=== PATIENT | male | born 1940 | race Caucasian/White ===

== ENCOUNTER 2020-07-10 20:00 | Outpatient (CLI) | payer OTHER, SELFPAY | END 2020-07-10 20:01 | disposition home or self-care (01) | LOC: SLEEP 07-11 09:04 | PROVIDERS: Visit Provider Family Medicine | DX: G47.33 Obstructive sleep apnea (adult) (pediatric) (principal) | CPT/HCPCS: 95810 ==

== ENCOUNTER 2020-12-25 15:30 | Emergency (ER) | payer OTHER, SELFPAY ==
[2020-12-25] VITALS (9 sets, daily range): BP systolic 105–134; BP diastolic 57–81; PULSE 62–85; RESP 18–39; TEMP 36.7–39.6; O2SAT 86–95; BMI 27.6
--- NOTE | 2020-12-25 16:15 | XRR_ITS ---
PROCEDURE INFORMATION: Exam: XR Chest Exam date and time: 12/25/2020 4:15 PM Age: 80 years old Clinical indication: Cough and fever and shortness of breath; Additional info: Fever, reduced breath sounds, cough TECHNIQUE: Imaging protocol: XR of the chest. Views: 1 view. COMPARISON: No relevant prior studies available. FINDINGS: Lungs: Coarsened increased reticular interstitial lung changes bilaterally. Patchy ground-glass opacities are present in the right upper lobe and to a lesser extent left lung base. Pleural spaces: Unremarkable. No pleural effusion. No pneumothorax. Heart/Mediastinum: Mild cardiomegaly. Bones/joints: Right shoulder reverse arthroplasty. Severe osteoarthritis of left shoulder. The thoracic spine demonstrates moderate degenerative changes at multiple levels. XR/XR chest 1V portable [id number] IMPRESSION: Suspect patchy bilateral nonspecific pneumonia features.
--- NOTE | 2020-12-25 16:20 | ECG_ITS ---
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 Measurements Intervals [place] Rate: 78 P: 5 [place]: 183 QRS: -22 QRSD: 97 T: 0 QT: 372 QTc: 424 Interpretive Statements SINUS RHYTHM BORDERLINE LEFT AXIS DEVIATION [QRS AXIS < -20] No previous ECG available for comparison Electronically Signed On 12-25-2020 22:07:31 CDT by Leigha Mendoza M.D. [email or web address] Coffee Companymerit health woman's hospitalClearMRI Solutionsmercy health st[facility].Vividolabs/store/NU/[id number] f
[2020-12-25 16:51] LABS: Basophils % 0.3 %; Hematocrit 44.6 % (42.0-52.0); Hemoglobin 15.3 g/dL (11.7-16.6); Lymphocytes # 0.6 10^3/uL (0.8-4.8); Lymphocytes % 5.3 %; Mean Corpuscular HGB Conc 34.3 g/dL (30.0-36.0); Mean Corpuscular Volume 87.5 fL (80-94); Mean Platelet Volume 11.1 fL (7.4-10.4); Monocytes # 0.9 10^3/uL (0.2-0.9); Monocytes % 8.2 %; Neutrophils # 9.67 10^3/uL (1.8-7.7); Neutrophils % 85.8 %; Nucleated Red Blood Cells % 0 %; Platelet Count 181 10^3/cmm (130-400); Red Cell Distribution Width 13.1 % (12.1-15.1); White Blood Count 11.3 10^3/uL (4.0-10.0)
--- NOTE | 2020-12-25 17:00 | PC.PHAR ---
PT STATES HE TAKES CARE OF HIS OWN MEDICATIONS-PT STATES HE TAKES ABOUT 30 OTC VITAMINS-PT NAMED OFF SOME AND THOSE ARE ENTERED-PT STATES HE CANT REMEMBER THE NAMES OF THE OTHER VITAMINS- CALLED PTS TO VERIFY OTHER OTC MEDS NO ANSWER-PT STATES HE HASNT TAKEN HIS TRIAMTERENE-HCTZ FOR A FEW DAYS
[2020-12-25 17:12] LABS: Troponin(5th) Baseline 22 ng/L (0-15)
[2020-12-25 17:16] LABS: Alanine Aminotransferase 35 U/L (0-41); Albumin Level 3.9 g/dL (3.5-5.2); Alkaline Phosphatase 58 IU/L (40-130); Anion Gap 15.3 (5-19); Aspartate Amino Transferase 55 U/L (0-40); Blood Urea Nitrogen 20 mg/dL (8-23); Carbon Dioxide 29 mmol/L (22-29); Chloride 93 mmol/L (98-107); Globulin 2.6 g/dL (1.3-4.6); Glucose 142 mg/dL (65-115); NT Pro B Type Natriuretic Pept 361 pg/mL (0-450); Osmolality Calculated 283 mOsm/kg (285-295); Potassium 3.3 mmol/L (3.5-5.1); Sodium 134 mmol/L (136-145); Total Bilirubin 0.9 mg/dL (0.15-1.2); Total Protein 6.5 g/dL (6.6-8.7)
[2020-12-25] MEDS: sodium chloride 0.9% 1,000 ML 999 ML IV (17:16)
[2020-12-25] MEDS: acetaminophen 500 mg Tablet 1000 MG PO (17:16)
[2020-12-25] MEDS: albuterol 8 gm MDI 2 PUFF INHALATION (17:28)
[2020-12-25 17:36] LABS: SARS Covid-2 Antigen Positive (Negative)
[2020-12-25 17:41] LABS: D Dimer 1.58 ug/mIFEU (0-0.59)
[2020-12-25 17:44] LABS: ABG PCO2 33.2 mmHg (35-45); ABG PH Result 7.53 (7.35-7.45); Arterial Blood Gas Hematocrit 43.7 % (42-52); Base Excess ABG 5.5 mmol/L (-2.0-2.0); Blood Gas Operator Identificat GD; Blood Gas Sample Site Brachial, left; Blood Gas Sample Type Arterial; HCO3 ABG 27.9 mmol/L (22-26); HGB O2 Sat 93.8 % (95-100); Methemoglobin 0.8 % (0.4-1.5); Oxygen Device NC; PO2 ABG 69.7 mmHg (80.0-100.0); Total Hemoglobin 14.2 g/dL (14-18)
[2020-12-25 17:45] LABS: Lactate (Lactic Acid level) 1.4 mmol/L (0.5-2.2)
--- NOTE | 2020-12-25 18:15 | CTR_ITS ---
PROCEDURE INFORMATION: Exam: CTA Chest With Contrast Exam date and time: 12/25/2020 6:15 PM Age: 80 years old Clinical indication: Cough and shortness of breath; Additional info: Covid+. Pe? TECHNIQUE: Imaging protocol: Computed tomographic angiography of the chest with contrast. 3D rendering (Not supervised by radiologist): MIP and/or 3D reconstructed images were created by the technologist. Radiation optimization: All CT scans at this facility use at least one of these dose optimization techniques: automated exposure control; mA and/or kV adjustment per patient size (includes targeted exams where dose is matched to clinical indication); or iterative reconstruction. Contrast material: OMNI 300; Contrast volume: 63 ml; Contrast route: INTRAVENOUS (IV); COMPARISON: CR XR chest 1V portable [id number] 12/25/2020 4:43 PM RADIATION DOSE METRICS: Total DLP (mGy-cm): 618.72 FINDINGS: Pulmonary arteries: Normal. No pulmonary emboli. Aorta: Unremarkable. No aortic aneurysm. No aortic dissection. Lungs: Patchy scattered irregular ground-glass lesions throughout both lungs, greater on right than left. Negative for endobronchial obstruction. Negative for peripheral honeycombing. Negative for bronchiectasis. Pleural spaces: Unremarkable. No pneumothorax. No pleural effusion. Heart: Unremarkable. No cardiomegaly. No pericardial effusion. Lymph nodes: Unremarkable. No enlarged lymph nodes. Liver: Small simple cysts in the left hepatic lobe. Bones/joints: Unremarkable. No acute fracture. Soft tissues: Unremarkable. CT/CT angio chest PE protcl [id number] IMPRESSION: 1. Negative for pulmonary embolism. 2. Patchy bilateral airspace disease process. 3. Commonly reported imaging features of COVID-19 pneumonia are present. Other processes such as influenza pneumonia and organizing pneumonia, as can be seen with drug toxicity and connective tissue disease, can cause a similar imaging pattern. (Reference: Jasvir) REFERENCES: Jasvir Vu, et al., Radiological Society of [place] Expert Consensus Statement on Reporting Chest CT Findings Related to COVID-19. Endorsed by the Society of Thoracic Radiology, the [place], and RSNA. Published August 25, 2019. Radiation Dose CTDIVOL = (mGy): DLP = 618.72 (mGy-cm)
--- NOTE | 2020-12-25 18:20 | ECG_ITS ---
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 Measurements Intervals [place] Rate: 67 P: 12 [place]: 174 QRS: -17 QRSD: 106 T: 3 QT: 422 QTc: 448 Interpretive Statements SINUS RHYTHM Compared to ECG 12/25/2020 17:28:55 No significant changes Electronically Signed On 12-25-2020 22:18:08 CDT by Leigha Mendoza M.D. [email or web address]/[id number]
[2020-12-25] MEDS: iohexol 350 mg/mL 100 mL Btl IV (18:27)
[2020-12-25] MEDS: levofloxacin-dextrose 5 % 750 MG/150 ML PREMIX 100 MG IV (18:38)
[2020-12-25 20:04] LABS: Troponin 5 2HR 19.28 ng/L (0-15)
[2020-12-25 20:08] LABS: Troponin 5 2HR Delta -2.72 ABS# (0-10)
[2020-12-25 20:36] LABS: Add Urine Culture? No; Add Urine Microscopic? YES; Amorphous Sediment Urine 1+ /hpf; Bacteria Urine TRACE /hpf; Bilirubin Urine 1+ (Negative); Blood Urine 2+ (Negative); Glucose Urine UA Norm (Normal); Ketones Urine Negative (Negative); Leukocyte Esterase Urine Negative (Negative); Nitrate Urine Negative (Negative); Protein Urine 1+ (Negative); RBC Urine 0-4 /hpf (0-2); Specific Gravity, Urine 1.005 (1.005-1.030); Squamous Epithelial Cell Urine 0-4 /hpf (0-5); Urine Appearance Clear (CLEAR); Urine Color Amber (Yellow); Urobilinogen Urine 4 mg/dL (Negative); pH Urine 6.5 (5-7)
--- NOTE | 2020-12-25 21:14 | ED_ITS ---
HPI - COVID General: Chief Complaint: COVID symptoms Stated Complaint: low o2, confusion, fatigue Time Seen by Provider: 12/25/20 16:05 Triage information: Has fever, cough or shortness of breath . No known COVID + exposure last 14 days History of Present Illness: HPI Narrative: The patient is an 80-year-old male with no significant past medical history who comes to the ER complaining of shortness of breath for the past 7 days. He just came back from a road trip and is feeling slightly worse. Notes he has had a low oxygen saturation at home in the 80s. [facility]. He is complaining of other Covid symptoms fatigue, mild confusion, and he has some darkness in the center of his visual riddle when he wakes up in the mornings. He has known history of macular degeneration. He has a fever of 101 on arrival satting 88% on room air. Placed on nasal cannula oxygen. COVID 19 common symptoms: negative non-productive cough, productive cough, dyspnea, fatigue, headache(s), throat pain, nasal congestion or diarrhea COVID 19 other sytmptoms: negative chest pain or confusion COVID Results: SARS-CoV-2 Antigen (Rapid) Positive (Negative) H 12/25/20 16:36 12/25/20 Review of Systems General: Reports: 10 or more systems reviewed and unremarkable except in HPI and below Const: Denies: fatigue Eyes: Denies: change in vision, blurry vision or eye redness ENMT: Denies: throat pain, swelling of lips/tongue, ear or mastoid pain or nasal congestion Card: Denies: chest pain, palpitations, irregular heart rhythm, edema, dyspnea on exertion or orthopnea Resp: Denies: dyspnea, productive cough or non-productive cough GI: Denies: abdominal pain, diarrhea or GI cramping : Denies: flank pain, urinary frequency or urinary urgency Musc: Denies: neck pain, back pain, extremity pain, joint pain, joint redness, limited range of motion or muscle weakness Skin/Breast: Denies: rash, pruritus, erythema, skin pain or skin tenderness Neuro: Denies: headache(s), numbness in extremities, weakness in extremities, sensory changes, difficulty walking, dizziness, confusion or Slurred speech present Psych: Denies: anxiety or depression Endo: Denies: polyuria All/Imm: Denies: urticaria, throat swelling or tongue swelling Physical Exam Narrative: EXAM NARRATIVE: Febrile otherwise normal. No respiratory distress. Const: COMMON NORMALS: no acute distress, average body habitus, patient oriented x3, no limitations, healthy appearing, alert and well nourished GENERAL APPEARANCE: cooperative, comfortable, well kempt and well developed ORIENTATION/CONSCIOUSNESS: Yes awake, Yes oriented to person, Yes oriented to place and Yes oriented to time HENMT: COMMON NORMALS: normocephalic, external ears normal and Normal external nose present HEAD & SCALP: normal to inspection and normocephalic NOSE: Normal external nose present EXTERNAL EAR: Yes external ears normal MOUTH: Normal oral and palatal mucosa present THROAT: posterior oropharynx normal Eye: COMMON NORMALS: Equal, round and reactive pupils present and EOMs intact bilaterally GENERAL EYE: appearance normal, both eyes and all related structures PUPIL: Yes Equal, round and reactive pupils present Neck/C-Spine: COMMON NORMALS: full ROM, no lymphadenopathy, no meningeal signs and no JVD GENERAL: Yes normal visual inspection Lymph: LYMPHATIC: no lymphadenopathy noted Chest: COMMONS NORMALS: normal inspection of the chest and normal palpation of entire chest wall Resp: COMMON NORMALS: normal respiratory effort, No retractions, No use of accessory muscles, clear to auscultation bilaterally and percussion normal EFFORT & INSPECTION: Yes able to speak in complete sentences AUSCULTATION: clear to auscultation bilaterally PERCUSSION: percussion normal OTHER: Slightly reduced breath sounds though no adventitious sounds Cardio: COMMON NORMALS: no JVD, regular rate, regular rhythm, S1 normal heart sound present, S2 normal heart sound present and Peripheral pulses 2+ throughout RATE: regular rate RHYTHM: regular rhythm HEART SOUNDS: S1 normal heart sound present and S2 normal heart sound present PERIPHERAL PULSES: Peripheral pulses 2+ throughout GI: COMMON NORMALS: Normal to inspection, nondistended, normoactive bowel sounds present, Soft to palpation, non-tender and no masses INSPECTION: Yes normal to inspection PALPATION: Yes Soft to palpation : COMMON NORMALS: Yes no CVA tenderness BLADDER/KIDNEY EXAM: Yes no CVA tenderness Back/Pelvis: COMMON NORMALS: no CVA tenderness, thoracic and lumbar spine normal to inspection, no thoracic nor lumbar tenderness and thoraco-lumbar ROM normal Extremity: COMMON NORMALS: normal to inspection, full ROM, capillary refill normal, no joint enlargement and no pedal edema GENERAL: Yes normal exam except as noted Neuro: COMMON NORMALS: patient oriented x3, CN's II-XII intact bilaterally, moves all extremities, no focal motor deficits, no sensory deficits noted and gait normal SENSORIUM/ORIENTATION: Yes alert, Yes oriented to person, Yes oriented to place and Yes oriented to time MENINGEAL SIGNS: Yes no meningeal signs Psych: COMMON NORMALS: mental status grossly normal, Normal thought process present, cooperative, normal affect and speech normal APPEARANCE: Yes well kempt ATTITUDE: Yes calm SPEECH: Yes normal speech THOUGHT PROCESS: Normal thought process present Skin: COMMON NORMALS: no rashes or lesions noted GENERAL SKIN EXAM: no rashes or lesions noted Course Vital Signs: Vital signs: Vital Signs Temperature 98.1 F 12/25/20 19:46 Pulse Rate 62 12/25/20 22:29 Respiratory Rate 18 12/25/20 22:29 Blood Pressure 132/81 12/25/20 22:29 Pulse Oximetry 95 12/25/20 22:29 MDM - COVID MDM Narrative: Medical decision making narrative: The patient came to the ER complaining of several days of shortness of breath satting 80s at home on a pulse oximeter. He swabbed positive for Covid. Imaging also showed changes consistent with Covid. His lung sounds were clear and he absolutely denies merlyn rtness of breath despite satting 88 to 89% on room air. He qualified for home oxygen and was sent home on 3 L by nasal cannula. He is having absolutely no difficulty breathing and is requesting discharge. Because he is requiring oxygen he does not qualify for antibiotic infusion. He has been comfortable in the ER 4 hours on 2 to 3 L of oxygen and is stable for discharge home. He will return to the ER with worsening symptoms at any time and monitor his oxygen with a pulse oximeter. He was sent home with prednisone, albuterol, and levofloxacin. Lab Data: Labs: Lab Results 12/25/20 12/25/20 12/25/20 Range/Units 16:36 16:39 16:39 WBC 11.3 H (4.0-10.0) 10^3/ uL RBC 5.10 (4.1-5.3) 10^6/u L Hgb 15.3 (11.7-16.6) g/dL Hct 44.6 (42.0-52.0) % MCV 87.5 (80-94) fL MCH 30.0 (28.0-34.0) pg MCHC 34.3 (30.0-36.0) g/dL RDW 13.1 (12.1-15.1) % Plt Count 181 (130-400) 10^3/c mm MPV 11.1 H (7.4-10.4) fL Neut % (Auto) 85.8 % Lymph % (Auto) 5.3 % Hemphill % (Auto) 8.2 % Eos % (Auto) 0.0 % Baso % (Auto) 0.3 % Neut # (Auto) 9.67 H (1.8-7.7) 10^3/u L Lymph # (Auto) 0.6 L (0.8-4.8) 10^3/u L Hemphill # (Auto) 0.9 (0.2-0.9) 10^3/u L Eos # (Auto) 0.0 (0.0-0.8) 10^3/u L Baso # (Auto) 0.0 (0.0-0.1) 10^3/u L Nucleated RBC % (a uto) 0 % Nucleated RBCs # 0.0 /100WBC D-Dimer (0-0.59) ug/mIFE U Specimen Type Sample Site ABG pH (7.35-7.45) ABG pCO2 (35-45) mmHg ABG pO2 (80.0-100.0) mmH g ABG HCO3 (22-26) mmol/L ABG Base Excess (-2.0-2.0) mmol/ L Oswaldo Test Hematocrit (42-52) % Hgb O2 Saturation (95-100) % Carboxyhemoglobin (0.4-20.1) %THgb Methemoglobin (0.4-1.5) % Total Hemoglobin (14-18) g/dL O2 Delivery Device O2 Liters/Min % FiO2 % Greenhouse Worker ID Sodium 134 L (136-145) mmol/L Potassium 3.3 L (3.5-5.1) mmol/L Chloride 93 L (98-107) mmol/L Carbon Dioxide 29 (22-29) mmol/L Anion Gap 15.3 (5-19) BUN 20 (8-23) mg/dL Creatinine 1.1 (0.7-1.2) mg/dL GFR Calculation Not Reportable Glucose 142 H (65-115) mg/dL Calculated Osmolal ity 283 L (285-295) mOsm/k g Lactate (0.5-2.2) mmol/L Calcium 8.0 L (8.5-10.5) mg/dL Total Bilirubin 0.9 (0.15-1.2) mg/dL AST 55 H (0-40) U/L ALT 35 (0-41) U/L Alkaline Phosphata se 58 (40-130) IU/L Troponin T Baselin e (0-15) ng/L Troponin T 120 Min [place] (0-15) ng/L Delta Troponin T (0-10) ABS# NT-Pro-B Natriuret Pep 361 (0-450) pg/mL Total Protein 6.5 L (6.6-8.7) g/dL Albumin 3.9 (3.5-5.2) g/dL Globulin 2.6 (1.3-4.6) g/dL Urine Color (Yellow) Urine Appearance (CLEAR) Urine pH (5-7) Ur Specific Gravit y (1.005-1.030) Urine Protein (Negative) Urine Glucose (UA) (Normal) Urine Ketones (Negative) Urine Blood (Negative) Urine Nitrate (Negative) Urine Bilirubin (Negative) Urine Urobilinogen (Negative) mg/dL Ur Leukocyte Yolette ase (Negative) Urine RBC (0-2) /hpf Urine WBC (0-5) /hpf Ur Squamous Epith Cells (0-5) /hpf Amorphous Sediment /hpf Urine Bacteria (NONE) /hpf SARS-CoV-2 Ag (Rap id) Positive H (Negative) 12/25/20 12/25/20 12/25/20 Range/Units 16:39 17:24 17:24 WBC (4.0-10.0) 10^3/ uL RBC (4.1-5.3) 10^6/u L Hgb (11.7-16.6) g/dL Hct (42.0-52.0) % MCV (80-94) fL MCH (28.0-34.0) pg MCHC (30.0-36.0) g/dL RDW (12.1-15.1) % Plt Count (130-400) 10^3/c mm MPV (7.4-10.4) fL Neut % (Auto) % Lymph % (Auto) % [place] % (Auto) % Eos % (Auto) % Baso % (Auto) % Neut # (Auto) (1.8-7.7) 10^3/u L Lymph # (Auto) (0.8-4.8) 10^3/u L [place] # (Auto) (0.2-0.9) 10^3/u L Eos # (Auto) (0.0-0.8) 10^3/u L Baso # (Auto) (0.0-0.1) 10^3/u L Nucleated RBC % (a uto) % Nucleated RBCs # /100WBC D-Dimer 1.58 H (0-0.59) ug/mIFE U Specimen Type Sample Site ABG pH (7.35-7.45) ABG pCO2 (35-45) mmHg ABG pO2 (80.0-100.0) mmH g ABG HCO3 (22-26) mmol/L ABG Base Excess (-2.0-2.0) mmol/ L Oswaldo Test Hematocrit (42-52) % Hgb O2 Saturation (95-100) % Carboxyhemoglobin (0.4-20.1) %THgb Methemoglobin (0.4-1.5) % Total Hemoglobin (14-18) g/dL O2 Delivery Device O2 Liters/Min % FiO2 % Greenhouse Worker ID Sodium (136-145) mmol/L Potassium (3.5-5.1) mmol/L Chloride (98-107) mmol/L Carbon Dioxide (22-29) mmol/L Anion Gap (5-19) BUN (8-23) mg/dL Creatinine (0.7-1.2) mg/dL GFR Calculation Glucose (65-115) mg/dL Calculated Osmolal ity (285-295) mOsm/k g Lactate 1.4 (0.5-2.2) mmol/L Calcium (8.5-10.5) mg/dL Total Bilirubin (0.15-1.2) mg/dL AST (0-40) U/L ALT (0-41) U/L Alkaline Phosphata se (40-130) IU/L Troponin T Baselin e 22 H (0-15) ng/L Troponin T 120 Min [place] (0-15) ng/L Delta Troponin T (0-10) ABS# NT-Pro-B Natriuret Pep (0-450) pg/mL Total Protein (6.6-8.7) g/dL Albumin (3.5-5.2) g/dL Globulin (1.3-4.6) g/dL Urine Color (Yellow) Urine Appearance (CLEAR) Urine pH (5-7) Ur Specific Gravit y (1.005-1.030) Urine Protein (Negative) Urine Glucose (UA) (Normal) Urine Ketones (Negative) Urine Blood (Negative) Urine Nitrate (Negative) Urine Bilirubin (Negative) Urine Urobilinogen (Negative) mg/dL Ur Leukocyte Yolette ase (Negative) Urine RBC (0-2) /hpf Urine WBC (0-5) /hpf Ur Squamous Epith Cells (0-5) /hpf Amorphous Sediment /hpf Urine Bacteria (NONE) /hpf SARS-CoV-2 Ag (Rap id) (Negative) 12/25/20 12/25/20 12/25/20 Range/Units 17:28 19:22 20:22 WBC (4.0-10.0) 10^3/ uL RBC (4.1-5.3) 10^6/u L Hgb (11.7-16.6) g/dL Hct (42.0-52.0) % MCV (80-94) fL MCH (28.0-34.0) pg MCHC (30.0-36.0) g/dL RDW (12.1-15.1) % Plt Count (130-400) 10^3/c mm MPV (7.4-10.4) fL Neut % (Auto) % Lymph % (Auto) % [place] % (Auto) % Eos % (Auto) % Baso % (Auto) % Neut # (Auto) (1.8-7.7) 10^3/u L Lymph # (Auto) (0.8-4.8) 10^3/u L [place] # (Auto) (0.2-0.9) 10^3/u L Eos # (Auto) (0.0-0.8) 10^3/u L Baso # (Auto) (0.0-0.1) 10^3/u L Nucleated RBC % (a uto) % Nucleated RBCs # /100WBC D-Dimer (0-0.59) ug/mIFE U Specimen Type Arterial Sample Site Brachial, left ABG pH 7.53 H (7.35-7.45) ABG pCO2 33.2 L (35-45) mmHg ABG pO2 69.7 L (80.0-100.0) mmH g ABG HCO3 27.9 H (22-26) mmol/L ABG Base Excess 5.5 H (-2.0-2.0) mmol/ L Oswaldo Test N/a Hematocrit 43.7 (42-52) % Hgb O2 Saturation 93.8 L (95-100) % Carboxyhemoglobin 1.0 (0.4-20.1) %THgb Methemoglobin 0.8 (0.4-1.5) % Total Hemoglobin 14.2 (14-18) g/dL O2 Delivery Device Nc O2 Liters/Min 2.0 % FiO2 28.0 % Greenhouse Worker ID Gd Sodium (136-145) mmol/L Potassium (3.5-5.1) mmol/L Chloride (98-107) mmol/L Carbon Dioxide (22-29) mmol/L Anion Gap (5-19) BUN (8-23) mg/dL Creatinine (0.7-1.2) mg/dL GFR Calculation Glucose (65-115) mg/dL Calculated Osmolal ity (285-295) mOsm/k g Lactate (0.5-2.2) mmol/L Calcium (8.5-10.5) mg/dL Total Bilirubin (0.15-1.2) mg/dL AST (0-40) U/L ALT (0-41) U/L Alkaline Phosphata se (40-130) IU/L Troponin T Baselin e (0-15) ng/L Troponin T 120 Min [place] 19.28 H (0-15) ng/L Delta Troponin T -2.72 L (0-10) ABS# NT-Pro-B Natriuret Pep (0-450) pg/mL Total Protein (6.6-8.7) g/dL Albumin (3.5-5.2) g/dL Globulin (1.3-4.6) g/dL Urine Color Maryana (Yellow) Urine Appearance Clear (CLEAR) Urine pH 6.5 (5-7) Ur Specific Gravit y 1.005 (1.005-1.030) Urine Protein 1+ H (Negative) Urine Glucose (UA) Norm (Normal) Urine Ketones Negative (Negative) Urine Blood 2+ H (Negative) Urine Nitrate Negative (Negative) Urine Bilirubin 1+ H (Negative) Urine Urobilinogen 4 H (Negative) mg/dL Ur Leukocyte Yolette ase Negative (Negative) Urine RBC 0-4 H (0-2) /hpf Urine WBC 5-10 H (0-5) /hpf Ur Squamous Epith Cells 0-4 H (0-5) /hpf Amorphous Sediment 1+ /hpf Urine Bacteria Trace (NONE) /hpf SARS-CoV-2 Ag (Rap id) (Negative) COVID Results: SARS-CoV-2 Antigen (Rapid) Positive (Negative) H 12/25/20 16:36 12/25/20 Discharge Plan Discharge Patient Disposition: Home Clinical Impression: COVID-19 Condition: Stable Prescriptions: New levofloxacin 750 mg tablet 750 mg PO DAILY 10 Days Qty: 10 RF: 0 Medrol (Ramana) 4 mg tablets,dose pack See Rx Instructions .ROUTE .COMPLEX Qty: 21 RF: 0 albuterol sulfate 90 mcg/actuation HFA aerosol inhaler 2 inh inhalation Q6H PRN (Reason: shortness of breath or wheezing) 30 Days RF: 0 No Action multivitamin Tablet 1 tab PO DAILY RF: 0 triamterene-hydrochlorothiazid 75-50 mg Tablet 1 tab PO DAILY RF: 0 vitamin B complex Tablet 1 tab PO DAILY RF: 0 Vitamin B-12 1 tab PO DAILY RF: 0 Vitamin C 1 tab PO DAILY RF: 0 Vitamin D3 1 tab PO DAILY RF: 0 vitamin A 1 cap PO DAILY RF: 0 vitamin E 1 tab PO DAILY RF: 0 Other Multiple Otc Vitamins See Rx Instructions .ROUTE .COMPLEX RF: 0 Discharge Orders: Discharge ED (Routine); Ordered 12/25/20 Ordered By: Lamont Queen Other Ambulatory Orders: DME: Oxygen (Order) Location: None Selected Ordered By: Lamont Queen Discharge Diet: Advance as tolerated Discharge Activity: Resume usual activity Patient Instructions: Upper Respiratory Infection (ED), Opioid Safety, Pneumonia - Viral Activity Restrictions/Additional Instructions: You have COVID-19 with pneumonia. Please take the antibiotics, steroids, and albuterol inhaler to help you with your symptoms. Return to the ER at anytime with worsening symptoms. Follow-up with your primary care physician in a couple days and return to the ER at anytime with worsening symptoms. Please use a pulse oximeter at home to monitor your oxygen level and wear the 3 L oxygen and nasal cannula until you are symptoms have resolved. If your oxygen dips below 90 or you feel short of breath or have any worrisome or worsening symptoms return to the ER at any time. Coding Level of Care Code ED Clinical Dermatologist for Susy Yi
[2020-12-25] MEDS: dexamethasone 4 mg/mL INJ 6 MG IVP (21:18)
--- NOTE | 2020-12-26 10:49 | DCPLANNER ---
valet manager had message to schedule a tele health visit for patient. valet manager called patient at phone number [phone], unable to speak with patient at this time. valet manager left a voicemail for patient to return geriatric case manager phone call.
== END 2020-12-25 22:30 | disposition home or self-care (01) ==
PROVIDERS: Emergency Provider Family Medicine
DX: U07.1 COVID-19 (principal)
CPT/HCPCS: 36600; 71045; 71275; 80053; 81001; 82805; 83605; 83880; 84484; 85025; 85378; 87426; 93005; 94640; 96365; 96375; 99284; J1100; J1956; J3535; J7030; Q9967

== ENCOUNTER 2020-12-28 18:40 | Inpatient (IN) | payer OTHER, MEDICARE, SELFPAY ==
--- NOTE | 2020-12-28 18:52 | XRR_ITS ---
PROCEDURE INFORMATION: Exam: XR Chest Exam date and time: 12/28/2020 6:52 PM Age: 80 years old Clinical indication: Device placement; Ett placement (vent status); Patient HX: Et tube placement and central line placement; Additional info: Intubated TECHNIQUE: Imaging protocol: XR of the chest. Views: 1 view. COMPARISON: CR XR chest 1V portable [id number] 12/25/2020 4:43 PM FINDINGS: The lung opacities have mildly worsened in the left lung and slightly improved in the right lung. An ETT has been placed terminating 5 cm above the kristofer. A right IJ central venous catheter has also been inserted with its tip in the SVC. No other significant change. No pneumothorax. XR/XR chest 1V portable [id number] IMPRESSION: 1. Mild worsening of the left lung opacities and slight improvement of the right lung opacities. 2. Interval insertions of an ETT and a right IJ central venous catheter. No pneumothorax.
--- NOTE | 2020-12-28 18:54 | ECG_ITS ---
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 Measurements Intervals [place] Rate: 109 P: 166 GA: 224 QRS: 72 QRSD: 218 T: 60 QT: 376 QTc: 507 Interpretive Statements ECTOPIC ATRIAL TACHYCARDIA WITH FIRST DEGREE AV BLOCK RIGHT BUNDLE BRANCH BLOCK MARKED ST ELEVATION, CONSIDER LATERAL INJURY Compared to ECG 12/25/2020 19:05:23 First degree AV block now present Right bundle-branch block now present ST (T wave) deviation now present Myocardial infarct finding now present Sinus rhythm no longer present Electronically Signed On 01-01-2021 0:21:52 CDT by Leigha Mendoza M.D. [id number]
[2020-12-28] MEDS: sodium chloride 0.9% 1,000 ML 999 ML IV (19:00)
--- NOTE | 2020-12-28 19:12 | ED_ITS ---
HPI - General Adult General: Chief complaint: COVID symptoms Stated complaint: PT PASSED OUT/UNREPONSIVE Time Seen by Provider: 12/28/20 18:50 History of Present Illness: HPI narrative: Mr. Chavez presented via private vehicle unresponsive. He was diagnosed with Covid on December 25. He was short of breath and had a cough and his had a pulse oximeter in which she noted his saturations were in the 80s at that time. He had been at a camp in in [place] prior to that. He nor his are vaccinated. He had been weak the last few days. He is normally on CPAP and was not able to wear the CPAP with oxygen on. [facility] to get [facility] without success. Today he was not as good as he had been and at one point he looked pretty bad. His checks his pulse oximetry and it was in the 70s on oxygen therapy. She turned the oxygen up but he continued to be short of breath. She got him to the car home saw herself and brought him into the ER. When she transferred him from the car to the wheelchair he passed out. She quickly wheeled him into the ER for evaluation. Patient arrived he had was unresponsive. When he is well in the room patient was pulseless and pulse ox was in the 50s. Review of Systems General: Reports: ROS unobtainable due to mental status Physical Exam Const: COMMON NORMALS: negative for patient oriented x3 OTHER: Unresponsive and pulseless HENMT: COMMON NORMALS: normocephalic and atraumatic HEAD & SCALP: normocephalic and atraumatic Eye: COMMON NORMALS: Equal, round and reactive pupils present and EOMs intact bilaterally PUPIL: Yes Equal, round and reactive pupils present Neck/C-Spine: COMMON NORMALS: full ROM and supple Chest: COMMONS NORMALS: normal inspection of the chest and normal palpation of entire chest wall Resp: OTHER: Patient is currently unresponsive and not breathing pulse ox 50% Cardio: OTHER: Patient is pulseless GI: COMMON NORMALS: Normal to inspection, nondistended, normoactive bowel sounds present, Soft to palpation, non-tender and no masses PALPATION: Yes Soft to palpation Extremity: COMMON NORMALS: normal to inspection and full ROM Neuro: COMMON NORMALS: negative for patient oriented x3, negative for moves all extremities and negative for no focal motor deficits Psych: COMMON NORMALS: cooperative; negative for mental status grossly normal and negative for Normal thought process present THOUGHT PROCESS: abnormal Skin: COMMON NORMALS: no rashes or lesions noted and no wounds GENERAL SKIN EXAM: no rashes or lesions noted Procedures Central Line Placement Right IJ: Time Out Performed: Yes Patient Placed on Monitor/Pulse Ox: Yes MD Prep: mask, gown and gloves Central Line Prep: Povidone-Iodine 1% Ultrasound Used for Placement: Yes Central Line Lumen Inserted: triple Post Procedure: sutured in place, good blood return, all ports aspirated, flushed, capped and sterile dressing applied Post Procedure X-Ray: tip of catheter in good position Patient Tolerated Procedure: well Complications: none Intubation Time out performed: Yes sedative: none Laryngoscope: Ana ET Tube Size: 8 ET Tube Uncuffed: No Tube Secured Depth (cm): 26 Tube Secured Location: lips Tube Placement Confirmation: visualized tube passing through cords, equal breath sounds bilaterally, no breath sounds over epigastrium and confirmation by capnometry Patient Tolerated Procedure: well Intubation Complications: none Course ED course: Prior patient initially arrived CODE BLUE was a started. And abated patient patient was given epinephrine did have return of pulses then went to V. tach with pulses. Patient was shocked twice at 200 J and given 300 mg of amiodarone 100 mg lidocaine and converted into a sinus rhythm. Central line was placed as well. Patient's pulse ox is now 95% patient's blood pressure has normalized. Vital Signs: Vital signs: Vital Signs Pulse Rate 123 H 12/28/20 19:33 Respiratory Rate 30 H 12/28/20 19:33 Blood Pressure 159/92 12/28/20 19:33 Pulse Oximetry 45 L 12/28/20 19:34 MDM - General Adult MDM Narrative: Medical decision making narrative: Patient presented here unresponsive hypoxic and then went to arrest that was cardiac versus likely respiratory arrest. Patient given epinephrine and had return of pulses but went to V. tach and was cardioverted with 2 shocks along with amiodarone and lidocaine. Patient's improved here. His blood pressure has dropped slightly could be due to propofol and will turn propofol off and started Levophed drip. Patient does have a central line as well. I spoke to the hospitalist and will admit to the ICU here. Lab Data: Labs: Lab Results 0712/28/20 12/28/20 Range/Units 19:00 19:11 19:11 WBC 31.1 H* (4.0-10.0) 10^3/ uL RBC 4.48 (4.1-5.3) 10^6/u L Hgb 13.4 (11.7-16.6) g/dL Hct 41.9 L (42.0-52.0) % MCV 93.5 (80-94) fL MCH 29.9 (28.0-34.0) pg MCHC 32.0 (30.0-36.0) g/dL RDW 13.7 (12.1-15.1) % Plt Count 287 (130-400) 10^3/c mm MPV 10.8 H (7.4-10.4) fL Lymph % (Auto) Not Reportable [place] % (Auto) Not Reportable Lymph # (Auto) Not Reportable [place] # (Auto) Not Reportable Total Counted 100 (0-100) Atypical Lymphs % 0.0 (0-5) % Absolute Neutrophi ls 27.4 H (1.4-6.5) 10^3/c mm Segmented Neutroph ils 78 % Abs Segm Neuts (Ma n) 24.3 H (1.6-7.1) 10/cmm Band Neutrophils 10.0 % Abs Band Neuts (Ma n) 3.1 H (0.0-1.2) 10^3/c mm Absolute Lymphocyt es 2.2 (1.2-3.4) 10^3/c mm Lymphocytes (Manua l) 7 % Monocytes (Manual) 0.0 % Absolute Monocytes 0.0 L (0.1-0.6) 10^3/c mm Eosinophils (Manua l) 0 % Absolute Eosinophi ls 0.0 (0.0-0.7) 10^3/c mm Basophils (Manual) 0.0 % Absolute Basophils 0.0 (0.0-0.2) 10^3/c mm Metamyelocytes 4.0 % Myelocytes 1.0 % Platelet Estimate Normal (Normal) Specimen Type Arterial ABG pH 7.05 L* (7.35-7.45) ABG pCO2 44.5 (35-45) mmHg ABG pO2 157.0 H (80.0-100.0) mmH g ABG HCO3 12.2 L (22-26) mmol/L ABG O2 Saturation 97.4 ABG Base Excess -18.0 L (-2.0-2.0) mmol/ L Oswaldo Test Pos A-a O2 Gradient Not Reportable Hematocrit 45.2 (42-52) % Hgb O2 Saturation 96.5 (95-100) % Carboxyhemoglobin 0.3 L (0.4-20.1) %THgb Methemoglobin 0.6 (0.4-1.5) % Total Hemoglobin 14.8 (14-18) g/dL Sodium 136.0 135 L (131-143) mmol/L Potassium 3.7 3.1 L (3.5-5.0) mmol/L Glucose 284.0 H 266 H (70-115) mg/dL Ionized Calcium 1.1 (1.1-1.4) mmol/L Director Inpatient Headache Program ID rp Chloride 92 L (98-107) mmol/L Carbon Dioxide 11 L (22-29) mmol/L Anion Gap 35.1 H (5-19) BUN 23 (8-23) mg/dL Creatinine 1.5 H (0.7-1.2) mg/dL GFR Calculation Not Reportable Calculated Osmolal ity 293 (285-295) mOsm/k g Lactic Acid (0.5-2.2) mmol/L Calcium 7.7 L (8.5-10.5) mg/dL Total Bilirubin 0.7 (0.15-1.2) mg/dL ALT 53 H (0-41) U/L Alkaline Phosphata se 84 (40-130) IU/L Creatine Kinase 152 (39-308) U/L Troponin T Baselin e (0-15) ng/L C-Reactive Protein 191.2 H (0.0-4.9) mg/L Total Protein 5.6 L (6.6-8.7) g/dL Albumin 2.6 L (3.5-5.2) g/dL Globulin 3.0 (1.3-4.6) g/dL Urine Color (Yellow) Urine Appearance (CLEAR) Urine pH (5-7) Ur Specific Gravit y (1.005-1.030) Urine Protein (Negative) Urine Glucose (UA) (Normal) Urine Ketones (Negative) Urine Blood (Negative) Urine Nitrate (Negative) Urine Bilirubin (Negative) Urine Urobilinogen (Negative) mg/dL Ur Leukocyte Yo[place] ase (Negative) Urine RBC (0-2) /hpf Urine WBC (0-5) /hpf Ur Squamous Epith Cells (0-5) /hpf Ur Transition Epit h Cell /hpf Amorphous Sediment /hpf Urine Bacteria (NONE) /hpf Urine Mucus /hpf 12/28/20 12/28/20 12/28/20 Range/Units 19:11 19:11 19:30 WBC (4.0-10.0) 10^3/ uL RBC (4.1-5.3) 10^6/u L Hgb (11.7-16.6) g/dL Hct (42.0-52.0) % MCV (80-94) fL MCH (28.0-34.0) pg MCHC (30.0-36.0) g/dL RDW (12.1-15.1) % Plt Count (130-400) 10^3/c mm MPV (7.4-10.4) fL Lymph % (Auto) [place] % (Auto) Lymph # (Auto) [place] # (Auto) Total Counted (0-100) Atypical Lymphs % (0-5) % Absolute Neutrophi ls (1.4-6.5) 10^3/c mm Segmented Neutroph ils % Abs Segm Neuts (Ma n) (1.6-7.1) 10/cmm Band Neutrophils % Abs Band Neuts (Ma n) (0.0-1.2) 10^3/c mm Absolute Lymphocyt es (1.2-3.4) 10^3/c mm Lymphocytes (Manua l) % Monocytes (Manual) % Absolute Monocytes (0.1-0.6) 10^3/c mm Eosinophils (Manua l) % Absolute Eosinophi ls (0.0-0.7) 10^3/c mm Basophils (Manual) % Absolute Basophils (0.0-0.2) 10^3/c mm Metamyelocytes % Myelocytes % Platelet Estimate (Normal) Specimen Type ABG pH (7.35-7.45) ABG pCO2 (35-45) mmHg ABG pO2 (80.0-100.0) mmH g ABG HCO3 (22-26) mmol/L ABG O2 Saturation ABG Base Excess (-2.0-2.0) mmol/ L Oswaldo Test A-a O2 Gradient Hematocrit (42-52) % Hgb O2 Saturation (95-100) % Carboxyhemoglobin (0.4-20.1) %THgb Methemoglobin (0.4-1.5) % Total Hemoglobin (14-18) g/dL Sodium (131-143) mmol/L Potassium (3.5-5.0) mmol/L Glucose (70-115) mg/dL Ionized Calcium (1.1-1.4) mmol/L Director Inpatient Headache Program ID Chloride (98-107) mmol/L Carbon Dioxide (22-29) mmol/L Anion Gap (5-19) BUN (8-23) mg/dL Creatinine (0.7-1.2) mg/dL GFR Calculation Calculated Osmolal ity (285-295) mOsm/k g Lactic Acid 15.1 H* (0.5-2.2) mmol/L Calcium (8.5-10.5) mg/dL Total Bilirubin (0.15-1.2) mg/dL ALT (0-41) U/L Alkaline Phosphata se (40-130) IU/L Creatine Kinase (39-308) U/L Troponin T Baselin e 99 H (0-15) ng/L C-Reactive Protein (0.0-4.9) mg/L Total Protein (6.6-8.7) g/dL Albumin (3.5-5.2) g/dL Globulin (1.3-4.6) g/dL Urine Color Yellow (Yellow) Urine Appearance Clear (CLEAR) Urine pH 5 (5-7) Ur Specific Gravit y 1.010 (1.005-1.030) Urine Protein 1+ H (Negative) Urine Glucose (UA) Norm (Normal) Urine Ketones 1+ H (Negative) Urine Blood 2+ H (Negative) Urine Nitrate Negative (Negative) Urine Bilirubin Neg (Negative) Urine Urobilinogen Norm (Negative) mg/dL Ur Leukocyte Yo[place] ase Negative (Negative) Urine RBC 0-4 H (0-2) /hpf Urine WBC 0-4 H (0-5) /hpf Ur Squamous Epith Cells 0-4 H (0-5) /hpf Ur Transition Epit h Cell 0-4 /hpf Amorphous Sediment 3+ /hpf Urine Bacteria 1+ H (NONE) /hpf Urine Mucus Trace /hpf Imaging Data^: CXR: Radiologist's impression: [employer] [place] [address] XRay Report Signed Patient: Adin Chavez Unit #: [id number] : 1940 Age/Sex: 80 / M ADM Date: 12/28/20 Loc: ER Room/Bed: Attending Dr: Ordering Provider/Ordering MD: Lamont Queen MD Date of Service: 12/28/20 Procedure(s): XR chest 1V portable [id number] Accession Number(s): [id number] Report Number: [id number] PROCEDURE INFORMATION: Exam: XR Chest Exam date and time: 12/28/2020 6:52 PM Age: 80 years old Clinical indication: Device placement; Ett placement (vent status); Patient HX: Et tube placement and central line placement; Additional info: Intubated TECHNIQUE: Imaging protocol: XR of the chest. Views: 1 view. COMPARISON: CR XR chest 1V portable [id number] 12/25/2020 4:43 PM FINDINGS: The lung opacities have mildly worsened in the left lung and slightly improved in the right lung. An ETT has been placed terminating 5 cm above the kristofer. A right IJ central venous catheter has also been inserted with its tip in the SVC. No other significant change. No pneumothorax. XR/XR chest 1V portable [id number] IMPRESSION: 1. Mild worsening of the left lung opacities and slight improvement of the right lung opacities. 2. Interval insertions of an ETT and a right IJ central venous catheter. No pneumothorax. Dictated By: Benny Juárez MD Signed By: Benny Juárez MD Signed Date/Time: 12/28/202003 DD/ 01 Critical Care Time Critical Care Time: Critical Care Time: Yes Total Critical Care Time: 70 Attestation: This case had a high probability of a clinically significant, sudden, or life threatening deterioration of this patient's condition which required my full and direct attention, intervention and personal management. Discharge Plan Discharge Patient Disposition: Admitted As Inpatient Clinical Impression: COVID-19, Cardiac arrest Condition: Stable Coding Level of Care Code ED Protocol Manager for Chg Fwd Exam Comprehensive
[2020-12-28] MEDS: propofol 1,000 MG/100 ML INJ 11.98 MG IV (19:15)
[2020-12-28 19:20] VITALS: RESP 26
[2020-12-28 19:22] LABS: Hematocrit 41.9 % (42.0-52.0); Hemoglobin 13.4 g/dL (11.7-16.6); Mean Corpuscular Hemoglobin 29.9 pg (28.0-34.0); Mean Corpuscular Volume 93.5 fL (80-94); Mean Platelet Volume 10.8 fL (7.4-10.4); Platelet Count 287 10^3/cmm (130-400); Red Blood Count 4.48 10^6/uL (4.1-5.3); Red Cell Distribution Width 13.7 % (12.1-15.1)
[2020-12-28 19:24] VITALS: BP 141/84; PULSE 121; RESP 22; O2SAT 98; BMI 33.4
[2020-12-28 19:33] VITALS: BP 159/92; PULSE 123; RESP 30; O2SAT 96
[2020-12-28 19:34] VITALS: O2SAT 45
[2020-12-28 19:47] LABS: ABG PCO2 44.5 mmHg (35-45); Arterial Blood Gas Hematocrit 45.2 % (42-52); Blood Gas Allen Test Pos; Blood Gas Sample Type Arterial; Carboxyhemoglobin 0.3 %THgb (0.4-20.1); HCO3 ABG 12.2 mmol/L (22-26); HGB O2 Sat 96.5 % (95-100); Ionized Calcium Level - ABG 1.1 mmol/L (1.1-1.4); Methemoglobin 0.6 % (0.4-1.5); Oxygen Saturation ABG 97.4; Potassium Level - ABG 3.7 mmol/L (3.5-5.0); Total Hemoglobin 14.8 g/dL (14-18)
[2020-12-28 19:48] LABS: ABG PH Result 7.05 (7.35-7.45)
[2020-12-28 19:49] LABS: Alanine Aminotransferase 53 U/L (0-41); Albumin Level 2.6 g/dL (3.5-5.2); Alkaline Phosphatase 84 IU/L (40-130); Blood Urea Nitrogen 23 mg/dL (8-23); C Reactive Protein 191.2 mg/L (0.0-4.9); Calcium 7.7 mg/dL (8.5-10.5); Carbon Dioxide 11 mmol/L (22-29); Chloride 92 mmol/L (98-107); Creatine Phosphokinase 152 U/L (39-308); Glucose 266 mg/dL (65-115); Osmolality Calculated 293 mOsm/kg (285-295); Sodium 135 mmol/L (136-145); Total Bilirubin 0.7 mg/dL (0.15-1.2); Total Protein 5.6 g/dL (6.6-8.7)
[2020-12-28 19:53] LABS: Anion Gap 35.1 (5-19); Potassium 3.1 mmol/L (3.5-5.1)
[2020-12-28 19:57] LABS: Lactic Sepsis W/Reflex 15.1 mmol/L (0.5-2.2)
[2020-12-28 20:02] LABS: Add Urine Microscopic? YES; Bilirubin Urine Neg (Negative); Blood Urine 2+ (Negative); Glucose Urine UA Norm (Normal); Ketones Urine 1+ (Negative); Leukocyte Esterase Urine Negative (Negative); Nitrate Urine Negative (Negative); Protein Urine 1+ (Negative); Urine Appearance Clear (CLEAR); Urine Color Yellow (Yellow); Urobilinogen Urine Norm (Negative); pH Urine 5 (5-7)
[2020-12-28 20:03] LABS: Add Urine Culture? No; Amorphous Sediment Urine 3+ /hpf; Bacteria Urine 1+ /hpf; Mucus Urine TRACE /hpf; RBC Urine 0-4 /hpf (0-2); Squamous Epithelial Cell Urine 0-4 /hpf (0-5); Transitional Epi Cells Urine 0-4 /hpf; WBC Urine 0-4 /hpf (0-5)
[2020-12-28 20:07] LABS: Troponin(5th) Baseline 99 ng/L (0-15)
[2020-12-28 20:13] LABS: Slide Review Slide Review Perform
[2020-12-28 20:18] LABS: White Blood Count 31.1 10^3/uL (4.0-10.0)
[2020-12-28 20:19] LABS: Absolute Neutrophil 27.4 10^3/cmm (1.4-6.5); Absolute Segmented Neutrophil 24.3 10/cmm (1.6-7.1); Band Neutrophils Absolute 3.1 10^3/cmm (0.0-1.2); Eosinophils 0 %; Lymphocytes 7 %; Lymphocytes Absolute 2.2 10^3/cmm (1.2-3.4); Platelet Estimate Normal (Normal); Segmented Neutrophils 78 %; Total Cells Counted 100 (0-100)
--- NOTE | 2020-12-28 20:54 | ECG_ITS ---
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: : 1940 Requested By: Lamont Queen Order Number: [id number] Larisa MD: ARSENIO FOFANA Measurements Intervals [place] Rate: 101 P: 55 [place]: 160 QRS: 35 QRSD: 150 T: 26 QT: 388 QTc: 505 Interpretive Statements SINUS TACHYCARDIA WITH OCCASIONAL SUPRAVENTRICULAR PREMATURE COMPLEXES RIGHT BUNDLE BRANCH BLOCK [120+ ms QRS DURATION, UPRIGHT V1, 40+ ms S IN I/aVL/V4/V5/V6] Compared to ECG 12/25/2020 19:05:23 Right bundle-branch block now present Sinus rhythm no longer present Electronically Signed On 12-30-2020 20:33:12 CDT by ARSENIO FOFANA [id number]
[2020-12-28 21:03] LABS: Reflex Lactate Order REFLEX LACTIC ORDERD
[2020-12-28 21:32] LABS: Aspartate Amino Transferase 89 U/L (0-40); NT Pro B Type Natriuretic Pept 2188 pg/mL (0-450)
[2020-12-28 22:05] LABS: Lactate (Lactic Acid level) 6.7 mmol/L (0.5-2.2)
[2020-12-28 22:24] LABS: Troponin 5 2HR 238.1 ng/L (0-15); Troponin 5 2HR Delta 139.1 ABS# (0-10)
--- NOTE | 2020-12-28 23:14 | P.HP_ITS ---
Providers/Chief Complaint Admitting Physician: Jamaica Colon MD Chief Complaint: PT PASSED OUT/UNREPONSIVE History of Present Illness Adin Chavez is a 80 year old male with past medical history of obstructive sleep apnea, not currently consistent with CPAP use, diagnosed with COVID-19 on December 25 after about a week of fatigue and constitutional symptoms for a week, had a new oxygen requirement of 3 L/min. He was placed on supplemental oxygen and discharged home with steroids and antibiotics. Today he was brought back to the ER as patient has worsening shortness of breath and oxygen saturation at home dropped down to the 70s. By the time patient was brought into the emergency room he was unresponsive with O2 sat in the 50s. He was pulseless upon arrival, he was given epinephrine and had return of pulses but then subs equently developed V. tach after which she was cardioverted x2. He is now being admitted to the ICU for further care. Been started on Levophed due to hypotension. He is unvaccinated for COVID-19 Review of Systems General: Reports: ROS unobtainable due to endotracheal tube Medications/Allergies Home Medications Medication Instructions Recorded Confirmed Last Taken Type Other Multiple Otc Vitamins See Rx Instructions .ROUTE .COMPLEX 12/25/20 12/28/20 12/28/20 History Vitamin B-12 1 tab PO DAILY 12/25/20 12/28/20 12/28/20 History Vitamin C 1 tab PO DAILY 12/25/20 12/28/20 12/28/20 History Vitamin D3 1 tab PO DAILY 12/25/20 12/28/20 12/28/20 History albuterol sulfate 2 inh INHALATION Q6H PRN 30 Days g 12/25/20 12/28/20 Unknown Rx levofloxacin 750 mg PO DAILY 10 Days #10 tab 12/25/20 12/28/20 12/28/20 Rx methylprednisolone [Medrol (Ramana)] See Rx Instructions .ROUTE 12/25/20 12/28/20 12/28/20 Rx .COMPLEX #21 ea multivitamin 1 tab PO DAILY 12/25/20 12/28/20 12/28/20 History triamterene-hydrochlorothiazid 1 tab PO DAILY 12/25/20 12/28/20 Unknown History vitamin A 1 cap PO DAILY 12/25/20 12/28/20 12/28/20 History vitamin B complex 1 tab PO DAILY 12/25/20 12/28/20 12/28/20 History vitamin E 1 tab PO DAILY 12/25/20 12/28/20 12/28/20 History Allergies Allergy/AdvReac Type Severity Reaction Status Date / Time No Known Allergies Allergy Verified 12/25/20 16:44 PFSH Acute PFSH: Medical History (Updated 12/28/20 @ 23:36 by Jamaica Colon MD) Sleep apnea Vitals/I&O/Wt Last Vital Signs Pulse 123 H 12/28/20 19:33 Resp 30 H 12/28/20 19:33 BP 159/92 12/28/20 19:33 Pulse Ox 45 L 12/28/20 19:34 12/28/20 12/28/20 12/29/20 14:59 22:59 06:59 Intake Total 1000 / 1000 Balance 1000 / 1000 Weight last 48 hrs Weight 99.79 kg Physical Exam Narrative: EXAM NARRATIVE: General: Intubated sedated HEENT: PERRLA, pupils bilaterally equal and reactive Chest: Normal vesicular breath sounds anteriorly to auscultation CVS: S1-S2 regular, no murmurs, no tachycardia, no gallops, no rubs Abdomen: Soft, nontender, no organomegaly, bowel sounds present Neuro: Unable to assess Extremities: No edema clubbing or lymphadenopathy Data : 12/28/20 19:11 12/28/20 19:11 Micro: Microbiology 12/28/20 19:11 Blood Culture - Preliminary Blood SPECIMEN COLLECTED 12/28/20 19:05 Blood Culture - Preliminary Blood SPECIMEN COLLECTED Attestation for Other Data: I personally reviewed and interpreted the following: Other data: Laboratory Results WBC 31.1 10^3/uL (4.0-10.0) H* 12/28/20 19:11 RBC 4.48 10^6/uL (4.1-5.3) 12/28/20 19:11 Hgb 13.4 g/dL (11.7-16.6) 12/28/20 19:11 Hct 41.9 % (42.0-52.0) L 12/28/20 19:11 MCV 93.5 fL (80-94) 12/28/20 19:11 MCH 29.9 pg (28.0-34.0) 12/28/20 19:11 MCHC 32.0 g/dL (30.0-36.0) 12/28/20 19:11 RDW 13.7 % (12.1-15.1) 12/28/20 19:11 Plt Count 287 10^3/cmm (130-400) 12/28/20 19:11 MPV 10.8 fL (7.4-10.4) H 12/28/20 19:11 Lymph % (Auto) Not Reportable 12/28/20 19:11 Graham % (Auto) Not Reportable 12/28/20 19:11 Lymph # (Auto) Not Reportable 12/28/20 19:11 Graham # (Auto) Not Reportable 12/28/20 19:11 Total Counted 100 (0-100) 12/28/20 19:11 Atypical Lymphs % 0.0 % (0-5) 12/28/20 19:11 Absolute Neutrophils 27.4 10^3/cmm (1.4-6.5) H 12/28/20 19:11 Segmented Neutrophils 78 % 12/28/20 19:11 Abs Segm Neuts (Man) 24.3 10/cmm (1.6-7.1) H 12/28/20 19:11 Band Neutrophils 10.0 % 12/28/20 19:11 Abs Band Neuts (Man) 3.1 10^3/cmm (0.0-1.2) H 12/28/20 19:11 Absolute Lymphocytes 2.2 10^3/cmm (1.2-3.4) 12/28/20 19:11 Lymphocytes (Manual) 7 % 12/28/20 19:11 Monocytes (Manual) 0.0 % 12/28/20 19:11 Absolute Monocytes 0.0 10^3/cmm (0.1-0.6) L 12/28/20 19:11 Eosinophils (Manual) 0 % 12/28/20 19:11 Absolute Eosinophils 0.0 10^3/cmm (0.0-0.7) 12/28/20 19:11 Basophils (Manual) 0.0 % 12/28/20 19:11 Absolute Basophils 0.0 10^3/cmm (0.0-0.2) 12/28/20 19:11 Metamyelocytes 4.0 % 12/28/20 19:11 Myelocytes 1.0 % 12/28/20 19:11 Platelet Estimate Normal (Normal) 12/28/20 19:11 Specimen Type Arterial 12/28/20 19:00 ABG pH 7.05 (7.35-7.45) L* 12/28/20 19:00 ABG pCO2 44.5 mmHg (35-45) 12/28/20 19:00 ABG pO2 157.0 mmHg (80.0-100.0) H 12/28/20 19:00 ABG HCO3 12.2 mmol/L (22-26) L 12/28/20 19:00 ABG O2 Saturation 97.4 12/28/20 19:00 ABG Base Excess -18.0 mmol/L (-2.0-2.0) L 12/28/20 19:00 Oswaldo Test Pos 12/28/20 19:00 A-a O2 Gradient Not Reportable 12/28/20 19:00 Hematocrit 45.2 % (42-52) 12/28/20 19:00 Hgb O2 Saturation 96.5 % (95-100) 12/28/20 19:00 Carboxyhemoglobin 0.3 %THgb (0.4-20.1) L 12/28/20 19:00 Methemoglobin 0.6 % (0.4-1.5) 12/28/20 19:00 Total Hemoglobin 14.8 g/dL (14-18) 12/28/20 19:00 Sodium 136.0 mmol/L (131-143) 12/28/20 19:00 Potassium 3.7 mmol/L (3.5-5.0) 12/28/20 19:00 Glucose 284.0 mg/dL (70-115) H 12/28/20 19:00 Ionized Calcium 1.1 mmol/L (1.1-1.4) 12/28/20 19:00 Blending Machine Feeder ID rp 12/28/20 19:00 Sodium 135 mmol/L (136-145) L 12/28/20 19:11 Potassium 3.1 mmol/L (3.5-5.1) L 12/28/20 19:11 Chloride 92 mmol/L (98-107) L 12/28/20 19:11 Carbon Dioxide 11 mmol/L (22-29) L 12/28/20 19:11 Anion Gap 35.1 (5-19) H 12/28/20 19:11 BUN 23 mg/dL (8-23) 12/28/20 19:11 Creatinine 1.5 mg/dL (0.7-1.2) H 12/28/20 19:11 GFR Calculation Not Reportable 12/28/20 19:11 Glucose 266 mg/dL (65-115) H 12/28/20 19:11 Calculated Osmolality 293 mOsm/kg (285-295) 12/28/20 19:11 Lactic Acid 15.1 mmol/L (0.5-2.2) H* 12/28/20 19:11 Lactate 6.7 mmol/L (0.5-2.2) H* 12/28/20 21:20 Calcium 7.7 mg/dL (8.5-10.5) L 12/28/20 19:11 Total Bilirubin 0.7 mg/dL (0.15-1.2) 12/28/20 19:11 AST 89 U/L (0-40) H 12/28/20 19:11 ALT 53 U/L (0-41) H 12/28/20 19:11 Alkaline Phosphatase 84 IU/L (40-130) 12/28/20 19:11 Creatine Kinase 152 U/L (39-308) 12/28/20 19:11 Troponin T Baseline 99 ng/L (0-15) H 12/28/20 19:11 Troponin T 120 Minute 238.1 ng/L (0-15) H 12/28/20 21:20 Delta Troponin T 139.1 ABS# (0-10) H* 12/28/20 21:20 C-Reactive Protein 191.2 mg/L (0.0-4.9) H 12/28/20 19:11 NT-Pro-B Natriuret Pep 2188 pg/mL (0-450) H 12/28/20 19:11 Total Protein 5.6 g/dL (6.6-8.7) L 12/28/20 19:11 Albumin 2.6 g/dL (3.5-5.2) L 12/28/20 19:11 Globulin 3.0 g/dL (1.3-4.6) 12/28/20 19:11 Urine Color Yellow (Yellow) 12/28/20 19:30 Urine Appearance Clear (CLEAR) 12/28/20 19:30 Urine pH 5 (5-7) 12/28/20 19:30 Ur Specific [place] 1.010 (1.005-1.030) 12/28/20 19:30 Urine Protein 1+ (Negative) H 12/28/20 19:30 Urine Glucose (UA) Norm (Normal) 12/28/20 19:30 Urine Ketones 1+ (Negative) H 12/28/20 19:30 Urine Blood 2+ (Negative) H 12/28/20 19:30 Urine Nitrate Negative (Negative) 12/28/20 19:30 Urine Bilirubin Neg (Negative) 12/28/20 19:30 Urine Urobilinogen Norm mg/dL (Negative) 12/28/20 19:30 Ur Leukocyte Esterase Negative (Negative) 12/28/20 19:30 Urine RBC 0-4 /hpf (0-2) H 12/28/20 19:30 Urine WBC 0-4 /hpf (0-5) H 12/28/20 19:30 Ur Squamous Epith Cells 0-4 /hpf (0-5) H 12/28/20 19:30 Ur Transition Epith Cell 0-4 /hpf 12/28/20 19:30 Amorphous Sediment 3+ /hpf 12/28/20 19:30 Urine Bacteria 1+ /hpf (NONE) H 12/28/20 19:30 Urine Mucus Trace /hpf 12/28/20 19:30 Impressions Chest X-Ray 12/28/20 18:52 IMPRESSION: 1. Mild worsening of the left lung opacities and slight improvement of the right lung opacities. 2. Interval insertions of an ETT and a right IJ central venous catheter. No pneumothorax. 12/28/20 19:00 ABG pH 7.05 L* ABG pCO2 44.5 ABG pO2 157.0 H ABG HCO3 12.2 L ABG O2 Saturation 97.4 ABG Base Excess -18.0 L A&P Assessment and plan (1) COVID-19: Remdisivir 200mg iv x 1 followed by 100mg iv daily dexamethasone 6mg IVP daily duoneb q6h, budesonide q12h empiric Zosyn and vancomycin given elevated white blood cell count vent set up trend inflammatory markers including CRP, LDH, D dimer, Ferritin CTA PE to evalaute for PE on 726 - for PE Currently started on anticoagulation for NSTEMI with heparin drip, will additionally cover for possibility of PE Infertility Nurse consult in a.m. Status: Acute (2) Sepsis with acute hypoxic respiratory failure: As a result of COVID-19 pneumonia, as above Status: Acute Qualifiers: Sepsis type: sepsis due to unspecified organism Severe sepsis shock status: with septic shock Qualified Code(s): A41.9 - Sepsis, unspecified organism; R65.21 - Severe sepsis with septic shock; J96.01 - Acute respiratory failure with hypoxia (3) NSTEMI (non-ST elevated myocardial infarction): Started on heparin drip, Troponins with significant delta, may be related to cardiac arrest and cardioversion Currently in sinus rhythm [id number] Mag 2 g IV now Status: Acute (4) Sepsis: Meets criteria by way of leukocytosis, tachycardia, source of infection As a result of COVID-19 pneumonia Status: Acute Qualifiers: Sepsis type: sepsis due to unspecified organism Sepsis acute organ dysfunction status: with acute organ dysfunction Severe sepsis acute organ dysfunction type: acute respiratory failure Acute respiratory failure type: with hypoxia Severe sepsis shock status: with septic shock Qualified Code(s): A41.9 - Sepsis, unspecified organism; R65.21 - Severe sepsis with septic shock; J96.01 - Acute respiratory failure with hypoxia (5) Cardiac arrest: As above Status: Acute (6) Metabolic acidosis: As a result of cardiac arrest, repeat ABG Status: Acute (7) Acute kidney injury: Again as a result of cardiac arrest, renal hypoperfusion most likely explanation Monitor FLOR Lange placed Status: Acute Additional A&P Information DVT prophylaxis Heparin drip currently Full code, discussed with PUD prophylaxis : Protonix 40 mg daily Attestations Medical Necessity Statement*: Greater than 2 midnight will be needed for above defined care Critical Care Time: The high probability of a clinically significant, sudden or life threatening deterioration of the patient's [cardiac, respiratory, renal, ID] system(s) required my full and direct attention, intervention and personal management. The critical care time is as shown. This time is in addition to time spent performing any reported procedures but includes the following: [x] Data and vital sign review and interpretation [x] Patient assessment, examination and intervention [x] Documentation [x] Medication orders and management Critical Care Time (min): 60 Coding Level of Care Code Acute [employer] for [facility] Fwd Diagnoses COVID-19 U07.1 Sepsis with acute hypoxic respiratory failure A41.9; R65.21; J96.01 Sepsis type: sepsis due to unspecified organism Severe sepsis shock status: with septic shock NSTEMI (non-ST elevated myocardial infarction) I21.4 Sepsis A41.9; R65.21; J96.01 Sepsis type: sepsis due to unspecified organism Sepsis acute organ dysfunction status: with acute organ dysfunction Severe sepsis acute organ dysfunction type: acute respiratory failure Acute respiratory failure type: with hypoxia Severe sepsis shock status: with septic shock Cardiac arrest I46.9 Metabolic acidosis E87.2 Acute kidney injury N17.9
[2020-12-29] VITALS (110 sets, daily range): BP systolic 82–136; BP diastolic 55–92; PULSE 56–104; RESP 14–37; TEMP 36.2–37.1; O2SAT 85–99
--- NOTE | 2020-12-29 00:14 | XRR_ITS ---
PROCEDURE INFORMATION: Exam: XR Chest Exam date and time: 12/29/2020 12:14 AM Age: 80 years old Clinical indication: Device placement; Ng tube; Additional info: Ng placement TECHNIQUE: Imaging protocol: XR of the chest. Views: 1 view. COMPARISON: CR (CHEST, ) 12/28/2020 6:55 PM FINDINGS: An NG tube has been inserted and is followed below the diaphragm. The tip is not imaged. The ETT and right IJ central venous catheter appear stable in position. The lung opacities demonstrate mild continued improvement. XR/XR chest 1V portable [id number] IMPRESSION: 1. Mild improvement of the lung opacities. 2. Interval insertion of a nasogastric tube (tip not imaged).
--- NOTE | 2020-12-29 00:15 | PC.PHAR ---
Pharmacokinetic dosing service Date: 12/29 Time: Objective: Patient: Adin Chavez Floor: ed Age: 80 yo Serum creatinine: 1.5 mg/dL Height: 68.0 Inches Weight (kg): 99.79 Diagnosis: Relevant medical/social history: Cultures and sensitivities: Other labs: Assessment: IBW (kg): 68.40 Dosing wt(kg): 99.79 Estimated Creatinine clearance (ml/min): 37.4 CRCL method: Cockcroft and Gault using ibw(default). Drug selected: Vancomycin Loading dose (mg): 0 Vd (liters): 89.8 (factor used: 0.9 L/kg) Jacek (hr-1): 0.035 Half life (hrs): 19.80 Recommended dose: 1500 mg Interval: 24 hrs Infusion time (hrs): 1.5 Predicted peak (mcg/mL): 28.6 Predicted trough (mcg/mL): 13.01 Total body weight is being used for vancomycin dosing. Renal function is stable [ ] /unstable [ ] Recommendations: Give Vancomycin 1500 mg q 24 hrs with an expected Cpeak of 28.6 mcg/ml and an expected Ctrough of 13.01 mcg/ml Renal dosing of other antibiotics (review renal dosing of other medications and list guidelines here): Thank you for the consult, will continue to follow. Signature: Danna Swanson [facility]
[2020-12-29] MEDS: dexamethasone 4 mg/mL INJ 6 MG IVP ×2 (00:33→22:57)
[2020-12-29] MEDS: magnesium sulfate premix 2 GM/50 ML PIGGYBACK IV (00:33)
[2020-12-29] MEDS: ipratropium-albuterol 3 mL Neb INHALATION ×5 (00:47→20:11)
--- NOTE | 2020-12-29 00:54 | ECG_ITS ---
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: : 1940 Requested By: Lamont Queen Order Number: [id number] Larisa MD: ARSENIO FOFANA Measurements Intervals [place] Rate: 100 P: 58 MO: 144 QRS: 31 QRSD: 98 T: 32 QT: 355 QTc: 460 Interpretive Statements SINUS TACHYCARDIA INCOMPLETE RIGHT BUNDLE BRANCH BLOCK [90+ ms QRS DURATION, TERMINAL R IN V1/V2, 40+ ms S IN I/aVL/V4/V5/V6] ABNORMAL RHYTHM ECG INTERPRETATION BASED ON A DEFAULT AGE OF 40 YEARS Compared to ECG 12/28/2020 20:59:42 Incomplete right bundle-branch block now present Right bundle-branch block no longer present Electronically Signed On 12-30-2020 20:33:05 CDT by ARSENIO FOFANA [id number]
[2020-12-29] MEDS: remdesivir 200 MG in sodium chloride 0.9% (100 ml) 100 ML 100 MG IV (01:17)
--- NOTE | 2020-12-29 01:24 | PC.NURSE ---
ADMIT Patient admitted to ICU bed 4, accompanied by primary RN, RT, and security. Remains intubated and on transport vent. Levophed currently infusing, on minimal fentanyl and propofol for vent sedation. No restraints present on transport. pediatric pads removed at this time. OG placed at this time. CXR ordered Hospitalist notified of patients arrival. received orders to change heparin orders to the heparin gtt protocol, and increase sedation for ventilator tolerance.
[2020-12-29] MEDS: vancomycin 1,500 MG/300 ML PIGGYBACK 200 MG IV ×2 (01:26→23:53)
[2020-12-29 01:39] LABS: Partial Thromboplastin Time 44.4 SECONDS (23.9-36.7)
[2020-12-29 01:47] LABS: Troponin 5 6HR 273.1 ng/L (0-15); Troponin 5 6HR Delta 174.1 ng/L (0-12)
[2020-12-29] MEDS: lidocaine 1% 5 ML in potassium chloride premix 100 ML 25 ML IV (01:55)
[2020-12-29 02:38] LABS: ABG PCO2 36.8 mmHg (35-45); ABG PH Result 7.37 (7.35-7.45); Base Excess ABG -3.3 mmol/L (-2.0-2.0); Blood Gas Allen Test Pos; Blood Gas Sample Site Radial, right; Blood Gas Sample Type Arterial; Carboxyhemoglobin 0.9 %THgb (0.4-20.1); HCO3 ABG 21.4 mmol/L (22-26); HGB O2 Sat 85.6 % (95-100); Ionized Calcium Level - ABG 1.1 mmol/L (1.1-1.4); Methemoglobin 0.5 % (0.4-1.5); Oxygen Saturation ABG 86.7; PO2 ABG 56.8 mmHg (80.0-100.0)
[2020-12-29 02:39] LABS: Alveolar-Arterial Oxygen Gradi 79.4 mmHg (5-10); Blood Gas Operator Identificat JB; Blood Gas Tidal Volume 0.45; Oxygen Device VENT
[2020-12-29] MEDS: heparin 5,000 unit/mL INJ 1 mL IV (02:46)
[2020-12-29] MEDS: heparin drip 25,000 UNIT/500 ML PREMIX 25 UNIT IV (02:47)
[2020-12-29] MEDS: piperacillin-tazobactam 3.375 GM in sodium chloride 0.9% (plus) 100 ML IV (03:36)
[2020-12-29 03:44] LABS: Basophils # 0.1 10^3/uL (0.0-0.1); Basophils % 0.2 %; Hematocrit 42.7 % (42.0-52.0); Hemoglobin 14.3 g/dL (11.7-16.6); Lymphocytes % 3.7 %; Mean Corpuscular HGB Conc 33.5 g/dL (30.0-36.0); Mean Corpuscular Hemoglobin 29.8 pg (28.0-34.0); Monocytes # 0.8 10^3/uL (0.2-0.9); Monocytes % 2.8 %; Neutrophils # 24.73 10^3/uL (1.8-7.7); Neutrophils % 87.7 %; Nucleated Red Blood Cells % 0.1 %; Platelet Count 199 10^3/cmm (130-400); Red Cell Distribution Width 13.8 % (12.1-15.1); White Blood Count 28.2 10^3/uL (4.0-10.0)
[2020-12-29] MEDS: sodium chloride 0.9% 1,000 ML 100 ML IV (03:54)
--- NOTE | 2020-12-29 04:00 | XR_ITS ---
WS: [id number] XR chest 1V portable [id number] REASON FOR EXAM: f/up infiltrates FINDINGS: Compared to the examination of approximately 5 hours ago, the central venous line, endotracheal tube, and the nasogastric tube all remain in position. Diffuse interstitial changes throughout both lungs, with areas of hazy density, is unchanged. No new pulmonary finding. XR/XR chest 1V portable [id number] IMPRESSION: Stable abnormal chest.
[2020-12-29 04:04] LABS: D Dimer >= 20.00 ug/mIFEU (0-0.59)
[2020-12-29 04:27] LABS: Slide Review Slide Review Perform
[2020-12-29 04:33] LABS: Alanine Aminotransferase 72 U/L (0-41); Albumin Level 2.8 g/dL (3.5-5.2); Alkaline Phosphatase 97 IU/L (40-130); Aspartate Amino Transferase 142 U/L (0-40); Blood Urea Nitrogen 28 mg/dL (8-23); C Reactive Protein 243.4 mg/L (0.0-4.9); Calcium 7.8 mg/dL (8.5-10.5); Carbon Dioxide 18 mmol/L (22-29); Chloride 94 mmol/L (98-107); Globulin 3.2 g/dL (1.3-4.6); Glucose 242 mg/dL (65-115); Magnesium 2.7 mg/dL (1.7-2.3); Osmolality Calculated 289 mOsm/kg (285-295); Sodium 133 mmol/L (136-145); Total Bilirubin 1.4 mg/dL (0.15-1.2)
[2020-12-29 04:45] LABS: Anion Gap 24.6 (5-19); Potassium 3.6 mmol/L (3.5-5.1)
--- NOTE | 2020-12-29 06:37 | PC.NURSE ---
Shift summary patient admitted to ICU shortly after midnight. Patient has remained unresponsive but sedated with fent and prop. when sedation lifted, patient appeared to exhibit increased distress with a resp rate in the 50s and asynchronous. patient has a cough, gag, and blink reflex, but does not withdraw to pain. patients HR has been stable NSR- amio gtt continues. patient is on blood pressure support via levophed. patient does remain on ventilator support at 100% fio2. sats have remained in the upper 80s most of the night. end tidal is between 20-21. patient is unrestrained at this time due to unresponsiveness. betts in place with very minimal, dark UOP. heparin gtt continues- PTT ordered for 0840
[2020-12-29] MEDS: budesonide 0.5 mg/2 mL Neb INHALATION ×2 (08:13→20:11)
[2020-12-29 10:14] LABS: Partial Thromboplastin Time 116.7 SECONDS (23.9-36.7)
[2020-12-29] MEDS: propofol 1,000 MG/100 ML INJ 7.19 MG IV (10:15)
[2020-12-29] MEDS: pantoprazole DR 40 mg Tablet NG-TUBE (10:15)
--- NOTE | 2020-12-29 10:36 | USCV_ITS ---
Adin Chavez Age: 80 Gender: M : 1940 Exam Date: 12/29/2020 14:53 Ordering Phys: Benjamin Gonzales MD Technologist: Karen Jensen Exam Location: [facility] – [place]_ Indication: edema HISTORY: Covid + NSTEMI, on vent. PROCEDURES: The venous duplex Doppler examination of both lower extremities was performed in the standard fashion. The following venous structures were evaluated: common femoral vein, profunda vein, proximal portion of the greater saphenous vein, superficial femoral vein, and the popliteal vein. In addition, the posterior tibial and peroneal trunk were evaluated. Serial compression, augmentation maneuvers, and spectral Doppler flow evaluation were performed. FINDINGS: RT GSV IS CLOTTED BELOW KNEE AND AT MEAGHAN'S CANAL. THE PROXIMAL GSV HAS A SMALL MOVING CLOT JUST AT MOUTH OF RT CFV. LT PROFUNDA HAS DVT AND IT EXTENDS INT THE LT FV AT TAKE OFF. WHEN I STUDIED THE LT FV P I WENT DOWN 2-3 CMS TO NOT COMPRESS THE DVT AREA. IT IS VERY LOOSE! THE REST OF VESSELS HAVE VERY SLUGGISH FLOW. CONCLUSIONS DVT left profunda extending into the left femoral vein. Mobile thrombus in the left proximal femoral vein. Thrombus in the right GSV above and below the knee extending to the adductor canal. Mobile clot in the proximal GSV at the common femoral junction PRELIM TO [facility] ICU AT TIME OF EXAM Babak Lee MD (Electronically Signed) Final Date: 29 December 2020 16:08 S
--- NOTE | 2020-12-29 10:37 | PM.CONSULT ---
Providers/Reason For Consult Consulting Physician/Specialty*: Benjamin Gonzales MD / Pulmonary Critical Care Reason for Consult*: S/p cardiac arrest and critically ill on pressor support and ventilatory support Requesting Physician: Jamaica Colon MD Attending Physician: Hiro Salas DO History of Present Illness History of Present Illness Adin Chavez is a 80 year old male with past medical history of obstructive sleep apnea, not currently consistent with CPAP use, diagnosed with COVID-19 on December 25 after about a week of fatigue and constitutional symptoms for a week, had a new oxygen requirement of 3 L/min. Also gave a history of recent travel. CTA ruled out PE but showed Patchy bilateral airspace disease consistent with COVID-19 pneumonia. he was placed on supplemental oxygen and discharged home with steroids and antibiotics. Today he was brought back to the ER on 12/28/2020 due to worsening shortness of breath and oxygen saturation at home dropped down to the 70s. By the time patient was brought into the emergency room he was unresponsive with O2 sat in the 50s. He was pulseless upon arrival, he was given epinephrine and had return of pulses but then subsequently developed V. tach after which she was cardioverted x2. Transfer to the ICU for further care. Been started on Levophed due to hypotension. He is unvaccinated for COVID-19. Pulmonary critical care consulted for, pressor dependent on ventilator dependent s/p cardiac arrest-likely due to severe ARDS from COVID-19 Review of Systems General: Reports: ROS unobtainable due to endotracheal tube, ROS unobtainable due to medical condition and ROS unobtainable due to mental status Meds/Allergies Home Medications and Allergies Home Medications Medication Instructions Recorded Confirmed Last Taken Type Other Multiple Otc Vitamins See Rx Instructions .ROUTE .COMPLEX 12/25/20 12/28/20 12/28/20 History Vitamin B-12 1 tab PO DAILY 12/25/20 12/28/20 12/28/20 History Vitamin C 1 tab PO DAILY 12/25/20 12/28/20 12/28/20 History Vitamin D3 1 tab PO DAILY 12/25/20 12/28/20 12/28/20 History albuterol sulfate 2 inh INHALATION Q6H PRN 30 Days g 12/25/20 12/28/20 Unknown Rx levofloxacin 750 mg PO DAILY 10 Days #10 tab 12/25/20 12/28/20 12/28/20 Rx methylprednisolone [Medrol (Ramana)] See Rx Instructions .ROUTE 12/25/20 12/28/20 12/28/20 Rx .COMPLEX #21 ea multivitamin 1 tab PO DAILY 12/25/20 12/28/20 12/28/20 History triamterene-hydrochlorothiazid 1 tab PO DAILY 12/25/20 12/28/20 Unknown History vitamin A 1 cap PO DAILY 12/25/20 12/28/20 12/28/20 History vitamin B complex 1 tab PO DAILY 12/25/20 12/28/20 12/28/20 History vitamin E 1 tab PO DAILY 12/25/20 12/28/20 12/28/20 History Allergies Allergy/AdvReac Type Severity Reaction Status Date / Time No Known Allergies Allergy Verified 12/25/20 16:44 Current Medications Current Medications Generic Name Dose Route Start Last Admin Trade Name Freq PRN Reason Stop Dose Admin Albuterol/Ipratropium 3 ml 12/28/20 23:30 12/29/20 08:13 Ipratropium-Albuterol 3 Ml Neb INHALATION 3 ml Q6H.RESPIRATORY ANAHI Administration Budesonide 0.5 mg 12/29/20 08:00 12/29/20 08:13 Budesonide 0.5 Mg/2 Ml Neb INHALATION 0.5 mg BID.RESPIRATORY ANAHI Administration Dexamethasone 6 mg 12/28/20 23:30 12/29/20 00:33 Dexamethasone 4 Mg/Ml Inj IVP 6 mg Q24H ANAHI Administration Heparin Sodium (Beef Lung) 0 unit 12/29/20 00:44 12/29/20 02:46 Heparin 5,000 Unit/Ml Inj 1 Ml IV 4,400 unit PRN PRN Administration Heparin weight-base protocol Protocol Fentanyl 1,000 mcg/ Sodium 100 mls @ 0 mls/hr 12/28/20 19:15 12/29/20 00:58 Chloride IV 50 mcg/hr .Q0M ANAHI 5 mls/hr Titration Protocol Per Protocol Propofol 1,000 mg in 100 mls @ 0 mls/hr 12/28/20 19:15 12/29/20 10:15 Diprivan IV 12 mcg/kg/min .Q0M ANAHI 7.19 mls/hr Administration Protocol Per Protocol Sodium Chloride 1,000 mls @ 100 mls/hr 12/28/20 20:30 12/29/20 10:15 Sodium Chloride 0.9% IV Not Given .Q10H ANAHI Norepinephrine Bitartrate 4 mg 254 mls @ 0 mls/hr 12/28/20 21:15 12/29/20 07:53 / Dextrose IV 14 mcg/min .Q0M ANAHI 53.34 mls/hr Administration Protocol Per Protocol Piperacillin Sod/Tazobactam 100 mls @ 25 mls/hr 12/29/20 02:00 12/29/20 10:16 Sod 3.375 gm/ Sodium Chloride IV Not Given Q8H ANAHI Protocol Vancomycin/PEG/NADA/Lysine/Water 1,500 mg in 300 mls @ 200 mls/hr 12/29/20 00:00 12/29/20 03:00 Vancocin IV Infused Q24H ANAHI Infusion Heparin Sodium/Sodium Chloride 25,000 unit in 500 mls @ 0 mls/hr 12/29/20 00:45 12/29/20 02:47 Heparin Drip IV 12.53 unit/kg/hr .Q0M ANAHI 25 mls/hr Administration Protocol Per Protocol Amiodarone HCl 900 mg/ 518 mls @ 0 mls/hr 12/29/20 01:00 12/29/20 03:47 Dextrose/ IV Miscellaneous IV 1 mg/min Supplies .Q0M ANAHI 34.53 mls/hr Titration Protocol Per Protocol Vasopressin 40 unit/ Sodium 40 mls @ 0.03 mls/min 12/29/20 08:45 12/29/20 09:46 Chloride IV 0.03 mls/min CONT ANAHI Administration Imipenem/Cilastatin Sodium 500 100 mls @ 200 mls/hr 12/29/20 09:30 12/29/20 10:14 mg/ Sodium Chloride IV 200 mls/hr Q8H ANAHI Administration Protocol Pantoprazole Sodium 40 mg 12/29/20 09:00 12/29/20 10:[address] 40 Mg Tablet NG-TUBE 40 mg DAILY ANAHI Administration PFSH Acute PFSH: Medical History Sleep apnea Vitals/I&O/Wt Last Vital Signs Temp 98.5 F 12/29/20 07:36 Pulse 72 12/29/20 08:17 Resp 19 H 12/29/20 10:24 BP 113/74 12/29/20 07:36 Pulse Ox 92 12/29/20 10:24 12/28/20 12/29/20 12/29/20 22:59 06:59 14:59 Intake Total 1000 / 1000 1031.750 / 2031.750 72.009 / 72.009 Output Total 250 / 250 250 / 250 Balance 1000 / 1000 781.750 / 1781.750 -177.991 / -177.991 Weight last 48 hrs Weight 220 lb Physical Exam Narrative: EXAM NARRATIVE: PHYSICAL EXAM: General: lying in bed, sedated and intubated. 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 SKIN: no rash LDA: # CVC: Right IJ 12/29/2019 Data Labs: Other Labs: Laboratory Results WBC 28.2 10^3/uL (4.0 -10.0) H 12/29/20 01:12 RBC 4.80 10^6/uL (4.1 -5.3) 12/29/20 01:12 Hgb 14.3 g/dL (11.7-1 6.6) 12/29/20 01:12 Hct 42.7 % (42.0-52.0 ) 12/29/20 01:12 MCV 89.0 fL (80-94) 12/29/20 01:12 MCH 29.8 pg (28.0-34. 0) 12/29/20 01:12 MCHC 33.5 g/dL (30.0-3 6.0) 12/29/20 01:12 RDW 13.8 % (12.1-15.1 ) 12/29/20 01:12 Plt Count 199 10^3/cmm (130 -400) 12/29/20 01:12 MPV 11.0 fL (7.4-10.4 ) H 12/29/20 01:12 Neut % (Auto) 87.7 % 12/29/20 01:12 Lymph % (Auto) 3.7 % 12/29/20 01:12 Kay % (Auto) 2.8 % 12/29/20 01:12 Eos % (Auto) 0.0 % 12/29/20 01:12 Baso % (Auto) 0.2 % 12/29/20 01:12 Neut # (Auto) 24.73 10^3/uL (1. 8-7.7) H 12/29/20 01:12 Lymph # (Auto) 1.0 10^3/uL (0.8- 4.8) 12/29/20 01:12 Kay # (Auto) 0.8 10^3/uL (0.2- 0.9) 12/29/20 01:12 Eos # (Auto) 0.0 10^3/uL (0.0- 0.8) 12/29/20 01:12 Baso # (Auto) 0.1 10^3/uL (0.0- 0.1) 12/29/20 01:12 Nucleated RBC % (a uto) 0.1 % 12/29/20 01:12 Total Counted 100 (0-100) 12/28/20 19:11 Atypical Lymphs % 0.0 % (0-5) 12/28/20 19:11 Absolute Neutrophi ls 27.4 10^3/cmm (1. 4-6.5) H 12/28/20 19:11 Segmented Neutroph ils 78 % 12/28/20 19:11 Abs Segm Neuts (Ma n) 24.3 10/cmm (1.6- 7.1) H 12/28/20 19:11 Band Neutrophils 10.0 % 12/28/20 19:11 Abs Band Neuts (Ma n) 3.1 10^3/cmm (0.0 -1.2) H 12/28/20 19:11 Absolute Lymphocyt es 2.2 10^3/cmm (1.2 -3.4) 12/28/20 19:11 Lymphocytes (Manua l) 7 % 12/28/20 19:11 Monocytes (Manual) 0.0 % 12/28/20 19:11 Absolute Monocytes 0.0 10^3/cmm (0.1 -0.6) L 12/28/20 19:11 Eosinophils (Manua l) 0 % 12/28/20 19:11 Absolute Eosinophi ls 0.0 10^3/cmm (0.0 -0.7) 12/28/20 19:11 Basophils (Manual) 0.0 % 12/28/20 19:11 Absolute Basophils 0.0 10^3/cmm (0.0 -0.2) 12/28/20 19:11 Metamyelocytes 4.0 % 12/28/20 19:11 Myelocytes 1.0 % 12/28/20 19:11 Nucleated RBCs # 0.0 /100WBC 12/29/20 01:12 Platelet Estimate Normal (Normal) 12/28/20 19:11 APTT 116.7 SECONDS (23 .9-36.7) H D 12/29/20 09:00 D-Dimer >= 20.00 ug/mIFEU (0-0.59) H 12/29/20 01:12 Specimen Type Arterial 12/29/20 02:25 Sample Site Radial, right 12/29/20 02:25 ABG pH 7.37 (7.35-7.45) 12/29/20 02:25 ABG pCO2 36.8 mmHg (35-45) 12/29/20 02:25 ABG pO2 56.8 mmHg (80.0-1 00.0) L 12/29/20 02:25 ABG HCO3 21.4 mmol/L (22-2 6) L 12/29/20 02:25 ABG O2 Saturation 86.7 12/29/20 02:25 ABG Base Excess -3.3 mmol/L (-2.0 -2.0) L 12/29/20 02:25 Oswaldo Test Pos 12/29/20 02:25 A-a O2 Gradient 79.4 mmHg (5-10) H 12/29/20 02:25 Hematocrit 46.0 % (42-52) 12/29/20 02:25 Hgb O2 Saturation 85.6 % (95-100) L 12/29/20 02:25 Carboxyhemoglobin 0.9 %THgb (0.4-20 .1) 12/29/20 02:25 Methemoglobin 0.5 % (0.4-1.5) 12/29/20 02:25 Total Hemoglobin 15.0 g/dL (14-18) 12/29/20 02:25 Sodium 133.0 mmol/L (131 -143) 12/29/20 02:25 Potassium 4.0 mmol/L (3.5-5 .0) 12/29/20 02:25 Glucose 267.0 mg/dL (70-1 15) H 12/29/20 02:25 Ionized Calcium 1.1 mmol/L (1.1-1 .4) 12/29/20 02:25 O2 Delivery Device Vent 12/29/20 02:25 FiO2 100.0 % 12/29/20 02:25 Tidal Volume 0.45 12/29/20 02:25 PEEP 8.0 cmH20 12/29/20 02:25 Assistant Community Director ID Dorian 12/29/20 02:25 Sodium 133 mmol/L (136-1 45) L 12/29/20 01:12 Potassium 3.6 mmol/L (3.5-5 .1) 12/29/20 01:12 Chloride 94 mmol/L (98-107 ) L 12/29/20 01:12 Carbon Dioxide 18 mmol/L (22-29) L 12/29/20 01:12 Anion Gap 24.6 (5-19) H 12/29/20 01:12 BUN 28 mg/dL (8-23) H 12/29/20 01:12 Creatinine 1.7 mg/dL (0.7-1. 2) H 12/29/20 01:12 GFR Calculation Not Reportable 12/29/20 01:12 Glucose 242 mg/dL (65-115 ) H 12/29/20 01:12 Calculated Osmolal ity 289 mOsm/kg (285- 295) 12/29/20 01:12 Lactic Acid 15.1 mmol/L (0.5- 2.2) H* 12/28/20 19:11 Lactate 6.7 mmol/L (0.5-2 .2) H* 12/28/20 21:20 Calcium 7.8 mg/dL (8.5-10 .5) L 12/29/20 01:12 Magnesium 2.7 mg/dL (1.7-2. 3) H 12/29/20 01:12 Magnesium Cancelled 12/29/20 01:12 Ferritin > 2414 ng/mL (30- 400) H 12/29/20 01:12 Ferritin Cancelled 12/29/20 01:12 Total Bilirubin 1.4 mg/dL (0.15-1 .2) H 12/29/20 01:12 AST 142 U/L (0-40) H 12/29/20 01:12 ALT 72 U/L (0-41) H 12/29/20 01:12 Alkaline Phosphata se 97 IU/L (40-130) 12/29/20 01:12 Lactate Dehydrogen ase > 1330 U/L (135-2 25) H 12/29/20 01:12 Lactate Dehydrogen ase Cancelled 12/29/20 01:12 Creatine Kinase 152 U/L (39-308) 12/28/20 19:11 Troponin T Baselin e 99 ng/L (0-15) H 12/28/20 19:11 Troponin T 120 Min damian 238.1 ng/L (0-15) H 12/28/20 21:20 Delta Troponin T 139.1 ABS# (0-10) H* 12/28/20 21:20 Troponin T Hi Sens 6Hr 273.1 ng/L (0-15) H 12/29/20 01:23 Troponin T Hi Sens 6Hr Delta 174.1 ng/L (0-12) H* 12/29/20 01:23 C-Reactive Protein 243.4 mg/L (0.0-4 .9) H 12/29/20 01:12 C-Reactive Protein Cancelled 12/29/20 01:12 NT-Pro-B Natriuret Pep 2188 pg/mL (0-450 ) H 12/28/20 19:11 Total Protein 6.0 g/dL (6.6-8.7 ) L 12/29/20 01:12 Albumin 2.8 g/dL (3.5-5.2 ) L 12/29/20 01:12 Globulin 3.2 g/dL (1.3-4.6 ) 12/29/20 01:12 Procalcitonin 6.90 ng/mL (0-0.5 ) H 12/29/20 01:12 Procalcitonin Cancelled 12/29/20 01:12 Urine Color Yellow (Yellow) 12/28/20 19:30 Urine Appearance Clear (CLEAR) 12/28/20 19:30 Urine pH 5 (5-7) 12/28/20 19:30 Ur Specific Gravit y 1.010 (1.005-1.0 30) 12/28/20 19:30 Urine Protein 1+ (Negative) H 12/28/20 19:30 Urine Glucose (UA) Norm (Normal) 12/28/20 19:30 Urine Ketones 1+ (Negative) H 12/28/20 19:30 Urine Blood 2+ (Negative) H 12/28/20 19:30 Urine Nitrate Negative (Negati ve) 12/28/20 19:30 Urine Bilirubin Neg (Negative) 12/28/20 19:30 Urine Urobilinogen Norm mg/dL (Negat tonny) 12/28/20 19:30 Ur Leukocyte Yolette ase Negative (Negati ve) 12/28/20 19:30 Urine RBC 0-4 /hpf (0-2) H 12/28/20 19:30 Urine WBC 0-4 /hpf (0-5) H 12/28/20 19:30 Ur Squamous Epith Cells 0-4 /hpf (0-5) H 12/28/20 19:30 Ur Transition Epit h Cell 0-4 /hpf 12/28/20 19:30 Amorphous Sediment 3+ /hpf 12/28/20 19:30 Urine Bacteria 1+ /hpf (NONE) H 12/28/20 19:30 Urine Mucus Trace /hpf 12/28/20 19:30 Impressions Chest X-Ray 12/29/20 04:00 IMPRESSION: Stable abnormal chest. Micro: Micro: Microbiology 12/28/20 19:11 Blood Culture - Pr eliminary Blood SPECIMEN [facility] 12/28/20 19:05 Blood Culture - Pr eliminary Blood SPECIMEN [facility] A&P Assessment and plan (1) Cardiac arrest: Status: Acute (2) COVID-19: Status: Acute (3) Acute respiratory distress syndrome (ARDS) due to 2019 novel coronavirus: Status: Acute (4) Acute kidney injury: Status: Acute (5) Metabolic acidosis: Status: Acute (6) Sepsis: Status: Acute Qualifiers: Sepsis type: sepsis due to unspecified organism Sepsis acute organ dysfunction status: with acute organ dysfunction Severe sepsis acute organ dysfunction type: acute respiratory failure Acute respiratory failure type: with hypoxia Severe sepsis shock status: with septic shock Qualified Code(s): A41.9 - Sepsis, unspecified organism; R65.21 - Severe sepsis with septic shock; J96.01 - Acute respiratory failure with hypoxia #Diagnosed COVID-19 12/25/2020 after 1 week symptoms #Acute hypoxia secondary to ARDS due to COVID-19 pneumonia-ventilator dependent #Cardiac arrest-resuscitated after 2 shocks and epinephrine-hypoxia/? Thrombus #Had recent history of travel #Hemodynamically unstable-Levophed 20 MCG/hour-added vasopressin #Anion gap metabolic acidosis-secondary to lactic acidosis-due to hypoperfusion #Deranged LFTs-likely due to shock liver and COVID-19 -Currently on CMV 500/14/12/95% and patient saturating 94% -ABG 7.3 7/36/56/21/86% on CMV 100/450/8 -Sedated with propofol and fentanyl -Currently on Levophed 20 MCG/hour; will add vasopressin and titrate down Levophed -Also on amiodarone drip -CV echo ordered; bilateral lower extremity Doppler to rule out DVT -On heparin drip-monitor APTT -N.p.o.; on PPI for GI prophylaxis -DuoNeb nebulization every 6 hour; Pulmicort 0.5 twice daily -Afebrile-leukocytosis, high procalcitonin (also pt has DAVID), blood cultures pending, UA negative -Send for sputum culture, MRSA nares, bacterial antigens and Legionella antigen -Currently on vancomycin and Zosyn; DC Zosyn and started on imipenem for broader coverage untill we have final culture results - On remdesivir 5-day protocol and dexamethasone 6 mg IV for 10 days -started 12/28/2020 - Monitor urine out put, renal functions, electrolytes - Moderalely controlled sugars - monitor and scale coverage Full code prognosis: poor recommendations conveyed to the Hosptialist, RN, RT taking care of the patient Consult Attestations Medical Necessity Statement: pressor dependent. on ventilator dependent s/p cardiac arrest-likely due to hypoxia and due to severe ARDS from COVID-19 Time Spent in Patient Care: Greater than 35 minutes (>than 50% of time spent in counselling and/or direct pt care on unit). Critical Care Time: Critical Care Time (min): 45 Coding Level of Care Code New Pt Acute Executor Of Estate for [facility] Fwd Patient Type New History Comprehensive Exam Comprehensive Medical Decision Making High Complexity Diagnoses Cardiac arrest I46.9 COVID-19 U07.1 Acute respiratory distress syndrome (ARDS) due to 2019 novel coronavirus U07.1; J80 Acute kidney injury N17.9 Metabolic acidosis E87.2 Sepsis A41.9; R65.21; J96.01 Sepsis type: sepsis due to unspecified organism Sepsis acute organ dysfunction status: with acute organ dysfunction Severe sepsis acute organ dysfunction type: acute respiratory failure Acute respiratory failure type: with hypoxia Severe sepsis shock status: with septic shock Time Spent (min) 45
[2020-12-29 11:59] LABS: Glucose Point of Care 257 mg/dL (70-110)
[2020-12-29 14:17] LABS: Basophils # 0.1 10^3/uL (0.0-0.1); Basophils % 0.2 %; Eosinophils # 0.1 10^3/uL (0.0-0.8); Eosinophils % 0.3 %; Hematocrit 43.2 % (42.0-52.0); Hemoglobin 13.9 g/dL (11.7-16.6); Lymphocytes # 0.9 10^3/uL (0.8-4.8); Lymphocytes % 2.9 %; Mean Corpuscular HGB Conc 32.2 g/dL (30.0-36.0); Mean Corpuscular Hemoglobin 29.7 pg (28.0-34.0); Mean Corpuscular Volume 92.3 fL (80-94); Mean Platelet Volume 11.7 fL (7.4-10.4); Monocytes # 0.9 10^3/uL (0.2-0.9); Neutrophils # 25.42 10^3/uL (1.8-7.7); Neutrophils % 88.2 %; Nucleated Red Blood Cells % 0.1 %; Platelet Count 143 10^3/cmm (130-400); Red Blood Count 4.68 10^6/uL (4.1-5.3); Red Cell Distribution Width 14.6 % (12.1-15.1); White Blood Count 28.9 10^3/uL (4.0-10.0)
[2020-12-29 14:37] LABS: Blood Urea Nitrogen 38 mg/dL (8-23); Calcium 7.2 mg/dL (8.5-10.5); Carbon Dioxide 19 mmol/L (22-29); Chloride 93 mmol/L (98-107); Glucose 261 mg/dL (65-115); Magnesium 2.9 mg/dL (1.7-2.3); Osmolality Calculated 290 mOsm/kg (285-295); Phosphorus 4.3 mg/dL (2.5-4.5); Sodium 131 mmol/L (136-145)
[2020-12-29 14:38] LABS: Slide Review Slide Review Perform
[2020-12-29 14:41] LABS: Anion Gap 24.1 (5-19); Potassium 5.1 mmol/L (3.5-5.1)
[2020-12-29 15:42] LABS: ABG PCO2 39.5 mmHg (35-45); ABG PH Result 7.29 (7.35-7.45); Alveolar-Arterial Oxygen Gradi 77.1 mmHg (5-10); Blood Gas Allen Test Pos; Blood Gas Operator Identificat CAK; Blood Gas Sample Site Radial, left; Blood Gas Sample Type Arterial; Carboxyhemoglobin 0.6 %THgb (0.4-20.1); HCO3 ABG 19.1 mmol/L (22-26); HGB O2 Sat 89.8 % (95-100); Methemoglobin 0.3 % (0.4-1.5); Oxygen Device VENT; Oxygen Saturation ABG 90.7; PO2 ABG 70.7 mmHg (80.0-100.0); Potassium Level - ABG 4.3 mmol/L (3.5-5.0); Total Hemoglobin 14.3 g/dL (14-18)
[2020-12-29 16:08] LABS: Lactate (Lactic Acid level) 3.8 mmol/L (0.5-2.2)
[2020-12-29 16:50] LABS: Glucose Point of Care 292 mg/dL (70-110)
[2020-12-29 20:19] LABS: Glucose Point of Care 235 mg/dL (70-110)
[2020-12-29 20:39] LABS: Partial Thromboplastin Time 75.7 SECONDS (23.9-36.7)
--- NOTE | 2020-12-29 22:20 | PM.PN ---
Subjective Subjective: Interval history: sedated on vent Vitals/I&O/Wt Last Vital Signs Temp 98.5 F 12/29/20 19:15 Pulse 58 L 12/29/20 20:30 Resp 17 12/29/20 20:14 BP 103/66 12/29/20 20:30 Pulse Ox 94 12/29/20 20:30 12/29/20 12/29/20 12/29/20 06:59 14:59 22:59 Intake Total 1031.750 / 2031.750 629.342 / 807.480 6355.977 / 1852.319 Output Total 250 / 250 500 / 500 275 / 775 Balance 781.750 / 1781.750 129.342 / 129.342 947.977 / 1077.319 Weight last 48 hrs Weight 99.79 kg Physical Exam Narrative: EXAM NARRATIVE: sedated on vent appears acute on chronically ill. appears close to -pale H: bri, distant L: clear bs anteriorly A: soft hypoactive BS E no edema Data : 12/29/20 11:41 12/29/20 11:41 Micro: Microbiology 12/28/20 19:11 Blood Culture - Preliminary Blood NEGATIVE TO DATE 12/28/20 19:05 Blood Culture - Preliminary Blood NEGATIVE TO DATE A&P Assessment and plan (1) COVID-19: Remdisivir 200mg iv x 1 followed by 100mg iv daily dexamethasone 6mg IVP daily duoneb q6h, budesonide q12h D/W Dr. Gonzales, greatly appreciate his assistance. Changed abx Status: Acute (2) Sepsis with acute hypoxic respiratory failure: As a result of COVID-19 pneumonia, as above Status: Acute Qualifiers: Sepsis type: sepsis due to unspecified organism Severe sepsis shock status: with septic shock Qualified Code(s): A41.9 - Sepsis, unspecified organism; R65.21 - Severe sepsis with septic shock; J96.01 - Acute respiratory failure with hypoxia (3) NSTEMI (non-ST elevated myocardial infarction): Continue heparin drip, Troponins with significant delta, may be related to cardiac arrest and cardioversion Currently in sinus rhythm Status: Acute (4) Sepsis: Meets criteria by way of leukocytosis, tachycardia, source of infection As a result of COVID-19 pneumonia And septic vs cardiogenic shock on 2 pressors. Status: Acute Qualifiers: Sepsis type: sepsis due to unspecified organism Sepsis acute organ dysfunction status: with acute organ dysfunction Severe sepsis acute organ dysfunction type: acute respiratory failure Acute respiratory failure type: with hypoxia Severe sepsis shock status: with septic shock Qualified Code(s): A41.9 - Sepsis, unspecified organism; R65.21 - Severe sepsis with septic shock; J96.01 - Acute respiratory failure with hypoxia (5) Cardiac arrest: As above Status: Acute (6) Metabolic acidosis: As a result of cardiac arrest, repeat ABG Status: Acute (7) Acute kidney injury: Again as a result of cardiac arrest, renal hypoperfusion most likely explanation Monitor FLOR Lange placed Status: Acute Additional A&P Information DVT prophylaxis Heparin drip currently Full code, discussed with PUD prophylaxis : Protonix 40 mg daily Poor prognosis Attestations Medical Necessity Statement*: Critically ill male with septic vs cardiogenic shock requiring mechanical ventilation and 2 vasopressor to sustain life. Coding Level of Care Code Acute Manager Social for Chg Fwd Diagnoses COVID-19 U07.1 Sepsis with acute hypoxic respiratory failure A41.9; R65.21; J96.01 Sepsis type: sepsis due to unspecified organism Severe sepsis shock status: with septic shock NSTEMI (non-ST elevated myocardial infarction) I21.4 Sepsis A41.9; R65.21; J96.01 Sepsis type: sepsis due to unspecified organism Sepsis acute organ dysfunction status: with acute organ dysfunction Severe sepsis acute organ dysfunction type: acute respiratory failure Acute respiratory failure type: with hypoxia Severe sepsis shock status: with septic shock Cardiac arrest I46.9 Metabolic acidosis E87.2 Acute kidney injury N17.9
--- NOTE | 2020-12-29 23:23 | USCV_ITS ---
Dagochintan Adin Age: 80 Gender: M : 1940 Exam Date: 12/29/2020 05:57 Ordering Phys: Jamaica Colon MD Technologist: Karen Jensen [place] [facility] [place]: NSTEMI COVID+ ON VENT BP: 124 / 82 HR: 73 Rhythm: Sinus Technical Quality: Adequate MEASUREMENTS (Male / Female) Normal Values 2D ECHO LV Diastolic Diameter PLAX 2.7 cm 4.2 - 5.9 / 3.9 - 5.3 cm LV Systolic Diameter PLAX 2.2 cm LV Chamber Size 3.4 cm IVS Diastolic Thickness 1.3 cm 0.6 - 1.0 / 0.6 - 0.9 cm IVS Systolic Thickness 1.5 cm LVPW Diastolic Thickness 1.7 cm 0.6 - 1.0 / 0.6 - 0.9 cm LVPW Systolic Thickness 1.5 cm RV Chamber Size 5.0 cm LVOT Diameter 2.0 cm LV Ejection Fraction 2D Teich 37.6 % LV Ejection Fraction MOD 2C 18.2 % LV Ejection Fraction 2C AL 17.3 % LA Diameter 2.7 cm LA Width 3.0 cm LA Height 3.6 cm RA Width 4.5 cm RA Height 4.0 cm Aorta at Sinotubular Diameter 3.6 cm M-MODE LV Diastolic Diameter MM 3.8 cm 4.2 - 5.9 / 3.9 - 5.3 cm LV Systolic Diameter MM 2.7 cm LV Ejection Fraction MM Teich 56.2 % IVS Diastolic Thickness MM 1.3 cm 0.6 - 1.0 / 0.6 - 0.9 cm IVS Systolic Thickness MM 1.5 cm LVPW Diastolic Thickness MM 1.1 cm 0.6 - 1.0 / 0.6 - 0.9 cm LVPW Systolic Thickness MM 1.7 cm RV Diastolic Diameter MM 2.0 cm Aortic Annulus Diameter 3.5 cm LA Ao Ratio MM 0.8 MV E Point Septal Separation 0.8 cm DOPPLER AV Peak Velocity 135.0 cm/s LVOT Peak Velocity 70.0 cm/s AV Area Cont Eq vti 2.0 cm squared AV Area Cont Eq pk 1.7 cm squared MV Area PHT 2.7 cm squared Mitral E to A Ratio 0.7 MV E' Velocity 21.5 cm/s Mitral E to MV E' Ratio 12.7 Mitral E to LV E' Lateral Ratio 12.7 Mitral E to LV E' Septal Ratio 12.7 TR Peak Velocity 265.3 cm/s TR Peak Gradient 28.1 mmHg TR Mean Velocity 186.8 cm/s TR Mean Gradient 16.3 mmHg TR Velocity Time Integral 92.6 cm TV Peak E Velocity 49.0 cm/s Right Atrial Pressure 15.0 mmHg Pulmonary Artery Systolic Pressu 43.1 mmHg PV Peak Velocity 57.0 cm/s RV Acceleration Time 0.2 s RV Ejection Time 0.4 s RV AcT/ET 0.5 FINDINGS Left Ventricle Normal left ventricular cavity size. Normal left ventricular systolic function. Left ventricular ejection fraction is estimated at 55 %. Flattened septum in diastole consistent with right ventricle volume overload. Grade I/IV diastolic dysfunction (abnormal relaxation filling pattern), normal to mildly elevated filling pressures. Right Ventricle Moderately increased right ventricular size. Moderately decreased right ventricular systolic function. Moderate pulmonary hypertension, RVSP 43.1 mmHg. Right Atrium The right atrium is normal in size. Left Atrium The left atrium is normal in size. Mitral Valve Structurally normal mitral valve without significant stenosis or prolapse. There is no mitral regurgitation. Aortic Valve Severe aortic valve calcification. Mild aortic valve stenosis, mean gradient 3.8 mmHg, OLGA 2 cm squared. Trace aortic valve regurgitation. Tricuspid Valve Trace tricuspid valve regurgitation. Pulmonic Valve Structurally normal pulmonic valve without significant stenosis. There is no pulmonic regurgitation. Pericardium Normal pericardium without effusion. Aorta Normal ascending aorta dimension. CONCLUSIONS 1-Normal left ventricular cavity size. Normal left ventricular systolic function. Left ventricular ejection fraction is estimated at 55 %. Flattened septum in diastole consistent with right ventricle volume overload. Grade I/IV diastolic dysfunction (abnormal relaxation filling pattern), normal to mildly elevated filling pressures. 2-Severe aortic valve calcification. Mild aortic valve stenosis, mean gradient 3.8 mmHg, OLGA 2 cm squared. Trace aortic valve regurgitation. 3-Moderately increased right ventricular size. Moderately decreased right ventricular systolic function. Moderate pulmonary hypertension, RVSP 43.1 mmHg. 4-There is no pericardial effusion. 5-Right atrial pressure is around 5 mm of mercury. 6-There are no prior echocardiogram studies to compare. Yfn Baker MD (Electronically Signed) Final Date: 30 December 2020 16:18 S
[2020-12-30] VITALS (105 sets, daily range): BP systolic 82–138; BP diastolic 48–84; PULSE 55–68; RESP 14–25; TEMP 36.5–37.2; O2SAT 91–100
[2020-12-30] MEDS: heparin drip 25,000 UNIT/500 ML PREMIX 20 UNIT IV (00:04)
[2020-12-30] MEDS: propofol 1,000 MG/100 ML INJ 7.19 MG IV ×4 (00:35→20:50)
[2020-12-30] MEDS: ipratropium-albuterol 3 mL Neb INHALATION ×4 (02:07→20:34)
[2020-12-30 04:47] LABS: Basophils # 0.1 10^3/uL (0.0-0.1); Basophils % 0.3 %; Hemoglobin 13.5 g/dL (11.7-16.6); Mean Corpuscular HGB Conc 32.9 g/dL (30.0-36.0); Mean Corpuscular Hemoglobin 30.2 pg (28.0-34.0); Mean Corpuscular Volume 91.7 fL (80-94); Mean Platelet Volume 11.5 fL (7.4-10.4); Monocytes # 1.1 10^3/uL (0.2-0.9); Monocytes % 3.5 %; Neutrophils # 27.07 10^3/uL (1.8-7.7); Nucleated Red Blood Cells # 0.1 /100WBC; Nucleated Red Blood Cells % 0.3 %; Platelet Count 127 10^3/cmm (130-400); Red Blood Count 4.47 10^6/uL (4.1-5.3); Red Cell Distribution Width 14.8 % (12.1-15.1)
[2020-12-30 05:11] LABS: Partial Thromboplastin Time 53.9 SECONDS (23.9-36.7)
[2020-12-30 05:43] LABS: ABG PCO2 35.4 mmHg (35-45); ABG PH Result 7.32 (7.35-7.45); Alveolar-Arterial Oxygen Gradi 71.9 mmHg (5-10); Arterial Blood Gas Hematocrit 41.8 % (42-52); Base Excess ABG -7.1 mmol/L (-2.0-2.0); Blood Gas Operator Identificat JB; Blood Gas Sample Site Radial, right; Blood Gas Sample Type Arterial; Carboxyhemoglobin 0.5 %THgb (0.4-20.1); HCO3 ABG 18.2 mmol/L (22-26); HGB O2 Sat 93.3 % (95-100); Methemoglobin 0.8 % (0.4-1.5); Oxygen Device VENT; Oxygen Saturation ABG 94.5; PO2 ABG 79.4 mmHg (80.0-100.0); Potassium Level - ABG 3.8 mmol/L (3.5-5.0); Total Hemoglobin 13.6 g/dL (14-18)
[2020-12-30] MEDS: remdesivir 100 MG in sodium chloride 0.9% (100 ml) 100 ML IV (05:44)
[2020-12-30 07:33] LABS: Blood Urea Nitrogen 49 mg/dL (8-23); Calcium 7.5 mg/dL (8.5-10.5); Carbon Dioxide 17 mmol/L (22-29); Chloride 93 mmol/L (98-107); Glucose 206 mg/dL (65-115); Osmolality Calculated 295 mOsm/kg (285-295); Sodium 133 mmol/L (136-145)
[2020-12-30 08:09] LABS: Anion Gap 27.1 (5-19); Potassium 4.1 mmol/L (3.5-5.1)
[2020-12-30] MEDS: budesonide 0.5 mg/2 mL Neb INHALATION ×2 (08:32→20:34)
[2020-12-30 08:59] LABS: Neutrophils % 93.2 %; White Blood Count 31.9 10^3/uL (4.0-10.0)
[2020-12-30] MEDS: pantoprazole DR 40 mg Tablet NG-TUBE (09:32)
--- NOTE | 2020-12-30 11:31 | PM.PN ---
Subjective Subjective: Interval history: sedated with prof and fentanyl on vent Vitals/I&O/Wt Last Vital Signs Temp 97.9 F 12/30/20 10:00 Pulse 58 L 12/30/20 11:00 Resp 14 12/30/20 10:00 BP 84/55 12/30/20 11:00 Pulse Ox 96 12/30/20 11:00 12/29/20 12/30/20 12/30/20 22:59 06:59 14:59 Intake Total 1222.977 / 3071.418 3828.260 / 2901.579 230.062 / 230.062 Output Total 275 / 775 550 / 1325 300 / 300 Balance 947.977 / 1077.319 499.260 / 1576.579 -69.938 / -69.938 Weight last 48 hrs Weight 91.371 kg Weight 99.79 kg Physical Exam Narrative: EXAM NARRATIVE: sedated on vent; unresponsive on vasopressin and levophed for hypotension appears acute on chronically ill- though pt was healthy - HTN and SHIRA. Appears close to -pale H: bri, distant L: clear bs anteriorly A: soft hypoactive BS E no edema Data : 12/30/20 03:32 12/30/20 03:32 Micro: Microbiology 12/29/20 20:00 Bacterial Antigens - Final Urine,Clean Catch 12/29/20 20:00 Legionella Urinary Antigen - Final Urine Catheterized 12/28/20 19:11 Blood Culture - Preliminary Blood NEGATIVE TO DATE 12/28/20 19:05 Blood Culture - Preliminary Blood NEGATIVE TO DATE A&P Assessment and plan (1) COVID-19: Remdisivir 200mg iv x 1 followed by 100mg iv daily dexamethasone 6mg IVP daily duoneb q6h, budesonide q12h on broad spectrum abx. long talk with and son Scott to update on worsening condition and severity of illness. Multi organ failure. Prognosis poor. ASking to do everything we can. Said pt's brother and sister in law are physicians in [place]. I will try to call. Status: Acute (2) Sepsis with acute hypoxic respiratory failure: As a result of COVID-19 pneumonia, as above. CRP 243, procal 6.9 Status: Acute Qualifiers: Sepsis type: sepsis due to unspecified organism Severe sepsis shock status: with septic shock Qualified Code(s): A41.9 - Sepsis, unspecified organism; R65.21 - Severe sepsis with septic shock; J96.01 - Acute respiratory failure with hypoxia (3) NSTEMI (non-ST elevated myocardial infarction): Continue heparin drip, Troponins with significant delta, may be related to cardiac arrest and cardioversion Currently in sinus rhythm Status: Acute (4) Sepsis: Meets criteria by way of leukocytosis, tachycardia, source of infection As a result of COVID-19 pneumonia And septic vs cardiogenic shock on 2 pressors. Status: Acute Qualifiers: Sepsis type: sepsis due to unspecified organism Sepsis acute organ dysfunction status: with acute organ dysfunction Severe sepsis acute organ dysfunction type: acute respiratory failure Acute respiratory failure type: with hypoxia Severe sepsis shock status: with septic shock Qualified Code(s): A41.9 - Sepsis, unspecified organism; R65.21 - Severe sepsis with septic shock; J96.01 - Acute respiratory failure with hypoxia (5) Cardiac arrest: As above Status: Acute (6) Metabolic acidosis: As a result of cardiac arrest Status: Acute (7) Acute kidney injury: Again as a result of cardiac arrest, renal hypoperfusion most likely explanation worsening Status: Acute (8) DVT (deep venous thrombosis): b/l le, loose, massive Status: Acute Additional A&P Information see discussion above. Poor prognosis Attestations Medical Necessity Statement*: critically ill multiorgan failure Coding Level of Care Code Acute Model Photographers' for [facility] Fwd Diagnoses COVID-19 U07.1 Sepsis with acute hypoxic respiratory failure A41.9; R65.21; J96.01 Sepsis type: sepsis due to unspecified organism Severe sepsis shock status: with septic shock NSTEMI (non-ST elevated myocardial infarction) I21.4 Sepsis A41.9; R65.21; J96.01 Sepsis type: sepsis due to unspecified organism Sepsis acute organ dysfunction status: with acute organ dysfunction Severe sepsis acute organ dysfunction type: acute respiratory failure Acute respiratory failure type: with hypoxia Severe sepsis shock status: with septic shock Cardiac arrest I46.9 Metabolic acidosis E87.2 Acute kidney injury N17.9 DVT (deep venous thrombosis) I82.409
[2020-12-30 13:11] LABS: Partial Thromboplastin Time 63.4 SECONDS (23.9-36.7)
[2020-12-30 18:18] LABS: Partial Thromboplastin Time 64.7 SECONDS (23.9-36.7)
[2020-12-30 19:52] LABS: Glucose Point of Care 207 mg/dL (70-110)
[2020-12-30 20:54] LABS: Glucose Point of Care 235 mg/dL (70-110)
[2020-12-30 23:40] LABS: Vancomycin Trough 22.6 ug/mL (10-15)
[2020-12-30] MEDS: dexamethasone 10 mg/mL INJ 6 MG IVP (23:44)
[2020-12-30] MEDS: heparin drip 25,000 UNIT/500 ML PREMIX 22 UNIT IV (23:48)
[2020-12-31] VITALS (91 sets, daily range): BP systolic 90–188; BP diastolic 44–127; PULSE 58–85; RESP 12–19; TEMP 35.8–36.8; O2SAT 92–100
[2020-12-31] MEDS: ipratropium-albuterol 3 mL Neb INHALATION ×4 (02:44→20:17)
[2020-12-31] MEDS: propofol 1,000 MG/100 ML INJ 17.96 MG IV ×2 (02:48→06:52)
[2020-12-31 04:34] LABS: ABG PCO2 57.3 mmHg (35-45); Base Excess ABG -7.8 mmol/L (-2.0-2.0); Blood Gas Sample Site Brachial, right; Blood Gas Sample Type Arterial; HCO3 ABG 21.1 mmol/L (22-26); Oxygen Device VENT
[2020-12-31 04:38] LABS: ABG PH Result 7.18 (7.35-7.45)
[2020-12-31] MEDS: remdesivir 100 MG in sodium chloride 0.9% (100 ml) 100 ML IV (05:15)
[2020-12-31 05:19] LABS: Platelet Count 141 10^3/cmm (130-400)
[2020-12-31 05:45] LABS: Partial Thromboplastin Time 62.2 SECONDS (23.9-36.7)
[2020-12-31] MEDS: budesonide 0.5 mg/2 mL Neb INHALATION ×2 (08:09→20:17)
[2020-12-31 09:03] LABS: Glucose Point of Care 221 mg/dL (70-110)
[2020-12-31 09:29] LABS: Hemoglobin 12.2 g/dL (11.7-16.6); Mean Corpuscular HGB Conc 32.1 g/dL (30.0-36.0); Mean Corpuscular Hemoglobin 29.7 pg (28.0-34.0); Mean Corpuscular Volume 92.5 fL (80-94); Mean Platelet Volume 13.3 fL (7.4-10.4); Platelet Count 150 10^3/cmm (130-400); Red Blood Count 4.11 10^6/uL (4.1-5.3)
[2020-12-31] MEDS: pantoprazole 40 mg SDV IVP (09:43)
[2020-12-31 09:44] LABS: Alanine Aminotransferase 496 U/L (0-41); Albumin Level 2.5 g/dL (3.5-5.2); Alkaline Phosphatase 100 IU/L (40-130); Blood Urea Nitrogen 67 mg/dL (8-23); Calcium 7.1 mg/dL (8.5-10.5); Carbon Dioxide 21 mmol/L (22-29); Chloride 88 mmol/L (98-107); Glucose 203 mg/dL (65-115); Osmolality Calculated 285 mOsm/kg (285-295); Sodium 125 mmol/L (136-145); Total Bilirubin 0.6 mg/dL (0.15-1.2); Total Protein 5.5 g/dL (6.6-8.7)
--- NOTE | 2020-12-31 09:56 | PM.PN ---
Subjective Subjective: Interval history: sedated with prof and fentanyl on vent Vitals/I&O/Wt Last Vital Signs Temp 98.2 F 12/31/20 04:00 Pulse 60 12/31/20 08:23 Resp 14 12/31/20 08:25 BP 97/52 12/31/20 06:00 Pulse Ox 97 12/31/20 08:25 12/30/20 12/31/20 12/31/20 22:59 06:59 14:59 Intake Total 617.726 / 598.233 9048.959 / 2111.347 Output Total 450 / 750 350 / 1100 Balance 167.726 / 228.388 782.959 / 1011.347 Weight last 48 hrs Weight 92.986 kg Weight 91.371 kg Physical Exam Narrative: EXAM NARRATIVE: sedated on vent; unresponsive DRIPS: vasopressin levophed - increased this am diprovan versed fentanyl amio gtt appears acute on chronically ill- though pt was healthy - HTN and SHIRA. pale, toxic appearing H: bri, distant - HR 50-60 L: clear bs anteriorly and laterally A: soft hypoactive BS; flushing OG E no edema, cold mottled feet Data : 12/31/20 05:09 12/30/20 03:32 Micro: Microbiology 12/29/20 10:35 Sputum Culture - Preliminary Sputum - Endotracheal Tube Aspirate Staphylococcus aureus 12/29/20 20:00 Bacterial Antigens - Final Urine,Clean Catch 12/29/20 20:00 Legionella Urinary Antigen - Final Urine Catheterized A&P Assessment and plan (1) COVID-19: Remdisivir 200mg iv x 1 followed by 100mg iv daily dexamethasone 6mg IVP daily duoneb q6h, budesonide q12h on broad spectrum abx. Multiorgan failure stop diprovan to assess neuro status Status: Acute (2) Sepsis with acute hypoxic respiratory failure: As a result of COVID-19 pneumonia, as above. CRP 243, procal 6.9; will follow VENT: 880% TV500 RR14 peep 12 Status: Acute Qualifiers: Sepsis type: sepsis due to unspecified organism Severe sepsis shock status: with septic shock Qualified Code(s): A41.9 - Sepsis, unspecified organism; R65.21 - Severe sepsis with septic shock; J96.01 - Acute respiratory failure with hypoxia (3) NSTEMI (non-ST elevated myocardial infarction): heparin drip, Troponins with significant delta, may be related to cardiac arrest and cardioversion Currently in sinus rhythm HR 60 Status: Acute (4) Sepsis: Meets criteria by way of leukocytosis, tachycardia, source of infection As a result of COVID-19 pneumonia And septic vs cardiogenic shock on 2 pressors. Status: Acute Qualifiers: Sepsis type: sepsis due to unspecified organism Sepsis acute organ dysfunction status: with acute organ dysfunction Severe sepsis acute organ dysfunction type: acute respiratory failure Acute respiratory failure type: with hypoxia Severe sepsis shock status: with septic shock Qualified Code(s): A41.9 - Sepsis, unspecified organism; R65.21 - Severe sepsis with septic shock; J96.01 - Acute respiratory failure with hypoxia (5) Cardiac arrest: As above Status: Acute (6) Metabolic acidosis: As a result of cardiac arrest Status: Acute (7) Acute kidney injury: Again as a result of cardiac arrest, renal hypoperfusion most likely explanation worsening Status: Acute (8) DVT (deep venous thrombosis): b/l le, loose, massive Status: Acute Additional A&P Information see discussion above. Poor prognosis Attestations Medical Necessity Statement*: critically ill multiorgan failure Coding Level of Care Code Acute Market Research Lead for [facility] Fwd Diagnoses COVID-19 U07.1 Sepsis with acute hypoxic respiratory failure A41.9; R65.21; J96.01 Sepsis type: sepsis due to unspecified organism Severe sepsis shock status: with septic shock NSTEMI (non-ST elevated myocardial infarction) I21.4 Sepsis A41.9; R65.21; J96.01 Sepsis type: sepsis due to unspecified organism Sepsis acute organ dysfunction status: with acute organ dysfunction Severe sepsis acute organ dysfunction type: acute respiratory failure Acute respiratory failure type: with hypoxia Severe sepsis shock status: with septic shock Cardiac arrest I46.9 Metabolic acidosis E87.2 Acute kidney injury N17.9 DVT (deep venous thrombosis) I82.409
[2020-12-31 10:03] LABS: Anion Gap 20.1 (5-19); Aspartate Amino Transferase 146 U/L (0-40); Potassium 4.1 mmol/L (3.5-5.1)
[2020-12-31 10:16] LABS: Slide Review Slide Review Perform; White Blood Count 36.8 10^3/uL (4.0-10.0)
[2020-12-31 10:18] LABS: Absolute Segmented Neutrophil 29.8 10/cmm (1.6-7.1); Lymphocytes 4 %; Segmented Neutrophils 81 %; Total Cells Counted 100 (0-100)
[2020-12-31 10:19] LABS: Anisocytosis 1+; Eosinophils 0 %; Lymphocytes Absolute 1.5 10^3/cmm (1.2-3.4); Poikilocytosis 1+
[2020-12-31 10:20] LABS: Absolute Neutrophil 33.9 10^3/cmm (1.4-6.5); Giant Platelets 1+; Platelet Estimate Decreased (Normal)
--- NOTE | 2020-12-31 10:24 | DCPLANNER ---
12/31/20 @ 0954. [facility] not updated due to pt on vent t this time.
[2020-12-31] MEDS: sodium chloride 0.9% 1,000 ML 75 ML IV ×2 (11:50→23:21)
[2020-12-31] MEDS: vancomycin 1,500 MG/300 ML PIGGYBACK 200 MG IV (11:52)
[2020-12-31 12:34] LABS: Glucose Point of Care 199 mg/dL (70-110)
[2020-12-31] MEDS: propofol 1,000 MG/100 ML INJ 11.98 MG IV (12:56)
--- NOTE | 2020-12-31 16:10 | PC.NURSE ---
Fentanyl gtt wasted. 25 ml Witnessed by Nicholas Llanes RN.
--- NOTE | 2020-12-31 17:30 | PC.NURSE ---
Heparin gtt remains at 22mg/hr. NO rate change per protocol. PTT 65.5
[2020-12-31 17:55] LABS: Glucose Point of Care 133 mg/dL (70-110)
[2020-12-31 18:08] LABS: Partial Thromboplastin Time 65.5 SECONDS (23.9-36.7)
--- NOTE | 2020-12-31 19:20 | PC.NURSE ---
Report given to LILLIANA Joseph.
--- NOTE | 2020-12-31 19:34 | PC.NURSE ---
Shift summary: Pt rested in bed with eyes closed. Pt remains intubated, FIO2 decreased to 60% today, adjustments to peep and rate also made today. Sedation off today to check neuro status. Pt opens eyes but not purposeful. He does blink to threat, he does have a gag reflex. No purposeful movements noted. No response to fingernail pinch or sternal rub several times today. Levophed and Vasopressin stopped this shift, due to BP improvement. Pt remains on Amio gtt at 0.5mcg/min. Heparin gtt had no change per heparin protocol. IV fluids started this shift. Pt tolerating OG flushes. Urine output 950ml.
[2020-12-31 20:38] LABS: Glucose Point of Care 138 mg/dL (70-110)
[2020-12-31] MEDS: heparin drip 25,000 UNIT/500 ML PREMIX 22 UNIT IV (21:58)
[2020-12-31] MEDS: dexamethasone 10 mg/mL INJ 6 MG IVP (23:20)
[2021-01-01] VITALS (62 sets, daily range): BP systolic 100–175; BP diastolic 51–93; PULSE 69–101; RESP 14–36; TEMP 36.6–37.2; O2SAT 84–99
[2021-01-01] MEDS: propofol 1,000 MG/100 ML INJ 11.98 MG IV ×2 (01:49→08:21)
[2021-01-01] MEDS: ipratropium-albuterol 3 mL Neb INHALATION ×4 (02:41→20:09)
[2021-01-01 04:44] LABS: Partial Thromboplastin Time 57.8 SECONDS (23.9-36.7)
[2021-01-01 05:01] LABS: ABG PCO2 36.9 mmHg (35-45); ABG PH Result 7.36 (7.35-7.45); Arterial Blood Gas Hematocrit 36.1 % (42-52); Base Excess ABG -4.3 mmol/L (-2.0-2.0); Blood Gas Sample Type Arterial; HCO3 ABG 20.7 mmol/L (22-26); PO2 ABG 83.4 mmHg (80.0-100.0)
[2021-01-01 05:02] LABS: Blood Gas Sample Site Brachial, right; Blood Gas Tidal Volume 0.55; Oxygen Device VENT
[2021-01-01] MEDS: remdesivir 100 MG in sodium chloride 0.9% (100 ml) 100 ML IV (06:11)
--- NOTE | 2021-01-01 08:00 | PC.NURSE ---
Forehead O2 sensor moved to right forehead. Ulcers noted on left forehead where Sensor had been.
[2021-01-01 08:08] LABS: Glucose Point of Care 139 mg/dL (70-110)
[2021-01-01] MEDS: fentaNYL 50 mcg/mL INJ 2mL IVP (08:39)
[2021-01-01] MEDS: budesonide 0.5 mg/2 mL Neb INHALATION ×2 (08:40→20:09)
[2021-01-01] MEDS: dexmedetomidine 400 MCG in sodium chloride 0.9% (100 ml) 100 ML IV (09:29)
[2021-01-01] MEDS: metoprolol tartrate 25 mg Tablet 12.5 MG PO ×2 (09:38→22:00)
[2021-01-01] MEDS: pantoprazole 40 mg SDV IVP (09:38)
[2021-01-01 12:03] LABS: Glucose Point of Care 131 mg/dL (70-110)
[2021-01-01 13:09] LABS: Basophils % 0.1 %; Hematocrit 35.1 % (42.0-52.0); Hemoglobin 12.1 g/dL (11.7-16.6); Lymphocytes # 0.6 10^3/uL (0.8-4.8); Lymphocytes % 1.5 %; Mean Corpuscular HGB Conc 34.5 g/dL (30.0-36.0); Mean Corpuscular Hemoglobin 29.6 pg (28.0-34.0); Mean Corpuscular Volume 85.8 fL (80-94); Mean Platelet Volume 12.7 fL (7.4-10.4); Monocytes # 1.2 10^3/uL (0.2-0.9); Monocytes % 3.3 %; Neutrophils # 29.67 10^3/uL (1.8-7.7); Neutrophils % 81.9 %; Nucleated Red Blood Cells # 0.3 /100WBC; Nucleated Red Blood Cells % 0.9 %; Platelet Count 164 10^3/cmm (130-400); Positive C 1; Positive M 1; Red Blood Count 4.09 10^6/uL (4.1-5.3)
--- NOTE | 2021-01-01 13:10 | P.PN_ITS ---
Subjective Subjective: Interval history: The patient was seen and examined. He is intubated and minimally sedated. However, the patient does not appear to be very responsive. The patient has SARS-CoV-2 pneumonia causing hypoxic respiratory failure and he suffered from cardiac arrest secondary to hypoxic respiratory failure. Initially he was in PEA arrest this was followed by Derrek dee for which he was defibrillated twice. However, the patient also has evidence of DVT and evidence of RV dysfun ction on the echocardiogram. Therefore, the patient may have also suffered from pulmonary embolism. The patient is better from the respiratory standpoint. His oxygen requirement has been coming down. Unfortunately, his mental status has not improved. Currently he is not on any pressors. He is in sinus rhythm although he does have a history of Avi. luiz in the past. His echocardiogram revealed evidence of RV failure and mild aortic stenosis. The patient has mobile thrombus in the greater saphenous vein at the junction of the common femoral vein. The patient also has blood clot in the left profunda femoris extending into the left femoral vein. Medications: Reviewed: Yes Vitals/I&O/Wt Last Vital Signs Temp 98.8 F 01/01/21 12:30 Pulse 87 01/01/21 12:30 Resp 18 01/01/21 12:30 BP 148/82 01/01/21 12:30 Pulse Ox 91 01/01/21 12:30 12/31/20 01/01/21 01/01/21 22:59 06:59 14:59 Intake Total 787.667 / 7257.738 9551.75 / 2537.863 326.699 / 326.699 Output Total 1700 / 1700 1275 / 2975 650 / 650 Balance -912.333 / -225.887 -211.25 / -437.137 -323.301 / -323.301 Weight last 48 hrs Weight 205 lb Weight 205 lb Physical Exam 2 Narrative: EXAM NARRATIVE: General: Patient is intubated and minimally sedated. The patient moves spontaneously but unable to follow commands. Neck: Positive jugular venous distention Respiratory: Auscultation: Bilateral clear to auscultation both anterior and posteriorly, no crackles wheezing or rhonchi Cardiovascular: Regular rate and rhythm, S1-S2 present, no murmur, no peripheral edema. Abdomen: Soft, nontender, nondistended, positive bowel sound Neuro: Not following any commands, moves spontaneously from time to time Data : 12/31/20 05:09 12/31/20 05:09 Micro: Microbiology 12/29/20 10:35 Sputum Culture - Final Sputum - Endotracheal Tube Aspirate Methicillin Resis Staph Aureus Attestation for Other Data: I personally reviewed and interpreted the following: Other data: I have reviewed the patient's laboratory, microbiologic and radiologic data. A&P Assessment and plan (1) Cardiac arrest: This is an 80-year-old gentleman who suffered from cardiac arrest. No hypothermia protocol was performed. The cause of the cardiac arrest is likely hypoxia. This could have been second natalia to ARDS from COVID-19 or a combination of SARS-CoV-2 pneumonia and pulmonary embolism. The patient is currently on remdesivir and dexamethasone. His oxygen requirement seems to be better today. I am going to obtain a CT scan of the head. Patient have had suffered from hypoxic brain injury. Status: Acute (2) DVT (deep venous thrombosis): The patient has DVT involving left femoral vein and profunda femoris as well as greater saphenous vein on the right side with a mobile clot at the junction of the femoral vein. The patient is currently anticoagulated with heparin. It is possible that the patient had embolization of the DVT causing PE and acute RV dysfunction. The elevated liver enzymes could also be secondary to RV failure and passive hepatic congestion or due to cardiac arrest. Status: Acute (3) Acute right-sided heart failure: The etiology of the acute RV failure is unclear. This could certainly be from pulmonary embolism or severe vasoconstriction in the setting of ARDS from COVID-19. I will diurese the patient and reevaluate. Status: Acute (4) Acute respiratory distress syndrome (ARDS) due to 2019 novel coronavirus: The patient is currently on remdesivir and dexamethasone. We will continue with the supportive therapy Status: Acute (5) Acute kidney injury: Acute kidney injury is likely secondary to hypoxia, hypotension, cardiac arrest. The patient has ATN and is likely in the diuretic phase right now. I am hoping that the creatinine will plateau and start to come down. Status: Acute (6) Hyponatremia: Hyponatremia has resolved on the latest blood work. Status: Acute (7) MRSA pneumonia: The patient has MRSA pneumonia and likely bacterial translocation that can easily happen with cardiac arrest. The patient is broadly covered with vancomycin and Carbapenem. Status: Acute Attestations Medical Necessity Statement*: Will defer to the primary team Coding Level of Care Code Acute Lan Engineer for [facility] Fwd Diagnoses Cardiac arrest I46.9 DVT (deep venous thrombosis) I82.409 Acute right-sided heart failure I50.811 Acute respiratory distress syndrome (ARDS) due to 2019 novel coronavirus U07.1; J80 Acute kidney injury N17.9 Hyponatremia E87.1 MRSA pneumonia J15.212 Time Spent (min) 51
--- NOTE | 2021-01-01 13:16 | CT_ITS ---
WS: [id number] CT HEAD TECHNIQUE: Noncontrast CT of the head obtained from the skullbase to the vertex. CLINICAL INFORMATION: Unresponsiveness COMPARISON: None. DLP: [address] scans [address] [facility] use at least one of these dose optimization techniques: automat ed exposure control; mA and/or kV adjustment per patient size (includes targeted exams where dose is matched to clinical indication); or iterative reconstruction. FINDINGS: Multiple low-attenuation areas involving the left parietal and occipital cortex posteriorly, right pa rasagittal parietal and occipital lobes, and bilateral cerebellum suspicious for multiple bilateral s ubacute infarcts. One or 2 smaller lesions involving the right frontal lobe. Mild edema in the cerebe llum with mild mass effect on the fourth ventricle with crowding at the foramen magnum. No hydrocepha maryellen. Mild small vessel changes. Moderate parenchymal volume loss. Chronic lacunar infarct right caudate. M astoid air cells and paranasal sinuses are well aerated. Mild mucosal thickening paranasal sinuses. . Addendum: Additional clinical information obtained. Patient reported history of cardiac arrest upon a dmission. Above findings would be compatible with subacute watershed infarcts. CT/CT head wo con* [id number] IMPRESSION: 1. Multiple cortical based low-attenuation lesions involving the bilateral par ietal and occipital lobes and right greater than left cerebellum suspicious for multiple subacute infarcts. 2. One or 2 additional similar lesions in the right frontal lobe. 3. Mild posterior fossa mass effect with mild mass effect on the fourth ventri michael and crowding at the foramen magnum. 4. Findings are suspicious for multiple subacute embolic versus watershed infa rcts. PRESS is an additional consideration. Recommend correlation for hypertens ion Notified Dr. Novak at 01/01/2021 5:05 PM.
[2021-01-01 13:23] LABS: Alanine Aminotransferase 240 U/L (0-41); Albumin Level 2.3 g/dL (3.5-5.2); Alkaline Phosphatase 103 IU/L (40-130); Anion Gap 17.3 (5-19); Aspartate Amino Transferase 60 U/L (0-40); Blood Urea Nitrogen 76 mg/dL (8-23); Calcium 7.1 mg/dL (8.5-10.5); Carbon Dioxide 21 mmol/L (22-29); Chloride 98 mmol/L (98-107); Globulin 2.9 g/dL (1.3-4.6); Glucose 124 mg/dL (65-115); Osmolality Calculated 300 mOsm/kg (285-295); Potassium 3.3 mmol/L (3.5-5.1); Sodium 133 mmol/L (136-145); Total Bilirubin 0.8 mg/dL (0.15-1.2); Total Protein 5.2 g/dL (6.6-8.7)
--- NOTE | 2021-01-01 14:00 | PC.NURSE ---
MAR other delay: Primaxin started late due assisting with multiple more critical pts.
[2021-01-01 14:10] LABS: White Blood Count 36.2 10^3/uL (4.0-10.0)
[2021-01-01 14:11] LABS: Slide Review Slide Review Perform
[2021-01-01] MEDS: FUROsemide 10 mg/mL SDV 2mL 20 MG IVP (14:15)
[2021-01-01] MEDS: potassium chloride oral liq 20 mEq/15 mL UDC 40 MEQ PO (14:47)
--- NOTE | 2021-01-01 17:30 | PC.NURSE ---
Mrs. Chavez called for an update spoke to her about pt off vasopressors yesterday, Sedation changed to help decrease confusion later, Tube feeding started, Pt went to CT of his head today, results NOT discussed. Blood clots in legs discussed with heparin drip. AST and ALT values significantly improving.
[2021-01-01 18:04] LABS: Glucose Point of Care 125 mg/dL (70-110)
--- NOTE | 2021-01-01 18:38 | PC.NURSE ---
Heparin drip; PTT 58, in therapeutic range. Heparin drip rate remains at 22 mL/hr.
--- NOTE | 2021-01-01 18:43 | PC.NURSE ---
While patient as at CT, Dexmedetomidine increased to 0.4 mcg/kg/hr for patient comfort, due to coughing and low O2 levels.
--- NOTE | 2021-01-01 18:55 | PC.NURSE ---
Shift summary; patient opens eyes spontaneously. Has slight left hand movement when asked to squeeze hand. Patient has cheek movement when mouth is swabbed. Stopped Propofol and normal saline. Started Dexmedetomidine, infusing at 0.4 mcg/kg/hr. Critical was called for WBC of 36.2. CT was done, see report for details. Glycerna 1.2 OG feeding was started at 30 mL/hr. Last blood glucose was 125, therefore no insulin was given. Pt remains intubated. FiO2 50, tidal volume 500, Peep 10.
--- NOTE | 2021-01-01 19:22 | P.PN_ITS ---
Subjective Subjective: Interval history: Opens eyes. Does not follow commands. Not answering questions. At some points appears almost as if he is closing his eyes on command. Vitals/I&O/Wt Last Vital Signs Temp 98.4 F 01/01/21 18:00 Pulse 101 H 01/01/21 18:00 Resp 20 H 01/01/21 18:00 BP 153/79 01/01/21 18:00 Pulse Ox 91 01/01/21 18:00 01/01/21 01/01/21 01/01/21 06:59 14:59 22:59 Intake Total 1063.75 / 2537.863 1960.473 / 1960.473 120.124 / 2080.597 Output Total 1275 / 2975 650 / 650 2075 / 2725 Balance -211.25 / -583.668 4423.473 / 1310.473 -1954.876 / -644.403 Weight last 48 hrs Weight 92.986 kg Weight 92.986 kg Physical Exam Const: COMMON NORMALS: no acute distress GENERAL APPEARANCE: not cooperative ORIENTATION/CONSCIOUSNESS: Yes awake HENMT: COMMON NORMALS: oropharynx normal Neck/C-Spine: COMMON NORMALS: no JVD Resp: COMMON NORMALS: normal respiratory effort and clear to auscultation bilaterally AUSCULTATION: clear to auscultation bilaterally Cardio: COMMON NORMALS: no JVD, regular rhythm, S1 normal heart sound present, S2 normal heart sound present and No murmurs present (Cardio) RHYTHM: regular rhythm HEART SOUNDS: S1 normal heart sound present and S2 normal heart sound present GI: COMMON NORMALS: Normal to inspection, nondistended, normoactive bowel so unds present, Soft to palpation and non-tender PALPATION: Yes Soft to palpation Extremity: COMMON NORMALS: no joint enlargement and no pedal edema Neuro: COMMON NORMALS: moves all extremities Skin: COMMON NORMALS: no rashes or lesions noted GENERAL SKIN EXAM: no rashes or lesions noted Data : 01/01/21 12:58 01/01/21 12:58 A&P Assessment and plan (1) COVID-19: Remdisivir, dexamethasone duoneb q6h, budesonide q12h Status: Acute (2) Sepsis with acute hypoxic respiratory failure: Repeat BCx Multiple CVA, 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 Continue broad-spectrum antibiotic coverage. Status: Acute Qualifiers: Sepsis type: sepsis due to unspecified organism Severe sepsis shock status: with septic shock Qualified Code(s): A41.9 - Sepsis, unspecified organism; R65.21 - Severe sepsis with septic shock; J96.01 - Acute respiratory failure with hypoxia (3) NSTEMI (non-ST elevated myocardial infarction): Heparin drip, Troponins with significant delta, may be related to cardiac arrest and cardioversion Currently in sinus rhythm HR 60 Status: Acute (4) Sepsis: Meets criteria by way of leukocytosis, tachycardia, source of infection As a result of COVID-19 pneumonia And septic vs cardiogenic shock on 2 pressors. Status: Acute Qualifiers: Sepsis type: sepsis due to unspecified organism Sepsis acute organ dysfunction status: with acute organ dysfunction Severe sepsis acute organ dysfunction type: acute respiratory failure Acute respiratory failure type: with hypoxia Severe sepsis shock status: with septic shock Qualified Code(s): A41.9 - Sepsis, unspecified organism; R65.21 - Severe sepsis with septic shock; J96.01 - Acute respiratory failure with hypoxia (5) Cardiac arrest: As above Status: Acute (6) Metabolic acidosis: As a result of cardiac arrest Status: Acute (7) Acute kidney injury: With mild improvement. Again as a result of cardiac arrest, renal hypoperfusion most likely explanation Status: Acute (8) DVT (deep venous thrombosis): b/l le, loose, massive Possible PE R heart failure. Continue anticoagulation. Status: Acute (9) CVA (cerebral vascular accident): Multiple CVA noted on CT of the head. Etiology at this time is not clear. Would suspect hypoperfusion during cardiac arrest, and per discussion with radiology do appear in watershed areas. Embolic etiology not excluded. Septic embolic etiology possibly less likely, but additional assessment requested by blood culture. Continue broad-spectrum antibiotics. On anticoagulation. EEG Status: Acute Attestations Medical Necessity Statement*: Continue admission for assessment of management of hypoxic respiratory failure, altered mental status, following cardiac arrest, with noted multiple CVA. 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 [facility] Fw Diagnoses COVID-19 U07.1 Sepsis with acute hypoxic respiratory failure A41.9; R65.21; J96.01 Sepsis type: sepsis due to unspecified organism Severe sepsis shock status: with septic shock NSTEMI (non-ST elevated myocardial infarction) I21.4 Sepsis A41.9; R65.21; J96.01 Sepsis type: sepsis due to unspecified organism Sepsis acute organ dysfunction status: with acute organ dysfunction Severe sepsis acute organ dysfunction type: acute respiratory failure Acute respiratory failure type: with hypoxia Severe sepsis shock status: with septic shock Cardiac arrest I46.9 Metabolic acidosis E87.2 Acute kidney injury N17.9 DVT (deep venous thrombosis) I82.409 CVA (cerebral vascular accident) I63.9
[2021-01-01] MEDS: heparin drip 25,000 UNIT/500 ML PREMIX 22 UNIT IV (19:30)
[2021-01-01] MEDS: dexmedetomidine 400 MCG in sodium chloride 0.9% (100 ml) 100 ML 16.92 MCG IV (22:21)
[2021-01-02] VITALS (60 sets, daily range): BP systolic 103–193; BP diastolic 64–105; PULSE 63–104; RESP 16–39; TEMP 36.6–37.2; O2SAT 84–97
[2021-01-02] MEDS: vancomycin 1,500 MG/300 ML PIGGYBACK 200 MG IV (00:54)
[2021-01-02] MEDS: dexamethasone 10 mg/mL INJ 6 MG IVP (00:54)
[2021-01-02] MEDS: fentaNYL 50 mcg/mL INJ 2mL 25 MCG IVP (01:39)
[2021-01-02] MEDS: ipratropium-albuterol 3 mL Neb INHALATION ×4 (03:14→20:30)
[2021-01-02] MEDS: dexmedetomidine 400 MCG in sodium chloride 0.9% (100 ml) 100 ML 16.92 MCG IV ×4 (03:16→21:26)
--- NOTE | 2021-01-02 03:35 | PC.NURSE ---
Addendum entered by Shavon Ayala RN 01/02/21 05:03: Tube feeding turned off due to high residuals and abdominal distention Original Note: Shift summary: Pt became increasingly SOB, using abdominal and accessory muscles to breath on vent, hypertension and tachycardia, diaphoretic. Pt failed to follow commands or open eyes. notified, see new orders.
[2021-01-02 04:08] LABS: Glucose Point of Care 149 mg/dL (70-110)
[2021-01-02] MEDS: remdesivir 100 MG in sodium chloride 0.9% (100 ml) 100 ML IV (05:04)
[2021-01-02 06:23] LABS: Platelet Count 168 10^3/cmm (130-400)
[2021-01-02 06:24] LABS: Basophils % 0.1 %; Eosinophils # 0.1 10^3/uL (0.0-0.8); Eosinophils % 0.2 %; Hematocrit 36.1 % (42.0-52.0); Hemoglobin 12.5 g/dL (11.7-16.6); Lymphocytes # 0.3 10^3/uL (0.8-4.8); Mean Corpuscular HGB Conc 34.6 g/dL (30.0-36.0); Mean Corpuscular Hemoglobin 29.9 pg (28.0-34.0); Mean Corpuscular Volume 86.4 fL (80-94); Mean Platelet Volume 12.6 fL (7.4-10.4); Monocytes # 0.9 10^3/uL (0.2-0.9); Monocytes % 2.7 %; Neutrophils # 27.86 10^3/uL (1.8-7.7); Neutrophils % 83.6 %; Nucleated Red Blood Cells # 0.3 /100WBC; Platelet Count 179 10^3/cmm (130-400); Red Blood Count 4.18 10^6/uL (4.1-5.3)
[2021-01-02 06:40] LABS: Partial Thromboplastin Time 52.7 SECONDS (23.9-36.7)
[2021-01-02 06:58] LABS: Alanine Aminotransferase 151 U/L (0-41); Albumin Level 2.2 g/dL (3.5-5.2); Alkaline Phosphatase 120 IU/L (40-130); Anion Gap 18.9 (5-19); Aspartate Amino Transferase 56 U/L (0-40); Calcium 7.5 mg/dL (8.5-10.5); Carbon Dioxide 20 mmol/L (22-29); Chloride 103 mmol/L (98-107); Globulin 3.2 g/dL (1.3-4.6); Glucose 137 mg/dL (65-115); Osmolality Calculated 315 mOsm/kg (285-295); Potassium 3.9 mmol/L (3.5-5.1); Sodium 138 mmol/L (136-145); Total Bilirubin 1.2 mg/dL (0.15-1.2); Total Protein 5.4 g/dL (6.6-8.7)
[2021-01-02 07:14] LABS: Blood Urea Nitrogen 87 mg/dL (8-23)
[2021-01-02 07:39] LABS: Slide Review Slide Review Perform; White Blood Count 33.3 10^3/uL (4.0-10.0)
[2021-01-02 08:04] LABS: Glucose Point of Care 136 mg/dL (70-110)
[2021-01-02] MEDS: budesonide 0.5 mg/2 mL Neb INHALATION ×2 (08:04→20:30)
--- NOTE | 2021-01-02 08:08 | P.PN_ITS ---
Subjective Subjective: Interval history: The patient was seen and examined this morning. Overnight, the patient was restless requiring additional doses of fentanyl. CT head yesterday revealed multiple infarcts likely secondary to cardiac arrest. There is also evidence of increased pressure in the posterior fossa. The patient continues to have post ATN diuresis. His creatinine is coming down however there has been continued elevation of BUN. His white count is stable. He was started on tube feed yesterday however there has been approximately 350 cc residual. And was stopped. Medications: Reviewed: Yes Vitals/I&O/Wt Last Vital Signs Temp 98.2 F 01/02/21 07:00 Pulse 81 01/02/21 08:04 Resp 36 H 01/02/21 08:06 BP 120/67 01/02/21 07:00 Pulse Ox 94 01/02/21 08:06 01/01/21 01/02/21 01/02/21 22:59 06:59 14:59 Intake Total 659.628 / 2620.101 483.19 / 3103.291 Output Total 3075 / 3725 1450 / 5175 Balance -2415.372 / -1104.899 -966.81 / -2071.709 Weight last 48 hrs Weight 200 lb 9.6 oz Weight 205 lb Physical Exam Narrative: EXAM NARRATIVE: General: Patient is intubated and sedated, moves spontaneously but no forceful movement Neck: No JVD Respiratory: Auscultation: Bilateral clear to auscultation both anterior and posteriorly, no crackles wheezing or rhonchi Cardiovascular: Regular rate and rhythm, S1-S2 present, no murmur, no peripheral edema. Abdomen: Soft, nontender, nondistended, positive bowel sound Neuro: Not following any commands, moves spontaneously from time to time Data : 01/02/21 05:15 01/02/21 05:15 Micro: Microbiology 01/01/21 19:52 Blood Culture - Preliminary Blood SPECIMEN COLLECTED 01/01/21 19:48 Blood Culture - Preliminary Blood SPECIMEN COLLECTED Attestation for Other Data: I personally reviewed and interpreted the following: Other data: I have reviewed the patient's laboratory, microbiologic and radiologic data. A&P Assessment and plan (1) Cardiac arrest: This is an 80-year-old gentleman who suffered from cardiac arrest. No hypothermia protocol was performed. The cause of the cardiac arrest is likely hypoxia. This could have been secondary to ARDS from COVID-19 or a combination of SARS-CoV-2 pneumonia and pulmonary embolism. The patient is currently on remdesivir and dexamethasone. His oxygen requirement has been stable. CT scan of the head revealed multiple strokes including evidence of increased pressure in the posterior fossa. His overall prognosis is likely poor. I have discussed this with his this morning. At this point, she is expecting a miracle and wants us to proceed. I will have a conversation with them again later today. We are going to get an EEG today to rule out any seizure activity. Status: Acute (2) DVT (deep venous thrombosis): The patient has DVT involving left femoral vein and profunda femoris as well as greater saphenous vein on the right side with a mobile clot at the junction of the femoral vein. The patient is currently anticoagulated with heparin. It is possible that the patient had embolization of the DVT causing PE and acute RV dysfunction. His liver enzymes are stable. He received 1 dose of Lasix yesterday. Status: Acute (3) Acute right-sided heart failure: The etiology of the acute RV failure is unclear. This could certainly be from pulmonary embolism or severe vasoconstriction in the setting of ARDS from COVID-19. We will continue supportive therapy at this time. Status: Acute (4) Acute respiratory distress syndrome (ARDS) due to 2019 novel coronavirus: The patient is currently on remdesivir and dexamethasone. We will contin ue with the supportive therapy Status: Acute (5) Acute kidney injury: Acute kidney injury is likely secondary to hypoxia, hypotension, cardiac arrest. The patient has ATN and is likely in the diuretic phase right now. The creatinine is coming down. However the BUN is increasing which is likely multifactorial. Status: Acute (6) Hyponatremia: Hyponatremia has resolved on the latest blood work. Status: Acute (7) MRSA pneumonia: The patient has MRSA pneumonia and likely bacterial translocation that can easily happen with cardiac arrest. The patient is broadly covered with vancomycin and Carbapenem. Status: Acute Additional A&P Information Patient has poor prognosis. I will have additional conversation with the patient's family today. 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
[2021-01-02] MEDS: metoprolol tartrate 25 mg Tablet 12.5 MG PO (09:03)
[2021-01-02] MEDS: pantoprazole 40 mg SDV IVP (09:04)
[2021-01-02] MEDS: potassium chloride premix 100 ML 50 MEQ IV (09:05)
--- NOTE | 2021-01-02 09:35 | PC.CHAP ---
Pastoral Care Encounter/Spiritual Assessment Type of Contact [] Declined agricultural scientist visit [] Patient/Family/Request visit [] Outpatient visit [] Follow-up visit [] Physician referral [] Code/Alert [x] Routine visit [] Staff referral [] Actively dying [] Patient sleeping [] Family support [] [] Out of room [] Palliative care [] [] Receiving care in room [] Pre-surgical visit [] Trauma [] Long length of stay [x] ICU visit [x] Other: ventilator Relational/Emotional Strength [] Patient feels connected with others/family/visitors/staff [] Distress [] Loneliness/isolation [] Abandonment Spirituality of Patient [] Person of Kimmy [] Attends Zoroastrian of their Kimmy [] Believes in Prayer [] Reads Bible or Denominational materials [] There are Spiritual issues to be addressed Translator Deaf Interventions [x] Prayer [] Active listening [] Non-anxious presence [] Spiritual/emotional support [] Crisis/trauma care [] Spiritual counseling [] Bereavement support [] Provided bereavement packet [] Provided Bible/devotional materials [] Provided toy/stuffed animal, coloring book to patient or family member [] Provided Communion [] Anointing/[place] [] Salvation [x] Completed spiritual assessment [] Other: Impact on Illness or Injury [] Angry [] Fearful [] Anxious [] Often cries [] Exhaustion [] Unable to work [] Unable to attend congregation [] Unable to walk/stand [] Unable to read [] Unable to drive [] Unable to eat/drink [] Unable to sleep [] Unable to be with family [] Patient intubated [] Other: Summary Time spent with patient
--- NOTE | 2021-01-02 10:35 | PC.NUTR ---
Nutrition assessment completed for LOS. Spoke with MD who states TF to be resumed today, but will only run at 10-15 ml/hr. Glucerna 1.2 at 15 ml/hr would provide 432 kcal, 22 g protein, and 290 ml H2O. Recommend addition of H2O flushes per MD discretion. If pt able to tolerate increased TF at later time, would recommend goal rate of 55 ml/hr, to provide 1584 kcal, 79 g protein, and 1063 ml H2O, with additional flushes per MD discretion. See full RD assessment for further details.
--- NOTE | 2021-01-02 11:08 | PC.SOCIAL ---
IMM NOT GIVEN IMM not given due to pt intubated at this time.
[2021-01-02 11:13] LABS: Glucose Point of Care 166 mg/dL (70-110)
[2021-01-02 17:17] LABS: Partial Thromboplastin Time 58.3 SECONDS (23.9-36.7)
[2021-01-02 17:17] LABS: Glucose Point of Care 145 mg/dL (70-110)
[2021-01-02] MEDS: heparin drip 25,000 UNIT/500 ML PREMIX 22 UNIT IV (17:27)
[2021-01-02] MEDS: glycerin adult supp 1 EACH PR (17:28)
--- NOTE | 2021-01-02 18:30 | PC.NURSE ---
Shift Note Frequent safety and comfort rounds continue. Orders and/or nursing care completed as indicated. Patient monitored for response to intervention and treatment(s). Education provided includes medication to family. Will continue to monitor.
--- NOTE | 2021-01-02 19:21 | P.MISC_ITS ---
Miscellaneous Note Purpose of Documentation: EEG bedside Note: ORDERING PHYSICIAN: Dr. Park. REASON FOR STUDY: Multiple diffuse strokes, Covid. STUDY: This was a 21 channel digital electroencephalogram performed using the 10-20 international system of electrode placement. This study was performed at the bedside on an unresponsive patient. This study was performed emergently for altered mental status in a patient with diffuse intracranial ischemia. FINDINGS: The background was flat and consisted only of artifact on a flat background. The patient did not qualify for diagnosis of brain , as there was spontaneous coughing by the patient during the recording as reported by the customer account technician. Also, the customer account technician reported spontaneous movement by the patient. IMPRESSION: Diffuse low voltage flat background. No evidence of subclinical epileptic activity and there were no behavioral seizures. There was spontaneous movement reported by the customer account technician including coughing and somatic movement, unaccompanied by any changes in the record except for movement artifact. The lack of cerebral activity would not portend a good prognosis, but with the amount of spontaneous movement this is not electrocerebral silence. Duration of EE.2
[2021-01-02 19:46] LABS: Glucose Point of Care 141 mg/dL (70-110)
--- NOTE | 2021-01-02 20:23 | P.PN_ITS ---
Subjective Subjective: Interval history: Not waking up. Not answering questions or following commands. No spontaneous movements during my assessment. Vitals/I&O/Wt Last Vital Signs Temp 97.8 F 01/02/21 19:49 Pulse 70 01/02/21 19:49 Resp 21 H 01/02/21 19:49 BP 139/78 01/02/21 19:49 Pulse Ox 91 01/02/21 19:49 01/02/21 01/02/21 01/02/21 06:59 14:59 22:59 Intake Total 483.19 / 3103.291 304 / 304 1009.885 / 1313.885 Output Total 1450 / 5175 1100 / 1100 950 / 2050 Balance -966.81 / -2071.709 -796 / -796 59.885 / -736.115 Weight last 48 hrs Weight 90.991 kg Weight 92.986 kg Physical Exam Const: COMMON NORMALS: no acute distress; negative for alert GENERAL APPEARANCE: frail appearing; not cooperative ORIENTATION/CONSCIOUSNESS: not awake HENMT: COMMON NORMALS: oropharynx normal Neck/C-Spine: COMMON NORMALS: no JVD Chest: OTHER: Blessed cloth per family request covering patient's chest. Resp: COMMON NORMALS: normal respiratory effort and clear to auscultation bi laterally AUSCULTATION: clear to auscultation bilaterally Cardio: COMMON NORMALS: no JVD, regular rhythm, S1 normal heart sound present, S2 normal heart sound present and No murmurs present (Cardio) RHYTHM: regular rhythm HEART SOUNDS: S1 normal heart sound present and S2 normal heart sound present GI: COMMON NORMALS: Normal to inspection, nondistended, normoactive bowel sounds present, Soft to palpation and non-tender PALPATION: Yes Soft to palpation Extremity: COMMON NORMALS: no joint enlargement and no pedal edema Neuro: SENSORIUM/ORIENTATION: No alert Skin: COMMON NORMALS: no rashes or lesions noted GENERAL SKIN EXAM: no rashes or lesions noted Data : 01/02/21 05:15 01/02/21 05:15 Micro: Microbiology 01/01/21 19:52 Blood Culture - Preliminary Blood NEGATIVE TO DATE 01/01/21 19:48 Blood Culture - Preliminary Blood NEGATIVE TO DATE 12/28/20 19:11 Blood Culture - Final Blood NO GROWTH AFTER 5 DAYS 12/28/20 19:05 Blood Culture - Final Blood NO GROWTH AFTER 5 DAYS A&P Assessment and plan (1) Encephalopathy: He so far does not appear to be waking up. With noted multiple CVA on CT head, possibly in watershed distribution, with noted crowding at from ovale but no herniation. Embolic disease not entirely excluded. Cannot currently exclude septal defect with productive cough CVA and presence of DVT. Continues on anticoagulation. Septic embolic disease suspected less likely. Blood cultures so far negative. EEG obtained today with diffuse low-voltage flat background, although some spontaneous movement noted. Paucity of cerebral activity not suggesting good prognosis, although he is not in electrocerebral silence. No epileptiform discharges. Continue additional treatment of underlying conditions, supportive care, waking trial. Status: Acute (2) COVID-19: Continue. Remdisivir, dexamethasone. Status: Acute (3) Sepsis with acute hypoxic respiratory failure: Repeat BCx Multiple CVA, 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 Continue broad-spectrum antibiotic coverage. Status: Acute Qualifiers: Sepsis type: sepsis due to unspecified organism Severe sepsis shock status: with septic shock Qualified Code(s): A41.9 - Sepsis, unspecified organism; R65.21 - Severe sepsis with septic shock; J96.01 - Acute respiratory failure with hypoxia (4) NSTEMI (non-ST elevated myocardial infarction): Heparin drip, Troponins with significant delta, may be related to cardiac arrest and cardioversion Status: Acute (5) Sepsis: Meets criteria by way of leukocytosis, tachycardia, source of infection As a result of COVID-19 pneumonia And septic vs cardiogenic shock on 2 pressors. Status: Acute Qualifiers: Sepsis type: sepsis due to unspecified organism Sepsis acute organ dysfunction status: with acute organ dysfunction Severe sepsis acute organ dysfunction type: acute respiratory failure Acute respiratory failure type: with hypoxia Severe sepsis shock status: with septic shock Qualified Code(s): A41.9 - Sepsis, unspecified organism; R65.21 - Severe sepsis with septic shock; J96.01 - Acute respiratory failure with hypoxia (6) Cardiac arrest: As above Status: Acute (7) Metabolic acidosis: As a result of cardiac arrest Status: Acute (8) Acute kidney injury: With mild improvement. Again as a result of cardiac arrest, renal hypoperfusion most likely explanation Status: Acute (9) DVT (deep venous thrombosis): b/l le, loose, massive Possible PE R heart failure. Continue anticoagulation. Status: Acute (10) CVA (cerebral vascular accident): Multiple CVA noted on CT of the head. Etiology at this time is not clear. Would suspect hypoperfusion during cardiac arrest, and per discussion with radiology do appear in watershed areas. Embolic etiology not excluded. Septic embolic etiology less likely, pending additional blood culture. Continue broad- spectrum antibiotics. On anticoagulation. EEG Status: Acute Additional A&P Information Poor prognosis Attestations Medical Necessity Statement*: Continue admission for assessment management of acute encephalopathy following cardiac arrest, hypoxic respiratory failure with severe COVID-19, possible PE. Coding Level of Care Code Acute Benefits Consulting Analyst for [facility] Diagnoses Encephalopathy G93.40 COVID-19 U07.1 Sepsis with acute hypoxic respiratory failure A41.9; R65.21; J96.01 Sepsis type: sepsis due to unspecified organism Severe sepsis shock status: with septic shock NSTEMI (non-ST elevated myocardial infarction) I21.4 Sepsis A41.9; R65.21; J96.01 Sepsis type: sepsis due to unspecified organism Sepsis acute organ dysfunction status: with acute organ dysfunction Severe sepsis acute organ dysfunction type: acute respiratory failure Acute respiratory failure type: with hypoxia Severe sepsis shock status: with septic shock Cardiac arrest I46.9 Metabolic acidosis E87.2 Acute kidney injury N17.9 DVT (deep venous thrombosis) I82.409 CVA (cerebral vascular accident) I63.9
[2021-01-03] VITALS (61 sets, daily range): BP systolic 91–229; BP diastolic 48–135; PULSE 61–111; RESP 18–27; TEMP 36.2–37.5; O2SAT 87–100; BMI 30.4
[2021-01-03] MEDS: dexamethasone 10 mg/mL INJ 6 MG IVP ×2 (01:04→23:47)
[2021-01-03] MEDS: metoprolol tartrate 25 mg Tablet 12.5 MG PO ×2 (01:05→08:42)
[2021-01-03 01:22] LABS: Glucose Point of Care 132 mg/dL (70-110)
[2021-01-03] MEDS: ipratropium-albuterol 3 mL Neb INHALATION ×4 (02:45→20:16)
[2021-01-03] MEDS: labetalol 5 mg/mL SDV 20mL 10 MG IVP ×2 (03:08→04:00)
[2021-01-03] MEDS: dexmedetomidine 400 MCG in sodium chloride 0.9% (100 ml) 100 ML 16.92 MCG IV ×3 (03:25→16:29)
[2021-01-03] MEDS: remdesivir 100 MG in sodium chloride 0.9% (100 ml) 100 ML IV (06:16)
[2021-01-03 06:47] LABS: Basophils % 0.1 %; Hematocrit 40.6 % (42.0-52.0); Hemoglobin 13.8 g/dL (11.7-16.6); Lymphocytes # 0.6 10^3/uL (0.8-4.8); Lymphocytes % 1.8 %; Mean Corpuscular Hemoglobin 29.9 pg (28.0-34.0); Mean Corpuscular Volume 87.9 fL (80-94); Mean Platelet Volume 12.2 fL (7.4-10.4); Monocytes # 0.6 10^3/uL (0.2-0.9); Monocytes % 1.9 %; Neutrophils # 26.47 10^3/uL (1.8-7.7); Neutrophils % 84.2 %; Nucleated Red Blood Cells # 0.1 /100WBC; Nucleated Red Blood Cells % 0.4 %; Platelet Count 186 10^3/cmm (130-400); Red Blood Count 4.62 10^6/uL (4.1-5.3); Red Cell Distribution Width 15.8 % (12.1-15.1)
[2021-01-03] MEDS: hyDRALAzine 20 mg/mL INJ 1 mL 10 MG IVP ×2 (06:51→08:35)
[2021-01-03 06:55] LABS: Partial Thromboplastin Time 50.7 SECONDS (23.9-36.7)
[2021-01-03 07:04] LABS: Alanine Aminotransferase 100 U/L (0-41); Albumin Level 2.3 g/dL (3.5-5.2); Alkaline Phosphatase 112 IU/L (40-130); Anion Gap 18.4 (5-19); Aspartate Amino Transferase 43 U/L (0-40); Calcium 7.8 mg/dL (8.5-10.5); Carbon Dioxide 22 mmol/L (22-29); Chloride 110 mmol/L (98-107); Globulin 3.4 g/dL (1.3-4.6); Glucose 156 mg/dL (65-115); Osmolality Calculated 332 mOsm/kg (285-295); Potassium 4.4 mmol/L (3.5-5.1); Sodium 146 mmol/L (136-145); Total Bilirubin 1.2 mg/dL (0.15-1.2); Total Protein 5.7 g/dL (6.6-8.7)
[2021-01-03] MEDS: nicardipine 20 MG/200 ML PREMIX 50 MG IV (07:05)
[2021-01-03] MEDS: propofol 1,000 MG/100 ML INJ 8.98 MG IV ×2 (07:18→18:33)
[2021-01-03 07:47] LABS: Blood Urea Nitrogen 87 mg/dL (8-23)
[2021-01-03 07:49] LABS: White Blood Count 31.4 10^3/uL (4.0-10.0)
[2021-01-03 07:50] LABS: Slide Review Slide Review Perform
[2021-01-03] MEDS: budesonide 0.5 mg/2 mL Neb INHALATION ×2 (08:05→20:16)
[2021-01-03] MEDS: pantoprazole 40 mg SDV IVP (08:42)
--- NOTE | 2021-01-03 09:08 | P.PN_ITS ---
Subjective Subjective: Interval history: The patient was seen and examined this morning. Overnight, the patient was agitated and hypertensive. He was given fentanyl and intermittent doses of labetalol and hydralazine. This morning, the patient was actually able to follow commands. A bedside u ltrasound revealed collapsible IVC. The patient had been having excellent urine output which is because of post ATN diuresis. He has started to develop hyponatremia. His white count has been slowly coming down. The creatinine has stabilized and coming down now. BUN has stabilized today. Medications: Reviewed: Yes Vitals/I&O/Wt Last Vital Signs Temp 98.2 F 01/03/21 01:00 Pulse 85 01/03/21 08:04 Resp 22 H 01/03/21 08:09 BP 191/106 01/03/21 06:30 Pulse Ox 92 01/03/21 08:09 01/02/21 01/03/21 01/03/21 22:59 06:59 14:59 Intake Total 1113.885 / 1417.885 324 / 1741.885 101.166 / 101.166 Output Total 950 / 2050 1800 / 3850 Balance 163.885 / -632.115 -1476 / -2108.115 101.166 / 101.166 Weight last 48 hrs Weight 200 lb 9.6 oz Weight 200 lb 9.6 oz Physical Exam Narrative: EXAM NARRATIVE: General: Patient is intubated and sedated, agitated this morning. Neck: No JVD Respiratory: Auscultation: Bilateral clear to auscultation both anterior and posteriorly, no crackles wheezing or rhonchi Cardiovascular: Regular rate and rhythm, S1-S2 present, no murmur, no peripheral edema. Abdomen: Soft, nontender, nondistended, positive bowel sound Neuro: The patient is actually following simple commands like opening his eyes, squeezing his fingers and wiggling his toes, moving all extremities Data : 01/03/21 05:35 01/03/21 05:35 Micro: Microbiology 01/01/21 19:52 Blood Culture - Preliminary Blood NEGATIVE TO DATE 01/01/21 19:48 Blood Culture - Preliminary Blood NEGATIVE TO DATE 12/28/20 19:11 Blood Culture - Final Blood NO GROWTH AFTER 5 DAYS 12/28/20 19:05 Blood Culture - Final Blood NO GROWTH AFTER 5 DAYS Attestation for Other Data: I personally reviewed and interpreted the following: Other data: I have reviewed his laboratory microbiologic and radiologic data. A&P Assessment and plan (1) Cardiac arrest: This is an 80-year-old gentleman who suffered from cardiac arrest. No hypothermia protocol was performed. The cause of the cardiac arrest is likely hypoxia. This could have been secondary to ARDS from COVID-19 or a combination of SARS-CoV-2 pneumonia and pulmonary embolism. He has completed his course of remdesivir. He will continue with dexamethasone for now. I was able to titrate his FiO2 down to 50%. CT scan of the head revealed multiple strokes including evidence of increased pressure in the posterior fossa. Interestingly, the patient is following commands this morning which is very encouraging. We are waiting for the EEG read that was performed yesterday. We are going to keep the patient comfortable. Cardene drip was added to control severe hypertension. The blood pressure goal is less than 150 systolic. Status: Acute (2) DVT (deep venous thrombosis): The patient has DVT involving left femoral vein and profunda femoris as well as greater saphenous vein on the right side with a mobile clot at the junction of the femoral vein. The patient is currently anticoagulated with hepa rin. The PTT had been stable. It is possible that the patient had embolization of the DVT causing PE and acute RV dysfunction. His liver enzymes are stable. Status: Acute (3) Acute right-sided heart failure: The etiology of the acute RV failure is unclear. This could certainly be from pulmonary embolism or severe vasoconstriction in the setting of ARDS from COVID-19. The patient is improving. Status: Acute (4) Acute respiratory distress syndrome (ARDS) due to 2019 novel coronavirus: The patient is currently on dexamethasone. We will continue with the supportive therapy Status: Acute (5) Acute kidney injury: Acute kidney injury is likely secondary to hypoxia, hypotension, cardiac arrest. The patient has ATN and is likely in the diuretic phase right now. The creatinine is coming down. BUN has stabilized. Status: Acute (6) Hypernatremia: The patient is starting to develop hyponatremia due to diuresis. The patient is currently on tube feed which will increase to 30 mL/h. I am also starting him on free water flush 400 cc every 6 hours. Status: Acute (7) MRSA pneumonia: The patient has MRSA pneumonia. He also likely has bacterial translocation from the gut that can easily happen with cardiac arrest. The patient is broadly covered with vancomycin and imipenem for the time being. Status: Acute Additional A&P Information We will continue to provide supportive therapy and evaluate him daily for suitability for extubation. Attestations Medical Necessity Statement*: Will defer to the primary team Coding Level of Care Code [facility] Diagnoses Cardiac arrest I46.9 DVT (deep venous thrombosis) I82.409 Acute right-sided heart failure I50.811 Acute respiratory distress syndrome (ARDS) due to 2019 novel coronavirus U07.1; J80 Acute kidney injury N17.9 Hypernatremia E87.0 MRSA pneumonia J15.212 Time Spent (min) 33
--- NOTE | 2021-01-03 09:44 | PC.CHAP ---
Pastoral Care Encounter/Spiritual Assessment Type of Contact [] Declined load out person visit [] Patient/Family/Request visit [] Outpatient visit [] Follow-up visit [] Physician referral [] Code/Alert [x] Routine visit [] Staff referral [] Actively dying [] Patient sleeping [] Family support [] [] Out of room [] Palliative care [] [x] Receiving care in room [] Pre-surgical visit [] Trauma [] Long length of stay [x] ICU visit [x] Other:ventilator Relational/Emotional Strength [] Patient feels connected with others/family/visitors/staff [] Distress [] Loneliness/isolation [] Abandonment Spirituality of Patient [] Person of Kimmy [] Attends Samaritan of their Kimmy [] Believes in Prayer [] Reads Bible or Buddhist materials [] There are Spiritual issues to be addressed Spool Cleaner Interventions [x] Prayer [] Active listening [] Non-anxious presence [] Spiritual/emotional support [] Crisis/trauma care [] Spiritual counseling [] Bereavement support [] Provided bereavement packet [] Provided Bible/devotional materials [] Provided toy/stuffed animal, coloring book to patient or family member [] Provided Communion [] Anointing/[place] [] Salvation [x] Completed spiritual assessment [] Other: Impact on Illness or Injury [] Angry [] Fearful [] Anxious [] Often cries [] Exhaustion [] Unable to work [] Unable to attend mormon [] Unable to walk/stand [] Unable to read [] Unable to drive [] Unable to eat/drink [] Unable to sleep [] Unable to be with family [] Patient intubated [] Other: Summary Time spent with patient
[2021-01-03] MEDS: vancomycin 1,500 MG/300 ML PIGGYBACK 200 MG IV (11:42)
[2021-01-03 12:27] LABS: Vancomycin Trough 20.2 ug/mL (10-15)
--- NOTE | 2021-01-03 14:10 | PC.RESP ---
Pulmonary Rehab information to patient.
[2021-01-03 15:32] LABS: Glucose Point of Care 164 mg/dL (70-110)
[2021-01-03] MEDS: heparin drip 25,000 UNIT/500 ML PREMIX 22 UNIT IV (16:07)
--- NOTE | 2021-01-03 17:05 | PC.NURSE ---
This AM patient was able to open eyes and follow commands. Respirations became very rapid and SBP was above 200. Medication was given and propofol started for proper sedation.
[2021-01-03 17:07] LABS: Glucose Point of Care 145 mg/dL (70-110)
--- NOTE | 2021-01-03 19:05 | PC.NURSE ---
Shift Note Frequent safety and comfort rounds continue. Orders and/or nursing care completed as indicated. Patient monitored for response to intervention and treatment(s). Education provided includes sedation and ventilation compliance. Patient and/or representatives were informed of theses findings. Will continue to monitor.
--- NOTE | 2021-01-03 20:13 | P.PN_ITS ---
Subjective Subjective: Interval history: Currently sedated. Earlier today reported to be following some commands. However, became more restless, requiring increase in sedation. Vitals/I&O/Wt Last Vital Signs Temp 98.1 F 01/03/21 18:00 Pulse 62 01/03/21 20:00 Resp 18 01/03/21 18:05 BP 96/55 01/03/21 20:00 Pulse Ox 91 01/03/21 20:00 01/03/21 01/03/21 01/03/21 06:59 14:59 22:59 Intake Total 324 / 1741.885 503.046 / 550.966 8706.667 / 1605.713 Output Total 1800 / 3850 300 / 300 800 / 1100 Balance -1476 / -2108.115 203.046 / 203.046 302.667 / 505.713 Weight last 48 hrs Weight 90.991 kg Weight 90.991 kg Physical Exam Const: COMMON NORMALS: no acute distress; negative for alert GENERAL APPEARANCE: frail appearing ORIENTATION/CONSCIOUSNESS: not awake OTHER: Sedated. HENMT: COMMON NORMALS: oropharynx normal Neck/C-Spine: COMMON NORMALS: no JVD Resp: COMMON NORMALS: normal respiratory effort and clear to auscultation bilaterally AUSCULTATION: clear to auscultation bilaterally Cardio: COMMON NORMALS: no JVD, regular rhythm, S1 normal heart sound present, S2 normal heart sound present and No murmurs present (Cardio) RHYTHM: regular rhythm HEART SOUNDS: S1 normal heart sound present and S2 normal heart sound present GI: COMMON NORMALS: Normal to inspection, nondistended, normoactive bowel sounds present, Soft to palpation and non-tender PALPATION: Yes Soft to palpation Extremity: COMMON NORMALS: no joint enlargement and no pedal edema Neuro: SENSORIUM/ORIENTATION: No alert Skin: COMMON NORMALS: no rashes or lesions noted GENERAL SKIN EXAM: no rashes or lesions noted Data : 01/03/21 05:35 01/03/21 05:35 Micro: Microbiology 01/01/21 19:52 Blood Culture - Preliminary Blood NEGATIVE TO DATE 01/01/21 19:48 Blood Culture - Preliminary Blood NEGATIVE TO DATE 12/28/20 19:11 Blood Culture - Final Blood NO GROWTH AFTER 5 DAYS 12/28/20 19:05 Blood Culture - Final Blood NO GROWTH AFTER 5 DAYS A&P Assessment and plan (1) Encephalopathy: ED reported improvement in mental status transiently. Subsequently restless, requiring increasing sedation again. Continue reassessments for further improvement of encephalopathy. Continue other treatment as below, supportive care. Continue to coagulation, monitor for any changes that may suggest hemorrhagic transformation. He so far does not appear to be waking up. With noted multiple CVA on CT head, possibly in watershed distribution, with noted crowding at from ovale but no herniation. Embolic disease not entirely excluded. Cannot currently exclude septal defect with productive cough CVA and presence of DVT. Continues on anticoagulation. Septic embolic disease suspected less likely. Blood cultures so far negative. EEG obtained today with diffuse low-voltage flat background, although some spontaneous movement noted. Paucity of cerebral activity not suggesting good prognosis, although he is not in electrocerebral silence. No epileptiform discharges. Status: Acute (2) COVID-19: Completed Remdisivir, continue dexamethasone. Status: Acute (3) Sepsis with acute hypoxic respiratory failure: Repeat BCx without growth so far. Multiple CVA, 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 Continue broad-spectrum antibiotic coverage. Status: Acute Qualifiers: Sepsis type: sepsis due to unspecified organism Severe sepsis shock status: with septic shock Qualified Code(s): A41.9 - Sepsis, unspecified organism; R65.21 - Severe sepsis with septic shock; J96.01 - Acute respiratory failure with hypoxia (4) NSTEMI (non-ST elevated myocardial infarction): Troponins with significant delta, may be related to cardiac arrest and car dioversion Status: Acute (5) Sepsis: Improving. Persistent leukocytosis, but now showing some gradual improvement. Resolution of tachycardia. As a result of COVID-19 pneumonia Weaned off pressor support. Status: Acute Qualifiers: Sepsis type: sepsis due to unspecified organism Sepsis acute organ dysfunction status: with acute organ dysfunction Severe sepsis acute organ dysfunction type: acute respiratory failure Acute respiratory failure type: with hypoxia Severe sepsis shock status: with septic shock Qualified Code(s): A41.9 - Sepsis, unspecified organism; R65.21 - Severe sepsis with septic shock; J96.01 - Acute respiratory failure with hypoxia (6) Cardiac arrest: As above Status: Acute (7) Metabolic acidosis: As a result of cardiac arrest Status: Acute (8) Acute kidney injury: Improving. Again as a result of cardiac arrest, renal hypoperfusion most likely explanation Status: Acute (9) DVT (deep venous thrombosis): b/l le, loose, massive Possible PE R heart failure. Continue anticoagulation. Status: Acute (10) CVA (cerebral vascular accident): Multiple CVA noted on CT of the head. Etiology at this time is not clear. Would suspect hypoperfusion during cardiac arrest, and per discussion with radiology do appear in watershed areas. Embolic etiology not excluded. Septic embolic etiology less likely, pending additional blood culture. So far without growth. Continue broad-spectrum antibiotics. On anticoagulation. 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 for [facility] Diagnoses Encephalopathy G93.40 COVID-19 U07.1 Sepsis with acute hypoxic respiratory failure A41.9; R65.21; J96.01 Sepsis type: sepsis due to unspecified organism Severe sepsis shock status: with septic shock NSTEMI (non-ST elevated myocardial infarction) I21.4 Sepsis A41.9; R65.21; J96.01 Sepsis type: sepsis due to unspecified organism Sepsis acute organ dysfunction status: with acute organ dysfunction Severe sepsis acute organ dysfunction type: acute respiratory failure Acute respiratory failure type: with hypoxia Severe sepsis shock status: with septic shock Cardiac arrest I46.9 Metabolic acidosis E87.2 Acute kidney injury N17.9 DVT (deep venous thrombosis) I82.409 CVA (cerebral vascular accident) I63.9
[2021-01-03 20:29] LABS: Glucose Point of Care 142 mg/dL (70-110)
[2021-01-03 21:23] LABS: Glucose Point of Care 146 mg/dL (70-110)
[2021-01-03] MEDS: dexmedetomidine 400 MCG in sodium chloride 0.9% (100 ml) 100 ML 12.09 MCG IV (23:11)
[2021-01-03 23:43] LABS: Glucose Point of Care 148 mg/dL (70-110)
[2021-01-04] VITALS (66 sets, daily range): BP systolic 82–184; BP diastolic 44–95; PULSE 60–89; RESP 14–28; TEMP 36.2–36.6; O2SAT 89–95
[2021-01-04] MEDS: ipratropium-albuterol 3 mL Neb INHALATION ×4 (03:09→20:03)
[2021-01-04] MEDS: propofol 1,000 MG/100 ML INJ 8.98 MG IV (04:23)
[2021-01-04 05:31] LABS: Glucose Point of Care 161 mg/dL (70-110)
[2021-01-04 07:00] LABS: Hemoglobin 12.9 g/dL (11.7-16.6); Mean Corpuscular HGB Conc 33.1 g/dL (30.0-36.0); Mean Corpuscular Hemoglobin 29.7 pg (28.0-34.0); Mean Corpuscular Volume 89.7 fL (80-94); Mean Platelet Volume 11.8 fL (7.4-10.4); Platelet Count 160 10^3/cmm (130-400); Red Blood Count 4.35 10^6/uL (4.1-5.3); Red Cell Distribution Width 16.6 % (12.1-15.1)
[2021-01-04 07:15] LABS: Alanine Aminotransferase 55 U/L (0-41); Albumin Level 2.2 g/dL (3.5-5.2); Alkaline Phosphatase 107 IU/L (40-130); Anion Gap 17.8 (5-19); Aspartate Amino Transferase 33 U/L (0-40); Calcium 7.9 mg/dL (8.5-10.5); Carbon Dioxide 23 mmol/L (22-29); Chloride 113 mmol/L (98-107); Globulin 3.2 g/dL (1.3-4.6); Glucose 121 mg/dL (65-115); Osmolality Calculated 337 mOsm/kg (285-295); Potassium 4.8 mmol/L (3.5-5.1); Sodium 149 mmol/L (136-145); Total Bilirubin 0.9 mg/dL (0.15-1.2); Total Protein 5.4 g/dL (6.6-8.7)
[2021-01-04] MEDS: dexmedetomidine 400 MCG in sodium chloride 0.9% (100 ml) 100 ML 9.67 MCG IV (07:17)
[2021-01-04 07:26] LABS: Blood Urea Nitrogen 91 mg/dL (8-23)
[2021-01-04 08:00] LABS: White Blood Count 31.8 10^3/uL (4.0-10.0)
[2021-01-04 08:03] LABS: Absolute Segmented Neutrophil 22.6 10/cmm (1.6-7.1); Band Neutrophils Absolute 6.4 10^3/cmm (0.0-1.2); Monocytes Absolute 0.6 10^3/cmm (0.1-0.6); Poikilocytosis 1+; Segmented Neutrophils 71 %; Total Cells Counted 100 (0-100)
[2021-01-04 08:04] LABS: Absolute Neutrophil 28.9 10^3/cmm (1.4-6.5); Eosinophils 0 %; Lymphocytes 0 %; Lymphocytes Absolute 0.3 10^3/cmm (1.2-3.4); Platelet Estimate Normal (Normal)
[2021-01-04] MEDS: pantoprazole 40 mg SDV IVP (08:39)
[2021-01-04] MEDS: metoprolol tartrate 25 mg Tablet 12.5 MG PO ×2 (08:39→21:07)
[2021-01-04] MEDS: budesonide 0.5 mg/2 mL Neb INHALATION (08:56)
--- NOTE | 2021-01-04 08:59 | P.PN_ITS ---
Subjective Subjective: Interval history: The patient was seen and examined this morning. Overnight no significant episode of agitation. However, with reduction of sedation the patient is having Shahab-Santos breathing. He was not responding this morning. I had tried with pressure support ventilation however he needed to go back to control ventilation. I had called his . Her voice mailbox was full and I could not leave a voicemail. I have talked to his son and I was informed that his is planning on stem cell therapy for him. His white count continues to be elevated. He is tolerating tube feed well. The patient has persistently high urine output. 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 His serum sodium has increased to 149 despite 1600 cc of free water flush today in addition to the tube feed. His creatinine is coming down however BUN is relatively stable. Today it is 91. Medications: Reviewed: Yes Vitals/I&O/Wt Last Vital Signs Temp 97.9 F 01/04/21 07:00 Pulse 87 01/04/21 08:00 Resp 17 01/04/21 05:57 BP 155/70 01/04/21 08:00 Pulse Ox 91 01/04/21 08:00 01/03/21 01/04/21 01/04/21 22:59 06:59 14:59 Intake Total 1337.581 / 1840.627 432.740 / 2273.367 11.926 / 11.926 Output Total 800 / 1100 1500 / 2600 Balance 537.581 / 740.627 -1067.260 / -326.633 11.926 / 11.926 Weight last 48 hrs Weight 200 lb 11 oz Weight 200 lb 9.6 oz Physical Exam Narrative: EXAM NARRATIVE: General: Patient is intubated and sedated, Shahab- Santos breathing Neck: No JVD Respiratory: Auscultation: Bilateral clear to auscultation both anterior and posteriorly, no crackles wheezing or rhonchi Cardiovascular: Regular rate and rhythm, S1-S2 present, no murmur, no peripheral edema. Abdomen: Soft, nontender, nondistended, positive bowel sound Neuro: He is not following any commands today Data : 01/04/21 05:15 01/04/21 05:15 Attestation for Other Data: I personally reviewed and interpreted the following: Other data: I have reviewed his laboratory, microbiologic and radiologic data the patient has worsening hyponatremia. Creatinine and BUN stable. Blood sugar is controlled. His LFTs have nearly normalized A&P Assessment and plan (1) Anoxic brain injury: The patient has suffered from significant anoxic brain injury. CT scan of the head revealed multiple strokes including evidence of increased pressure in the posterior fossa. Although the patient had some degree of mental status yesterday, today there is none. Even with minimal amount of sedation, the patient is unable to respond at all. The patient is demonstrating Shahab-Santos breathing. His urine output has also consistently remained high. 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 I had a conversation with his in the past. And today I talked to his son. I was told that his is planning on transferring him to a facility for stem cell transplant. I have informed them that we would be happy to comply to their request if they can find an accepting facility. Status: Acute (2) Cardiac arrest: The patient suffered from cardiac arrest. No hypothermia protocol was performed. The cause of the cardiac arrest is likely hypoxia. This could have been secondary to ARDS from COVID-19 or a combination of SARS-CoV-2 pneumonia and pulmonary embolism. He has completed his course of remdesivir. He will continue with dexamethasone for now. His FiO2 requirement is between 50 to 60%. Status: Acute (3) DVT (deep venous thrombosis): The patient has DVT involving left femoral vein and profunda femoris as well as greater saphenous vein on the right side with a mobile clot at the junction of the femoral vein. The patient is currently anticoagulated with heparin. The PTT had been stable. It is possible that the patient had embolization of the DVT causing PE and acute RV dysfunction. His liver enzymes have normalized nearly Status: Acute (4) Acute right-sided heart failure: The etiology of the acute RV failure is unclear. This could certainly be from pulmonary embolism or severe vasoconstriction in the setting of ARDS from COVID-19. Status: Acute (5) Acute respiratory distress syndrome (ARDS) due to 2019 novel coronavirus: The patient is currently on dexamethasone. We will continue with the supportive therapy Status: Acute (6) Acute kidney injury: Acute kidney injury is likely secondary to hypoxia, hypotension, cardiac arrest. The creatinine has come down. The BUN has been stable. 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 I am starting him on DDAVP supplementation and continue with free water flushes 400 cc every 6 hours. I will get a BMP at 4 PM today. Status: Acute (8) MRSA pneumonia: The patient will be on linezolid. There is no evidence of any gram-negative infection. I am going to discontinue the imipenem. He had received imipenem for about 5 days. Status: Acute Additional A&P Information His overall prognosis is poor. I tried to have a conversation with his son regarding goals of care but I was told that his is looking into stem cell transplant. I will discuss about possible tracheostomy in the future. The family's insight into his condition is not medically realistic. 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
--- NOTE | 2021-01-04 09:36 | PC.CHAP ---
Pastoral Care Encounter/Spiritual Assessment Type of Contact [] Declined glass wool blanket machine feeder visit [] Patient/Family/Request visit [] Outpatient visit [] Follow-up visit [] Physician referral [] Code/Alert [x] Routine visit [] Staff referral [] Actively dying [] Patient sleeping [] Family support [] [] Out of room [] Palliative care [] [] Receiving care in room [] Pre-surgical visit [] Trauma [] Long length of stay [x] ICU visit [x] Other: ventilator Relational/Emotional Strength [] Patient feels connected with others/family/visitors/staff [] Distress [] Loneliness/isolation [] Abandonment Spirituality of Patient [] Person of Kimmy [] Attends Episcopalian of their Kimmy [] Believes in Prayer [] Reads Bible or Pentecostal materials [] There are Spiritual issues to be addressed Candles Pourer Interventions [x] Prayer [] Active listening [] Non-anxious presence [] Spiritual/emotional support [] Crisis/trauma care [] Spiritual counseling [] Bereavement support [] Provided bereavement packet [] Provided Bible/devotional materials [] Provided toy/stuffed animal, coloring book to patient or family member [] Provided Communion [] Anointing/[place] [] Salvation [x] Completed spiritual assessment [] Other: Impact on Illness or Injury [] Angry [] Fearful [] Anxious [] Often cries [] Exhaustion [] Unable to work [] Unable to attend jain [] Unable to walk/stand [] Unable to read [] Unable to drive [] Unable to eat/drink [] Unable to sleep [] Unable to be with family [] Patient intubated [] Other: Summary Time spent with patient
[2021-01-04 10:55] LABS: Glucose Point of Care 109 mg/dL (70-110)
--- NOTE | 2021-01-04 11:49 | PC.SOCIAL ---
IMM NOT GIVEN IMM update not given at this time due to patient being on vent.
[2021-01-04 12:00] LABS: Glucose Point of Care 141 mg/dL (70-110)
--- NOTE | 2021-01-04 13:00 | PC.NURSE ---
Patient was able to follow commands this shift but respirations increased into the sixties. Sedation turned back up.
[2021-01-04] MEDS: heparin drip 25,000 UNIT/500 ML PREMIX 22 UNIT IV (15:09)
--- NOTE | 2021-01-04 16:20 | P.PN_ITS ---
Subjective Subjective: Interval history: Currently sedated during my visit. Does not appear in distress. No spontaneous movements. Vitals/I&O/Wt Last Vital Signs Temp 97.9 F 01/04/21 07:00 Pulse 74 01/04/21 16:00 Resp 16 01/04/21 16:09 BP 92/51 01/04/21 16:00 Pulse Ox 95 01/04/21 16:09 01/04/21 01/04/21 01/04/21 06:59 14:59 22:59 Intake Total 432.740 / 2273.367 1811.885 / 1811.885 939.46 / 2751.345 Output Total 1500 / 2600 275 / 275 850 / 1125 Balance -1067.260 / -993.375 2398.885 / 1536.885 89.46 / 1626.345 Weight last 48 hrs Weight 91.03 kg Weight 90.991 kg Physical Exam Const: COMMON NORMALS: no acute distress; negative for alert GENERAL APPEARANCE: frail appearing ORIENTATION/CONSCIOUSNESS: not awake OTHER: Sedated. HENMT: COMMON NORMALS: oropharynx normal Neck/C-Spine: COMMON NORMALS: no JVD Resp: COMMON NORMALS: normal respiratory effort and clear to auscultation bilaterally AUSCULTATION: clear to auscultation bilaterally Cardio: COMMON NORMALS: no JVD, regular rhythm, S1 normal heart sound present, S2 normal heart sound present and No murmurs present (Cardio) RHYTHM: regular rhythm HEART SOUNDS: S1 normal heart sound present and S2 normal heart sound present GI: COMMON NORMALS: Normal to inspection, nondistended, normoactive bowel sounds present, Soft to palpation and non-tender PALPATION: Yes Soft to palpation Extremity: COMMON NORMALS: no joint enlargement and no pedal edema Neuro: COMMON NORMALS: moves all extremities SENSORIUM/ORIENTATION: No alert Skin: COMMON NORMALS: no rashes or lesions noted GENERAL SKIN EXAM: no rashes or lesions noted Data : 01/04/21 05:15 01/04/21 05:15 A&P Assessment and plan (1) Encephalopathy: Today did not appear to show any substantial progress. Continue other treatment as below, supportive care. Status: Acute (2) COVID-19: Completed Remdisivir, continue dexamethasone. Status: Acute (3) Sepsis with acute hypoxic respiratory failure: Repeat BCx without growth so far. Multiple CVA, 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 Continue broad-spectrum antibiotic coverage. Status: Acute Qualifiers: Sepsis type: sepsis due to unspecified organism Severe sepsis shock status: with septic shock Qualified Code(s): A41.9 - Sepsis, unspecified organism; R65.21 - Severe sepsis with septic shock; J96.01 - Acute respiratory f ailure with hypoxia (4) NSTEMI (non-ST elevated myocardial infarction): Troponins with significant delta, may be related to cardiac arrest and cardioversion Status: Acute (5) Sepsis: Improving. Persistent leukocytosis, but now showing some gradual improvement. Resolution of tachycardia. As a result of COVID-19 pneumonia Weaned off pressor support. Status: Acute Qualifiers: Sepsis type: sepsis due to unspecified organism Sepsis acute organ dysfunction status: with acute organ dysfunction Severe sepsis acute organ dysfunction type: acute respiratory failure Acute respiratory failure type: with hypoxia Severe sepsis shock status: with septic shock Qualified Code(s): A41.9 - Sepsis, unspecified organism; R65.21 - Severe sepsis with septic shock; J96.01 - Acute respiratory failure with hypoxia (6) Cardiac arrest: As above Status: Acute (7) Metabolic acidosis: As a result of cardiac arrest Status: Acute (8) Acute kidney injury: Improving. Again as a result of cardiac arrest, renal hypoperfusion most likely explanation Status: Acute (9) DVT (deep venous thrombosis): b/l le, loose, massive Possible PE R heart failure. Continue anticoagulation. Status: Acute (10) CVA (cerebral vascular accident): Multiple CVA noted on CT of the head. Etiology at this time is not clear. Would suspect hypoperfusion during cardiac arrest, and per discussion with radiology do appear in watershed areas. Embolic etiology not excluded. Septic embolic etiology less likely, pending additional blood culture. So far without growth. Continue broad-spectrum antibiotics. On anticoagulation. Status: Acute Additional A&P Information Prognosis guarded Attestations Medical Necessity Statement*: Continue admission for cyst management of hypoxic respiratory failure, acute encephalopathy with anoxic brain injury, multifocal CVA following cardiac arrest. Coding Level of Care Code Acute Cytotechnologist/Cytology Supervisor for [facility] Diagnoses Encephalopathy G93.40 COVID-19 U07.1 Sepsis with acute hypoxic respiratory failure A41.9; R65.21; J96.01 Sepsis type: sepsis due to unspecified organism Severe sepsis shock status: with septic shock NSTEMI (non-ST elevated myocardial infarction) I21.4 Sepsis A41.9; R65.21; J96.01 Sepsis type: sepsis due to unspecified organism Sepsis acute organ dysfunction status: with acute organ dysfunction Severe sepsis acute organ dysfunction type: acute respiratory failure Acute respiratory failure type: with hypoxia Severe sepsis shock status: with septic shock Cardiac arrest I46.9 Metabolic acidosis E87.2 Acute kidney injury N17.9 DVT (deep venous thrombosis) I82.409 CVA (cerebral vascular accident) I63.9
[2021-01-04] MEDS: propofol 1,000 MG/100 ML INJ 11.98 MG IV (16:46)
[2021-01-04] MEDS: dexmedetomidine 400 MCG in sodium chloride 0.9% (100 ml) 100 ML 7.25 MCG IV (16:46)
[2021-01-04] MEDS: linezolid premix 600 MG/300 ML PREMIX 300 MG IV (17:18)
[2021-01-04 17:32] LABS: Blood Urea Nitrogen 93 mg/dL (8-23); Calcium 7.7 mg/dL (8.5-10.5); Carbon Dioxide 21 mmol/L (22-29); Chloride 114 mmol/L (98-107); Creatinine Clr Calc Pharmacy 39.6673; Glucose 133 mg/dL (65-115); Osmolality Calculated 335 mOsm/kg (285-295); Sodium 147 mmol/L (136-145)
[2021-01-04 17:33] LABS: Anion Gap 16.8 (5-19); Potassium 4.8 mmol/L (3.5-5.1)
[2021-01-04 17:53] LABS: Glucose Point of Care 151 mg/dL (70-110)
[2021-01-04] MEDS: atorvastatin 40 mg Tablet OG-TUBE (21:07)
[2021-01-04] MEDS: dexamethasone 10 mg/mL INJ 6 MG IVP (23:18)
[2021-01-04 23:20] LABS: Glucose Point of Care 136 mg/dL (70-110)
[2021-01-05] VITALS (53 sets, daily range): BP systolic 78–167; BP diastolic 46–81; PULSE 58–84; RESP 14–22; TEMP 36.3–36.8; O2SAT 89–95
[2021-01-05] MEDS: propofol 1,000 MG/100 ML INJ 11.98 MG IV ×3 (02:22→19:23)
[2021-01-05] MEDS: ipratropium-albuterol 3 mL Neb INHALATION ×4 (02:38→20:22)
[2021-01-05] MEDS: dexmedetomidine 400 MCG in sodium chloride 0.9% (100 ml) 100 ML 96.71 MCG IV ×3 (03:24→14:55)
[2021-01-05 05:58] LABS: Glucose Point of Care 135 mg/dL (70-110)
[2021-01-05] MEDS: linezolid premix 600 MG/300 ML PREMIX 300 MG IV ×2 (05:59→19:23)
--- NOTE | 2021-01-05 06:03 | PC.NURSE ---
Shift Note Frequent safety and comfort rounds continue. Orders and/or nursing care completed as indicated. Patient monitored for response to intervention and treatment(s). Education provided includes[]. Patient and/or eligibility services representative [[email or web address]]. Will continue to monitor.
[2021-01-05 06:04] LABS: Basophils % 0.1 %; Eosinophils % 0.1 %; Hematocrit 39.8 % (42.0-52.0); Lymphocytes # 0.3 10^3/uL (0.8-4.8); Lymphocytes % 1.1 %; Mean Corpuscular HGB Conc 32.7 g/dL (30.0-36.0); Mean Corpuscular Hemoglobin 29.5 pg (28.0-34.0); Mean Corpuscular Volume 90.2 fL (80-94); Mean Platelet Volume 12.4 fL (7.4-10.4); Monocytes # 0.6 10^3/uL (0.2-0.9); Neutrophils # 28.68 10^3/uL (1.8-7.7); Neutrophils % 90.2 %; Nucleated Red Blood Cells % 0.1 %; Platelet Count 179 10^3/cmm (130-400); Red Blood Count 4.41 10^6/uL (4.1-5.3); Red Cell Distribution Width 17.1 % (12.1-15.1)
[2021-01-05 06:24] LABS: Alanine Aminotransferase 39 U/L (0-41); Alkaline Phosphatase 89 IU/L (40-130); Anion Gap 16.1 (5-19); Aspartate Amino Transferase 33 U/L (0-40); Calcium 7.7 mg/dL (8.5-10.5); Carbon Dioxide 23 mmol/L (22-29); Chloride 115 mmol/L (98-107); Globulin 3.3 g/dL (1.3-4.6); Glucose 148 mg/dL (65-115); Osmolality Calculated 335 mOsm/kg (285-295); Potassium 5.1 mmol/L (3.5-5.1); Sodium 149 mmol/L (136-145); Total Bilirubin 0.9 mg/dL (0.15-1.2); Total Protein 5.3 g/dL (6.6-8.7)
[2021-01-05 06:29] LABS: Blood Urea Nitrogen 81 mg/dL (8-23); White Blood Count 31.8 10^3/uL (4.0-10.0)
[2021-01-05 06:32] LABS: Slide Review Slide Review Perform
[2021-01-05 08:26] LABS: Glucose Point of Care 158 mg/dL (70-110)
[2021-01-05] MEDS: pantoprazole 40 mg SDV IVP (09:01)
[2021-01-05] MEDS: metoprolol tartrate 25 mg Tablet 12.5 MG PO ×2 (09:01→21:09)
[2021-01-05 13:49] LABS: Glucose Point of Care 125 mg/dL (70-110)
[2021-01-05] MEDS: heparin drip 25,000 UNIT/500 ML PREMIX 22 UNIT IV (14:43)
--- NOTE | 2021-01-05 16:51 | PC.NUTR ---
Addendum entered by Florian Rosado 01/05/21 17:07: Noted that if renal function not improving, could consider Nepro at 35 ml/hr to provide similar kcal to below recommendation. Original Note: Tube feeding recommendations: Notified Dr. Park that TF still running at 15 ml/hr despite order for 30 ml/hr goal on 01/01/21. MD states will address today. If pt able to tolerate, would recommend goal rate of 55 ml/hr, with 250 ml H2O flushes q 6 hrs, to provide 1584 kcal, 79 g protein, and 2063 ml H2O. Noted additional 316 kcal from propofol at this time. See full RD assessment for further details.
--- NOTE | 2021-01-05 18:45 | PM.PN ---
Subjective Subjective: Interval history: The patient was seen and examined. Intubated and sedated. Able to follow simple commands intermittently. His white count continues to be high but he does not have any fever or evidence of septic shock. His BUN and creatinine are getting better. Urine output has lessened with DDAVP. Serum sodium has remained stable. Medications: Reviewed: Yes Vitals/I&O/Wt Last Vital Signs Temp 97.6 F 01/05/21 08:00 Pulse 60 01/05/21 15:30 Resp 19 H 01/05/21 15:51 BP 94/55 01/05/21 15:30 Pulse Ox 92 01/05/21 15:51 01/05/21 01/05/21 01/05/21 06:59 14:59 22:59 Intake Total 1231.092 / 4331.386 1076.583 / 1076.583 Output Total 900 / 2775 1450 / 1450 Balance 331.092 / 8404.648 9860.583 / 1076.583 -1450 / -373.417 Weight last 48 hrs Weight 202 lb 3 oz Weight 200 lb 11 oz Physical Exam Narrative: EXAM NARRATIVE: General: Patient is intubated and sedated Neck: No JVD Respiratory: Auscultation: Bilateral clear to auscultation both anterior and posteriorly, no crackles wheezing or rhonchi Cardiovascular: Regular rate and rhythm, S1-S2 present, no murmur, no peripheral edema. Abdomen: Soft, nontender, nondistended, positive bowel sound Neuro: Intermittently follows command Data : 01/05/21 05:15 01/05/21 05:15 Attestation for Other Data: I personally reviewed and interpreted the following: Other data: I have reviewed the patient's laboratory, microbiologic and neurologic data A&P Assessment and plan (1) Anoxic brain injury: The patient has suffered from significant anoxic brain injury. CT scan of the head revealed multiple strokes including evidence of increased pressure in the posterior fossa. He is following commands intermittently. Urine output has decreased with DDAVP. Serum sodium has remained stable. I have a family meeting set up with them tomorrow regarding further course of action. Status: Acute (2) Cardiac arrest: The patient suffered from cardiac arrest. No hypothermia protocol was performed. The cause of the cardiac arrest is likely hypoxia. This could have been secondary to ARDS from COVID-19 or a combination of SARS-CoV-2 pneumonia and pulmonary embolism. He has completed his course of remdesivir. He will continue with dexamethasone for now. He is on day 8 today. His FiO2 requirement is around 60% Status: Acute (3) DVT (deep venous thrombosis): The patient has DVT involving left femoral vein and profunda femoris as well as greater saphenous vein on the right side with a mobile clot at the junction of the femoral vein. The patient is currently anticoagulated with heparin. The PTT had been stable. It is possible that the patient had embolization of the DVT causing PE and acute RV dysfunction. His liver enzymes have normalized Status: Acute (4) Acute right-sided heart failure: The etiology of the acute RV failure is unclear. This could certainly be from pulmonary embolism or severe vasoconstriction in the setting of ARDS from COVID-19. Status: Acute (5) Acute respiratory distress syndrome (ARDS) due to 2019 novel coronavirus: The patient is currently on dexamethasone. We will continue with the supportive therapy Status: Acute (6) Acute kidney injury: Acute kidney injury is likely secondary to hypoxia, hypotension, cardiac arrest. The creatinine and BUN is coming down. 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 The serum sodium is stable at 149. We will continue to monitor and see what it is tomorrow. Status: Acute (8) MRSA pneumonia: The patient will be on linezolid. There is no evidence of any gram-negative infection. I am going to discontinue the imipenem. He had received imipenem for about 5 days. Status: Acute (9) Leukocytosis: The patient has persistent leukocytosis since he was admitted. The etiology of this is somewhat unclear. The patient is on dexamethasone and did suffer from cardiac arrest. His blood culture has been negative. He has been receiving appropriate therapy for MRSA pneumonia. He is afebrile, does not have evidence of shock. I am going to obtain a procalcitonin level. If there is significant elevation, the patient may require further evaluation. Status: Acute Additional A&P Information Family discussion tomorrow Attestations Medical Necessity Statement*: Will defer to the primary team Coding Level of Care Code Acute Conveyor Attendant for Susy Yi Diagnoses Anoxic brain injury G93.1 Cardiac arrest I46.9 DVT (deep venous thrombosis) I82.409 Acute right-sided heart failure I50.811 Acute respiratory distress syndrome (ARDS) due to 2019 novel coronavirus U07.1; J80 Acute kidney injury N17.9 Hypernatremia E87.0 MRSA pneumonia J15.212 Leukocytosis D72.829 Time Spent (min) 33
--- NOTE | 2021-01-05 18:55 | XRR_ITS ---
PROCEDURE INFORMATION: Exam: XR Chest Exam date and time: 01/05/2021 6:55 PM Age: 80 years old Clinical indication: Shortness of breath; Additional info: Respiratory failure TECHNIQUE: Imaging protocol: XR of the chest. Views: 1 view. COMPARISON: CR XR chest 1V portable [id number] 12/29/2020 5:31 AM FINDINGS: Tubes, catheters and devices: Endotracheal tube in proper position above the kristofer. Right central line terminates at the cavoatrial junction. Enteric tube seen entering the stomach and outside the field of view. Lungs: Patulous opacities within both lungs. Pleural spaces: Unremarkable. No pleural effusion. No pneumothorax. Heart/Mediastinum: Unremarkable. No cardiomegaly. Bones/joints: Sequela of right reverse shoulder arthroplasty. 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 XR/XR chest 1V portable [id number] IMPRESSION: Patulous opacities within both lungs.
[2021-01-05 19:37] LABS: Glucose Point of Care 102 mg/dL (70-110)
--- NOTE | 2021-01-05 19:45 | PC.NURSE ---
1825 Patients BP 180/110s, HR 120, RR 30, patient coughing, appears uncomfortable. All sedation meds titrated up to effectiveness. Patient did respond to visual treat bilaterally but no response to pain.
[2021-01-05 19:46] LABS: Procalcitonin 0.43 ng/mL (0-0.5)
--- NOTE | 2021-01-05 20:05 | P.PN_ITS ---
Subjective Subjective: Interval history: Coughing on the ventilator. Otherwise no response to voice, sternal rub currently. Vitals/I&O/Wt Last Vital Signs Temp 97.6 F 01/05/21 08:00 Pulse 65 01/05/21 19:00 Resp 18 01/05/21 19:00 BP 113/61 01/05/21 19:00 Pulse Ox 90 01/05/21 19:00 01/05/21 01/05/21 01/05/21 06:59 14:59 22:59 Intake Total 1231.092 / 4331.386 1076.583 / 5031.237 6784.307 / 3002.890 Output Total 900 / 2775 1450 / 1450 Balance 331.092 / 5156.371 1428.583 / 1076.583 476.307 / 1552.890 Weight last 48 hrs Weight 91.711 kg Weight 91.03 kg Physical Exam Const: COMMON NORMALS: no acute distress; negative for alert GENERAL APPEARANCE: frail appearing ORIENTATION/CONSCIOUSNESS: not awake HENMT: COMMON NORMALS: oropharynx normal Neck/C-Spine: COMMON NORMALS: no JVD Chest: OTHER: Blessed cloth per family request covering chest. Resp: COMMON NORMALS: normal respiratory effort and clear to auscultation bilaterally AUSCULTATION: clear to auscultation bilaterally Cardio: COMMON NORMALS: no JVD, regular rhythm, S1 normal heart sound present, S2 normal heart sound present and No murmurs present (Cardio) RHYTHM: regular rhythm HEART SOUNDS: S1 normal heart sound present and S2 normal heart sound present GI: COMMON NORMALS: Normal to inspection, nondistended, normoactive bowel sounds present, Soft to palpation and non-tender PALPATION: Yes Soft to palpation Extremity: COMMON NORMALS: no joint enlargement and no pedal edema Neuro: SENSORIUM/ORIENTATION: No alert Skin: COMMON NORMALS: no rashes or lesions noted GENERAL SKIN EXAM: no rashes or lesions noted Data : 01/05/21 05:15 01/05/21 05:15 A&P Assessment and plan (1) Encephalopathy: Not waking up from the underlying sedation. Is coughing. Did not appear to make substantial progress today. Continue other treatment as below, supportive care. Status: Acute (2) Acute respiratory distress syndrome (ARDS) due to 2019 novel coronavirus: Continues on mechanical ventilatory support. Wean down as tolerating. Continue waking trials. Status: Acute (3) COVID-19: Completed Remdisivir, continue dexamethasone. Status: Acute (4) NSTEMI (non-ST elevated myocardial infarction): Troponins with significant delta, may be related to cardiac arrest and cardioversion Status: Acute (5) Sepsis: Sepsis resolving or resolved, however, unclear cause of persistent high leukocytosis with neutrophilic predominance, with left shift. He is afebrile, without tachycardia. Maintaining blood pressures. Repeat BCx without growth so far. Multiple CVA, 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 Improving. Persistent leukocytosis, but now showing some gradual improvement. Resolution of tachycardia. As a result of COVID-19 pneumonia Weaned off pressor support. Primaxin was the escalated yesterday. Continues on linezolid for MRSA pneumonia. Status: Acute Qualifiers: Sepsis type: sepsis due to unspecified organism Sepsis acute organ dysfunction status: with acute organ dysfunction Severe sepsis acute organ dysfunction type: acute respiratory failure Acute respiratory failure type: with hypoxia Severe sepsis shock status: with septic shock Qualified Code(s): A41.9 - Sepsis, unspecified organism; R65.21 - Severe sepsis with septic shock; J96.01 - Acute respiratory failure with hypoxia (6) Cardiac arrest: As above Status: Acute (7) Metabolic acidosis: As a result of cardiac arrest Status: Acute (8) Acute kidney injury: Improving. Again as a result of cardiac arrest, renal hypoperfusion most likely explanation Status: Acute (9) DVT (deep venous thrombosis): b/l le, loose, massive Possible PE R heart failure. Continue anticoagulation. Status: Acute (10) CVA (cerebral vascular accident): Multiple CVA noted on CT of the head. Etiology at this time is not clear. Would suspect hypoperfusion during cardiac arrest, and per discussion with radiology do appear in watershed areas. Embolic etiology not excluded. Septic embolic etiology less likely, pending additional blood culture. So far negativ e. Continues on gram-positive coverage for now. On anticoagulation. Status: Acute Additional A&P Information Prognosis guarded Attestations Medical Necessity Statement*: Continue admission for management of hypoxic respiratory failure complicated by cardiac arrest on presentation, with multiple CVA, so far not regaining alertness. Coding Level of Care Code Acute Panelboard Tank Pumper for Chg Fwd Diagnoses Encephalopathy G93.40 Acute respiratory distress syndrome (ARDS) due to 2019 novel coronavirus U07.1; J80 COVID-19 U07.1 NSTEMI (non-ST elevated myocardial infarction) I21.4 Sepsis A41.9; R65.21; J96.01 Sepsis type: sepsis due to unspecified organism Sepsis acute organ dysfunction status: with acute organ dysfunction Severe sepsis acute organ dysfunction type: acute respiratory failure Acute respiratory failure type: with hypoxia Severe sepsis shock status: with septic shock Cardiac arrest I46.9 Metabolic acidosis E87.2 Acute kidney injury N17.9 DVT (deep venous thrombosis) I82.409 CVA (cerebral vascular accident) I63.9
--- NOTE | 2021-01-05 20:50 | PC.NURSE ---
called and updated on status, along with brother in law Eriberto. states she is quite confused about what to do and can't wrap her head around what is going on. Family plans to have a family meeting and make a decision (transfer for stem cell and LTAC with trach or to keep at our facility) and have a telephone conversation with Dr. Park in the morning. I explained to called between 8am-9am.
[2021-01-05] MEDS: atorvastatin 40 mg Tablet OG-TUBE (21:09)
[2021-01-05] MEDS: dexamethasone 10 mg/mL INJ 6 MG IVP (23:17)
[2021-01-05 23:26] LABS: Glucose Point of Care 103 mg/dL (70-110)
[2021-01-05] MEDS: dexmedetomidine 400 MCG in sodium chloride 0.9% (100 ml) 100 ML 9.67 MCG IV (23:29)
[2021-01-06] VITALS (58 sets, daily range): BP systolic 77–187; BP diastolic 41–91; PULSE 52–103; RESP 14–24; TEMP 36.2–37.3; O2SAT 87–98
[2021-01-06] MEDS: propofol 1,000 MG/100 ML INJ 29.94 MG IV ×2 (00:03→03:51)
[2021-01-06] MEDS: ipratropium-albuterol 3 mL Neb INHALATION ×4 (02:48→20:04)
[2021-01-06 04:00] LABS: Basophils # 0.2 10^3/uL (0.0-0.1); Basophils % 0.5 %; Eosinophils # 0.2 10^3/uL (0.0-0.8); Eosinophils % 0.8 %; Hemoglobin 12.2 g/dL (11.7-16.6); Lymphocytes # 0.4 10^3/uL (0.8-4.8); Lymphocytes % 1.3 %; Mean Corpuscular HGB Conc 31.3 g/dL (30.0-36.0); Mean Corpuscular Hemoglobin 29.1 pg (28.0-34.0); Mean Corpuscular Volume 93.1 fL (80-94); Monocytes # 0.6 10^3/uL (0.2-0.9); Monocytes % 1.9 %; Neutrophils # 27.45 10^3/uL (1.8-7.7); Neutrophils % 90.6 %; Nucleated Red Blood Cells % 0.1 %; Platelet Count 151 10^3/cmm (130-400); Red Blood Count 4.19 10^6/uL (4.1-5.3); Red Cell Distribution Width 17.1 % (12.1-15.1)
[2021-01-06 04:26] LABS: Alanine Aminotransferase 27 U/L (0-41); Albumin Level 1.9 g/dL (3.5-5.2); Alkaline Phosphatase 80 IU/L (40-130); Anion Gap 15.2 (5-19); Aspartate Amino Transferase 34 U/L (0-40); Blood Urea Nitrogen 77 mg/dL (8-23); Calcium 7.5 mg/dL (8.5-10.5); Carbon Dioxide 23 mmol/L (22-29); Chloride 113 mmol/L (98-107); Globulin 3.1 g/dL (1.3-4.6); Glucose 120 mg/dL (65-115); Osmolality Calculated 326 mOsm/kg (285-295); Potassium 5.2 mmol/L (3.5-5.1); Sodium 146 mmol/L (136-145); Total Bilirubin 0.8 mg/dL (0.15-1.2)
[2021-01-06 05:00] LABS: White Blood Count 30.3 10^3/uL (4.0-10.0)
[2021-01-06] MEDS: linezolid premix 600 MG/300 ML PREMIX 300 MG IV ×2 (06:39→18:15)
--- NOTE | 2021-01-06 06:43 | PC.NURSE ---
Shift Note Frequent safety and comfort rounds continue. Orders and/or nursing care completed as indicated. Patient monitored for response to intervention and treatment(s). Education provided includes[]. Patient and/or pharmaceutical service representative [ResponseToTeaching]. Will continue to monitor.
[2021-01-06 07:50] LABS: Glucose Point of Care 201 mg/dL (70-110)
--- NOTE | 2021-01-06 07:51 | PM.PN ---
Subjective Subjective: Interval history: The patient was seen and examined. He is intubated and sedated. Currently he is on propofol, fentanyl and Precedex. I was unable to wake him up. His laboratory numbers continues to improve. There has been improvement in his hyponatremia. The potassium is mildly elevated but stable. BUN and creatinine are coming down. The white count is also coming down. His Procol yesterday was normal. His mental status is variable. I was told that the family is leaning toward trach and PEG and subsequent placement to a facility. He is currently on 70% oxygen. Chest x-ray is revealed bilateral infiltrate. No significant worsening. Medications: Reviewed: Yes Vitals/I&O/Wt Last Vital Signs Temp 99 F 01/06/21 05:00 Pulse 56 L 01/06/21 06:30 Resp 15 01/06/21 04:51 BP 105/54 01/06/21 06:30 Pulse Ox 92 01/06/21 06:30 01/05/21 01/06/21 01/06/21 22:59 06:59 14:59 Intake Total 2322.314 / 3398.897 220.099 / 3618.996 14.672 / 14.672 Output Total 1775 / 1775 600 / 2375 Balance 547.314 / 1623.897 -379.901 / 1243.996 14.672 / 14.672 Weight last 48 hrs Weight 202 lb 3 oz Weight 202 lb 3 oz Physical Exam Narrative: EXAM NARRATIVE: General: Patient is intubated and sedated Neck: No JVD Respiratory: Auscultation: Bilateral clear to auscultation both anterior and posteriorly, no crackles wheezing or rhonchi Cardiovascular: Regular rate and rhythm, S1-S2 present, no murmur, no peripheral edema. Abdomen: Soft, nontender, nondistended, positive bowel sound Neuro: Not following commands this morning Data : 01/06/21 03:22 01/06/21 03:22 Attestation for Other Data: I personally reviewed and interpreted the following: Other data: I have reviewed his laboratory, microbiologic and neurologic data. A&P Assessment and plan (1) Anoxic brain injury: The patient has suffered from significant anoxic brain injury. CT scan of the head revealed multiple strokes including evidence of increased pressure in the posterior fossa. He is following commands intermittently. This morning he was too sedated. Urine output has decreased with DDAVP. Serum sodium has been improving. I have a family meeting set up with them tomorrow regarding further course of action. I was told that they are leaning towards trach and PEG. Status: Acute (2) Cardiac arrest: The patient suffered from cardiac arrest. No hypothermia protocol was performed. The cause of the cardiac arrest is likely hypoxia. This could have been secondary to ARDS from COVID-19 or a combination of SARS-CoV-2 pneumonia and pulmonary embolism. He has completed his course of remdesivir. He will continue with dexamethasone for now. He is on day 9 today. His FiO2 requirement is around 60-70%. When the patient wakes up and starts coughing he ends up losing lung volumes resulting intermittent worsening of his hypoxia Status: Acute (3) DVT (deep venous thrombosis): The patient has DVT involving left femoral vein and profunda femoris as well as greater saphenous vein on the right side with a mobile clot at the junction of the femoral vein. The patient is currently anticoagulated with heparin. The PTT had been stable. It is possible that the patient had embolization of the DVT causing PE and acute RV dysfunction. His liver enzymes have normalized Status: Acute (4) Acute right-sided heart failure: The etiology of the acute RV failure is unclear. This could certainly be from pulmonary embolism or severe vasoconstriction in the setting of ARDS from COVID-19. This is improved. Status: Acute (5) Acute respiratory distress syndrome (ARDS) due to 2019 novel coronavirus: The patient is currently on dexamethasone. We will continue with the supportive therapy Status: Acute (6) Acute kidney injury: Acute kidney injury is likely secondary to hypoxia, hypotension, cardiac arrest. The creatinine and BUN is coming down. 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 Serum sodium is improving. Status: Acute (8) MRSA pneumonia: The patient will be on linezolid. There is no evidence of any gram-negative infection. I am going to discontinue the imipenem. He had received imipenem for about 5 days. Status: Acute (9) Leukocytosis: The procalcitonin level is normal. The white count is slowly coming down. Status: Acute Additional A&P Information Family discussion for further planning. Attestations Medical Necessity Statement*: Will defer to the primary team Coding Level of Care Code Acute Tool Grinder Set Up Operator Gear for [employer] Fwd Diagnoses Anoxic brain injury G93.1 Cardiac arrest I46.9 DVT (deep venous thrombosis) I82.409 Acute right-sided heart failure I50.811 Acute respiratory distress syndrome (ARDS) due to 2019 novel coronavirus U07.1; J80 Acute kidney injury N17.9 Hypernatremia E87.0 MRSA pneumonia J15.212 Leukocytosis D72.829
[2021-01-06] MEDS: propofol 1,000 MG/100 ML INJ 11.98 MG IV ×2 (09:08→16:50)
[2021-01-06] MEDS: pantoprazole 40 mg SDV IVP (09:14)
--- NOTE | 2021-01-06 10:36 | PC.SOCIAL ---
IMM update IMM not updated as patient is still intubated and not expected to dc in the next 24 to 48 hours.
--- NOTE | 2021-01-06 10:57 | PC.NURSE ---
rounding done frequent comfort and safety remains on vent at this time with sedation oral care done attempting to wean sedation slowly at this time
[2021-01-06] MEDS: dexmedetomidine 400 MCG in sodium chloride 0.9% (100 ml) 100 ML 9.67 MCG IV ×2 (11:09→21:44)
[2021-01-06 11:46] LABS: Glucose Point of Care 178 mg/dL (70-110)
[2021-01-06] MEDS: heparin drip 25,000 UNIT/500 ML PREMIX 22 UNIT IV (14:50)
--- NOTE | 2021-01-06 15:32 | PC.RESP ---
RT Shift Note Frequent safety and respiratory rounds continue. Orders completed as indicated. Patient monitored pre and post treatments throughout shift. Patient [Did.] tolerate treatments appropriately. Condition [.DidNotChange]. Patient and/or liability claims representative educated on respiratory treatment and medications. Patient and/or liability claims representative [UNABLE]. Will continue to monitor patient progress.
--- NOTE | 2021-01-06 17:14 | P.PN_ITS ---
Subjective Subjective: Interval history: Intubated, sedated. Is not waking up for me to voice, sternal rub. Vitals/I&O/Wt Last Vital Signs Temp 98.2 F 01/06/21 08:30 Pulse 77 01/06/21 15:30 Resp 14 01/06/21 14:23 BP 140/72 01/06/21 15:30 Pulse Ox 96 01/06/21 15:30 01/06/21 01/06/21 01/06/21 06:59 14:59 22:59 Intake Total 220.099 / 3618.996 1010.609 / 1010.609 92.246 / 1102.855 Output Total 600 / 2375 Balance -379.901 / 4698.541 5047.609 / 1010.609 92.246 / 1102.855 Weight last 48 hrs Weight 91.711 kg Weight 91.711 kg Physical Exam Const: ORIENTATION/CONSCIOUSNESS: not awake OTHER: Sedated. Occasional cough. Neck/C-Spine: COMMON NORMALS: no JVD Resp: COMMON NORMALS: normal respiratory effort and clear to auscultation bilaterally AUSCULTATION: clear to auscultation bilaterally Cardio: COMMON NORMALS: no JVD, regular rhythm, S1 normal heart sound present, S2 normal heart sound present and No murmurs present (Cardio) RHYTHM: regular rhythm HEART SOUNDS: S1 normal heart sound present and S2 normal heart sound present GI: COMMON NORMALS: Normal to inspection, nondistended, normoactive bowel sounds present and Soft to palpation PALPATION: Yes Soft to palpation Extremity: COMMON NORMALS: no joint enlargement and no pedal edema Skin: COMMON NORMALS: no rashes or lesions noted GENERAL SKIN EXAM: no rashes or lesions noted Data : 01/06/21 03:22 01/06/21 03:22 A&P Assessment and plan (1) Encephalopathy: So far has not made significant progress with regards to improvement in mental status. Concern regarding significant anoxic/ischemic brain injury during cardiac arrest. Intermittently coughing. There have been reported possibly brief moments of alertness, but I have not been able to witness this. He has not been waking up for me. 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 Sounds like plans are for transfer to [facility] for additional assessment and continued care. Status: Acute (2) Acute respiratory distress syndrome (ARDS) due to 2019 novel coronavirus: Continues on mechanical ventilatory support. Wean down as tolerating. Continue waking trials. Status: Acute (3) COVID-19: Completed Remdisivir, continue dexamethasone. Status: Acute (4) NSTEMI (non-ST elevated myocardial infarction): Troponins with significant delta on presentation related to cardiac arrest and cardioversion Status: Acute (5) Sepsis: Tachycardia had resolved. Remains afebrile. Persistent leukocytosis. Procalcitonin 0.4. Antibiotics have been deescalated with imipenem discontinued on 01/04. So far vital signs, metabolic parameters continue to improve. Monitor for any change in condition. Multiple CVA, 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 Blood cultures negative. Continues empirically on gram-positive coverage and for MRSA pneumonia. As a result of COVID-19 pneumonia Weaned off pressor support. Status: Acute Qualifiers: Sepsis type: sepsis due to unspecified organism Sepsis acute organ dysfunction status: with acute organ dysfunction Severe sepsis acute organ dysfunction type: acute respiratory failure Acute respiratory failure type: with hypoxia Severe sepsis shock status: with septic shock Qualified Code(s): A41.9 - Sepsis, unspecified organism; R65.21 - Severe sepsis with septic shock; J96.01 - Acute respiratory failure with hypoxia (6) Cardiac arrest: As above Status: Acute (7) Metabolic acidosis: As a result of cardiac arrest Status: Acute (8) Acute kidney injury: Improving. Again as a result of cardiac arrest, renal hypoperfusion most likely explanation Status: Acute (9) DVT (deep venous thrombosis): b/l le, loose, massive Possible PE R heart failure. Continue anticoagulation. Status: Acute (10) CVA (cerebral vascular accident): Multiple CVA noted on CT of the head. Etiology at this time is not clear. Would suspect hypoperfusion during cardiac arrest, and per discussion with radiology do appear in watershed areas. Embolic etiology not excluded. Septic embolic etiology less likely, pending additional blood culture. So far negative. Continues on gram-positive coverage for now. On anticoagulation. Status: Acute (11) Hypernatremia: Sodium gradually improving with water flushes. 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 Status: Acute Additional A&P Information Prognosis guarded Attestations Medical Necessity Statement*: Continue management of hypoxic respiratory failure, supportive care, mechanical ventilation, awakening trials to reassess extent of recovery of GLASS CUTTER HAND function after presenting in cardiac arrest. Coding Level of Care Code Acute Volleyball Player for [facility] Fwd Diagnoses Encephalopathy G93.40 Acute respiratory distress syndrome (ARDS) due to 2019 novel coronavirus U07.1; J80 COVID-19 U07.1 NSTEMI (non-ST elevated myocardial infarction) I21.4 Sepsis A41.9; R65.21; J96.01 Sepsis type: sepsis due to unspecified organism Sepsis acute organ dysfunction status: with acute organ dysfunction Severe sepsis acute organ dysfunction type: acute respiratory failure Acute respiratory failure type: with hypoxia Severe sepsis shock status: with septic shock Cardiac arrest I46.9 Metabolic acidosis E87.2 Acute kidney injury N17.9 DVT (deep venous thrombosis) I82.409 CVA (cerebral vascular accident) I63.9 Hypernatremia E87.0
[2021-01-06 18:15] LABS: Glucose Point of Care 96 mg/dL (70-110)
--- NOTE | 2021-01-06 18:32 | PC.NURSE ---
RT Shift Note Frequent safety and respiratory rounds continue. Orders completed as indicated. Patient monitored pre and post treatments throughout shift. Patient tolerated treatments appropriately. Condition did not change. Patient's family educated on respiratory treatment and medications. Patient's family requested to be transferred to NH facility. Requested declined, family says they will attempt to transfer patient to a different facility tomorrow. Will continue to monitor patient progress.
[2021-01-06] MEDS: metoprolol tartrate 25 mg Tablet 12.5 MG PO (20:31)
[2021-01-06] MEDS: atorvastatin 40 mg Tablet OG-TUBE (20:31)
[2021-01-06] MEDS: dexamethasone 10 mg/mL INJ 6 MG IVP (23:11)
[2021-01-07] VITALS (61 sets, daily range): BP systolic 85–194; BP diastolic 49–92; PULSE 65–117; RESP 14–23; TEMP 36.8–37.3; O2SAT 89–98
[2021-01-07] MEDS: propofol 1,000 MG/100 ML INJ 17.96 MG IV (00:24)
[2021-01-07 03:17] LABS: Glucose Point of Care 74 mg/dL (70-110)
[2021-01-07] MEDS: ipratropium-albuterol 3 mL Neb INHALATION ×4 (03:21→20:12)
[2021-01-07 04:06] LABS: Basophils # 0.1 10^3/uL (0.0-0.1); Basophils % 0.4 %; Eosinophils # 0.2 10^3/uL (0.0-0.8); Eosinophils % 0.6 %; Hematocrit 39.6 % (42.0-52.0); Hemoglobin 12.6 g/dL (11.7-16.6); Lymphocytes # 0.3 10^3/uL (0.8-4.8); Lymphocytes % 0.7 %; Mean Corpuscular HGB Conc 31.8 g/dL (30.0-36.0); Mean Corpuscular Hemoglobin 29.1 pg (28.0-34.0); Mean Corpuscular Volume 91.5 fL (80-94); Monocytes # 0.6 10^3/uL (0.2-0.9); Monocytes % 1.8 %; Neutrophils # 30.86 10^3/uL (1.8-7.7); Neutrophils % 92.6 %; Nucleated Red Blood Cells % 0.1 %; Platelet Count 153 10^3/cmm (130-400); Red Blood Count 4.33 10^6/uL (4.1-5.3)
[2021-01-07 04:24] LABS: White Blood Count 33.4 10^3/uL (4.0-10.0)
[2021-01-07 04:35] LABS: Alanine Aminotransferase 26 U/L (0-41); Albumin Level 1.9 g/dL (3.5-5.2); Alkaline Phosphatase 93 IU/L (40-130); Anion Gap 15.4 (5-19); Aspartate Amino Transferase 44 U/L (0-40); Blood Urea Nitrogen 65 mg/dL (8-23); Calcium 7.8 mg/dL (8.5-10.5); Carbon Dioxide 23 mmol/L (22-29); Chloride 109 mmol/L (98-107); Creatinine Clr Calc Pharmacy 57.9008; Globulin 3.4 g/dL (1.3-4.6); Glucose 111 mg/dL (65-115); Osmolality Calculated 313 mOsm/kg (285-295); Potassium 5.4 mmol/L (3.5-5.1); Sodium 142 mmol/L (136-145); Total Protein 5.3 g/dL (6.6-8.7)
[2021-01-07] MEDS: linezolid premix 600 MG/300 ML PREMIX 300 MG IV ×2 (05:04→18:09)
--- NOTE | 2021-01-07 05:38 | PC.NURSE ---
Shift Note Frequent safety and comfort rounds continue. Orders and/or nursing care completed as indicated. Patient monitored for response to intervention and treatment(s). Education provided includes[]. Patient and/or passenger relations representative [ResponseToTeaching]. Will continue to monitor.
[2021-01-07 07:44] LABS: Glucose Point of Care 169 mg/dL (70-110)
--- NOTE | 2021-01-07 09:03 | CTR_ITS ---
PROCEDURE INFORMATION: Exam: CT Abdomen And Pelvis Without Contrast Exam date and time: 01/07/2021 9:03 AM Age: 80 years old Clinical indication: Fever; Additional info: Persistent leukocytosis TECHNIQUE: Imaging protocol: Computed tomography of the abdomen and pelvis without contrast. Radiation optimization: All CT scans at this facility use at least one of these dose optimization techniques: automated exposure control; mA and/or kV adjustment per patient size (includes targeted exams where dose is matched to clinical indication); or iterative reconstruction. Other contrast: Oral, 20ML OMNI 300, 20ML IN 450ML WATER VIA OG TUBE; COMPARISON: CT angio chest PE protcl [id number] 12/25/2020 6:24 PM RADIATION DOSE METRICS: Total DLP (mGy-cm): 1679.2 FINDINGS: Tubes, catheters and devices: Enteric tube terminates within the stomach. Lungs: Bibasilar consolidations with air bronchograms. Liver: 1.6 cm simple appearing cyst in the left hepatic lobe. Gallbladder and bile ducts: Normal. No calcified stones. No ductal dilation. Pancreas: Fatty atrophy of the pancreas. Spleen: Normal. No splenomegaly. Adrenal glands: Normal. No mass. Kidneys and ureters: Normal. No hydronephrosis. Stomach and bowel: Unremarkable. No obstruction. No mucosal thickening. Appendix: No evidence of appendicitis. Intraperitoneal space: Unremarkable. No free air. No significant fluid collection. Vasculature: Unremarkable. No abdominal aortic aneurysm. Lymph nodes: Unremarkable. No enlarged lymph nodes. Urinary bladder: Lange catheter within the bladder. Reproductive: Unremarkable as visualized. Bones/joints: No acute fracture. Moderate multilevel DJD of the lumbar spine. Severe DJD of both hips. Soft tissues: Small fat containing left inguinal hernia. CT/CT abdomen pelvis con [id number] IMPRESSION: 1. No acute abdominal/pelvic findings. 2. Consolidation at both lung bases suggestive of multifocal pneumonia. Radiation Dose CTDIVOL = (mGy): DLP = 1679.2 (mGy-cm)
[2021-01-07] MEDS: propofol 1,000 MG/100 ML INJ 8.98 MG IV ×2 (10:48→21:32)
[2021-01-07] MEDS: pantoprazole 40 mg SDV IVP (10:48)
[2021-01-07] MEDS: insulin regular-human 10 UNIT in SYRINGE 1 EACH IVP (10:48)
[2021-01-07] MEDS: metoprolol tartrate 25 mg Tablet 12.5 MG PO (10:49)
[2021-01-07] MEDS: dextrose 50% syringe 50 mL IVP (10:50)
[2021-01-07] MEDS: dexmedetomidine 400 MCG in sodium chloride 0.9% (100 ml) 100 ML 9.67 MCG IV ×2 (11:03→22:21)
[2021-01-07 11:23] LABS: Glucose Point of Care 158 mg/dL (70-110)
--- NOTE | 2021-01-07 12:17 | P.PN_ITS ---
Subjective Subjective: Interval history: The patient was seen and examined. No definitive mental status. Continues to be on 75% oxygen. Mild hyperkalemia likely secondary to unfractionated heparin therapy. His creatinine and BUN is coming down. His white count has gone back up again. His urine output has also gone up. He has been negative overall yesterday. I have talked to the distillery miller helper at the [facility] in [place] yesterday and was deemed not to be candidate for transfer because of his clinical condition. The physician was not comfortable transport by road. In the [place] facility does not have the ability to accept the chopper. I had informed the family of this development. Medications: Reviewed: Yes Vitals/I&O/Wt Last Vital Signs Temp 98.3 F 01/07/21 09:00 Pulse 105 H 01/07/21 11:00 Resp 18 01/07/21 10:07 BP 150/67 01/07/21 11:00 Pulse Ox 94 01/07/21 11:00 01/06/21 01/07/21 01/07/21 22:59 06:59 14:59 Intake Total 494.587 / 1505.196 483.034 / 1988.230 119.588 / 119.588 Output Total 1450 / 1450 1700 / 3150 Balance -955.413 / 55.196 -1216.966 / -1161.770 119.588 / 119.588 Weight last 48 hrs Weight 202 lb 3 oz Weight 202 lb 3 oz Physical Exam Narrative: EXAM NARRATIVE: General: Patient is intubated and sedated, not able to follow any command Neck: No JVD Respiratory: Auscultation: Bilateral clear to auscultation both anterior and posteriorly, no crackles wheezing or rhonchi Cardiovascular: Regular rate and rhythm, S1-S2 present, no murmur, no peripheral edema. Abdomen: Soft, nontender, nondistended, positive bowel sound Neuro: Not following commands this morning Data : 01/07/21 03:33 01/07/21 03:33 Micro: Microbiology 01/01/21 19:52 Blood Culture - Final Blood NO GROWTH AFTER 5 DAYS 01/01/21 19:48 Blood Culture - Final Blood NO GROWTH AFTER 5 DAYS Attestation for Other Data: I personally reviewed and interpreted the following: Other data: I have reviewed his laboratory, microbiologic and radiologic data. A&P Assessment and plan (1) Anoxic brain injury: The patient has suffered from significant anoxic brain injury. CT scan of the head revealed multiple strokes including evidence of increased pressure in the posterior fossa. He follows commands intermittently. Urine output has decreased with DDAVP. Serum sodium has improved however, the patient remained negative yesterday. I am going to increase the DDAVP to 0.2 mg twice a day. The family is in the process of finding out whether they would want us to transfer the patient. If that does not turnstile collector to be the case, the patient needs a trach and PEG and placement. Status: Acute (2) Cardiac arrest: The patient suffered from cardiac arrest. No hypothermia protocol was performed. The cause of the cardiac arrest is likely hypoxia. This could have been secondary to ARDS from COVID-19 or a combination of SARS-CoV-2 pneumonia and pulmonary embolism. He has completed his course of remdesivir. He will continue with dexamethasone for now. He is on day 10 today. His FiO2 requirement is 75% this morning. Status: Acute (3) DVT (deep venous thrombosis): The patient has DVT involving left femoral vein and profunda femoris as well as greater saphenous vein on the right side with a mobile clot at the junction of the femoral vein. The patient is currently anticoagulated with heparin. The PTT had been stable. It is possible that the patient had embolization of the DVT causing PE and acute RV dysfunction. I am going to switch his IV heparin drip to Lovenox. Status: Acute (4) Acute right-sided heart failure: The etiology of the acute RV failure is unclear. This could certainly be from pulmonary embolism or severe vasoconstriction in the setting of ARDS from COVID-19. This is improved. Status: Acute (5) Acute respiratory distress syndrome (ARDS) due to 2019 novel coronavirus: The patient is currently on dexamethasone. We will continue with the flores pportive therapy Status: Acute (6) Acute kidney injury: Acute kidney injury is likely secondary to hypoxia, hypotension, cardiac arrest. The creatinine and BUN has improved significantly. The patient can be safely switched to Lovenox at this point. Status: Acute (7) Hypernatremia: This is resolved. 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 Status: Acute (8) MRSA pneumonia: The patient is currently on linezolid and cefepime due to worsening leukocytosis and borderline hypotension. Status: Acute (9) Leukocytosis: The procalcitonin level is normal. Unfortunately the white count went up today. I am going to obtain a CT abdomen pelvis with oral contrast. Status: Acute (10) Hyperkalemia: This is likely secondary to IV heparin therapy or a combination of that and ineffective potassium clearance. Heparin is known to induce hypoaldosteronism causing hyperkalemia. I am going to switch his heparin drip to Lovenox we will see how that goes. I have treated him with insulin and dextrose this morning. Repeat BMP at 6 PM. Status: Acute Additional A&P Information Family discussion for further planning. Attestations Medical Necessity Statement*: Will defer to the primary team Coding Level of Care Code Acute Supervisor Pastry for Susy Yi Diagnoses Anoxic brain injury G93.1 Cardiac arrest I46.9 DVT (deep venous thrombosis) I82.409 Acute right-sided heart failure I50.811 Acute respiratory distress syndrome (ARDS) due to 2019 novel coronavirus U07.1; J80 Acute kidney injury N17.9 Hypernatremia E87.0 MRSA pneumonia J15.212 Leukocytosis D72.829 Hyperkalemia E87.5 Time Spent (min) 33
[2021-01-07] MEDS: sodium chloride 0.45% 1,000 ML 75 ML IV (12:25)
--- NOTE | 2021-01-07 14:34 | PC.RESP ---
RT Shift Note Frequent safety and respiratory rounds continue. Orders completed as indicated. Patient monitored pre and post treatments throughout shift. Patient [Did.] tolerate treatments appropriately. Condition [\.DidNotChange]. Patient and/or reimbursement representative educated on respiratory treatment and medications. Patient and/or reimbursement representative [unable to comprehend]. Will continue to monitor patient progress.
[2021-01-07] MEDS: iohexol 300 mg/mL 50 mL Btl PO (16:09)
[2021-01-07] MEDS: enoxaparin 100 mg/mL Syringe 90 MG SUBCUT (18:09)
[2021-01-07 18:26] LABS: Glucose Point of Care 94 mg/dL (70-110)
--- NOTE | 2021-01-07 18:45 | PC.NURSE ---
Shift Note Frequent safety and comfort rounds continue. Orders and nursing care completed as indicated. Patient monitored for response to intervention and treatment. Pt taken to CT today, awaiting results at this time. No changes via ventilator setting. Pt started on 0.45% NS@75ML/hr. Heparin drip stopped this afternoon, Lovenox started at 1800 this evening, per physician's order. Patient's family states looking for a different facility to transfer at this time. Please refer to physician's note for plan of care. Will continue to monitor.
[2021-01-07 19:30] LABS: Blood Urea Nitrogen 68 mg/dL (8-23); Calcium 7.8 mg/dL (8.5-10.5); Carbon Dioxide 21 mmol/L (22-29); Chloride 107 mmol/L (98-107); Creatinine Clr Calc Pharmacy 57.9008; Glucose 105 mg/dL (65-115); Osmolality Calculated 304 mOsm/kg (285-295); Sodium 137 mmol/L (136-145)
[2021-01-07 19:33] LABS: Anion Gap 14.4 (5-19); Potassium 5.4 mmol/L (3.5-5.1)
--- NOTE | 2021-01-07 21:08 | PM.PN ---
Subjective Subjective: Interval history: Intubated, sedated, intermittent coughing. Not waking up. Reported opens eyes transiently when being moved from CT scanner to bed. Did not remain alert, did not follow commands, answer questions, did not wake up for me either shortly after when returned to ICU. Vitals/I&O/Wt Last Vital Signs Temp 99.2 F 01/07/21 20:00 Pulse 80 01/07/21 20:11 Resp 15 01/07/21 20:09 BP 157/75 01/07/21 20:00 Pulse Ox 94 01/07/21 20:09 01/07/21 01/07/21 01/07/21 06:59 14:59 22:59 Intake Total 483.034 / 1988.230 693.055 / 693.055 300 / 993.055 Output Total 1700 / 3150 1250 / 1250 Balance -1216.966 / -1161.770 693.055 / 693.055 -950 / -256.945 Weight last 48 hrs Weight 91.711 kg Weight 91.711 kg Physical Exam Const: COMMON NORMALS: no acute distress; negative for alert GENERAL APPEARANCE: frail appearing ORIENTATION/CONSCIOUSNESS: not awake OTHER: Sedated. Occasional cough. HENMT: COMMON NORMALS: oropharynx normal Neck/C-Spine: COMMON NORMALS: no JVD Resp: COMMON NORMALS: normal respiratory effort and clear to auscultation bilaterally AUSCULTATION: clear to auscultation bilaterally Cardio: COMMON NORMALS: no JVD, regular rhythm, S1 normal heart sound present, S2 normal heart sound present and No murmurs present (Cardio) RHYTHM: regular rhythm HEART SOUNDS: S1 normal heart sound present and S2 normal heart sound present GI: COMMON NORMALS: Normal to inspection, nondistended, normoactive bowel sounds present and Soft to palpation PALPATION: Yes Soft to palpation Extremity: COMMON NORMALS: no joint enlargement and no pedal edema Neuro: SENSORIUM/ORIENTATION: No alert Skin: COMMON NORMALS: no rashes or lesions noted GENERAL SKIN EXAM: no rashes or lesions noted Data : 01/07/21 03:33 01/07/21 18:55 Micro: Microbiology 01/01/21 19:52 Blood Culture - Final Blood NO GROWTH AFTER 5 DAYS 01/01/21 19:48 Blood Culture - Final Blood NO GROWTH AFTER 5 DAYS A&P Assessment and plan (1) Encephalopathy: No improvement noted today. So far has not made significant progress with regards to improvement in mental status. Concern regarding significant anoxic/ischemic brain injury during cardiac arrest. Intermittently coughing. There have been reported possibly brief moments of alertness, but I have not been able to witness this. He has not been waking up for me. 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 Sounds like plans are for transfer to [facility] for additional assessment and continued care. Status: Acute (2) Acute respiratory distress syndrome (ARDS) due to 2019 novel coronavirus: Continues on mechanical ventilatory support. Wean down as tolerating. Continue waking trials. Status: Acute (3) COVID-19: Completed Remdisivir, continue dexamethasone. Status: Acute (4) NSTEMI (non-ST elevated myocardial infarction): Troponins with significant delta on presentation related to cardiac arrest and cardioversion Status: Acute (5) Sepsis: Tachycardia had resolved. Remains afebrile. Persistent leukocytosis. Procalcitonin 0.4. Antibiotics have been deescalated with imipenem discontinued on 01/04. So far vital signs, metabolic parameters continue to improve. Monitor for any change in condition. Multiple CVA, 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 Blood cultures negative. Continues empirically on gram-positive coverage and for MRSA pneumonia. As a result of COVID-19 pneumonia Weaned off pressor support. Status: Acute Qualifiers: Sepsis type: sepsis due to unspecified organism Sepsis acute organ dysfunction status: with acute organ dysfunction Severe sepsis acute organ dysfunction type: acute respiratory failure Acute respiratory failure type: with hypoxia Severe sepsis shock status: with septic shock Qualified Code(s): A41.9 - Sepsis, unspecified organism; R65.21 - Severe sepsis with septic shock; J96.01 - Acute respiratory failure with hypoxia (6) Cardiac arrest: As above Status: Acute (7) Metabolic acidosis: As a result of cardiac arrest Status: Acute (8) Acute kidney injury: Improving. Again as a result of cardiac arrest, renal hypoperfusion most likely explanation Status: Acute (9) DVT (deep venous thrombosis): b/l le, loose, massive Possible PE R heart failure. Continue anticoagulation. Status: Acute (10) CVA (cerebral vascular accident): Multiple CVA noted on CT of the head. Etiology at this time is not clear. Would suspect hypoperfusion during cardiac arrest, and per discussion with radiology do appear in watershed areas. Embolic etiology not excluded. Septic embolic etiology less likely, pending additional blood culture. So far negative. Continues on gram-positive coverage for now. On anticoagulation. Status: Acute (11) Hypernatremia: Resolving. 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 Improvement in urine output. Status: Acute Additional A&P Information Prognosis likely is not good. Family considering transfer to outside facility. Attestations Medical Necessity Statement*: Continue admission for hypoxic respiratory failure, encephalopathy, anoxic brain injury following preadmission cardiac arrest. Coding Level of Care Code Acute Skein Yard Drier for [facility] Fwd Diagnoses Encephalopathy G93.40 Acute respiratory distress syndrome (ARDS) due to 2019 novel coronavirus U07.1; J80 COVID-19 U07.1 NSTEMI (non-ST elevated myocardial infarction) I21.4 Sepsis A41.9; R65.21; J96.01 Sepsis type: sepsis due to unspecified organism Sepsis acute organ dysfunction status: with acute organ dysfunction Severe sepsis acute organ dysfunction type: acute respiratory failure Acute respiratory failure type: with hypoxia Severe sepsis shock status: with septic shock Cardiac arrest I46.9 Metabolic acidosis E87.2 Acute kidney injury N17.9 DVT (deep venous thrombosis) I82.409 CVA (cerebral vascular accident) I63.9 Hypernatremia E87.0
[2021-01-07] MEDS: atorvastatin 40 mg Tablet OG-TUBE (21:32)
[2021-01-07] MEDS: dexamethasone 10 mg/mL INJ 6 MG IVP (22:35)
[2021-01-07 23:43] LABS: Glucose Point of Care 98 mg/dL (70-110)
[2021-01-08] VITALS (62 sets, daily range): BP systolic 82–205; BP diastolic 39–95; PULSE 52–118; RESP 14–39; TEMP 35.7–37.7; O2SAT 87–99
[2021-01-08] MEDS: ipratropium-albuterol 3 mL Neb INHALATION ×4 (02:42→20:38)
[2021-01-08] MEDS: sodium chloride 0.45% 1,000 ML 75 ML IV (03:13)
[2021-01-08 03:28] LABS: Basophils # 0.1 10^3/uL (0.0-0.1); Basophils % 0.3 %; Eosinophils # 0.1 10^3/uL (0.0-0.8); Eosinophils % 0.5 %; Hematocrit 37.3 % (42.0-52.0); Hemoglobin 11.6 g/dL (11.7-16.6); Lymphocytes # 0.3 10^3/uL (0.8-4.8); Lymphocytes % 1.2 %; Mean Corpuscular HGB Conc 31.1 g/dL (30.0-36.0); Mean Corpuscular Hemoglobin 29.3 pg (28.0-34.0); Mean Corpuscular Volume 94.2 fL (80-94); Monocytes # 0.5 10^3/uL (0.2-0.9); Monocytes % 1.9 %; Neutrophils # 24.91 10^3/uL (1.8-7.7); Neutrophils % 92.4 %; Nucleated Red Blood Cells % 0 %; Platelet Count 134 10^3/cmm (130-400); Red Blood Count 3.96 10^6/uL (4.1-5.3); Red Cell Distribution Width 16.6 % (12.1-15.1); White Blood Count 26.9 10^3/uL (4.0-10.0)
[2021-01-08] MEDS: propofol 1,000 MG/100 ML INJ 17.96 MG IV ×2 (03:35→09:51)
[2021-01-08 03:59] LABS: Alanine Aminotransferase 24 U/L (0-41); Albumin Level 1.8 g/dL (3.5-5.2); Alkaline Phosphatase 104 IU/L (40-130); Anion Gap 12.8 (5-19); Aspartate Amino Transferase 48 U/L (0-40); Blood Urea Nitrogen 63 mg/dL (8-23); Calcium 7.7 mg/dL (8.5-10.5); Carbon Dioxide 23 mmol/L (22-29); Chloride 109 mmol/L (98-107); Globulin 3.2 g/dL (1.3-4.6); Glucose 121 mg/dL (65-115); Osmolality Calculated 307 mOsm/kg (285-295); Potassium 5.8 mmol/L (3.5-5.1); Sodium 139 mmol/L (136-145)
[2021-01-08] MEDS: linezolid premix 600 MG/300 ML PREMIX 300 MG IV ×2 (06:00→17:14)
[2021-01-08] MEDS: enoxaparin 100 mg/mL Syringe 90 MG SUBCUT ×2 (06:01→17:12)
--- NOTE | 2021-01-08 06:41 | PC.NURSE ---
Shift Note Frequent safety and comfort rounds continue. Orders and/or nursing care completed as indicated. Patient monitored for response to intervention and treatment(s). Education provided includes[]. Patient and/or bank representative [ResponseToTeaching]. Will continue to monitor. Unable to provide education at this time, patient is sedated on the vent and unable to respond.
--- NOTE | 2021-01-08 07:51 | XRR_ITS ---
PROCEDURE INFORMATION: Exam: XR Chest Exam date and time: 01/08/2021 7:51 AM Age: 80 years old Clinical indication: Condition or disease; Lung condition and disease; Pneumonia; Patient HX: PT intubated unable to give history; Additional info: Pnemonia TECHNIQUE: Imaging protocol: XR of the chest. Views: 1 view. COMPARISON: CR (CHEST, ) 01/05/2021 7:17 PM FINDINGS: Tubes, catheters and devices: There is an endotracheal tube with the tip 5.8 cm above the kristofer. There is an enteric tube extending down into the stomach. There is a right jugular central line with the tip in the superior vena cava. Lungs: There is bilateral airspace disease, primarily interstitial, though there are areas of air bronchogram formation in the medial lung bases bilaterally. The findings are consistent with the history of pneumonia. No definite change allowing for technical differences. Pleural spaces: Trace pleural effusions. No pneumothorax. Heart/Mediastinum: The cardiac silhouette is not enlarged. The mediastinal contours are normal. Bones/joints: Prior right reverse total shoulder arthroplasty. There are multilevel bridging osteophytes in the spine. XR/XR chest 1V portable [id number] IMPRESSION: 1. Line and tubes as described. 2. No significant change in bilateral pneumonia. 3. Trace pleural effusions.
[2021-01-08 08:13] LABS: Creatine Phosphokinase 49 U/L (39-308)
[2021-01-08 08:33] LABS: Glucose Point of Care 138 mg/dL (70-110)
[2021-01-08] MEDS: insulin regular-human 10 UNIT in SYRINGE 1 EACH 2 UNIT IVP (09:05)
[2021-01-08] MEDS: dextrose 50% syringe 50 mL IVP (09:05)
[2021-01-08] MEDS: pantoprazole 40 mg SDV IVP (09:06)
--- NOTE | 2021-01-08 09:57 | PC.CHAP ---
Pastoral Care Encounter/Spiritual Assessment Type of Contact [] Declined building materials sales attendant visit [] Patient/Family/Request visit [] Outpatient visit [] Follow-up visit [] Physician referral [] Code/Alert [x] Routine visit [] Staff referral [] Actively dying [] Patient sleeping [] Family support [] [] Out of room [] Palliative care [] [] Receiving care in room [] Pre-surgical visit [] Trauma [] Long length of stay [x] ICU visit [] Other: Relational/Emotional Strength [] Patient feels connected with others/family/visitors/staff [] Distress [] Loneliness/isolation [] Abandonment Spirituality of Patient [] Person of Kimmy [] Attends Hinduism of their Kimmy [] Believes in Prayer [] Reads Bible or Muslim materials [] There are Spiritual issues to be addressed Import/Export Agent Interventions [x] Prayer [] Active listening [] Non-anxious presence [] Spiritual/emotional support [] Crisis/trauma care [] Spiritual counseling [] Bereavement support [] Provided bereavement packet [] Provided Bible/devotional materials [] Provided toy/stuffed animal, coloring book to patient or family member [] Provided Communion [] Anointing/Bozman [] Salvation [x] Completed spiritual assessment [] Other: Impact on Illness or Injury [] Angry [] Fearful [] Anxious [] Often cries [] Exhaustion [] Unable to work [] Unable to attend pentecostal [] Unable to walk/stand [] Unable to read [] Unable to drive [] Unable to eat/drink [] Unable to sleep [] Unable to be with family [] Patient intubated [] Other: Summary Time spent with patient
[2021-01-08 10:24] LABS: ABG PCO2 41.9 mmHg (35-45); ABG PH Result 7.34 (7.35-7.45); Alveolar-Arterial Oxygen Gradi 45.6 mmHg (5-10); Arterial Blood Gas Hematocrit 34.1 % (42-52); Base Excess ABG -2.8 mmol/L (-2.0-2.0); Blood Gas Allen Test Pos; Blood Gas Operator Identificat CAK; Blood Gas Sample Site Radial, left; Blood Gas Sample Type Arterial; Carboxyhemoglobin 1.5 %THgb (0.4-20.1); HCO3 ABG 22.8 mmol/L (22-26); HGB O2 Sat 86.7 % (95-100); Ionized Calcium Level - ABG 1.2 mmol/L (1.1-1.4); Methemoglobin 0.9 % (0.4-1.5); Oxygen Device VENT; Oxygen Saturation ABG 88.9; PO2 ABG 60.5 mmHg (80.0-100.0); Potassium Level - ABG 5.2 mmol/L (3.5-5.0); Total Hemoglobin 11.1 g/dL (14-18)
[2021-01-08 11:55] LABS: Glucose Point of Care 144 mg/dL (70-110)
--- NOTE | 2021-01-08 12:53 | PC.SOCIAL ---
IMM NOT GIVEN IMM update not given due to patient currently intubated.
--- NOTE | 2021-01-08 13:34 | PC.NURSE ---
Residual was checked and was at 475 mL. Amount was wasted and tube was flushed. Datar is aware and feedings are being held.
--- NOTE | 2021-01-08 13:43 | USCV_ITS ---
Adin Chavez Age: 80 Gender: M : 1940 Exam Date: 01/08/2021 15:57 Ordering Phys: Benjamin Gonzales MD Technologist: BHAVANA [place] [facility] [place] VENT WITH COVID. DECREASED PULSES Risk Factors: COVID Previous Vascular Surgery: Unknown RIGHT LEFT BP: / BP: 167.0/ 70.00 0 Waveform Velocity (cm/s) Velocity (cm/s) Waveform Triphasic 102.4 Iliac Prox 138.6 Triphasic Triphasic Iliac Mid Triphasic 151.5 140.2 Triphasic 136.2 Iliac Distal 141.8 Triphasic Biphasic 131.6 FOOD PRODUCT INSPECTOR 115.3 Triphasic Triphasic 87.2 SFA Prox 83.4 Triphasic Triphasic 117.8 SFA Mid 61.3 Triphasic Triphasic 102.9 SFA Dist 160.9 Triphasic Monophasic 48.1 POP 62.7 Biphasic Monophasic 31.0 OYSTER WASHER 105.6 Monophasic Monophasic 47.0 DPA 139.6 Monophasic 0.5 TAMMY 0.5 FINDINGS NOT ABLE TO DO PRESSURES IN RT ARM Mild to moderate arterial plaques in the iliac and femoral arteries bilaterally. Normal resting TAMMY of 0.47 on the right side and 0.53 on the left side CONCLUSIONS Abnormal resting TAMMY and Doppler waveforms consistent with severe obstructive arterial disease involving the infrapopliteal vessels on the right side. Abnormal resting TAMMY and arterial Doppler waveforms consistent with moderately severe obstructive arterial disease involving the infrapopliteal vessels on the left side. No similar previous studies are available for comparison. Dr Jasmyne Jimenez MD [facility] (Electronically Signed) Final Date: 08 January 2021 17:56 S
[2021-01-08] MEDS: dexmedetomidine 400 MCG in sodium chloride 0.9% (100 ml) 100 ML IV (14:06)
--- NOTE | 2021-01-08 15:03 | PC.NUTR ---
Nutrition follow up: TF as ordered with flushes providing 864 kcal, 43 g protein, 2180 ml [id number] held at this time. Recommend resume feeding when tolerated, reducing temporarily to 15 ml/hr if needed and gradually increasing. When tolerated and appropriate, recommend increasing by 10 ml/hr q 12 hrs to goal rate of 50 ml/hr. Noted additional 632 kcal from propofol at this time. Recommend check triglycerides. See full RD assessment for further details.
[2021-01-08] MEDS: propofol 1,000 MG/100 ML INJ 23.95 MG IV (15:38)
--- NOTE | 2021-01-08 16:31 | P.PN_ITS ---
Subjective Subjective: Interval history: Hospital course, labs appreciated. Patient remains on sedation with propofol, fentanyl, Precedex. Today morning was given sedation medication during which she did not wake up appropriately but his blood pressures went up to 200 systolics. Patient remains on mechanical ventilator currently on FiO2 of 65%, tidal volume of 500 with PEEP of 10. Not waking up. Reported opens eyes transiently when being moved from CT scanner to bed. Did not remain alert, did not follow commands, answer questions, did not wake up for me either shortly after when returned to ICU. Medications: Reviewed: Yes Vitals/I&O/Wt Last Vital Signs Temp 96.3 F L 01/08/21 12:30 Pulse 76 01/08/21 16:00 Resp 17 01/08/21 14:27 BP 123/53 01/08/21 16:00 Pulse Ox 88 L 01/08/21 16:00 01/08/21 01/08/21 01/08/21 06:59 14:59 22:59 Intake Total 1187.106 / 2491.322 704.000 / 704.000 Output Total 1650 / 2900 Balance -462.894 / -408.678 704.000 / 704.000 Weight last 48 hrs Weight 91.626 kg Weight 91.711 kg Physical Exam Narrative: EXAM NARRATIVE: General: Patient is intubated and sedated, not able to follow any command Neck: No JVD Respiratory: Auscultation: Bilateral clear to auscultation both anterior and posteriorly, no crackles wheezing or rhonchi Cardiovascular: Regular rate and rhythm, S1-S2 present, no murmur, no peripheral edema. Abdomen: Soft, nontender, nondistended, positive bowel sound Neuro: Not following commands this morning Data : 01/08/21 03:17 01/08/21 03:17 A&P Assessment and plan (1) Encephalopathy: No improvement noted today. Not seem to be appropriately waking up off sedation. Patient has failed multiple sedation vacation trials. So far has not made significant progress with regards to improvement in mental status. Concern regarding significant anoxic/ ischemic brain injury during cardiac arrest. Intermittently gagging. EEG report awaited. 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 Sounds like plans are for transfer to [facility] for additional assessment and continued care. Status: Acute (2) Acute respiratory distress syndrome (ARDS) due to 2019 novel coronavirus: Continues on mechanical ventilatory support. Wean down as tolerating. Continue waking trials. Unfortunately patient continues to fail waking trials. Patient has been intubated for 11 days. As per goals of care discussion with the family they are possibly waiting for some kind of stem cell therapy which they have been made aware has to be confirmed with administration before administering the patient. Patient's family is okay with him getting trach and PEG. They have been made aware that if patient gets tracheostomy and is ventilator dependent he might have to be moved to an outpatient facility for long-term care. Status: Acute (3) COVID-19: Completed Remdisivir, continue dexamethasone. Status: Acute (4) NSTEMI (non-ST elevated myocardial infarction): Troponins with significant delta on presentation related to cardiac arrest and cardioversion Status: Acute (5) Sepsis: Tachycardia had resolved. Remains afebrile. Persistent leukocytosis. Procalcitonin 0.4. Antibiotics have been deescalated with imipenem discontinued on 01/04. So far vital signs, metabolic parameters continue to improve. Monitor for any change in condition. Multiple CVA, 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 Blood cultures negative. Continues empirically on gram-positive coverage and for MRSA pneumonia. As a result of COVID-19 pneumonia Weaned off pressor support. Status: Acute Qualifiers: Sepsis type: sepsis due to unspecified organism Sepsis acute organ dysfunction status: with acute organ dysfunction Severe sepsis acute organ dysfunction type: acute respiratory failure Acute respiratory failure type: with hypoxia Severe sepsis shock status: with septic shock Qualified Code(s): A41.9 - Sepsis, unspecified organism; R65.21 - Severe sepsis with septic shock; J96.01 - Acute respiratory failure with hypoxia (6) Cardiac arrest: As above Status: Acute (7) Metabolic acidosis: As a result of cardiac arrest Status: Acute (8) Acute kidney injury: Improving. Again as a result of cardiac arrest, renal hypoperfusion most likely explanation Status: Acute (9) DVT (deep venous thrombosis): b/l le, loose, massive Possible PE R heart failure. Continue anticoagulation. Status: Acute (10) CVA (cerebral vascular accident): Multiple CVA noted on CT of the head. Etiology at this time is not clear. Would suspect hypoperfusion during cardiac arrest, and per discussion with radiology do appear in watershed areas. Embolic etiology not excluded. Septic embolic etiology less likely, pending additional blood culture. So far negative. Continues on gram-positive coverage for now. On anticoagulation. Status: Acute (11) Hypernatremia: Resolving. 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 Improvement in urine output. Status: Acute Additional A&P Information Patient's care discussed in detail with his over the phone. We did discuss that unfortunately patient has failed multiple waking trials and has remained on ventilator support for 11 days. We did discuss goals of care with 2 options at this time. One option would be comfort measures and terminal extubation versus trach and PEG for ventilator and nutrition support. We also discussed that if he is trached and pegged at that point patient will have to be moved to an outpatient facility for long-term care. Unfortunately there are no facilities in the 100 mile radius to take care of patients with trach and ventilator. Patient's for now would want to continue the current treatment. She is trying to see if patient can get off cancer therapy from her doctor at [facility]. She is requesting if doctors can speak with her outpatient doctor regarding the same. She is requesting confirmation from administration of the treatment can be given to the patient. Case discussed with antique finisher. Appreciate antique finisher care. If and when patient comes out of ICU will resume patient's care. Severely guarded prognosis. Family considering transfer to outside facility. Have been denied beds. Attestations Medical Necessity Statement*: Continue admission for hypoxic respiratory failure, encephalopathy, anoxic brain injury following preadmission cardiac arrest. Critical Care Time: The high probability of a clinically significant, sudden or life threatening deterioration of the patient's [Respiratory, Neurological, cardiac] system(s) required my full and direct attention, intervention and personal management. The critical care time is as shown. This time is in addition to time spent performing any reported procedures but includes the following: [x] Data and vital sign review and interpretation [x] Patient assessment, examination and intervention [x] Documentation [x] Medication orders and management Critical Care Time (min): 50 Coding Level of Care Code Acute [employer] for [employer] Diagnoses Encephalopathy G93.40 Acute respiratory distress syndrome (ARDS) due to 2019 novel coronavirus U07.1; J80 COVID-19 U07.1 NSTEMI (non-ST elevated myocardial infarction) I21.4 Sepsis A41.9; R65.21; J96.01 Sepsis type: sepsis due to unspecified organism Sepsis acute organ dysfunction status: with acute organ dysfunction Severe sepsis acute organ dysfunction type: acute respiratory failure Acute respiratory failure type: with hypoxia Severe sepsis shock status: with septic shock Cardiac arrest I46.9 Metabolic acidosis E87.2 Acute kidney injury N17.9 DVT (deep venous thrombosis) I82.409 CVA (cerebral vascular accident) I63.9 Hypernatremia E87.0
[2021-01-08] MEDS: hyDRALAzine 20 mg/mL INJ 1 mL 25 MG IVP (17:15)
[2021-01-08 17:44] LABS: Glucose Point of Care 93 mg/dL (70-110)
--- NOTE | 2021-01-08 19:03 | PC.NURSE ---
Sedation was shit off to assess patients mental status. Patient was unable to follow commands, respirations were in the 40's and breathing was labored. Sedation was turned back on.
--- NOTE | 2021-01-08 19:04 | PC.NURSE ---
Shift Note Frequent safety and comfort rounds continue. Orders and/or nursing care completed as indicated. Patient monitored for response to intervention and treatment(s). Education provided includes[ventilator compliance]. Patient and/or statement services representative unable to respond]. Will continue to monitor.
--- NOTE | 2021-01-08 19:17 | PM.PN ---
Subjective Subjective: Interval history: pt seen at bedside no reasonable mentation - even off sedation continues to be vent dependent labs and imaging reviewed Medications: Reviewed: Yes Vitals/I&O/Wt Last Vital Signs Temp 98.1 F 01/08/21 19:00 Pulse 96 01/08/21 19:00 Resp 39 H 01/08/21 18:00 BP 117/48 01/08/21 19:00 Pulse Ox 89 L 01/08/21 19:00 01/08/21 01/08/21 01/08/21 06:59 14:59 22:59 Intake Total 1187.106 / 2491.322 704.000 / 704.000 573.537 / 1277.537 Output Total 1650 / 2900 1275 / 1275 Balance -462.894 / -408.678 704.000 / 704.000 -701.463 / 2.537 Weight last 48 hrs Weight 202 lb Weight 202 lb 3 oz Physical Exam Narrative: EXAM NARRATIVE: General: lying in bed, sedated and intubated. HEENT:NCAT, PERRLA, EOMI Neck: Supple Lungs: Reduced breath sounds bilaterally Heart: s1/s2, RRR Abd: soft, NT, ND, BS + Normoactive Extremities: No edema; Mottled appearing feet; feeble pulses on lower extremities R>L; cold feet R> L SUPERVISOR CRACK OFF: sedated and limited SUPERVISOR CRACK OFF exam possible, has contractures of all 4 extremities SKIN: no rash Data : 01/08/21 03:17 01/08/21 03:17 Other Labs: Laboratory Results WBC 26.9 10^3/uL (4.0-10.0) H 01/08/21 03:17 RBC 3.96 10^6/uL (4.1-5.3) L 01/08/21 03:17 Hgb 11.6 g/dL (11.7-16.6) L 01/08/21 03:17 Hct 37.3 % (42.0-52.0) L 01/08/21 03:17 MCV 94.2 fL (80-94) H 01/08/21 03:17 MCH 29.3 pg (28.0-34.0) 01/08/21 03:17 MCHC 31.1 g/dL (30.0-36.0) 01/08/21 03:17 RDW 16.6 % (12.1-15.1) H 01/08/21 03:17 Plt Count 134 10^3/cmm (130-400) 01/08/21 03:17 MPV 13.0 fL (7.4-10.4) H 01/08/21 03:17 Neut % (Auto) 92.4 % 01/08/21 03:17 Lymph % (Auto) 1.2 % 01/08/21 03:17 Barron % (Auto) 1.9 % 01/08/21 03:17 Eos % (Auto) 0.5 % 01/08/21 03:17 Baso % (Auto) 0.3 % 01/08/21 03:17 Neut # (Auto) 24.91 10^3/uL (1.8-7.7) H 01/08/21 03:17 Lymph # (Auto) 0.3 10^3/uL (0.8-4.8) L 01/08/21 03:17 Barron # (Auto) 0.5 10^3/uL (0.2-0.9) 01/08/21 03:17 Eos # (Auto) 0.1 10^3/uL (0.0-0.8) 01/08/21 03:17 Baso # (Auto) 0.1 10^3/uL (0.0-0.1) 01/08/21 03:17 Nucleated RBC % (auto) 0 % 01/08/21 03:17 Total Counted 100 (0-100) 01/04/21 05:15 Atypical Lymphs % 1.0 % (0-5) 01/04/21 05:15 Absolute Neutrophils 28.9 10^3/cmm (1.4-6.5) H 01/04/21 05:15 Segmented Neutrophils 71 % 01/04/21 05:15 Abs Segm Neuts (Man) 22.6 10/cmm (1.6-7.1) H 01/04/21 05:15 Band Neutrophils 20.0 % 01/04/21 05:15 Abs Band Neuts (Man) 6.4 10^3/cmm (0.0-1.2) H 01/04/21 05:15 Absolute Lymphocytes 0.3 10^3/cmm (1.2-3.4) L 01/04/21 05:15 Lymphocytes (Manual) 0 % 01/04/21 05:15 Monocytes (Manual) 2.0 % 01/04/21 05:15 Absolute Monocytes 0.6 10^3/cmm (0.1-0.6) 01/04/21 05:15 Eosinophils (Manual) 0 % 01/04/21 05:15 Absolute Eosinophils 0.0 10^3/cmm (0.0-0.7) 01/04/21 05:15 Basophils (Manual) 0.0 % 01/04/21 05:15 Absolute Basophils 0.0 10^3/cmm (0.0-0.2) 01/04/21 05:15 Metamyelocytes 2.0 % 01/04/21 05:15 Myelocytes 4.0 % 01/04/21 05:15 Nucleated RBCs # 0.0 /100WBC 01/08/21 03:17 Platelet Estimate Normal (Normal) 01/04/21 05:15 Giant Platelets 1+ H 12/31/20 05:09 Poikilocytosis 1+ H 01/04/21 05:15 Anisocytosis 1+ H 12/31/20 05:09 APTT 50.7 SECONDS (23.9-36.7) H 01/03/21 05:35 D-Dimer >= 20.00 ug/mIFEU (0-0.59) H 12/29/20 01:12 Specimen Type Arterial 01/08/21 10:13 Sample Site Radial, left 01/08/21 10:13 ABG pH 7.34 (7.35-7.45) L 01/08/21 10:13 ABG pCO2 41.9 mmHg (35-45) 01/08/21 10:13 ABG pO2 60.5 mmHg (80.0-100.0) L 01/08/21 10:13 ABG HCO3 22.8 mmol/L (22-26) 01/08/21 10:13 ABG O2 Saturation 88.9 01/08/21 10:13 ABG Base Excess -2.8 mmol/L (-2.0-2.0) L 01/08/21 10:13 Oswaldo Test Pos 01/08/21 10:13 A-a O2 Gradient 45.6 mmHg (5-10) H 01/08/21 10:13 Hematocrit 34.1 % (42-52) L 01/08/21 10:13 Hgb O2 Saturation 86.7 % (95-100) L 01/08/21 10:13 Carboxyhemoglobin 1.5 %THgb (0.4-20.1) 01/08/21 10:13 Methemoglobin 0.9 % (0.4-1.5) 01/08/21 10:13 Total Hemoglobin 11.1 g/dL (14-18) L 01/08/21 10:13 Sodium 138.0 mmol/L (131-143) 01/08/21 10:13 Potassium 5.2 mmol/L (3.5-5.0) H 01/08/21 10:13 Glucose 168.0 mg/dL (70-115) H 01/08/21 10:13 Ionized Calcium 1.2 mmol/L (1.1-1.4) 01/08/21 10:13 O2 Delivery Device Vent 01/08/21 10:13 FiO2 65.0 % 01/08/21 10:13 Tidal Volume 0.50 01/08/21 10:13 PEEP 10.0 cmH20 01/08/21 10:13 Linseed Oil Boiler ID Cak 01/08/21 10:13 Sodium 139 mmol/L (136-145) 01/08/21 03:17 Potassium 5.8 mmol/L (3.5-5.1) H 01/08/21 03:17 Chloride 109 mmol/L (98-107) H 01/08/21 03:17 Carbon Dioxide 23 mmol/L (22-29) 01/08/21 03:17 Anion Gap 12.8 (5-19) 01/08/21 03:17 BUN 63 mg/dL (8-23) H 01/08/21 03:17 Creatinine 1.2 mg/dL (0.7-1.2) 01/08/21 03:17 GFR Calculation Not Reportable 01/08/21 03:17 Glucose 121 mg/dL (65-115) H 01/08/21 03:17 POC Glucose 93 mg/dL (70-110) 01/08/21 17:33 Calculated Osmolality 307 mOsm/kg (285-295) H 01/08/21 03:17 Lactic Acid 15.1 mmol/L (0.5-2.2) H* 12/28/20 19:11 Lactate 3.8 mmol/L (0.5-2.2) H 12/29/20 15:30 Calcium 7.7 mg/dL (8.5-10.5) L 01/08/21 03:17 Phosphorus 4.3 mg/dL (2.5-4.5) 12/29/20 11:41 Magnesium 2.9 mg/dL (1.7-2.3) H 12/29/20 11:41 Ferritin > 2414 ng/mL (30-400) H 12/29/20 01:12 Ferritin Cancelled 12/29/20 01:12 Total Bilirubin 1.0 mg/dL (0.15-1.2) 01/08/21 03:17 AST 48 U/L (0-40) H 01/08/21 03:17 ALT 24 U/L (0-41) 01/08/21 03:17 Alkaline Phosphatase 104 IU/L (40-130) 01/08/21 03:17 Lactate Dehydrogenase > 1330 U/L (135-225) H 12/29/20 01:12 Lactate Dehydrogenase Cancelled 12/29/20 01:12 Creatine Kinase 49 U/L (39-308) 01/08/21 03:17 Troponin T Baseline 99 ng/L (0-15) H 12/28/20 19:11 Troponin T 120 Minute 238.1 ng/L (0-15) H 12/28/20 21:20 Delta Troponin T 139.1 ABS# (0-10) H* 12/28/20 21:20 Troponin T Hi Sens 6Hr 273.1 ng/L (0-15) H 12/29/20 01:23 Troponin T Hi Sens 6Hr Delta 174.1 ng/L (0-12) H* 12/29/20 01:23 C-Reactive Protein 243.4 mg/L (0.0-4.9) H 12/29/20 01:12 C-Reactive Protein Cancelled 12/29/20 01:12 NT-Pro-B Natriuret Pep 2188 pg/mL (0-450) H 12/28/20 19:11 Total Protein 5.0 g/dL (6.6-8.7) L 01/08/21 03:17 Albumin 1.8 g/dL (3.5-5.2) L 01/08/21 03:17 Globulin 3.2 g/dL (1.3-4.6) 01/08/21 03:17 Procalcitonin 0.43 ng/mL (0-0.5) 01/05/21 05:15 Urine Color Yellow (Yellow) 12/28/20 19:30 Urine Appearance Clear (CLEAR) 12/28/20 19:30 Urine pH 5 (5-7) 12/28/20 19:30 Ur Specific [place] 1.010 (1.005-1.030) 12/28/20 19:30 Urine Protein 1+ (Negative) H 12/28/20 19:30 Urine Glucose (UA) Norm (Normal) 12/28/20 19:30 Urine Ketones 1+ (Negative) H 12/28/20 19:30 Urine Blood 2+ (Negative) H 12/28/20 19:30 Urine Nitrate Negative (Negative) 12/28/20 19:30 Urine Bilirubin Neg (Negative) 12/28/20 19:30 Urine Urobilinogen Norm mg/dL (Negative) 12/28/20 19:30 Ur Leukocyte Esterase Negative (Negative) 12/28/20 19:30 Urine RBC 0-4 /hpf (0-2) H 12/28/20 19:30 Urine WBC 0-4 /hpf (0-5) H 12/28/20 19:30 Ur Squamous Epith Cells 0-4 /hpf (0-5) H 12/28/20 19:30 Ur Transition Epith Cell 0-4 /hpf 12/28/20 19:30 Amorphous Sediment 3+ /hpf 12/28/20 19:30 Urine Bacteria 1+ /hpf (NONE) H 12/28/20 19:30 Urine Mucus Trace /hpf 12/28/20 19:30 Vancomycin Trough 20.2 ug/mL (10-15) H 01/03/21 11:[address] 01/01/21 13:16 IMPRESSION: 1. Multiple cortical based low-attenuation lesions involving the bilateral parietal and occipital lobes and right greater than left cerebellum suspicious for multiple subacute infarcts. 2. One or 2 additional similar lesions in the right frontal lobe. 3. Mild posterior fossa mass effect with mild mass effect on the fourth ventricle and crowding at the foramen magnum. 4. Findings are suspicious for multiple subacute embolic versus watershed infarcts. PRESS is an additional consideration. Recommend correlation for hypertension Notified Dr. Novak at 01/01/2021 5:05 PM. Abdomen/Pelvis CT 01/07/21 09:03 IMPRESSION: 1. No acute abdominal/pelvic findings. 2. Consolidation at both lung bases suggestive of multifocal pneumonia. Radiation Dose CTDIVOL = (mGy): DLP = 1679.2 (mGy-cm) Chest X-Ray 01/08/21 07:51 IMPRESSION: 1. Line and tubes as described. 2. No significant change in bilateral pneumonia. 3. Trace pleural effusions. A&P Assessment and plan (1) Hyperkalemia: Status: Acute (2) CVA (cerebral vascular accident): Status: Acute Qualifiers: CVA mechanism: embolism Precerebral and cerebral artery: unspecified cerebral artery Qualified Code(s): I63.40 - Cerebral infarction due to embolism of unspecified cerebral artery (3) MRSA pneumonia: Status: Acute Qualifiers: Laterality: unspecified laterality Lung location: unspecified part of lung Qualified Code(s): J15.212 - Pneumonia due to Methicillin resistant Staphylococcus aureus (4) Acute right-sided heart failure: Status: Acute (5) DVT (deep venous thrombosis): Status: Acute Qualifiers: DVT location: lower extremity Affected thrombotic vein of extremity: unspecified vein of extremity Chronicity: unspecified Laterality: bilateral Qualified Code(s): I82.403 - Acute embolism and thrombosis of unspecified deep veins of lower extremity, bilateral (6) Acute respiratory distress syndrome (ARDS) due to 2019 novel coronavirus: Status: Acute (7) Acute kidney injury: Status: Acute (8) Sepsis with acute hypoxic respiratory failure: Status: Acute Qualifiers: Sepsis type: sepsis due to unspecified organism Severe sepsis shock status: with septic shock Qualified Code(s): A41.9 - Sepsis, unspecified organism; R65.21 - Severe sepsis with septic shock; J96.01 - Acute respiratory failure with hypoxia (9) NSTEMI (non-ST elevated myocardial infarction): Status: Acute (10) Cardiac arrest: Status: Acute (11) PAD (peripheral artery disease): Status: Acute # AMS due to Anoxic brain injury & multiple strokes including evidence of increased pressure in the posterior fossa on CT # Acute hypoxic respiratory failure secondary to ARDS due to COVID 19 PNA and PE ; MRSA Pneumonia # s/p Cardiac arrest & Acute right-sided heart failure likely due to hypoxia due to COVID ARDS Vs PE #Bilateral DVT with clots in transit on B/L LE Doppler # Resting TAMMY of 0.47 on the right side and 0.53 on the left side - Severe B/L PAD #Hyperkalemia - ? heparin induced hypoaldosteronism # Hypernatremia due to CDI due central causes - S/P 5 days remdesivir & 10 days dexamethasone - CMV 65%/500/10 this morning abg 7.34/41/60/22/88% - duoneb, - it is possible that the patient had embolization of the DVT causing PE and acute RV dysfunction & cardiac arrest - On Lovenox 90 mg q 12hr for b/l DVT - started on plavix for newly found PAD - persistent leucocytosis: low procal, CT abd/pelvis: no acute abdominal/pelvic findings - Sputum cx - MRSA - Currently on Linezolid and Cefepime - s/p insulin and dextrose this morning for hyperkalmeia - DAVID improved; I/O/N: -400 / + 1.7L - Lasix 20 mg once + albumin 12.5 gm - moderately controlled sugars - on scale coverge - GI PPX - ppI The family is in the process of finding out whether they would want us to transfer the patient. patient has poor mentation despite turning off sedation possible due to multiple watershed infarcts. want to try stem cell therapy and wants to be full code. Pt might need Trach and PEG placement. Recommendations conveyed to Hospitalist, RN, RT covering the pt Attestations Medical Necessity Statement*: AMS due to multiple infarcts in covid 19 pt - ventilator dependent and possibly heading towards requiring Trach and PEG placement Time Spent in Patient Care: Greater than 35 minutes (>than 50% of time spent in counselling and/or direct pt care on unit). Critical Care Time: The high probability of a clinically significant, sudden or life threatening deterioration of the patient's [neurological, respiratory, cardiac, vascular, renal] system(s) required my full and direct attention, intervention and personal management. The critical care time is as shown. This time is in addition to time spent performing any reported procedures but includes the following: [x] Data and vital sign review and interpretation [x] Patient assessment, examination and intervention [x] Documentation [x] Medication orders and management Critical Care Time (min): 60 Coding Level of Care Code Acute Social Worker [employer] Diagnoses Hyperkalemia E87.5 CVA (cerebral vascular accident) I63.40 CVA mechanism: embolism Precerebral and cerebral artery: unspecified cerebral artery MRSA pneumonia J15.212 Laterality: unspecified laterality Lung location: unspecified part of lung Acute right-sided heart failure I50.811 DVT (deep venous thrombosis) I82.403 DVT location: lower extremity Affected thrombotic vein of extremity: unspecified vein of extremity Chronicity: unspecified Laterality: bilateral Acute respiratory distress syndrome (ARDS) due to 2019 novel coronavirus U07.1; J80 Acute kidney injury N17.9 Sepsis with acute hypoxic respiratory failure A41.9; R65.21; J96.01 Sepsis type: sepsis due to unspecified organism Severe sepsis shock status: with septic shock NSTEMI (non-ST elevated myocardial infarction) I21.4 Cardiac arrest I46.9 PAD (peripheral artery disease) I73.9
[2021-01-08] MEDS: atorvastatin 40 mg Tablet OG-TUBE (20:09)
[2021-01-08] MEDS: propofol 1,000 MG/100 ML INJ 29.94 MG IV (20:25)
[2021-01-08] MEDS: albumin 12.5 GM/50 ML VIAL IV (22:25)
[2021-01-08] MEDS: clopidogrel 75 mg Tablet PO (22:47)
[2021-01-08] MEDS: FUROsemide 10 mg/mL SDV 2mL 20 MG IVP (22:47)
[2021-01-08] MEDS: dexamethasone 10 mg/mL INJ 6 MG IVP (22:47)
[2021-01-08 23:30] LABS: Anion Gap 15.1 (5-19); Blood Urea Nitrogen 62 mg/dL (8-23); Calcium 7.5 mg/dL (8.5-10.5); Carbon Dioxide 22 mmol/L (22-29); Chloride 104 mmol/L (98-107); Glucose 94 mg/dL (65-115); Osmolality Calculated 299 mOsm/kg (285-295); Potassium 5.1 mmol/L (3.5-5.1); Sodium 136 mmol/L (136-145)
--- NOTE | 2021-01-08 23:38 | PC.NURSE ---
patients bath completed at this time. Right arm noted to be significantly more swollen than left. no increased redness or temperature noted. No evidence of past IV infiltrations. Extremity elevated for comfort. will continue to monitor..
[2021-01-09] VITALS (62 sets, daily range): BP systolic 84–181; BP diastolic 42–83; PULSE 49–99; RESP 16–28; TEMP 36.7–37.3; O2SAT 89–95
[2021-01-09] MEDS: propofol 1,000 MG/100 ML INJ 26.94 MG IV (00:29)
[2021-01-09] MEDS: dexmedetomidine 400 MCG in sodium chloride 0.9% (100 ml) 100 ML 9.67 MCG IV (02:13)
[2021-01-09] MEDS: ipratropium-albuterol 3 mL Neb INHALATION ×4 (02:34→20:15)
[2021-01-09] MEDS: linezolid premix 600 MG/300 ML PREMIX 300 MG IV ×2 (05:18→18:03)
[2021-01-09] MEDS: enoxaparin 100 mg/mL Syringe 90 MG SUBCUT ×2 (05:19→18:03)
[2021-01-09] MEDS: propofol 1,000 MG/100 ML INJ 14.97 MG IV (06:20)
--- NOTE | 2021-01-09 06:26 | PC.NURSE ---
Shift Note patient remains intubated and sedated on propofol, precedex, and fentanyl gtt. patient continues to be unresponsive despite decreasing of sedation gtts. patient does have reflexes besides peripheral pain response. patient is pale, cold, and mottled lower extremities. patients right arm continues to appear more swollen than left despite being elevated throughout the night. patient has become more bradycardic this AM with a soft BP( map 65). Spoke with Dr. Gonzales this AM regarding events overnight. Received orders to continue current management Frequent safety and comfort rounds continue. Orders and nursing care completed as indicated. Patient monitored for response to intervention and treatments. Education provided including ventilator management and disease process. Patient will continue to need reinforcement. Will continue to monitor.
[2021-01-09 06:31] LABS: Basophils % 0.2 %; Eosinophils % 0.1 %; Hemoglobin 10.3 g/dL (11.7-16.6); Lymphocytes # 0.2 10^3/uL (0.8-4.8); Mean Corpuscular HGB Conc 31.2 g/dL (30.0-36.0); Mean Corpuscular Hemoglobin 29.7 pg (28.0-34.0); Mean Corpuscular Volume 95.1 fL (80-94); Mean Platelet Volume 13.6 fL (7.4-10.4); Monocytes # 0.4 10^3/uL (0.2-0.9); Neutrophils # 18.95 10^3/uL (1.8-7.7); Neutrophils % 94.6 %; Nucleated Red Blood Cells % 0 %; Platelet Count 125 10^3/cmm (130-400); Red Blood Count 3.47 10^6/uL (4.1-5.3); Red Cell Distribution Width 16.5 % (12.1-15.1); White Blood Count 20.1 10^3/uL (4.0-10.0)
[2021-01-09 06:58] LABS: Alanine Aminotransferase 25 U/L (0-41); Alkaline Phosphatase 65 IU/L (40-130); Anion Gap 16.4 (5-19); Aspartate Amino Transferase 35 U/L (0-40); Blood Urea Nitrogen 69 mg/dL (8-23); Calcium 7.4 mg/dL (8.5-10.5); Carbon Dioxide 22 mmol/L (22-29); Chloride 103 mmol/L (98-107); Glucose 160 mg/dL (65-115); Osmolality Calculated 306 mOsm/kg (285-295); Potassium 5.4 mmol/L (3.5-5.1); Sodium 136 mmol/L (136-145); Total Bilirubin 0.8 mg/dL (0.15-1.2)
[2021-01-09 07:40] LABS: Glucose Point of Care 108 mg/dL (70-110)
[2021-01-09 07:40] LABS: Glucose Point of Care 134 mg/dL (70-110)
[2021-01-09] MEDS: pantoprazole 40 mg SDV IVP (09:41)
[2021-01-09] MEDS: dextrose 50% syringe 50 mL IVP (09:42)
[2021-01-09] MEDS: clopidogrel 75 mg Tablet PO (09:42)
[2021-01-09] MEDS: insulin regular-human 10 UNIT in SYRINGE 1 EACH 50 UNIT IVP (09:42)
[2021-01-09 10:03] LABS: Glucose Point of Care 158 mg/dL (70-110)
[2021-01-09 11:40] LABS: Glucose Point of Care 159 mg/dL (70-110)
--- NOTE | 2021-01-09 13:26 | PC.SOCIAL ---
Dr Hernandez was reached [phone]
[2021-01-09] MEDS: propofol 1,000 MG/100 ML INJ 20.96 MG IV ×2 (14:00→20:15)
--- NOTE | 2021-01-09 16:03 | P.PN_ITS ---
Subjective Subjective: Interval history: No changes in mentation overnight. Has remained on mechanical ventilation. Not waking up for no meaningful mentation or waking up on sedation vacation. Medications: Reviewed: Yes Vitals/I&O/Wt Last Vital Signs Temp 98.2 F 01/09/21 03:30 Pulse 90 01/09/21 15:47 Resp 20 H 01/09/21 15:46 BP 141/55 01/09/21 15:30 Pulse Ox 91 01/09/21 15:46 01/09/21 01/09/21 01/09/21 06:59 14:59 22:59 Intake Total 321.397 / 2743.645 343.755 / 343.755 Output Total 1250 / 2525 Balance -928.603 / 218.645 343.755 / 343.755 Weight last 48 hrs Weight 92.788 kg Weight 91.626 kg Physical Exam Narrative: EXAM NARRATIVE: General: Patient is intubated and sedated, not able to follow any command Neck: No JVD Respiratory: Auscultation: Bilateral clear to auscultation both anterior and posteriorly, no crackles wheezing or rhonchi Cardiovascular: Regular rate and rhythm, S1-S2 present, no murmur, no peripheral edema. Abdomen: Soft, nontender, nondistended, positive bowel sound Neuro: Not following commands this morning Data : 01/09/21 05:51 01/09/21 05:51 A&P Assessment and plan (1) Encephalopathy: No improvement noted today. Not seem to be appropriately waking up off sedation. Patient has failed multiple sedation vacation trials. So far has not made significant progress with regards to improvement in mental status. Concern regarding significant anoxic/ ischemic brain injury during cardiac arrest. Intermittently gagging. EEG report awaited. 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 Sounds like plans are for transfer to [facility] for additional assessment and continued care. We will possibly repeat a CT scan of the head without contrast to rule out any hemorrhagic conversion or new strokes. Will discuss with mandarin chinese teacher. Status: Acute (2) Acute respiratory distress syndrome (ARDS) due to 2019 novel coronavirus: Continues on mechanical ventilatory support. Wean down as tolerating. Continue waking trials. Unfortunately patient continues to fail waking trials. Patient has been intubated for 11 days. As per goals of care discussion with the family they are possibly waiting for some kind of stem cell therapy which they have been made aware has to be confirmed with administration before administering the patient. Patient's family is okay with him getting trach and PEG. They have been made aware that if patient gets tracheostomy and is ventilator dependent he might have to be moved to an outpatient facility for long-term care. Status: Acute (3) COVID-19: Completed Remdisivir, continue dexamethasone. Status: Acute (4) NSTEMI (non-ST elevated myocardial infarction): Troponins with significant delta on presentation related to cardiac arrest and cardioversion Status: Acute (5) Sepsis: Tachycardia had resolved. Remains afebrile. Persistent leukocytosis. Procalcitonin 0.4. Antibiotics have been deescalated with imipenem discontinued on 01/04. So far vital signs, metabolic parameters continue to improve. Monitor for any change in condition. Multiple CVA, 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 Blood cultures negative. Continues empirically on gram-positive coverage and for MRSA pneumonia. As a result of COVID-19 pneumonia Weaned off pressor support. Status: Acute Qualifiers: Sepsis type: sepsis due to unspecified organism Sepsis acute organ dysfunction status: with acute organ dysfunction Severe sepsis acute organ dysfunction type: acute respiratory failure Acute respiratory failure type: with hypoxia Severe sepsis shock status: with septic shock Qualified Code(s): A41.9 - Sepsis, unspecified organism; R65.21 - Severe sepsis with septic shock; J96.01 - Acute respiratory failure with hypoxia (6) Cardiac arrest: As above Status: Acute (7) Metabolic acidosis: As a result of cardiac arrest Status: Acute (8) Acute kidney injury: Improving. Again as a result of cardiac arrest, renal hypoperfusion most likely explanation Status: Acute (9) DVT (deep venous thrombosis): b/l le, loose, massive Possible PE R heart failure. Continue anticoagulation. Status: Acute Qualifiers: DVT location: lower extremity Affected thrombotic vein of extremity: unspecified vein of extremity Chronicity: unspecified Laterality: bilateral Qualified Code(s): I82.403 - Acute embolism and thrombosis of unspecified deep veins of lower extremity, bilateral (10) CVA (cerebral vascular accident): Multiple CVA noted on CT of the head. Etiology at this time is not clear. Would suspect hypoperfusion during cardiac arrest, and per discussion with radiology do appear in watershed areas. Embolic etiology not excluded. Septic embolic etiology less likely, pending additional blood culture. So far negative. Continues on gram-positive coverage for now. On anticoagulation. Status: Acute Qualifiers: CVA mechanism: embolism Precerebral and cerebral artery: unspecified ce rebral artery Qualified Code(s): I63.40 - Cerebral infarction due to embolism of unspecified cerebral artery (11) Hypernatremia: Resolving. 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 Improvement in urine output. Status: Acute Additional A&P Information Patient's care discussed in detail with his over the phone. We did discuss that unfortunately patient has failed multiple waking trials and has remained on ventilator support for 11 days. We did discuss goals of care with 2 options at this time. One option would be comfort measures and terminal extubation versus trach and PEG for ventilator and nutrition support. We also discussed that if he is trached and pegged at that point patient will have to be moved to an outpatient facility for long-term care. Unfortunately there are no facilities in the 100 mile radius to take care of patients with trach and ventilator. Patient's for now would want to continue the current treatment. She is trying to see if patient can get off cancer therapy from her doctor at [place]. She is requesting if doctors can speak with her outpatient doctor regarding the same. She is requesting confirmation from administration of the treatment can be given to the patient. Patient's care discussed with Dr. Mills at family's request regarding possible stem cell therapy. We discussed that at this point patient has multiple strokes and has evidence of anoxic brain injury with failure of multiple waking up trials along with ongoing elevated white count, acute kidney injury with creatinine of 1.3. As per Dr. Mills given all the above patient is not a good candidate for stem cell treatment and has a very poor prognosis, he would convey this to patient's as well. Case discussed with mandarin chinese teacher. Appreciate mandarin chinese teacher care. If and when p atient comes out of ICU will resume patient's care. Severely guarded prognosis. Family considering transfer to outside facility. Have been denied beds. Attestations Medical Necessity Statement*: Requires further hospitalization for management of severe ARDS from COVID-19 pneumonia, ventilator dependent, DAVID, metabolic acidosis, multiple strokes and possible anoxic brain injury Critical Care Time: The high probability of a clinically significant, sudden or life threatening deterioration of the patient's [audiology, respiratory, neurological, multiple family discussions] system(s) required my full and direct attention, intervention and personal management. The critical care time is as shown. 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 Supervisor for [facility] Fwd Diagnoses Encephalopathy G93.40 Acute respiratory distress syndrome (ARDS) due to 2019 novel coronavirus U07.1; J80 COVID-19 U07.1 NSTEMI (non-ST elevated myocardial infarction) I21.4 Sepsis A41.9; R65.21; J96.01 Sepsis type: sepsis due to unspecified organism Sepsis acute organ dysfunction status: with acute organ dysfunction Severe sepsis acute organ dysfunction type: acute respiratory failure Acute respiratory failure type: with hypoxia Severe sepsis shock status: with septic shock Cardiac arrest I46.9 Metabolic acidosis E87.2 Acute kidney injury N17.9 DVT (deep venous thrombosis) I82.403 DVT location: lower extremity Affected thrombotic vein of extremity: unspecified vein of extremity Chronicity: unspecified Laterality: bilateral CVA (cerebral vascular accident) I63.40 CVA mechanism: embolism Precerebral and cerebral artery: unspecified cerebral artery Hypernatremia E87.0
--- NOTE | 2021-01-09 18:00 | PC.NURSE ---
Family educated on patients condition. not receptive to education at this time. Patient has remained intubated and sedated this shift. Non responsive to painful stimuli. Pupils are pinpoint and sluggish. Sclera edema noted. Perfusion to lower extremities is sluggish. Feet are cold to touch with areas of discoloration. capillary refill greater than three seconds.
[2021-01-09 19:55] LABS: Glucose Point of Care 77 mg/dL (70-110)
[2021-01-09] MEDS: atorvastatin 40 mg Tablet OG-TUBE (21:13)
--- NOTE | 2021-01-09 22:43 | P.PN_ITS ---
Subjective Subjective: Interval history: - Patient seen at bedside today - Labs and imaging reviewed - Continues to be nonresponsive and was bradycardic overnight -Summary of medical case manager discussion with the patient's -patient being on Medicare could not have long-term alf placement trach and PEG-and needs to be managed on home ventilator -Tried calling twice to discuss her goals of care which she did not become -I will try tomorrow morning again Medications: Reviewed: Yes Vitals/I&O/Wt Last Vital Signs Temp 99.2 F 01/09/21 20:00 Pulse 83 01/09/21 21:00 Resp 19 H 01/09/21 20:20 BP 146/60 01/09/21 21:00 Pulse Ox 94 01/09/21 21:00 01/09/21 01/09/21 01/09/21 06:59 14:59 22:59 Intake Total 621.397 / 3043.645 343.755 / 343.755 650 / 993.755 Output Total 1250 / 2525 850 / 850 Balance -628.603 / 518.645 343.755 / 343.755 -200 / 143.755 Weight last 48 hrs Weight 204 lb 9 oz Weight 202 lb Physical Exam Narrative: EXAM NARRATIVE: General: lying in bed, sedated and intubated. HEENT:NCAT, PERRLA, EOMI, has cough reflex Neck: Supple Lungs: Reduced breath sounds bilaterally Heart: s1/s2, RRR Abd: soft, NT, ND, BS + Normoactive Extremities: No edema; Mottled appearing feet; feeble pulses on lower extremities R>L; cold feet R> L REDEVELOPMENT MANAGER: sedated and limited REDEVELOPMENT MANAGER exam possible, no purposeful movements off sedation SKIN: no rash Data : 01/09/21 05:51 01/09/21 05:51 Other Labs: Laboratory Results WBC 20.1 10^3/uL (4.0-10.0) H 01/09/21 05:51 RBC 3.47 10^6/uL (4.1-5.3) L 01/09/21 05:51 Hgb 10.3 g/dL (11.7-16.6) L 01/09/21 05:51 Hct 33.0 % (42.0-52.0) L 01/09/21 05:51 MCV 95.1 fL (80-94) H 01/09/21 05:51 MCH 29.7 pg (28.0-34.0) 01/09/21 05:51 MCHC 31.2 g/dL (30.0-36.0) 01/09/21 05:51 RDW 16.5 % (12.1-15.1) H 01/09/21 05:51 Plt Count 125 10^3/cmm (130-400) L 01/09/21 05:51 MPV 13.6 fL (7.4-10.4) H 01/09/21 05:51 Neut % (Auto) 94.6 % 01/09/21 05:51 Lymph % (Auto) 1.0 % 01/09/21 05:51 Pope % (Auto) 2.0 % 01/09/21 05:51 Eos % (Auto) 0.1 % 01/09/21 05:51 Baso % (Auto) 0.2 % 01/09/21 05:51 Neut # (Auto) 18.95 10^3/uL (1.8-7.7) H 01/09/21 05:51 Lymph # (Auto) 0.2 10^3/uL (0.8-4.8) L 01/09/21 05:51 Pope # (Auto) 0.4 10^3/uL (0.2-0.9) 01/09/21 05:51 Eos # (Auto) 0.0 10^3/uL (0.0-0.8) 01/09/21 05:51 Baso # (Auto) 0.0 10^3/uL (0.0-0.1) 01/09/21 05:51 Nucleated RBC % (auto) 0 % 01/09/21 05:51 Total Counted 100 (0-100) 01/04/21 05:15 Atypical Lymphs % 1.0 % (0-5) 01/04/21 05:15 Absolute Neutrophils 28.9 10^3/cmm (1.4-6.5) H 01/04/21 05:15 Segmented Neutrophils 71 % 01/04/21 05:15 Abs Segm Neuts (Man) 22.6 10/cmm (1.6-7.1) H 01/04/21 05:15 Band Neutrophils 20.0 % 01/04/21 05:15 Abs Band Neuts (Man) 6.4 10^3/cmm (0.0-1.2) H 01/04/21 05:15 Absolute Lymphocytes 0.3 10^3/cmm (1.2-3.4) L 01/04/21 05:15 Lymphocytes (Manual) 0 % 01/04/21 05:15 Monocytes (Manual) 2.0 % 01/04/21 05:15 Absolute Monocytes 0.6 10^3/cmm (0.1-0.6) 01/04/21 05:15 Eosinophils (Manual) 0 % 01/04/21 05:15 Absolute Eosinophils 0.0 10^3/cmm (0.0-0.7) 01/04/21 05:15 Basophils (Manual) 0.0 % 01/04/21 05:15 Absolute Basophils 0.0 10^3/cmm (0.0-0.2) 01/04/21 05:15 Metamyelocytes 2.0 % 01/04/21 05:15 Myelocytes 4.0 % 01/04/21 05:15 Nucleated RBCs # 0.0 /100WBC 01/09/21 05:51 Platelet Estimate Normal (Normal) 01/04/21 05:15 Giant Platelets 1+ H 12/31/20 05:09 Poikilocytosis 1+ H 01/04/21 05:15 Anisocytosis 1+ H 12/31/20 05:09 APTT 50.7 SECONDS (23.9-36.7) H 01/03/21 05:35 D-Dimer >= 20.00 ug/mIFEU (0-0.59) H 12/29/20 01:12 Specimen Type Arterial 01/08/21 10:13 Sample Site Radial, left 01/08/21 10:13 ABG pH 7.34 (7.35-7.45) L 01/08/21 10:13 ABG pCO2 41.9 mmHg (35-45) 01/08/21 10:13 ABG pO2 60.5 mmHg (80.0-100.0) L 01/08/21 10:13 ABG HCO3 22.8 mmol/L (22-26) 01/08/21 10:13 ABG O2 Saturation 88.9 01/08/21 10:13 ABG Base Excess -2.8 mmol/L (-2.0-2.0) L 01/08/21 10:13 Oswaldo Test Pos 01/08/21 10:13 A-a O2 Gradient 45.6 mmHg (5-10) H 01/08/21 10:13 Hematocrit 34.1 % (42-52) L 01/08/21 10:13 Hgb O2 Saturation 86.7 % (95-100) L 01/08/21 10:13 Carboxyhemoglobin 1.5 %THgb (0.4-20.1) 01/08/21 10:13 Methemoglobin 0.9 % (0.4-1.5) 01/08/21 10:13 Total Hemoglobin 11.1 g/dL (14-18) L 01/08/21 10:13 Sodium 138.0 mmol/L (131-143) 01/08/21 10:13 Potassium 5.2 mmol/L (3.5-5.0) H 01/08/21 10:13 Glucose 168.0 mg/dL (70-115) H 01/08/21 10:13 Ionized Calcium 1.2 mmol/L (1.1-1.4) 01/08/21 10:13 O2 Delivery Device Vent 01/08/21 10:13 FiO2 65.0 % 01/08/21 10:13 Tidal Volume 0.50 01/08/21 10:13 PEEP 10.0 cmH20 01/08/21 10:13 Cytogenetic Technician ID Cak 01/08/21 10:13 Sodium 136 mmol/L (136-145) 01/09/21 05:51 Potassium 5.4 mmol/L (3.5-5.1) H 01/09/21 05:51 Chloride 103 mmol/L (98-107) 01/09/21 05:51 Carbon Dioxide 22 mmol/L (22-29) 01/09/21 05:51 Anion Gap 16.4 (5-19) 01/09/21 05:51 BUN 69 mg/dL (8-23) H 01/09/21 05:51 Creatinine 1.3 mg/dL (0.7-1.2) H 01/09/21 05:51 GFR Calculation Not Reportable 01/09/21 05:51 Glucose 160 mg/dL (65-115) H 01/09/21 05:51 POC Glucose 77 mg/dL (70-110) 01/09/21 17:30 Calculated Osmolality 306 mOsm/kg (285-295) H 01/09/21 05:51 Lactic Acid 15.1 mmol/L (0.5-2.2) H* 12/28/20 19:11 Lactate 3.8 mmol/L (0.5-2.2) H 12/29/20 15:30 Calcium 7.4 mg/dL (8.5-10.5) L 01/09/21 05:51 Phosphorus 4.3 mg/dL (2.5-4.5) 12/29/20 11:41 Magnesium 2.9 mg/dL (1.7-2.3) H 12/29/20 11:41 Ferritin > 2414 ng/mL (30-400) H 12/29/20 01:12 Ferritin Cancelled 12/29/20 01:12 Total Bilirubin 0.8 mg/dL (0.15-1.2) 01/09/21 05:51 AST 35 U/L (0-40) 01/09/21 05:51 ALT 25 U/L (0-41) 01/09/21 05:51 Alkaline Phosphatase 65 IU/L (40-130) 01/09/21 05:51 Lactate Dehydrogenase > 1330 U/L (135-225) H 12/29/20 01:12 Lactate Dehydrogenase Cancelled 12/29/20 01:12 Creatine Kinase 49 U/L (39-308) 01/08/21 03:17 Troponin T Baseline 99 ng/L (0-15) H 12/28/20 19:11 Troponin T 120 Minute 238.1 ng/L (0-15) H 12/28/20 21:20 Delta Troponin T 139.1 ABS# (0-10) H* 12/28/20 21:20 Troponin T Hi Sens 6Hr 273.1 ng/L (0-15) H 12/29/20 01:23 Troponin T Hi Sens 6Hr Delta 174.1 ng/L (0-12) H* 12/29/20 01:23 C-Reactive Protein 243.4 mg/L (0.0-4.9) H 12/29/20 01:12 C-Reactive Protein Cancelled 12/29/20 01:12 NT-Pro-B Natriuret Pep 2188 pg/mL (0-450) H 12/28/20 19:11 Total Protein 5.0 g/dL (6.6-8.7) L 01/09/21 05:51 Albumin 2.0 g/dL (3.5-5.2) L 01/09/21 05:51 Globulin 3.0 g/dL (1.3-4.6) 01/09/21 05:51 Procalcitonin 0.43 ng/mL (0-0.5) 01/05/21 05:15 Urine Color Yellow (Yellow) 12/28/20 19:30 Urine Appearance Clear (CLEAR) 12/28/20 19:30 Urine pH 5 (5-7) 12/28/20 19:30 Ur Specific [place] 1.010 (1.005-1.030) 12/28/20 19:30 Urine Protein 1+ (Negative) H 12/28/20 19:30 Urine Glucose (UA) Norm (Normal) 12/28/20 19:30 Urine Ketones 1+ (Negative) H 12/28/20 19:30 Urine Blood 2+ (Negative) H 12/28/20 19:30 Urine Nitrate Negative (Negative) 12/28/20 19:30 Urine Bilirubin Neg (Negative) 12/28/20 19:30 Urine Urobilinogen Norm mg/dL (Negative) 12/28/20 19:30 Ur Leukocyte Esterase Negative (Negative) 12/28/20 19:30 Urine RBC 0-4 /hpf (0-2) H 12/28/20 19:30 Urine WBC 0-4 /hpf (0-5) H 12/28/20 19:30 Ur Squamous Epith Cells 0-4 /hpf (0-5) H 12/28/20 19:30 Ur Transition Epith Cell 0-4 /hpf 12/28/20 19:30 Amorphous Sediment 3+ /hpf 12/28/20 19:30 Urine Bacteria 1+ /hpf (NONE) H 12/28/20 19:30 Urine Mucus Trace /hpf 12/28/20 19:30 Vancomycin Trough 20.2 ug/mL (10-15) H 01/03/21 11:[address] 01/01/21 13:16 IMPRESSION: 1. Multiple cortical based low-attenuation lesions involving the bilateral parietal and occipital lobes and right greater than left cerebellum suspicious for multiple subacute infarcts. 2. One or 2 additional similar lesions in the right frontal lobe. 3. Mild posterior fossa mass effect with mild mass effect on the fourth ventricle and crowding at the foramen magnum. 4. Findings are suspicious for multiple subacute embolic versus watershed infarcts. PRESS is an additional consideration. Recommend correlation for hypertension Notified Dr. Novak at 01/01/2021 5:05 PM. Abdomen/Pelvis CT 01/07/21 09:03 IMPRESSION: 1. No acute abdominal/pelvic findings. 2. Consolidation at both lung bases suggestive of multifocal pneumonia. Radiation Dose CTDIVOL = (mGy): DLP = 1679.2 (mGy-cm) Chest X-Ray 01/08/21 07:51 IMPRESSION: 1. Line and tubes as described. 2. No significant change in bilateral pneumonia. 3. Trace pleural effusions. A&P Assessment and plan (1) Hyperkalemia: Status: Acute (2) CVA (cerebral vascular accident): Status: Acute Qualifiers: CVA mechanism: embolism Precerebral and cerebral artery: unspecified cerebral artery Qualified Code(s): I63.40 - Cerebral infarction due to embolism of unspecified cerebral artery (3) MRSA pneumonia: Status: Acute Qualifiers: Laterality: unspecified laterality Lung location: unspecified part of lung Qualified Code(s): J15.212 - Pneumonia due to Methicillin resistant Staphylococcus aureus (4) Acute right-sided heart failure: Status: Acute (5) DVT (deep venous thrombosis): Status: Acute Qualifiers: DVT location: lower extremity Affected thrombotic vein of extremity: unspecified vein of extremity Chronicity: unspecified Laterality: bilateral Qualified Code(s): I82.403 - Acute embolism and thrombosis of unspecified deep veins of lower extremity, bilateral (6) Acute respiratory distress syndrome (ARDS) due to 2019 novel coronavirus: Status: Acute (7) Acute kidney injury: Status: Acute (8) Sepsis with acute hypoxic respiratory failure: Status: Acute Qualifiers: Sepsis type: sepsis due to unspecified organism Severe sepsis shock status: with septic shock Qualified Code(s): A41.9 - Sepsis, unspecified organism; R65.21 - Severe sepsis with septic shock; J96.01 - Acute respiratory failure with hypoxia (9) NSTEMI (non-ST elevated myocardial infarction): Status: Acute (10) Cardiac arrest: Status: Acute (11) PAD (peripheral artery disease): Status: Acute # AMS due to Anoxic brain injury & multiple strokes including evidence of increased pressure in the posterior fossa on CT # Acute hypoxic respiratory failure secondary to ARDS due to COVID 19 PNA and PE ; MRSA Pneumonia # s/p Cardiac arrest & Acute right-sided heart failure likely due to hypoxia due to COVID ARDS Vs PE #Bilateral DVT with clots in transit on B/L LE Doppler # Resting TAMMY of 0.47 on the right side and 0.53 on the left side - Severe B/L PAD #Hyperkalemia - ? heparin induced hypoaldosteronism # Hypernatremia due to CDI due central causes - S/P 5 days remdesivir & 10 days dexamethasone - CMV 65%/500/10 this morning abg 7.34/41/60/22/88% - duoneb, - it is possible that the patient had embolization of the DVT causing PE and acute RV dysfunction & cardiac arrest - On Lovenox 90 mg q 12hr for b/l DVT -Bilateral lower extremity arterial Doppler suggestive of severe PAD in both legs - persistent leucocytosis: low procal, CT abd/pelvis: no acute abdominal/pelvic findings - Sputum cx - MRSA - Currently on Linezolid and Cefepime - s/p insulin and dextrose this morning for hyperkalmeia - DAVID improved; I/O/N: +200 and/+900 and's admission- Lasix 20 mg once + albumin 12.5 gm - moderately controlled sugars - on scale coverge - GI PPX - ppI The family wants to transfer patient to [place] but due to his poor prognosis so far none of the facilities accepted. Also was trying to pursue stem cell tra nsplant hoping will be a miracle and patient becomes completely functional, Dr Hernandez who performs these stem cell transplants-reported they are not FDA approved and told patient is not a eligible candidate after learning that patient had multiple strokes and had cardiac arrest. Patient has poor mentation despite turning off sedation possible due to multiple watershed infarcts. agreeable for trach and PEG and transfer to long-term facility that manages ventilated patients on trach. As per medical case manager patient does not qualify for long-term acute care facility admission due to his Medicare. Ongoing goals of care discussion with . Recommendations conveyed to Hospitalist, RN, RT covering the pt Attestations Medical Necessity Statement*: AMS due to multiple infarcts in covid 19 pt - ventilator dependent and possibly heading towards requiring Trach and PEG placement Time Spent in Patient Care: Greater than 35 minutes (>than 50% of time spent in counselling and/or direct pt care on unit) . Critical Care Time: The high probability of a clinically significant, sudden or life threatening deterioration of the patient's [neurological, respiratory, cardiac, vascular, renal] system(s) required my full and direct attention, intervention and personal management. The critical care time is as shown. This time is in addition to time spent performing any reported procedures but includes the following: [x] Data and vital sign review and interpretation [x] Patient assessment, examination and intervention [x] Documentation [x] Medication orders and management Critical Care Time (min): 45 Coding Level of Care Code Established Pt Acute Cigar Packer And Picker for Chg Fwd Patient Type Established History Comprehensive Exam Comprehensive Medical Decision Making High Complexity Diagnoses Hyperkalemia E87.5 CVA (cerebral vascular accident) I63.40 CVA mechanism: embolism Precerebral and cerebral artery: unspecified cerebral artery MRSA pneumonia J15.212 Laterality: unspecified laterality Lung location: unspecified part of lung Acute right-sided heart failure I50.811 DVT (deep venous thrombosis) I82.403 DVT location: lower extremity Affected thrombotic vein of extremity: unspecified vein of extremity Chronicity: unspecified Laterality: bilateral Acute respiratory distress syndrome (ARDS) due to 2019 novel coronavirus U07.1; J80 Acute kidney injury N17.9 Sepsis with acute hypoxic respiratory failure A41.9; R65.21; J96.01 Sepsis type: sepsis due to unspecified organism Severe sepsis shock status: with septic shock NSTEMI (non-ST elevated myocardial infarction) I21.4 Cardiac arrest I46.9 PAD (peripheral artery disease) I73.9 Time Spent (min) 45
[2021-01-10] VITALS (59 sets, daily range): BP systolic 84–178; BP diastolic 43–91; PULSE 49–127; RESP 12–31; TEMP 36.5–37.4; O2SAT 87–97; BMI 29.3
[2021-01-10] MEDS: dexamethasone 10 mg/mL INJ 6 MG IVP ×2 (00:22→22:56)
[2021-01-10 00:34] LABS: Glucose Point of Care 92 mg/dL (70-110)
[2021-01-10] MEDS: ipratropium-albuterol 3 mL Neb INHALATION ×4 (02:36→21:08)
--- NOTE | 2021-01-10 02:39 | PC.RESP ---
RT Shift Note Frequent safety and respiratory rounds continue. Orders completed as indicated. Patient monitored pre and post treatments throughout shift. Patient [Did.] tolerate treatments appropriately. Condition [.DidNotChange]. Patient and/or aircraft sales representative educated on respiratory treatment and medications. Patient and/or aircraft sales representative [UNABLE TO COMPREHEND]. Will continue to monitor patient progress.
[2021-01-10] MEDS: propofol 1,000 MG/100 ML INJ 20.96 MG IV (02:40)
--- NOTE | 2021-01-10 05:03 | XRR_ITS ---
PROCEDURE INFORMATION: Exam: XR Chest Exam date and time: 01/10/2021 5:03 AM Age: 80 years old Clinical indication: Device placement; Ett placement (vent status); Patient HX: Peak pressure change on vent; Additional info: Status change TECHNIQUE: Imaging protocol: XR of the chest. Views: 1 view. COMPARISON: CR XR chest 1V portable [id number] 01/08/2021 8:09 AM FINDINGS: Tubes, catheters and devices: An endotracheal tube, nasogastric tube and central venous catheter projects in satisfactory position. Lungs: There are extensive diffuse bilateral pulmonary infiltrates which are predominantly interstitial. There is left basilar atelectasis.. Pleural spaces: Unremarkable. No pleural effusion. No pneumothorax. Heart/Mediastinum: Unremarkable. No cardiomegaly. Bones/joints: Unremarkable. XR/XR chest 1V portable [id number] IMPRESSION: Diffuse bilateral pulmonary infiltrates. No significant change since 01/08/2021.
[2021-01-10] MEDS: dexmedetomidine 400 MCG in sodium chloride 0.9% (100 ml) 100 ML IV ×2 (05:08→18:39)
[2021-01-10 05:11] LABS: Basophils % 0.2 %; Eosinophils # 0.1 10^3/uL (0.0-0.8); Eosinophils % 0.7 %; Hematocrit 33.3 % (42.0-52.0); Hemoglobin 10.4 g/dL (11.7-16.6); Lymphocytes # 0.2 10^3/uL (0.8-4.8); Lymphocytes % 0.8 %; Mean Corpuscular HGB Conc 31.2 g/dL (30.0-36.0); Mean Corpuscular Hemoglobin 29.5 pg (28.0-34.0); Mean Corpuscular Volume 94.6 fL (80-94); Mean Platelet Volume 13.2 fL (7.4-10.4); Monocytes # 0.6 10^3/uL (0.2-0.9); Monocytes % 3.1 %; Neutrophils # 18.52 10^3/uL (1.8-7.7); Neutrophils % 93.6 %; Nucleated Red Blood Cells % 0 %; Platelet Count 153 10^3/cmm (130-400); Red Blood Count 3.52 10^6/uL (4.1-5.3); Red Cell Distribution Width 16.6 % (12.1-15.1); White Blood Count 19.8 10^3/uL (4.0-10.0)
[2021-01-10 05:33] LABS: Alanine Aminotransferase 29 U/L (0-41); Alkaline Phosphatase 84 IU/L (40-130); Anion Gap 15.2 (5-19); Aspartate Amino Transferase 40 U/L (0-40); Blood Urea Nitrogen 70 mg/dL (8-23); Calcium 7.5 mg/dL (8.5-10.5); Carbon Dioxide 23 mmol/L (22-29); Chloride 107 mmol/L (98-107); Globulin 3.3 g/dL (1.3-4.6); Glucose 106 mg/dL (65-115); Osmolality Calculated 311 mOsm/kg (285-295); Potassium 5.2 mmol/L (3.5-5.1); Sodium 140 mmol/L (136-145); Total Bilirubin 1.1 mg/dL (0.15-1.2); Total Protein 5.3 g/dL (6.6-8.7)
[2021-01-10 05:40] LABS: Glucose Point of Care 108 mg/dL (70-110)
[2021-01-10 05:51] LABS: Slide Review Slide Review Perform
[2021-01-10] MEDS: enoxaparin 100 mg/mL Syringe 90 MG SUBCUT ×2 (05:57→17:46)
[2021-01-10] MEDS: linezolid premix 600 MG/300 ML PREMIX 300 MG IV ×2 (05:58→17:46)
[2021-01-10] MEDS: propofol 1,000 MG/100 ML INJ 29.94 MG IV ×3 (06:42→14:22)
--- NOTE | 2021-01-10 07:32 | PC.NURSE ---
Shift Note Frequent safety and comfort rounds continue. Orders and/or nursing care completed as indicated. Patient monitored for response to intervention and treatment(s). Education provided includes treatment plan. Patient unable to comprehend teaching due to being intubated and sedated, will need more reinforcement. Will continue to monitor.
[2021-01-10 07:56] LABS: Glucose Point of Care 144 mg/dL (70-110)
[2021-01-10] MEDS: clopidogrel 75 mg Tablet PO (09:43)
[2021-01-10] MEDS: pantoprazole 40 mg SDV IVP (09:43)
--- NOTE | 2021-01-10 10:43 | PC.CHAP ---
Pastoral Care Encounter/Spiritual Assessment Type of Contact [] Declined surfacer operator visit [] Patient/Family/Request visit [] Outpatient visit [] Follow-up visit [] Physician referral [] Code/Alert [x] Routine visit [] Staff referral [] Actively dying [] Patient sleeping [] Family support [] [] Out of room [] Palliative care [] [] Receiving care in room [] Pre-surgical visit [] Trauma [] Long length of stay [x] ICU visit [x] Other: ventilator Relational/Emotional Strength [] Patient feels connected with others/family/visitors/staff [] Distress [] Loneliness/isolation [] Abandonment Spirituality of Patient [] Person of Kimmy [] Attends Tenriism of their Kimmy [] Believes in Prayer [] Reads Bible or Mosque materials [] There are Spiritual issues to be addressed Bagging Salvager Interventions [x] Prayer [] Active listening [] Non-anxious presence [] Spiritual/emotional support [] Crisis/trauma care [] Spiritual counseling [] Bereavement support [] Provided bereavement packet [] Provided Bible/devotional materials [] Provided toy/stuffed animal, coloring book to patient or family member [] Provided Communion [] Anointing/[place] [] Salvation [x] Completed spiritual assessment [] Other: Impact on Illness or Injury [] Angry [] Fearful [] Anxious [] Often cries [] Exhaustion [] Unable to work [] Unable to attend yazdanism [] Unable to walk/stand [] Unable to read [] Unable to drive [] Unable to eat/drink [] Unable to sleep [] Unable to be with family [] Patient intubated [] Other: Summary Time spent with patient
--- NOTE | 2021-01-10 11:35 | PC.SOCIAL ---
IMM NOT GIVEN IMM update not given due to patient currently intubated.
[2021-01-10 11:42] LABS: Glucose Point of Care 113 mg/dL (70-110)
[2021-01-10] MEDS: hyDRALAzine 20 mg/mL INJ 1 mL 25 MG IVP (13:41)
--- NOTE | 2021-01-10 16:41 | P.PN_ITS ---
Subjective Subjective: Interval history: No changes in mentation overnight. Has remained on mechanical ventilation. Tachycardic today. Not waking up meaningfully on sedation vacation. Currently on 60% FiO2 maintaining 92%. Creatinine up to 1.6 today. Documented urine output in last 24 hours 1800 cc. Medications: Reviewed: Yes Vitals/I&O/Wt Last Vital Signs Temp 97.7 F 01/10/21 08:30 Pulse 113 H 01/10/21 16:00 Resp 31 H 01/10/21 15:37 BP 145/72 01/10/21 16:00 Pulse Ox 92 01/10/21 16:00 01/10/21 01/10/21 01/10/21 06:59 14:59 22:59 Intake Total 457.745 / 1451.500 346.826 / 346.826 Output Total 950 / 1800 150 / 150 Balance -492.255 / -348.500 196.826 / 196.826 Weight last 48 hrs Weight 87.628 kg Weight 92.788 kg Physical Exam Narrative: EXAM NARRATIVE: General: Patient is intubated and sedated, not able to follow any command Neck: No JVD Respiratory: Auscultation: Bilateral clear to auscultation both anterior and posteriorly, no crackles wheezing or rhonchi Cardiovascular: Regular rate and rhythm, S1-S2 present, no murmur, no peripheral edema. Abdomen: Soft, nontender, nondistended, positive bowel sound Neuro: Not following commands this morning Data : 01/10/21 04:39 01/10/21 04:39 A&P Assessment and plan (1) Encephalopathy: No improvement noted today. Not seem to be appropriately waking up off sedation. Patient has failed multiple sedation vacation trials. So far has not made significant progress with regards to improvement in mental status. Concern regarding significant anoxic/ ischemic brain injury during cardiac arrest. Intermittently gagging. EEG report awaited. 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 Sounds like plans are for transfer to [facility] for additional assessment and continued care. We will possibly repeat a CT scan of the head without contrast to rule out any hemorrhagic conversion or new strokes. Will discuss with senior technical analyst. Status: Acute (2) Acute respiratory distress syndrome (ARDS) due to 2019 novel coronavirus: Continues on mechanical ventilatory support. Wean down as tolerating. Continue waking trials. Unfortunately patient continues to fail waking trials. Patient has been intubated for over 11 days. As per goals of care discussion with the family they are possibly waiting for some kind of stem cell therapy which they have been made aware but has to be confirmed with administration before administering the patient. Patient's family is okay with him getting trach and PEG. They have been made aware that if patient gets tracheostomy and is ventilator dependent he might have to be moved to an outpatient facility for long-term care. Status: Acute (3) COVID-19: Completed Remdisivir, continue dexamethasone. Status: Acute (4) NSTEMI (non-ST elevated myocardial infarction): Troponins with significant delta on presentation related to cardiac arrest and cardioversion Status: Acute (5) Sepsis: Tachycardia had resolved. Remains afebrile. Persistent leukocytosis. Procalcitonin 0.4. Antibiotics have been deescalated with imipenem discontinued on 01/04. So far vital signs, metabolic parameters continue to improve. Monitor for any change in condition. Multiple CVA, 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 Blood cultures negative. Continues empirically on gram-positive coverage and for MRSA pneumonia. As a result of COVID-19 pneumonia Weaned off pressor support. Status: Acute Qualifiers: Sepsis type: sepsis due to unspecified organism Sepsis acute organ dysfunction status: with acute organ dysfunction Severe sepsis acute organ dysfunction type: acute respiratory failure Acute respiratory failure type: with hypoxia Severe sepsis shock status: with septic shock Qualified Code(s): A41.9 - Sepsis, unspecified organism; R65.21 - Severe sepsis with septic shock; J96.01 - Acute respiratory failure with hypoxia (6) Cardiac arrest: As above Status: Acute (7) Metabolic acidosis: As a result of cardiac arrest Status: Acute (8) Acute kidney injury: Improving. Again as a result of cardiac arrest, renal hypoperfusion most likely explanation Status: Acute (9) DVT (deep venous thrombosis): b/l le, loose, massive Possible PE R heart failure. Continue anticoagulation. Status: Acute Qualifiers: DVT location: lower extremity Affected thrombotic vein of extremity: unspecified vein of extremity Chronicity: unspecified Laterality: bilateral Qualified Code(s): I82.403 - Acute embolism and thrombosis of unspecified deep veins of lower extremity, bilateral (10) CVA (cerebral vascular accident): Multiple CVA noted on CT of the head. Etiology at this time is not clear. Would suspect hypoperfusion during cardiac arrest, and per discussion with radiology do appear in watershed areas. Embolic etiology not excluded. Septic embolic etiology less likely, pending additional blood culture. So far negative . Continues on gram-positive coverage for now. On anticoagulation. Status: Acute Qualifiers: CVA mechanism: embolism Precerebral and cerebral artery: unspecified cerebral artery Qualified Code(s): I63.40 - Cerebral infarction due to embolism of unspecified cerebral artery (11) Hypernatremia: Resolving. 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 Improvement in urine output. Status: Acute Additional A&P Information Patient's care discussed in detail with his over the phone. We did discuss that unfortunately patient has failed multiple waking trials and has remained on ventilator support for 11 days. We did discuss goals of care with 2 options at this time. One option would be comfort measures and terminal extubation versus trach and PEG for ventilator and nutrition support. We also discussed that if he is trached and pegged at that point patient will have to be moved to an outpatient facility for long-term care. Unfortunately there are no facilities in the 100 mile radius to take care of patients with trach and ventilator. Patient's for now would want to continue the current treatment. She is trying to see if patient can get off cancer therapy from her doctor at [facility]. She is requesting if doctors can speak with her outpatient doctor regarding the same. She is requesting confirmation from administration of the treatment can be given to the patient. Patient's care discussed with Dr. Mills at family's request regarding possible stem cell therapy. We discussed that at this point patient has multiple strokes and has evidence of anoxic brain injury with failure of multiple waking up trials along with ongoing elevated white count, acute kidney injury with creatinine of 1.3. As per Dr. Mills given all the above patient is not a good candidate for stem cell treatment and has a very poor prognosis, he would convey this to patient's as well. Case discussed with senior technical analyst. Appreciate senior technical analyst care. If and when patient comes out of ICU will resume patient's care. Severely guarded prognosis. Family considering transfer to outside facility. Have been denied beds at outside [place] hospitals. Attestations Medical Necessity Statement*: Patient for management of ventilator dependent, ARDS secondary COVID-19 pneumonia, possible anoxic brain injury, multiple strokes while further goals of care discussions were done with family. Time Spent in Patient Care: Greater than 35 minutes (>than 50% of time spent in counselling and/or direct pt care on unit) . Coding Level of Care Code Acute Compliance Spec for [facility] Fwd Diagnoses Encephalopathy G93.40 Acute respiratory distress syndrome (ARDS) due to 2019 novel coronavirus U07.1; J80 COVID-19 U07.1 NSTEMI (non-ST elevated myocardial infarction) I21.4 Sepsis A41.9; R65.21; J96.01 Sepsis type: sepsis due to unspecified organism Sepsis acute organ dysfunction status: with acute organ dysfunction Severe sepsis acute organ dysfunction type: acute respiratory failure Acute respiratory failure type: with hypoxia Severe sepsis shock status: with septic shock Cardiac arrest I46.9 Metabolic acidosis E87.2 Acute kidney injury N17.9 DVT (deep venous thrombosis) I82.403 DVT location: lower extremity Affected thrombotic vein of extremity: unspecified vein of extremity Chronicity: unspecified Laterality: bilateral CVA (cerebral vascular accident) I63.40 CVA mechanism: embolism Precerebral and cerebral artery: unspecified cerebral artery Hypernatremia E87.0
[2021-01-10 17:31] LABS: Glucose Point of Care 83 mg/dL (70-110)
--- NOTE | 2021-01-10 17:43 | PM.PN ---
Subjective Subjective: Interval history: -Patient clinically unchanged -Daily opens eyes but does not follow commands, -Patient was on fentanyl 100, propofol 50 and Precedex 0.5 -He became too bradycardic and tapered all the sedation; currently on low-dose Precedex -Initially is supposed to come for goals of care discussion but she is trying to find an accepting physician at [place] and get patient transferred so that he can receive stem cell therapy -Labs and imaging reviewed Medications: Reviewed: Yes Vitals/I&O/Wt Last Vital Signs Temp 97.7 F 01/10/21 08:30 Pulse 113 H 01/10/21 16:00 Resp 29 H 01/10/21 17:13 BP 145/72 01/10/21 16:00 Pulse Ox 92 01/10/21 17:13 01/10/21 01/10/21 01/10/21 06:59 14:59 22:59 Intake Total 457.745 / 1451.500 346.826 / 346.826 200 / 546.826 Output Total 950 / 1800 150 / 150 Balance -492.255 / -348.500 196.826 / 196.826 200 / 396.826 Weight last 48 hrs Weight 193 lb 3 oz Weight 204 lb 9 oz Physical Exam Narrative: EXAM NARRATIVE: General: lying in bed, sedated and intubated. HEENT:NCAT, PERRLA, EOMI, has cough reflex Neck: Supple Lungs: Reduced breath sounds bilaterally Heart: s1/s2, RRR Abd: soft, NT, ND, BS + Normoactive Extremities: No edema; Mottled appearing feet; feeble pulses on lower extremities R>L; cold feet R> L RUBBER INSULATOR: sedated and limited RUBBER INSULATOR exam possible, no purposeful movements off sedation SKIN: no rash Data : 01/10/21 04:39 01/10/21 04:39 Other Labs: Laboratory Results WBC 19.8 10^3/uL (4.0-10.0) H 01/10/21 04:39 RBC 3.52 10^6/uL (4.1-5.3) L 01/10/21 04:39 Hgb 10.4 g/dL (11.7-16.6) L 01/10/21 04:39 Hct 33.3 % (42.0-52.0) L 01/10/21 04:39 MCV 94.6 fL (80-94) H 01/10/21 04:39 MCH 29.5 pg (28.0-34.0) 01/10/21 04:39 MCHC 31.2 g/dL (30.0-36.0) 01/10/21 04:39 RDW 16.6 % (12.1-15.1) H 01/10/21 04:39 Plt Count 153 10^3/cmm (130-400) 01/10/21 04:39 MPV 13.2 fL (7.4-10.4) H 01/10/21 04:39 Neut % (Auto) 93.6 % 01/10/21 04:39 Lymph % (Auto) 0.8 % 01/10/21 04:39 [place] % (Auto) 3.1 % 01/10/21 04:39 Eos % (Auto) 0.7 % 01/10/21 04:39 Baso % (Auto) 0.2 % 01/10/21 04:39 Neut # (Auto) 18.52 10^3/uL (1.8-7.7) H 01/10/21 04:39 Lymph # (Auto) 0.2 10^3/uL (0.8-4.8) L 01/10/21 04:39 [place] # (Auto) 0.6 10^3/uL (0.2-0.9) 01/10/21 04:39 Eos # (Auto) 0.1 10^3/uL (0.0-0.8) 01/10/21 04:39 Baso # (Auto) 0.0 10^3/uL (0.0-0.1) 01/10/21 04:39 Nucleated RBC % (auto) 0 % 01/10/21 04:39 Total Counted 100 (0-100) 01/04/21 05:15 Atypical Lymphs % 1.0 % (0-5) 01/04/21 05:15 Absolute Neutrophils 28.9 10^3/cmm (1.4-6.5) H 01/04/21 05:15 Segmented Neutrophils 71 % 01/04/21 05:15 Abs Segm Neuts (Man) 22.6 10/cmm (1.6-7.1) H 01/04/21 05:15 Band Neutrophils 20.0 % 01/04/21 05:15 Abs Band Neuts (Man) 6.4 10^3/cmm (0.0-1.2) H 01/04/21 05:15 Absolute Lymphocytes 0.3 10^3/cmm (1.2-3.4) L 01/04/21 05:15 Lymphocytes (Manual) 0 % 01/04/21 05:15 Monocytes (Manual) 2.0 % 01/04/21 05:15 Absolute Monocytes 0.6 10^3/cmm (0.1-0.6) 01/04/21 05:15 Eosinophils (Manual) 0 % 01/04/21 05:15 Absolute Eosinophils 0.0 10^3/cmm (0.0-0.7) 01/04/21 05:15 Basophils (Manual) 0.0 % 01/04/21 05:15 Absolute Basophils 0.0 10^3/cmm (0.0-0.2) 01/04/21 05:15 Metamyelocytes 2.0 % 01/04/21 05:15 Myelocytes 4.0 % 01/04/21 05:15 Nucleated RBCs # 0.0 /100WBC 01/10/21 04:39 Platelet Estimate Normal (Normal) 01/04/21 05:15 Giant Platelets 1+ H 12/31/20 05:09 Poikilocytosis 1+ H 01/04/21 05:15 Anisocytosis 1+ H 12/31/20 05:09 APTT 50.7 SECONDS (23.9-36.7) H 01/03/21 05:35 D-Dimer >= 20.00 ug/mIFEU (0-0.59) H 12/29/20 01:12 Specimen Type Arterial 01/08/21 10:13 Sample Site Radial, left 01/08/21 10:13 ABG pH 7.34 (7.35-7.45) L 01/08/21 10:13 ABG pCO2 41.9 mmHg (35-45) 01/08/21 10:13 ABG pO2 60.5 mmHg (80.0-100.0) L 01/08/21 10:13 ABG HCO3 22.8 mmol/L (22-26) 01/08/21 10:13 ABG O2 Saturation 88.9 01/08/21 10:13 ABG Base Excess -2.8 mmol/L (-2.0-2.0) L 01/08/21 10:13 Oswaldo Test Pos 01/08/21 10:13 A-a O2 Gradient 45.6 mmHg (5-10) H 01/08/21 10:13 Hematocrit 34.1 % (42-52) L 01/08/21 10:13 Hgb O2 Saturation 86.7 % (95-100) L 01/08/21 10:13 Carboxyhemoglobin 1.5 %THgb (0.4-20.1) 01/08/21 10:13 Methemoglobin 0.9 % (0.4-1.5) 01/08/21 10:13 Total Hemoglobin 11.1 g/dL (14-18) L 01/08/21 10:13 Sodium 138.0 mmol/L (131-143) 01/08/21 10:13 Potassium 5.2 mmol/L (3.5-5.0) H 01/08/21 10:13 Glucose 168.0 mg/dL (70-115) H 01/08/21 10:13 Ionized Calcium 1.2 mmol/L (1.1-1.4) 01/08/21 10:13 O2 Delivery Device Vent 01/08/21 10:13 FiO2 65.0 % 01/08/21 10:13 Tidal Volume 0.50 01/08/21 10:13 PEEP 10.0 cmH20 01/08/21 10:13 Unclaimed Property Officer ID Cak 01/08/21 10:13 Sodium 140 mmol/L (136-145) 01/10/21 04:39 Potassium 5.2 mmol/L (3.5-5.1) H 01/10/21 04:39 Chloride 107 mmol/L (98-107) 01/10/21 04:39 Carbon Dioxide 23 mmol/L (22-29) 01/10/21 04:39 Anion Gap 15.2 (5-19) 01/10/21 04:39 BUN 70 mg/dL (8-23) H 01/10/21 04:39 Creatinine 1.6 mg/dL (0.7-1.2) H 01/10/21 04:39 GFR Calculation Not Reportable 01/10/21 04:39 Glucose 106 mg/dL (65-115) 01/10/21 04:39 POC Glucose 83 mg/dL (70-110) 01/10/21 17:24 Calculated Osmolality 311 mOsm/kg (285-295) H 01/10/21 04:39 Lactic Acid 15.1 mmol/L (0.5-2.2) H* 12/28/20 19:11 Lactate 3.8 mmol/L (0.5-2.2) H 12/29/20 15:30 Calcium 7.5 mg/dL (8.5-10.5) L 01/10/21 04:39 Phosphorus 4.3 mg/dL (2.5-4.5) 12/29/20 11:41 Magnesium 2.9 mg/dL (1.7-2.3) H 12/29/20 11:41 Ferritin > 2414 ng/mL (30-400) H 12/29/20 01:12 Ferritin Cancelled 12/29/20 01:12 Total Bilirubin 1.1 mg/dL (0.15-1.2) 01/10/21 04:39 AST 40 U/L (0-40) 01/10/21 04:39 ALT 29 U/L (0-41) 01/10/21 04:39 Alkaline Phosphatase 84 IU/L (40-130) 01/10/21 04:39 Lactate Dehydrogenase > 1330 U/L (135-225) H 12/29/20 01:12 Lactate Dehydrogenase Cancelled 12/29/20 01:12 Creatine Kinase 49 U/L (39-308) 01/08/21 03:17 Troponin T Baseline 99 ng/L (0-15) H 12/28/20 19:11 Troponin T 120 Minute 238.1 ng/L (0-15) H 12/28/20 21:20 Delta Troponin T 139.1 ABS# (0-10) H* 12/28/20 21:20 Troponin T Hi Sens 6Hr 273.1 ng/L (0-15) H 12/29/20 01:23 Troponin T Hi Sens 6Hr Delta 174.1 ng/L (0-12) H* 12/29/20 01:23 C-Reactive Protein 243.4 mg/L (0.0-4.9) H 12/29/20 01:12 C-Reactive Protein Cancelled 12/29/20 01:12 NT-Pro-B Natriuret Pep 2188 pg/mL (0-450) H 12/28/20 19:11 Total Protein 5.3 g/dL (6.6-8.7) L 01/10/21 04:39 Albumin 2.0 g/dL (3.5-5.2) L 01/10/21 04:39 Globulin 3.3 g/dL (1.3-4.6) 01/10/21 04:39 Procalcitonin 0.43 ng/mL (0-0.5) 01/05/21 05:15 Urine Color Yellow (Yellow) 12/28/20 19:30 Urine Appearance Clear (CLEAR) 12/28/20 19:30 Urine pH 5 (5-7) 12/28/20 19:30 Ur Specific [place] 1.010 (1.005-1.030) 12/28/20 19:30 Urine Protein 1+ (Negative) H 12/28/20 19:30 Urine Glucose (UA) Norm (Normal) 12/28/20 19:30 Urine Ketones 1+ (Negative) H 12/28/20 19:30 Urine Blood 2+ (Negative) H 12/28/20 19:30 Urine Nitrate Negative (Negative) 12/28/20 19:30 Urine Bilirubin Neg (Negative) 12/28/20 19:30 Urine Urobilinogen Norm mg/dL (Negative) 12/28/20 19:30 Ur Leukocyte Esterase Negative (Negative) 12/28/20 19:30 Urine RBC 0-4 /hpf (0-2) H 12/28/20 19:30 Urine WBC 0-4 /hpf (0-5) H 12/28/20 19:30 Ur Squamous Epith Cells 0-4 /hpf (0-5) H 12/28/20 19:30 Ur Transition Epith Cell 0-4 /hpf 12/28/20 19:30 Amorphous Sediment 3+ /hpf 12/28/20 19:30 Urine Bacteria 1+ /hpf (NONE) H 12/28/20 19:30 Urine Mucus Trace /hpf 12/28/20 19:30 Vancomycin Trough 20.2 ug/mL (10-15) H 01/03/21 11:[address] 01/01/21 13:16 IMPRESSION: 1. Multiple cortical based low-attenuation lesions involving the bilateral parietal and occipital lobes and right greater than left cerebellum suspicious for multiple subacute infarcts. 2. One or 2 additional similar lesions in the right frontal lobe. 3. Mild posterior fossa mass effect with mild mass effect on the fourth ventricle and crowding at the foramen magnum. 4. Findings are suspicious for multiple subacute embolic versus watershed infarcts. PRESS is an additional consideration. Recommend correlation for hypertension Notified Dr. Novak at 01/01/2021 5:05 PM. Abdomen/Pelvis CT 01/07/21 09:03 IMPRESSION: 1. No acute abdominal/pelvic findings. 2. Consolidation at both lung bases suggestive of multifocal pneumonia. Radiation Dose CTDIVOL = (mGy): DLP = 1679.2 (mGy-cm) Chest X-Ray 01/10/21 05:03 IMPRESSION: Diffuse bilateral pulmonary infiltrates. No significant change since 01/08/2021. A&P Assessment and plan (1) Hyperkalemia: Status: Acute (2) CVA (cerebral vascular accident): Status: Acute Qualifiers: CVA mechanism: embolism Precerebral and cerebral artery: unspecified cerebral artery Qualified Code(s): I63.40 - Cerebral infarction due to embolism of unspecified cerebral artery (3) MRSA pneumonia: Status: Acute Qualifiers: Laterality: unspecified laterality Lung location: unspecified part of lung Qualified Code(s): J15.212 - Pneumonia due to Methicillin resistant Staphylococcus aureus (4) Acute right-sided heart failure: Status: Acute (5) DVT (deep venous thrombosis): Status: Acute Qualifiers: DVT location: lower extremity Affected thrombotic vein of extremity: unspecified vein of extremity Chronicity: unspecified Laterality: bilateral Qualified Code(s): I82.403 - Acute embolism and thrombosis of unspecified deep veins of lower extremity, bilateral (6) Acute respiratory distress syndrome (ARDS) due to 2019 novel coronavirus: Status: Acute (7) Acute kidney injury: Status: Acute (8) Sepsis with acute hypoxic respiratory failure: Status: Acute Qualifiers: Sepsis type: sepsis due to unspecified organism Severe sepsis shock status: with septic shock Qualified Code(s): A41.9 - Sepsis, unspecified organism; R65.21 - Severe sepsis with septic shock; J96.01 - Acute respiratory failure with hypoxia (9) NSTEMI (non-ST elevated myocardial infarction): Status: Acute (10) Cardiac arrest: Status: Acute (11) PAD (peripheral artery disease): Status: Acute # AMS due to Anoxic brain injury & multiple strokes including evidence of increased pressure in the posterior fossa on CT # Acute hypoxic respiratory failure secondary to ARDS due to COVID 19 PNA and PE ; MRSA Pneumonia # s/p Cardiac arrest & Acute right-sided heart failure likely due to hypoxia due to COVID ARDS Vs PE #Bilateral DVT with clots in transit on B/L LE Doppler # Resting TAMMY of 0.47 on the right side and 0.53 on the left side - Severe B/L PAD #Hyperkalemia - ? heparin induced hypoaldosteronism # Hypernatremia due to CDI due central causes #MRSA pneumonia-on linezolid -Patient opens eyes, spontaneous breaths, has cough reflexes-but does not follow commands -Currently tapered off all the sedation and kept on low-dose Precedex -With multiple strokes as evidenced on CT brain s/p cardiac arrest-not sure how much meaningful neurological recovery he will have -EEG The lack of cerebral activity would not portend a good prognosis, but with the amount of spontaneous movement this is not electrocerebral silence. - S/P 5 days remdesivir & 10 days dexamethasone - CMV 400/60%/8 PEEP this morning - duoneb, dexamethasone - it is possible that the patient had embolization of the DVT causing PE and acute RV dysfunction & cardiac arrest - On Lovenox 90 mg q 12hr for b/l DVT -Bilateral lower extremity arterial Doppler suggestive of severe PAD in both legs -Improving leucocytosis: low procal, CT abd/pelvis: no acute abdominal/pelvic findings - Sputum cx - MRSA ; needs to be on contact isolation - Currently on Linezolid and Cefepime - DAVID improved; I/O/N: -48/+1.2 L ; given a dose of albumin 25 gm - moderately controlled sugars - on scale coverge - GI PPX - ppI The family wants to transfer patient to [place] but due to his poor prognosis so far none of the facilities accepted. Also was trying to pursue stem cell transplant hoping will be a miracle and patient becomes completely functional, Dr Hernandez who performs these stem cell transplants-reported they are not FDA approved and told patient is not a eligible candidate after learning that patient had multiple strokes and had cardiac arrest. Patient has poor mentation despite turning off sedation possible due to multiple watershed infarcts. initially agreeable for trach and PEG and transfer to long-term facility that manages ventilated patients on trach. As per leather case finisher patient does not qualify for long-term acute care facility admission due to his Medicare. Today is attempting to find an accepting physician at [place] wanted to transfer patient and have him do trach and stem cell therapy ongoing goals of care discussion with . Recommendations conveyed to Hospitalist, RN, RT covering the pt Attestations Medical Necessity Statement*: AMS due to multiple infarcts in covid 19 pt - ventilator dependent and possibly heading towards requiring Trach and PEG placement Time Spent in Patient Care: Greater than 35 minutes (>than 50% of time spent in counselling and/or direct pt care on unit). Critical Care Time: The high probability of a clinically significant, sudden or life threatening deterioration of the patient's [neurological, respiratory, cardiac, vascular, renal] system(s) required my full and direct attention, intervention and personal management. The critical care time is as shown. This time is in addition to time spent performing any reported procedures but includes the following: [x] Data and vital sign review and interpretation [x] Patient assessment, examination and intervention [x] Documentation [x] Medication orders and management Critical Care Time (min): 45 Coding Level of Care Code Established Pt Acute Otolaryngology Rep for Chg Fwd Patient Type Established History Comprehensive Exam Comprehensive Medical Decision Making High Complexity Diagnoses Hyperkalemia E87.5 CVA (cerebral vascular accident) I63.40 CVA mechanism: embolism Precerebral and cerebral artery: unspecified cerebral artery MRSA pneumonia J15.212 Laterality: unspecified laterality Lung location: unspecified part of lung Acute right-sided heart failure I50.811 DVT (deep venous thrombosis) I82.403 DVT location: lower extremity Affected thrombotic vein of extremity: unspecified vein of extremity Chronicity: unspecified Laterality: bilateral Acute respiratory distress syndrome (ARDS) due to 2019 novel coronavirus U07.1; J80 Acute kidney injury N17.9 Sepsis with acute hypoxic respiratory failure A41.9; R65.21; J96.01 Sepsis type: sepsis due to unspecified organism Severe sepsis shock status: with septic shock NSTEMI (non-ST elevated myocardial infarction) I21.4 Cardiac arrest I46.9 PAD (peripheral artery disease) I73.9 Time Spent (min) 45
[2021-01-10] MEDS: atorvastatin 40 mg Tablet OG-TUBE (21:42)
[2021-01-10 22:37] LABS: Glucose Point of Care 82 mg/dL (70-110)
[2021-01-11] VITALS (59 sets, daily range): BP systolic 81–196; BP diastolic 44–106; PULSE 68–126; RESP 14–47; TEMP 35.8–36.5; O2SAT 88–98
[2021-01-11] MEDS: ipratropium-albuterol 3 mL Neb INHALATION ×4 (02:11→20:32)
[2021-01-11] MEDS: dexmedetomidine 400 MCG in sodium chloride 0.9% (100 ml) 100 ML 7.25 MCG IV ×2 (03:00→15:06)
[2021-01-11 05:27] LABS: Glucose Point of Care 104 mg/dL (70-110)
[2021-01-11] MEDS: enoxaparin 100 mg/mL Syringe 90 MG SUBCUT ×2 (05:43→18:02)
[2021-01-11] MEDS: linezolid premix 600 MG/300 ML PREMIX 300 MG IV ×2 (05:45→18:02)
[2021-01-11] MEDS: propofol 1,000 MG/100 ML INJ 11.98 MG IV ×2 (06:09→22:40)
--- NOTE | 2021-01-11 07:06 | PC.NURSE ---
Shift Note Frequent safety and comfort rounds continue. Orders and/or nursing care completed as indicated. Patient monitored for response to intervention and treatment(s) of vent compliance. Education provided includes[vent compliance]. Patient [intubated/sedated and to accomplish vent compliance]. 2 episodes of high RR in the 30s during shift but no intervention needed. Will continue to monitor.
[2021-01-11] MEDS: pantoprazole 40 mg SDV IVP (08:28)
[2021-01-11] MEDS: clopidogrel 75 mg Tablet PO (08:28)
[2021-01-11] MEDS: hyDRALAzine 20 mg/mL INJ 1 mL 25 MG IVP (09:08)
[2021-01-11 09:11] LABS: Basophils % 0.2 %; Eosinophils # 0.1 10^3/uL (0.0-0.8); Eosinophils % 0.4 %; Hematocrit 32.4 % (42.0-52.0); Hemoglobin 10.1 g/dL (11.7-16.6); Lymphocytes # 0.3 10^3/uL (0.8-4.8); Lymphocytes % 1.8 %; Mean Corpuscular HGB Conc 31.2 g/dL (30.0-36.0); Mean Corpuscular Hemoglobin 29.7 pg (28.0-34.0); Mean Corpuscular Volume 95.3 fL (80-94); Mean Platelet Volume 12.9 fL (7.4-10.4); Monocytes # 0.7 10^3/uL (0.2-0.9); Monocytes % 3.9 %; Neutrophils # 16.92 10^3/uL (1.8-7.7); Nucleated Red Blood Cells % 0 %; Platelet Count 163 10^3/cmm (130-400); Red Cell Distribution Width 16.2 % (12.1-15.1); White Blood Count 18.6 10^3/uL (4.0-10.0)
[2021-01-11 09:37] LABS: Alanine Aminotransferase 34 U/L (0-41); Albumin Level 2.2 g/dL (3.5-5.2); Alkaline Phosphatase 78 IU/L (40-130); Anion Gap 15.1 (5-19); Aspartate Amino Transferase 47 U/L (0-40); Blood Urea Nitrogen 74 mg/dL (8-23); Calcium 7.3 mg/dL (8.5-10.5); Carbon Dioxide 21 mmol/L (22-29); Chloride 107 mmol/L (98-107); Glucose 100 mg/dL (65-115); Magnesium 2.5 mg/dL (1.7-2.3); Osmolality Calculated 308 mOsm/kg (285-295); Potassium 5.1 mmol/L (3.5-5.1); Sodium 138 mmol/L (136-145); Total Bilirubin 0.9 mg/dL (0.15-1.2); Total Protein 5.2 g/dL (6.6-8.7)
[2021-01-11 09:49] LABS: ABG PCO2 48.7 mmHg (35-45); ABG PH Result 7.27 (7.35-7.45); Alveolar-Arterial Oxygen Gradi 49.1 mmHg (5-10); Arterial Blood Gas Hematocrit 37.3 % (42-52); Base Excess ABG -4.7 mmol/L (-2.0-2.0); Blood Gas Allen Test Pos; Blood Gas Operator Identificat MONRO; Blood Gas Sample Site Radial, right; Blood Gas Sample Type Arterial; Carboxyhemoglobin 1.5 %THgb (0.4-20.1); HCO3 ABG 22.4 mmol/L (22-26); HGB O2 Sat 87.1 % (95-100); Ionized Calcium Level - ABG 1.1 mmol/L (1.1-1.4); Methemoglobin 0.9 % (0.4-1.5); Oxygen Device VENT; Oxygen Saturation ABG 89.2; PO2 ABG 63.6 mmHg (80.0-100.0); Potassium Level - ABG 4.9 mmol/L (3.5-5.0); Total Hemoglobin 12.2 g/dL (14-18)
--- NOTE | 2021-01-11 10:19 | PC.NUTR ---
Addendum entered by Florian Rosado 01/11/21 10:26: Noted if renal function not improved, may benefit from change to Nepro when feedings resumed. Original Note: Nutrition follow up: Unable to gather clear information on why feeding stopped yesterday and/or whether likely to resume today. Note patient failing multiple sedation vacation trials per MD notes. If appropriate at later time, recommend resuming tropic feeding of 15 ml/hr as tolerated. If/when appropriate, increasing by 10 ml/hr q 12 hrs to rate of 50 ml/hr. Noted additional 316 kcal from propofol at this time. Recommend checking triglycerides d/t propofol use since 12/28/20. See full RD assessment for further details.
--- NOTE | 2021-01-11 10:25 | PC.NURSE ---
Sedation vacation attempted. Only reduced propofol from 20mcg/kg/min to 10 and Fentanyl decreased afow49fbg/hr to 25 mcg hour. Pt had also been repositioned to left side. Pt did not tolerate. Pt already abdominal breathing with agonal like breaths and head bobbing, this increased. Heart rate and BP increased. Repositioned pt back to supine. Hydralaziine admin, Fentanyl increased back to 30mcg/hr. Pt still struggling half and hour later indicated by O2 sats decreased, continued irregular brathing and hypertension. Fentanyl increased to 50mcg/hr and Propofol back to 20mcg/kg/min. At this time, BP imporved. Heart rate 118bpm nad O2 sats remain at 90% Pt still has irregular breathiing: abdominal breathing with agonal breaths and head bobbing continues.
--- NOTE | 2021-01-11 11:00 | PC.NURSE ---
Respiratory distress still noted: Head bobbing, agonal breaths and accessory/abdominal breathing. RT increased Fio2 to 80%. Fentanyl increased to 100mcg/hr.
[2021-01-11 11:54] LABS: Glucose Point of Care 97 mg/dL (70-110)
--- NOTE | 2021-01-11 12:00 | PC.NURSE ---
Pt lifted up in bed, total assist. Pt not repositioned side to side due to intolerance.
--- NOTE | 2021-01-11 12:04 | PC.NURSE ---
Irregular breathing continues: Head bobbing, accessory/abdominal bouncing agonal breathing. Pt very diaphoretic. Afebrile. Propofol increased, no change in respiratory. RT making frequent vent adjustments, but no improvement noted. Mottling noted on bilat greater toes.
--- NOTE | 2021-01-11 13:08 | PC.NURSE ---
No respiratory distress noted at this time but pt is hyotensive. Will adjust Fentanyl to help BP and maintain lack of distress. See MAR.
[2021-01-11] MEDS: propofol 1,000 MG/100 ML INJ 17.96 MG IV (13:35)
--- NOTE | 2021-01-11 15:05 | PC.NURSE ---
Spoke with and pt's brother at length about his condition. They reiterated how much they wanted him to get the stem cell treatment, had even asked if they ( [facility]) could come down and give the treatment while pt remains here. Explained that staff here was not trained appropriately for post stem cell care , therefore it would not be safe/appropriate care for their loved one. Discussed his irregular breathing, his lack of purposeful movement, He does open his eyes but does not track or focus on anyone or thing, he does not move his arms or legs. He also did not tolerate his sedation being reduced. She asked if they found a detention to take him what would be done with the medication, I replied that the nursing would be a lower level of care thus these IV medications would not be given their. They are high risk medications that need to be supervised by a nurse and doctor. Lack of purposeful movement was reinforced several times throughout this conversation. Family determined pt is going to fully recover if they could just get him to wake up.. invited to come in and visit spouse. This nusre spent 45 minutes on the phone with family.
--- NOTE | 2021-01-11 17:45 | PC.RESP ---
RT Shift Note Frequent safety and respiratory rounds continue. Orders completed as indicated. Patient monitored pre and post treatments throughout shift. Patient [Did.] tolerate treatments appropriately. Condition .DidNotChange]. Patient and/or food service representative educated on respiratory treatment and medications. Patient and/or food service representative [unable to comprehend. Will continue to monitor patient progress.
--- NOTE | 2021-01-11 18:12 | P.PN_ITS ---
Subjective Subjective: Interval history: Patient remains clinically unchanged. Patient was given sedation vacation again in the morning today but he did not wake up meaningfully and had episode of desaturation, asynchronous breathing and tachycardia without following any kind of commands so was placed back on full sedation to maintain saturation. Had a family meeting over the phone with , his brother and son with ethics committee. We discussed unfortunately patient has failed multiple medication trials and does not have any meaningful brain activity most likely from a combination of anoxic brain injury and multiple strokes seen on CT head done on January 01 and at this point most likely patient is been vegetative state. We also discussed that at request of patient's I had spoken with Dr. Hernandez who performs stem cell treatment. We discussed after understanding patient's cli nical condition with stroke and anoxic brain injury Dr. Hernandez had stated that patient has severely poor prognosis and would not qualify for stem cell treatment. Patient's was not aware of the same. It was decided that patient's will come in and stay with patient at bedside overnight and will make a decision regarding further goals of care hopefully within the next 24 hours. Medications: Reviewed: Yes Vitals/I&O/Wt Last Vital Signs Temp 97.2 F L 01/11/21 11:30 Pulse 82 01/11/21 16:38 Resp 24 H 01/11/21 17:32 BP 119/57 01/11/21 16:30 Pulse Ox 95 01/11/21 17:32 01/11/21 01/11/21 01/11/21 06:59 14:59 22:59 Intake Total 504 / 1576.247 215.276 / 215.276 101.725 / 317.001 Output Total 1000 / 1500 Balance -496 / 76.247 215.276 / 215.276 101.725 / 317.001 Weight last 48 hrs Weight 87.997 kg Weight 87.628 kg Physical Exam Narrative: EXAM NARRATIVE: General: Patient is intubated and sedated, not able to follow any command Neck: No JVD Respiratory: Auscultation: Bilateral clear to auscultation both anterior and posteriorly, no crackles wheezing or rhonchi Cardiovascular: Regular rate and rhythm, S1-S2 present, no murmur, no peripheral edema. Abdomen: Soft, nontender, nondistended, positive bowel sound Neuro: Not following commands this morning Data : 01/11/21 08:32 01/11/21 08:32 A&P Assessment and plan (1) Encephalopathy: No improvement noted today. Not seem to be appropriately waking up off sedation. Patient has failed multiple sedation vacation trials. So far has not made significant progress with regards to improvement in mental status. Concern regarding significant anoxic/ ischemic brain injury during cardiac arrest. Intermittently gagging. EEG report appreciated. 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 Sounds like plans are for transfer to [facility] for additional assessment and continued care. We will possibly repeat a CT scan of the head without contrast to rule out any hemorrhagic conversion or new strokes. Will discuss with sheet manufacturing supervisor. Status: Acute (2) Acute respiratory distress syndrome (ARDS) due to 2019 novel coronavirus: Continues on mechanical ventilatory support. Wean down as tolerating. Continue waking trials. Unfortunately patient continues to fail waking trials. Patient has been intubated for over 11 days. As per goals of care discussion with the family they are possibly waiting for some kind of stem cell therapy which they have been made aware but has to be confirmed with administration before administering the patient. Patient's family is okay with him getting trach and PEG. They have been made aware that if patient gets tracheostomy and is ventilator dependent he might have to be moved to an outpatient facility for long-term care. Status: Acute (3) COVID-19: Completed Remdisivir, continue dexamethasone. Status: Acute (4) NSTEMI (non-ST elevated myocardial infarction): Troponins with significant delta on presentation related to cardiac arrest and cardioversion Status: Acute (5) Sepsis: Tachycardia had resolved. Remains afebrile. Persistent leukocytosis. Procalcitonin 0.4. Antibiotics have been deescalated with imipenem discontinued on 01/04. So far vital signs, metabolic parameters continue to improve. Monitor for any change in condition. Multiple CVA, 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 Blood cultures negative. Continues empirically on gram-positive coverage and for MRSA pneumonia. As a result of COVID-19 pneumonia Weaned off pressor support. Status: Acute Qualifiers: Acute respiratory failure type: with hypoxia Sepsis acute organ dysfunction status: with acute organ dysfunction Sepsis type: sepsis due to unspecified organism Severe sepsis acute organ dysfunction type: acute respiratory failure Severe sepsis shock status: with septic shock Qualified Code(s): A41.9 - Sepsis, unspecified organism; R65.21 - Severe sepsis with septic shock; J96.01 - Acute respiratory failure with hypoxia (6) Cardiac arrest: As above Status: Acute (7) Metabolic acidosis: As a result of cardiac arrest Status: Acute (8) Acute kidney injury: Improving. Again as a result of cardiac arrest, renal hypoperfusion most likely explanation Status: Acute (9) DVT (deep venous thrombosis): b/l le, loose, massive Possible PE R heart failure. Continue anticoagulation. Status: Acute Qualifiers: Affected thrombotic vein of extremity: unspecified vein of extremity Chronicity: unspecified DVT location: lower extremity Laterality: bilateral Qualified Code(s): I82.403 - Acute embolism and thrombosis of unspecified deep veins of lower extremity, bilateral (10) CVA (cerebral vascular accident): Multiple CVA noted on CT of the head. Etiology at this time is not clear. Would suspect hypoperfusion during cardiac arrest, and per discussion with radiology do appear in watershed areas. Embolic etiology not excluded. Septic embolic etiology less likely, pending additional blood culture. So far negative. Continues on gram-positive coverage for now. On anticoagulation. Status: Acute Qualifiers: CVA mechanism: embolism Precerebral and cerebral artery: unspecified cerebral artery Qualified Code(s): I63.40 - Cerebral infarction due to embolism of unspecified cerebral artery (11) Hypernatremia: Resolving. 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 Improvement in urine output. Status: Acute Additional A&P Information Patient's care discussed in detail with his over the phone. We did discuss that unfortunately patient has failed multiple waking trials and has remained on ventilator support for 11 days. We did discuss goals of care with 2 options at this time. One option would be comfort measures and terminal extubation versus trach and PEG for ventilator and nutrition support. We also discussed that if he is trached and pegged at that point patient will have to be moved to an outpatient facility for long-term care. Unfortunately there are no facilities in the 100 mile radius to take care of patients with trach and ventilator. Patient's for now would want to continue the current treatment. She is trying to see if patient can get off cancer therapy from her doctor at [facility]. She is requesting if doctors can speak with her outpatient doctor regarding the same. She is requesting confirmation from administration of the treatment can be given to the patient. Patient's care discussed with Dr. Mills at family's request regarding possible stem cell therapy. We discussed that at this point patient has multiple strokes and has evidence of anoxic brain injury with failure of multiple waking up trials along with ongoing elevated white count, acute kidney injury with creatinine of 1.3. As per Dr. Mills given all the above patient is not a good candidate for stem cell treatment and has a very poor prognosis, he would convey this to patient's as well. Case discussed with sheet manufacturing supervisor. Appreciate sheet manufacturing supervisor care. If and when patient comes out of ICU will resume patient's care. Severely guarded prognosis. Family considering transfer to outside facility. Have been denied beds at outside [place] hospitals. Attestations Medical Necessity Statement*: Patient requires further hospitalization for management of been ventilator dependent, ARDS secondary COVID-19 pneumonia while further goals of care discussion and family meetings are done. Critical Care Time: The high probability of a clinically significant, sudden or life threatening deterioration of the patient's [respiratory, neurological, multiple goals of the care discussion, and ethics committee meeting] system(s) required my full and direct attention, intervention and personal management. The critical care time is as shown. 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 [facility] Diagnoses Encephalopathy G93.40 Acute respiratory distress syndrome (ARDS) due to 2019 novel coronavirus U07.1; J80 COVID-19 U07.1 NSTEMI (non-ST elevated myocardial infarction) I21.4 Sepsis A41.9; R65.21; J96.01 Acute respiratory failure type: with hypoxia Sepsis acute organ dysfunction status: with acute organ dysfunction Sepsis type: sepsis due to unspecified organism Severe sepsis acute organ dysfunction type: acute respiratory failure Severe sepsis shock status: with septic shock Cardiac arrest I46.9 Metabolic acidosis E87.2 Acute kidney injury N17.9 DVT (deep venous thrombosis) I82.403 Affected thrombotic vein of extremity: unspecified vein of extremity Chronicity: unspecified DVT location: lower extremity Laterality: bilateral CVA (cerebral vascular accident) I63.40 CVA mechanism: embolism Precerebral and cerebral artery: unspecified cerebral artery Hypernatremia E87.0
--- NOTE | 2021-01-11 18:23 | PC.NURSE ---
Wedding ring: at bedside took possession of pt's wedding band.
[2021-01-11 18:49] LABS: Glucose Point of Care 90 mg/dL (70-110)
--- NOTE | 2021-01-11 20:11 | PC.NURSE ---
Shift summary: Pt remains intubated and on vent. Reduced sedation this am to assess mentation. Poor tolerance noted indicated by asychronis breathing ,agonal breaths, head bobbing and elevated BP. RT adjusted vent setings to improve respiratory status. Pt needed Fentanyl turned up to 100mcg/hr to decrease distress, his sats dropped necessitating an increase in Fio2 which is now at 80%. Pt became very diaphoretic during this. This evening he is still agonal breathing but not as extreme as this am. Pt has remained afebrile throughout this shift. in at 1745, son here at 1900. urine output of 450ml dark yellow urine noted. Frequent safety and comfort rounds continue. Orders and/or nursing care completed as indicated. Patient monitored for response to intervention and treatment(s). Education provided includes agonal breathing, brain injury, fentanyl. Patient and/or sales representative sales manager needs repetitive reinforcement. Will continue to monitor.
[2021-01-11 20:42] LABS: Glucose Point of Care 122 mg/dL (70-110)
[2021-01-11] MEDS: atorvastatin 40 mg Tablet OG-TUBE (21:26)
[2021-01-11] MEDS: dexamethasone 10 mg/mL INJ 6 MG IVP (22:40)
--- NOTE | 2021-01-11 23:49 | P.PN_ITS ---
Subjective Subjective: Interval history: - No change in clinical status - Trying to wean off sedation-patient becomes tachycardic tachypneic and hypotensive with no purposeful movements -I have to go up on sedation to keep him comfortable -After ethics committee meeting with family-patient was made that her will stay overnight at patient bedside and son for 2 hours. will make a deci rebecca regarding further goals of care tomorrow morning Medications: Reviewed: Yes Vitals/I&O/Wt Last Vital Signs Temp 96.7 F L 01/11/21 20:00 Pulse 86 01/11/21 22:00 Resp 23 H 01/11/21 23:40 BP 139/74 01/11/21 22:00 Pulse Ox 95 01/11/21 23:40 01/11/21 01/11/21 01/12/21 14:59 22:59 06:59 Intake Total 215.276 / 215.276 488.255 / 703.531 100 / 803.531 Output Total 450 / 450 Balance 215.276 / 215.276 38.255 / 253.531 100 / 353.531 Weight last 48 hrs Weight 194 lb Weight 193 lb 3 oz Physical Exam Narrative: EXAM NARRATIVE: General: lying in bed, sedated and intubated. HEENT:NCAT, PERRLA, EOMI, has cough reflex Neck: Supple Lungs: Reduced breath sounds bilaterally Heart: s1/s2, RRR Abd: soft, NT, ND, BS + Normoactive Extremities: No edema; Mottled appearing feet; feeble pulses on lower extremities R>L; cold feet R> L MAINTENANCE SHOP CLERK: sedated and limited MAINTENANCE SHOP CLERK exam possible, no purposeful movements off sedation SKIN: no rash Data : 01/11/21 08:32 01/11/21 08:32 A&P Assessment and plan (1) Hyperkalemia: Status: Acute (2) CVA (cerebral vascular accident): Status: Acute Qualifiers: CVA mechanism: embolism Precerebral and cerebral artery: unspecified cerebral artery Qualified Code(s): I63.40 - Cerebral infarction due to embolism of unspecified cerebral artery (3) MRSA pneumonia: Status: Acute Qualifiers: Laterality: unspecified laterality Lung location: unspecified part of lung Qualified Code(s): J15.212 - Pneumonia due to Methicillin resistant Staphylococcus aureus (4) Acute right-sided heart failure: Status: Acute (5) DVT (deep venous thrombosis): Status: Acute Qualifiers: DVT location: lower extremity Affected thrombotic vein of extremity: unspecified vein of extremity Chronicity: unspecified Laterality: bilateral Qualified Code(s): I82.403 - Acute embolism and thrombosis of unspecified deep veins of lower extremity, bilateral (6) Acute respiratory distress syndrome (ARDS) due to 2019 novel coronavirus: Status: Acute (7) Acute kidney injury: Status: Acute (8) Sepsis with acute hypoxic respiratory failure: Status: Acute Qualifiers: Sepsis type: sepsis due to unspecified organism Severe sepsis shock status: with septic shock Qualified Code(s): A41.9 - Sepsis, unspecified organism; R65.21 - Severe sepsis with septic shock; J96.01 - Acute respiratory failure with hypoxia (9) NSTEMI (non-ST elevated myocardial infarction): Status: Acute (10) Cardiac arrest: Status: Acute (11) PAD (peripheral artery disease): Status: Acute # AMS due to Anoxic brain injury & multiple strokes including evidence of increased pressure in the posterior fossa on CT # Acute hypoxic respiratory failure secondary to ARDS due to COVID 19 PNA and PE ; MRSA Pneumonia # s/p Cardiac arrest & Acute right-sided heart failure likely due to hypoxia due to COVID ARDS Vs PE #Bilateral DVT with clots in transit on B/L LE Doppler # Resting TAMMY of 0.47 on the right side and 0.53 on the left side - Severe B/L PAD #Hyperkalemia - ? heparin induced hypoaldosteronism # Hypernatremia due to CDI due central causes #MRSA pneumonia-on linezolid -Patient has spontaneous breaths, has cough reflexes-but does not follow commands or purposeful movements -Currently on fentanyl, propofol, Precedex -With multiple strokes as evidenced on CT brain s/p cardiac arrest-not sure how much meaningful neurological recovery he will have -EEG The lack of cerebral activity would not portend a good prognosis, but with the amount of spontaneous movement this is not electrocerebral silence. - S/P 5 days remdesivir & 10 days dexamethasone - CMV 400/60%/8 PEEP this morning - duoneb, dexamethasone - it is possible that the patient had embolization of the DVT causing PE and acute RV dysfunction & cardiac arrest - On Lovenox 90 mg q 12hr for b/l DVT -Bilateral lower extremity arterial Doppler suggestive of severe PAD in both legs -Improving leucocytosis: low procal, CT abd/pelvis: no acute abdominal/pelvic findings - Sputum cx - MRSA ; needs to be on contact isolation - Currently on Linezolid and Cefepime - moderately controlled sugars - on scale coverge - GI PPX - ppI -High residuals-held tube feeding The family wants to transfer patient to [place] but due to his poor prognosis so far none of the facilities accepted. Also was trying to pursue stem cell transplant hoping will be a miracle and patient becomes completely functional, Dr Hernandez who performs these stem cell transplants-reported they are not FDA approved and told patient is not a eligible candidate after learning that patien t had multiple strokes and had cardiac arrest. Patient has poor mentation despite turning off sedation possible due to multiple watershed infarcts. initially agreeable for trach and PEG and transfer to long-term facility that manages ventilated patients on trach. As per correctional counselor/case manager patient does not qualify for long-term acute care facility admission due to his Medicare. On 01/12/2020: Ethics committee notified; had a meeting with its ethics committee, care team and patient and son-agreement was made that will stay overnight at patient bedside and see how patient does and will make decision tomorrow morning Recommendations conveyed to Hospitalist, RN, RT covering the pt Attestations Medical Necessity Statement*: AMS due to multiple infarcts in covid 19 pt - ventilator dependent and possibly heading towards requiring Trach and PEG placement Time Spent in Patient Care: Greater than 35 minutes (>than 50% of time spent in counselling and/or direct pt care on unit) . Critical Care Time: The high probability of a clinically significant, sudden or life threatening deterioration of the patient's [neurological, respiratory, cardiac, vascular, renal] system(s) required my full and direct attention, intervention and personal management. The critical care time is as shown. 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[employer] [facility] Patient Type Established History Comprehensive Exam Comprehensive Medical Decision Making High Complexity Diagnoses Hyperkalemia E87.5 CVA (cerebral vascular accident) I63.40 CVA mechanism: embolism Precerebral and cerebral artery: unspecified cerebral artery MRSA pneumonia J15.212 Laterality: unspecified laterality Lung location: unspecified part of lung Acute right-sided heart failure I50.811 DVT (deep venous thrombosis) I82.403 DVT location: lower extremity Affected thrombotic vein of extremity: unspecified vein of extremity Chronicity: unspecified Laterality: bilateral Acute respiratory distress syndrome (ARDS) due to 2019 novel coronavirus U07.1; J80 Acute kidney injury N17.9 Sepsis with acute hypoxic respiratory failure A41.9; R65.21; J96.01 Sepsis type: sepsis due to unspecified organism Severe sepsis shock status: with septic shock NSTEMI (non-ST elevated myocardial infarction) I21.4 Cardiac arrest I46.9 PAD (peripheral artery disease) I73.9 Time Spent (min) 45
[2021-01-12] VITALS (91 sets, daily range): BP systolic 82–170; BP diastolic 44–85; PULSE 71–139; RESP 15–32; TEMP 36.1–37.1; O2SAT 88–99
[2021-01-12 00:35] LABS: Glucose Point of Care 90 mg/dL (70-110)
--- NOTE | 2021-01-12 02:05 | PC.NURSE ---
Shift Note Frequent safety and comfort rounds continue. Orders and/or nursing care completed as indicated. Patient monitored for response to intervention and treatment(s). Education provided includes current medications, ventilator, vital signs, breathing pattern. Patient and/or sales representative groceries being and son at bedside, both verbalized understanding of education. Will continue to monitor.
[2021-01-12] MEDS: ipratropium-albuterol 3 mL Neb INHALATION ×3 (02:26→14:25)
--- NOTE | 2021-01-12 03:17 | PC.NURSE ---
Hand off report given by Prema Dietz RN. It was given in handoff report that it was approved for the son to stay at bedside with (with extended approved stay) and would leave between 8PM-9PM, and to stay at bedside throughout the night. Later in during the shift, when talking with security, they stated they weren't aware of this being approved, and Betty Juárez RN spoke with Enid Cartagena (Critical Day Treatment Clinician/Art Therapist) who informed Betty she was unaware of any visitor staying overnight.
[2021-01-12] MEDS: propofol 1,000 MG/100 ML INJ 11.98 MG IV ×2 (03:37→14:39)
[2021-01-12] MEDS: dexmedetomidine 400 MCG in sodium chloride 0.9% (100 ml) 100 ML 7.25 MCG IV (04:23)
[2021-01-12] MEDS: linezolid premix 600 MG/300 ML PREMIX 300 MG IV ×2 (05:26→18:09)
[2021-01-12] MEDS: enoxaparin 100 mg/mL Syringe 90 MG SUBCUT ×2 (05:26→18:07)
[2021-01-12 06:23] LABS: Glucose Point of Care 112 mg/dL (70-110)
--- NOTE | 2021-01-12 08:30 | PC.NURSE ---
at bedside, as per plan. Discussed with her pt's night and lack of any movement on his part, she stated she noticed that. Explained to the significance of that: it did not meet with reasonable expections of improvement. She stated she understood, but she would pray and hope for a miraculous recovery anyway.
[2021-01-12] MEDS: pantoprazole 40 mg SDV IVP (09:34)
[2021-01-12] MEDS: clopidogrel 75 mg Tablet PO (09:35)
--- NOTE | 2021-01-12 12:20 | PC.NURSE ---
Propofol and Precedex stopped to check pt's neuro status.. at bedside. Dr Gonzales present. Pt respirations increased, B/P increased the irregular see -sawing of his chest increased, heart rhythm started with occasional PVCs into bijiminy. Dr Gonzales discussed what these findings meant with . Pt not tolerating, pt not waking up , no purposeful movement. Keeping pt comfortable discussed. PEG and Trach discussed. Pt's stated she does not want these things if pt was going to stay like he was. She wants to wait until Friday to decide to terminally extubate as her son is out of town and she would like him near and the son would want to be near at that time. It was agreed to continue the care he was receiving until Friday when she would decide.
[2021-01-12 12:56] LABS: Glucose Point of Care 99 mg/dL (70-110)
--- NOTE | 2021-01-12 14:27 | PC.RESP ---
RT Shift Note Frequent safety and respiratory rounds continue. Orders completed as indicated. Patient monitored pre and post treatments throughout shift. Patient [Did.] tolerate treatments appropriately. Condition [.DidNotChange]. Patient and/or outside industrial sales representative educated on respiratory treatment and medications. Patient and/or outside industrial sales representative [unable to comprehend. Will continue to monitor patient progress.
--- NOTE | 2021-01-12 14:54 | PC.SOCIAL ---
IMM update IMM not updated as patient is still intubated and not expected to DC in the next 24-48 hours.
--- NOTE | 2021-01-12 16:57 | PM.PN ---
Subjective Subjective: Interval history: No change in clinical status. Sedation was tapered down. Precedex and propofol were continued. Patient's was at bedside during waking up trials when he became tachycardic, tachypneic and diaphoretic at which patient was put back on sedation. Patient did not have any purposeful more movements did have cough reflex. All the questions were answered. Medications: Reviewed: Yes Vitals/I&O/Wt Last Vital Signs Temp 98.5 F 01/12/21 12:30 Pulse 97 01/12/21 16:00 Resp 18 01/12/21 16:00 BP 152/73 01/12/21 16:00 Pulse Ox 94 01/12/21 16:00 01/12/21 01/12/21 01/12/21 06:59 14:59 22:59 Intake Total 654.605 / 1358.136 124.791 / 124.791 9.667 / 134.458 Output Total 650 / 1100 Balance 4.605 / 258.136 124.791 / 124.791 9.667 / 134.458 Weight last 48 hrs Weight 91.49 kg Weight 87.997 kg Physical Exam Narrative: EXAM NARRATIVE: General: Patient is intubated and sedated, not able to follow any command Neck: No JVD Respiratory: Auscultation: Bilateral clear to auscultation both anterior and posteriorly, no crackles wheezing or rhonchi Cardiovascular: Regular rate and rhythm, S1-S2 present, no murmur, no peripheral edema. Abdomen: Soft, nontender, nondistended, positive bowel sound Neuro: Not following commands this morning Data : 01/11/21 08:32 01/11/21 08:32 A&P Assessment and plan (1) Encephalopathy: No improvement noted today. Not seem to be appropriately waking up off sedation. Patient has failed multiple sedation vacation trials. So far has not made significant progress with regards to improvement in mental status. Concern regarding significant anoxic/ ischemic brain injury during cardiac arrest. Intermittently gagging. EEG report appreciated. 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 Sounds like plans are for transfer to [facility] for additional assessment and continued care. We will possibly repeat a CT scan of the head without contrast to rule out any hemorrhagic conversion or new strokes. Will discuss with mine car mechanic. Status: Acute (2) Acute respiratory distress syndrome (ARDS) due to 2019 novel coronavirus: Continues on mechanical ventilatory support. Wean down as tolerating. Continue waking trials. Unfortunately patient continues to fail waking trials. Patient has been intubated for over 11 days. As per goals of care discussion with the family they are possibly waiting for some kind of stem cell therapy which they have been made aware but has to be confirmed with administration before administering the patient. Patient's family is okay with him getting trach and PEG. They have been made aware that if patient gets tracheostomy and is ventilator dependent he might have to be moved to an outpatient facility for long-term care. Status: Acute (3) COVID-19: Completed Remdisivir, continue dexamethasone. Status: Acute (4) NSTEMI (non-ST elevated myocardial infarction): Troponins with significant delta on presentation related to cardiac arrest and cardioversion Status: Acute (5) Sepsis: Tachycardia had resolved. Remains afebrile. Persistent leukocytosis. Procalcitonin 0.4. Antibiotics have been deescalated with imipenem discontinued on 01/04. So far vital signs, metabolic parameters continue to improve. Monitor for any change in condition. Multiple CVA, 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 Blood cultures negative. Continues empirically on gram-positive coverage and for MRSA pneumonia. As a result of COVID-19 pneumonia Weaned off pressor support. Status: Acute Qualifiers: Sepsis type: sepsis due to unspecified organism Sepsis acute organ dysfunction status: with acute organ dysfunction Severe sepsis acute organ dysfunction type: acute respiratory failure Acute respiratory failure type: with hypoxia Severe sepsis shock status: with septic shock Qualified Code(s): A41.9 - Sepsis, unspecified organism; R65.21 - Severe sepsis with septic shock; J96.01 - Acute respiratory failure with hypoxia (6) Cardiac arrest: As above Status: Acute (7) Metabolic acidosis: As a result of cardiac arrest Status: Acute (8) Acute kidney injury: Improving. Again as a result of cardiac arrest, renal hypoperfusion most likely explanation Status: Acute (9) DVT (deep venous thrombosis): b/l le, loose, massive Possible PE R heart failure. Continue anticoagulation. Status: Acute Qualifiers: DVT location: lower extremity Affected thrombotic vein of extremity: unspecified vein of extremity Chronicity: unspecified Laterality: bilateral Qualified Code(s): I82.403 - Acute embolism and thrombosis of unspecified deep veins of lower extremity, bilateral (10) CVA (cerebral vascular accident): Multiple CVA noted on CT of the head. Etiology at this time is not clear. Would suspect hypoperfusion during cardiac arrest, and per discussion with radiology do appear in watershed areas. Embolic etiology not excluded. Septic embolic etiology less likely, pending additional blood culture. So far negative. Continues on gram-positive coverage for now. On anticoagulation. Status: Acute Qualifiers: CVA mechanism: embolism Precerebral and cerebral artery: unspecified cerebral artery Qualified Code(s): I63.40 - Cerebral infarction due to embolism of unspecified cerebral artery (11) Hypernatremia: Resolving. 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 Improvement in urine output. Status: Acute Additional A&P Information Patient's care discussed in detail with his over the phone. We did discuss that unfortunately patient has failed multiple waking trials and has remained on ventilator support for 11 days. We did discuss goals of care with 2 options at this time. One option would be comfort measures and terminal extubation versus trach and PEG for ventilator and nutrition support. We also discussed that if he is trached and pegged at that point patient will have to be moved to an outpatient facility for long-term care. Unfortunately there are no facilities in the 100 mile radius to take care of patients with trach and ventilator. Patient's for now would want to continue the current treatment. She is trying to see if patient can get off cancer therapy from her doctor at [place]. She is requesting if doctors can speak with her outpatient doctor regarding the same. She is requesting confirmation from administration of the treatment can be given to the patient. 01/09: Patient's care discussed with Dr. Mills at family's request regarding possible stem cell therapy. We discussed that at this point patient has multiple strokes and has evidence of anoxic brain injury with failure of multiple waking up trials along with ongoing elevated white count, acute kidney injury with creatinine of 1.3. As per Dr. Mills given all the above patient is not a good candidate for stem cell treatment and has a very poor prognosis, he would convey this to patient's as well. 01/12/21: Patient seen with at bedside. was at bedside and witnessed pt not having purposeful movements off sedation and asked further questions about future prognosis and clinical course after terminal extubation-explained her that difficult to say how many hours or days (as he still has brain stem reflexes) it will take for him to pass away -she would want her children to be at bedside when she opts for terminal extubation and would want to come back on Friday (01/15) with her family-until then requested to keep him comfortable. Refused for trach and PEG and LTAC Case discussed with mine car mechanic. Appreciate mine car mechanic care. If and when patient comes out of ICU will resume patient's care. Severely guarded prognosis. Family considering transfer to outside facility. Have been denied beds at outside [place] hospitals. Attestations Medical Necessity Statement*: Requires further hospitalization for management of severe ARDS, ventilator dependent secondary COVID-19 pneumonia, anoxic brain injury while further goals of care discussions were done with family. Time Spent in Patient Care: Greater than 35 minutes (>than 50% of time spent in counselling and/or direct pt care on unit). Coding Level of Care Code Acute [place] [facility] for [facility] Fwd Diagnoses Encephalopathy G93.40 Acute respiratory distress syndrome (ARDS) due to 2019 novel coronavirus U07.1; J80 COVID-19 U07.1 NSTEMI (non-ST elevated myocardial infarction) I21.4 Sepsis A41.9; R65.21; J96.01 Sepsis type: sepsis due to unspecified organism Sepsis acute organ dysfunction status: with acute organ dysfunction Severe sepsis acute organ dysfunction type: acute respiratory failure Acute respiratory failure type: with hypoxia Severe sepsis shock status: with septic shock Cardiac arrest I46.9 Metabolic acidosis E87.2 Acute kidney injury N17.9 DVT (deep venous thrombosis) I82.403 DVT location: lower extremity Affected thrombotic vein of extremity: unspecified vein of extremity Chronicity: unspecified Laterality: bilateral CVA (cerebral vascular accident) I63.40 CVA mechanism: embolism Precerebral and cerebral artery: unspecified cerebral artery Hypernatremia E87.0
--- NOTE | 2021-01-12 17:42 | PM.PN ---
Subjective Subjective: Interval history: -No change in clinical status -Taper down sedation propofol and Precedex and continued fentanyl 25 MCG per hour-patient became tachycardic with some PVCs, hypertensive and hypertensive-had cough reflex but did not wake up or made any purposeful movements - was at bedside and asked further questions about future prognosis and clinical course after terminal extubation-explained difficult to say how many hours or days it will take for him to pass away -she would want her children to be at bedside when she opts for terminal extubation and would want to come back on Friday with her family-until then requested to keep him comfortable Medications: Reviewed: Yes Vitals/I&O/Wt Last Vital Signs Temp 98.5 F 01/12/21 12:30 Pulse 97 01/12/21 16:00 Resp 18 01/12/21 16:00 BP 152/73 01/12/21 16:00 Pulse Ox 94 01/12/21 16:00 01/12/21 01/12/21 01/12/21 06:59 14:59 22:59 Intake Total 654.605 / 1358.136 124.791 / 124.791 9.667 / 134.458 Output Total 650 / 1100 Balance 4.605 / 258.136 124.791 / 124.791 9.667 / 134.458 Weight last 48 hrs Weight 201 lb 11.2 oz Weight 194 lb Physical Exam Narrative: EXAM NARRATIVE: General: lying in bed, sedated and intubated. HEENT:NCAT, PERRLA, EOMI, has cough reflex Neck: Supple Lungs: Reduced breath sounds bilaterally Heart: s1/s2, RRR Abd: soft, NT, ND, BS + Normoactive Extremities: No edema; Mottled appearing feet; feeble pulses on lower extremities R>L; cold feet R> L EVENT SALES REPRESENTATIVE: sedated and limited EVENT SALES REPRESENTATIVE exam possible, no purposeful movements off sedation SKIN: no rash Data : 01/11/21 08:32 01/11/21 08:32 Other Labs: Laboratory Results WBC 18.6 10^3/uL (4.0-10.0) H 01/11/21 08:32 RBC 3.40 10^6/uL (4.1-5.3) L 01/11/21 08:32 Hgb 10.1 g/dL (11.7-16.6) L 01/11/21 08:32 Hct 32.4 % (42.0-52.0) L 01/11/21 08:32 MCV 95.3 fL (80-94) H 01/11/21 08:32 MCH 29.7 pg (28.0-34.0) 01/11/21 08:32 MCHC 31.2 g/dL (30.0-36.0) 01/11/21 08:32 RDW 16.2 % (12.1-15.1) H 01/11/21 08:32 Plt Count 163 10^3/cmm (130-400) 01/11/21 08:32 MPV 12.9 fL (7.4-10.4) H 01/11/21 08:32 Neut % (Auto) 91.0 % 01/11/21 08:32 Lymph % (Auto) 1.8 % 01/11/21 08:32 Woods % (Auto) 3.9 % 01/11/21 08:32 Eos % (Auto) 0.4 % 01/11/21 08:32 Baso % (Auto) 0.2 % 01/11/21 08:32 Neut # (Auto) 16.92 10^3/uL (1.8-7.7) H 01/11/21 08:32 Lymph # (Auto) 0.3 10^3/uL (0.8-4.8) L 01/11/21 08:32 Woods # (Auto) 0.7 10^3/uL (0.2-0.9) 01/11/21 08:32 Eos # (Auto) 0.1 10^3/uL (0.0-0.8) 01/11/21 08:32 Baso # (Auto) 0.0 10^3/uL (0.0-0.1) 01/11/21 08:32 Nucleated RBC % (auto) 0 % 01/11/21 08:32 Total Counted 100 (0-100) 01/04/21 05:15 Atypical Lymphs % 1.0 % (0-5) 01/04/21 05:15 Absolute Neutrophils 28.9 10^3/cmm (1.4-6.5) H 01/04/21 05:15 Segmented Neutrophils 71 % 01/04/21 05:15 Abs Segm Neuts (Man) 22.6 10/cmm (1.6-7.1) H 01/04/21 05:15 Band Neutrophils 20.0 % 01/04/21 05:15 Abs Band Neuts (Man) 6.4 10^3/cmm (0.0-1.2) H 01/04/21 05:15 Absolute Lymphocytes 0.3 10^3/cmm (1.2-3.4) L 01/04/21 05:15 Lymphocytes (Manual) 0 % 01/04/21 05:15 Monocytes (Manual) 2.0 % 01/04/21 05:15 Absolute Monocytes 0.6 10^3/cmm (0.1-0.6) 01/04/21 05:15 Eosinophils (Manual) 0 % 01/04/21 05:15 Absolute Eosinophils 0.0 10^3/cmm (0.0-0.7) 01/04/21 05:15 Basophils (Manual) 0.0 % 01/04/21 05:15 Absolute Basophils 0.0 10^3/cmm (0.0-0.2) 01/04/21 05:15 Metamyelocytes 2.0 % 01/04/21 05:15 Myelocytes 4.0 % 01/04/21 05:15 Nucleated RBCs # 0.0 /100WBC 01/11/21 08:32 Platelet Estimate Normal (Normal) 01/04/21 05:15 Giant Platelets 1+ H 12/31/20 05:09 Poikilocytosis 1+ H 01/04/21 05:15 Anisocytosis 1+ H 12/31/20 05:09 APTT 50.7 SECONDS (23.9-36.7) H 01/03/21 05:35 D-Dimer >= 20.00 ug/mIFEU (0-0.59) H 12/29/20 01:12 Specimen Type Arterial 01/11/21 09:37 Sample Site Radial, right 01/11/21 09:37 ABG pH 7.27 (7.35-7.45) L 01/11/21 09:37 ABG pCO2 48.7 mmHg (35-45) H 01/11/21 09:37 ABG pO2 63.6 mmHg (80.0-100.0) L 01/11/21 09:37 ABG HCO3 22.4 mmol/L (22-26) 01/11/21 09:37 ABG O2 Saturation 89.2 01/11/21 09:37 ABG Base Excess -4.7 mmol/L (-2.0-2.0) L 01/11/21 09:37 Oswaldo Test Pos 01/11/21 09:37 A-a O2 Gradient 49.1 mmHg (5-10) H 01/11/21 09:37 Hematocrit 37.3 % (42-52) L 01/11/21 09:37 Hgb O2 Saturation 87.1 % (95-100) L 01/11/21 09:37 Carboxyhemoglobin 1.5 %THgb (0.4-20.1) 01/11/21 09:37 Methemoglobin 0.9 % (0.4-1.5) 01/11/21 09:37 Total Hemoglobin 12.2 g/dL (14-18) L 01/11/21 09:37 Sodium 140.0 mmol/L (131-143) 01/11/21 09:37 Potassium 4.9 mmol/L (3.5-5.0) 01/11/21 09:37 Glucose 109.0 mg/dL (70-115) 01/11/21 09:37 Ionized Calcium 1.1 mmol/L (1.1-1.4) 01/11/21 09:37 O2 Delivery Device Vent 01/11/21 09:37 FiO2 70.0 % 01/11/21 09:37 Tidal Volume 0.50 01/11/21 09:37 PEEP 10.0 cmH20 01/11/21 09:37 Meterman ID Monro 01/11/21 09:37 Sodium 138 mmol/L (136-145) 01/11/21 08:32 Potassium 5.1 mmol/L (3.5-5.1) 01/11/21 08:32 Chloride 107 mmol/L (98-107) 01/11/21 08:32 Carbon Dioxide 21 mmol/L (22-29) L 01/11/21 08:32 Anion Gap 15.1 (5-19) 01/11/21 08:32 BUN 74 mg/dL (8-23) H 01/11/21 08:32 Creatinine 1.8 mg/dL (0.7-1.2) H 01/11/21 08:32 GFR Calculation Not Reportable 01/11/21 08:32 Glucose 100 mg/dL (65-115) 01/11/21 08:32 POC Glucose 78 mg/dL (70-110) 01/12/21 17:43 Calculated Osmolality 308 mOsm/kg (285-295) H 01/11/21 08:32 Lactic Acid 15.1 mmol/L (0.5-2.2) H* 12/28/20 19:11 Lactate 3.8 mmol/L (0.5-2.2) H 12/29/20 15:30 Calcium 7.3 mg/dL (8.5-10.5) L 01/11/21 08:32 Phosphorus 4.3 mg/dL (2.5-4.5) 12/29/20 11:41 Magnesium 2.5 mg/dL (1.7-2.3) H 01/11/21 08:32 Ferritin > 2414 ng/mL (30-400) H 12/29/20 01:12 Ferritin Cancelled 12/29/20 01:12 Total Bilirubin 0.9 mg/dL (0.15-1.2) 01/11/21 08:32 AST 47 U/L (0-40) H 01/11/21 08:32 ALT 34 U/L (0-41) 01/11/21 08:32 Alkaline Phosphatase 78 IU/L (40-130) 01/11/21 08:32 Lactate Dehydrogenase > 1330 U/L (135-225) H 12/29/20 01:12 Lactate Dehydrogenase Cancelled 12/29/20 01:12 Creatine Kinase 49 U/L (39-308) 01/08/21 03:17 Troponin T Baseline 99 ng/L (0-15) H 12/28/20 19:11 Troponin T 120 Minute 238.1 ng/L (0-15) H 12/28/20 21:20 Delta Troponin T 139.1 ABS# (0-10) H* 12/28/20 21:20 Troponin T Hi Sens 6Hr 273.1 ng/L (0-15) H 12/29/20 01:23 Troponin T Hi Sens 6Hr Delta 174.1 ng/L (0-12) H* 12/29/20 01:23 C-Reactive Protein 243.4 mg/L (0.0-4.9) H 12/29/20 01:12 C-Reactive Protein Cancelled 12/29/20 01:12 NT-Pro-B Natriuret Pep 2188 pg/mL (0-450) H 12/28/20 19:11 Total Protein 5.2 g/dL (6.6-8.7) L 01/11/21 08:32 Albumin 2.2 g/dL (3.5-5.2) L 01/11/21 08:32 Globulin 3.0 g/dL (1.3-4.6) 01/11/21 08:32 Procalcitonin 0.43 ng/mL (0-0.5) 01/05/21 05:15 Urine Color Yellow (Yellow) 12/28/20 19:30 Urine Appearance Clear (CLEAR) 12/28/20 19:30 Urine pH 5 (5-7) 12/28/20 19:30 Ur Specific Mather 1.010 (1.005-1.030) 12/28/20 19:30 Urine Protein 1+ (Negative) H 12/28/20 19:30 Urine Glucose (UA) Norm (Normal) 12/28/20 19:30 Urine Ketones 1+ (Negative) H 12/28/20 19:30 Urine Blood 2+ (Negative) H 12/28/20 19:30 Urine Nitrate Negative (Negative) 12/28/20 19:30 Urine Bilirubin Neg (Negative) 12/28/20 19:30 Urine Urobilinogen Norm mg/dL (Negative) 12/28/20 19:30 Ur Leukocyte Esterase Negative (Negative) 12/28/20 19:30 Urine RBC 0-4 /hpf (0-2) H 12/28/20 19:30 Urine WBC 0-4 /hpf (0-5) H 12/28/20 19:30 Ur Squamous Epith Cells 0-4 /hpf (0-5) H 12/28/20 19:30 Ur Transition Epith Cell 0-4 /hpf 12/28/20 19:30 Amorphous Sediment 3+ /hpf 12/28/20 19:30 Urine Bacteria 1+ /hpf (NONE) H 12/28/20 19:30 Urine Mucus Trace /hpf 12/28/20 19:30 Vancomycin Trough 20.2 ug/mL (10-15) H 01/03/21 11:[address] 01/01/21 13:16 IMPRESSION: 1. Multiple cortical based low-attenuation lesions involving the bilateral parietal and occipital lobes and right greater than left cerebellum suspicious for multiple subacute infarcts. 2. One or 2 additional similar lesions in the right frontal lobe. 3. Mild posterior fossa mass effect with mild mass effect on the fourth ventricle and crowding at the foramen magnum. 4. Findings are suspicious for multiple subacute embolic versus watershed infarcts. PRESS is an additional consideration. Recommend correlation for hypertension Notified Dr. Novak at 01/01/2021 5:05 PM. Abdomen/Pelvis CT 01/07/21 09:03 IMPRESSION: 1. No acute abdominal/pelvic findings. 2. Consolidation at both lung bases suggestive of multifocal pneumonia. Radiation Dose CTDIVOL = (mGy): DLP = 1679.2 (mGy-cm) Chest X-Ray 01/10/21 05:03 IMPRESSION: Diffuse bilateral pulmonary infiltrates. No significant change since 01/08/2021. A&P Assessment and plan (1) Hyperkalemia: Status: Acute (2) CVA (cerebral vascular accident): Status: Acute Qualifiers: CVA mechanism: embolism Precerebral and cerebral artery: unspecified cerebral artery Qualified Code(s): I63.40 - Cerebral infarction due to embolism of unspecified cerebral artery (3) MRSA pneumonia: Status: Acute Qualifiers: Laterality: unspecified laterality Lung location: unspecified part of lung Qualified Code(s): J15.212 - Pneumonia due to Methicillin resistant Staphylococcus aureus (4) Acute right-sided heart failure: Status: Acute (5) DVT (deep venous thrombosis): Status: Acute Qualifiers: DVT location: lower extremity Affected thrombotic vein of extremity: unspecified vein of extremity Chronicity: unspecified Laterality: bilateral Qualified Code(s): I82.403 - Acute embolism and thrombosis of unspecified deep veins of lower extremity, bilateral (6) Acute respiratory distress syndrome (ARDS) due to 2019 novel coronavirus: Status: Acute (7) Acute kidney injury: Status: Acute (8) Sepsis with acute hypoxic respiratory failure: Status: Acute Qualifiers: Sepsis type: sepsis due to unspecified organism Severe sepsis shock status: with septic shock Qualified Code(s): A41.9 - Sepsis, unspecified organism; R65.21 - Severe sepsis with septic shock; J96.01 - Acute respiratory failure with hypoxia (9) NSTEMI (non-ST elevated myocardial infarction): Status: Acute (10) Cardiac arrest: Status: Acute (11) PAD (peripheral artery disease): Status: Acute (12) Counseling regarding advanced care planning and goals of care: Status: Acute # AMS due to Anoxic brain injury & multiple strokes including evidence of increased pressure in the posterior fossa on CT # Acute hypoxic respiratory failure secondary to ARDS due to COVID 19 PNA and PE ; MRSA Pneumonia # s/p Cardiac arrest & Acute right-sided heart failure likely due to hypoxia due to COVID ARDS Vs PE #Bilateral DVT with clots in transit on B/L LE Doppler # Resting TAMMY of 0.47 on the right side and 0.53 on the left side - Severe B/L PAD #Hyperkalemia - ? heparin induced hypoaldosteronism # Hypernatremia due to CDI due central causes #MRSA pneumonia-on linezolid -Patient has spontaneous breaths, has cough reflexes-but does not follow commands or purposeful movements -Currently on fentanyl, propofol, Precedex -With multiple strokes as evidenced on CT brain s/p cardiac arrest-not sure how much meaningful neurological recovery he will have -EEG The lack of cerebral activity would not portend a good prognosis, but with the amount of spontaneous movement this is not electrocerebral silence. - S/P 5 days remdesivir & 10 days dexamethasone - CMV 400/60%/8 PEEP this morning - duoneb, dexamethasone - it is possible that the patient had embolization of the DVT causing PE and acute RV dysfunction & cardiac arrest - On Lovenox 90 mg q 12hr for b/l DVT -Bilateral lower extremity arterial Doppler suggestive of severe PAD in both legs -Improving leucocytosis: low procal, CT abd/pelvis: no acute abdominal/pelvic findings - Sputum cx - MRSA ; needs to be on contact isolation - Currently on Linezolid and Cefepime - moderately controlled sugars - on scale coverge - GI PPX - ppI -High residuals-held tube feeding - Ongoing goals of care discussion The family wants to transfer patient to [place] but due to his poor prognosis so far none of the facilities accepted. Also was trying to pursue stem cell transplant hoping will be a miracle and patient becomes completely functional, Dr Hernandez who performs these stem cell transplants-reported they are not FDA approved and told patient is not a eligible candidate after learning that patient had multiple strokes and had cardiac arrest. Patient has poor mentation despite turning off sedation possible due to multiple watershed infarcts. initially agreeable for trach and PEG and transfer to long-term facility that manages ventilated patients on trach. As per sample case porter patient does not qualify for long-term acute care facility admission due to his Medicare. On 01/11/2021: Ethics committee notified; had a meeting with its ethics committee, care team and patient and son-agreement was made that will stay overnight at patient bedside and see how patient does and will make decision tomorrow morning 01/12/21: was at bedside and witnessed pt not having purposeful movements off sedation and asked further questions about future prognosis and clinical course after terminal extubation-explained her that difficult to say how many hours or days (as he still has brain stem reflexes) it will take for him to pass away -she would want her children to be at bedside when she opts for terminal extubation and would want to come back on Friday (01/15) with her family-until then requested to keep him comfortable. Refused for trach and PEG and LTACH Recommendations conveyed to Hospitalist, RN, RT covering the pt Attestations Medical Necessity Statement*: AMS due to multiple infarcts in covid 19 pt - ventilator dependent and on going goals of care discussion Time Spent in Patient Care: Greater than 35 minutes (>than 50% of time spent in counselling and/or direct pt care on unit). Critical Care Time: The high probability of a clinically significant, sudden or life threatening deterioration of the patient's [neurological, respiratory, cardiac, vascular, renal] system(s) required my full and direct attention, intervention and personal management. The critical care time is as shown. This time is in addition to time spent performing any reported procedures but includes the following: [x] Data and vital sign review and interpretation [x] Patient assessment, examination and intervention [x] Documentation [x] Medication orders and management Critical Care Time (min): 45 Coding Level of Care Code Established Pt Acute Line Inspector for Susy Yi Patient Type Established History Comprehensive Exam Comprehensive Diagnoses Hyperkalemia E87.5 CVA (cerebral vascular accident) I63.40 CVA mechanism: embolism Precerebral and cerebral artery: unspecified cerebral artery MRSA pneumonia J15.212 Laterality: unspecified laterality Lung location: unspecified part of lung Acute right-sided heart failure I50.811 DVT (deep venous thrombosis) I82.403 DVT location: lower extremity Affected thrombotic vein of extremity: unspecified vein of extremity Chronicity: unspecified Laterality: bilateral Acute respiratory distress syndrome (ARDS) due to 2019 novel coronavirus U07.1; J80 Acute kidney injury N17.9 Sepsis with acute hypoxic respiratory failure A41.9; R65.21; J96.01 Sepsis type: sepsis due to unspecified organism Severe sepsis shock status: with septic shock NSTEMI (non-ST elevated myocardial infarction) I21.4 Cardiac arrest I46.9 PAD (peripheral artery disease) I73.9 Counseling regarding advanced care planning and goals of care Z71.89 Time Spent (min) 30 Comment Goals of care discussion at bedside
[2021-01-12 17:45] LABS: Glucose Point of Care 78 mg/dL (70-110)
--- NOTE | 2021-01-12 19:22 | PC.NURSE ---
Shift summary: Pt remains intubated and on vent. Fio2 remains at 70%. No vent setting changes today. Propofol, Fentanyl and Precedex remains infusing, see MAR for rate adjustments. No purposeful movement continues. spent the night at bedside last night. She did admit that she noticed no movement form her today. He continues see-saw breaths. noticed that as well. Propofol and PRecedex stopped and within minutes PVCs and bijiminy noted on monitor, with increased respirations and BP. Sedation restarted. with Fentanyl rate increased briefly for comfort. Plan of care discussion with , Dr Gonzales and this nurse. wants to wait until Friday for decisions when son is available. Report given to LILLIANA Khalil. During shift report elevated heart rate of 130-140's noted. Fentanyl gtt and Precedex gtt increased, see MAR. Frequent safety and comfort rounds continue. Orders and/or nursing care completed as indicated. Patient monitored for response to intervention and treatment(s). Education provided includes end of life care verbalized understanding though initially she was resistant. Will continue to monitor.
[2021-01-12] MEDS: dexmedetomidine 400 MCG in sodium chloride 0.9% (100 ml) 100 ML 12.09 MCG IV (19:28)
[2021-01-12] MEDS: propofol 1,000 MG/100 ML INJ 17.96 MG IV (19:30)
[2021-01-12] MEDS: atorvastatin 40 mg Tablet OG-TUBE (20:48)
[2021-01-12] MEDS: metoprolol tartrate 1 mg/1 mL SDV 5 mL 5 MG IVP (20:55)
--- NOTE | 2021-01-12 21:45 | ECG_ITS ---
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 Measurements Intervals Palmer Rate: 129 P: MA: QRS: 10 QRSD: 74 T: -23 QT: 302 QTc: 442 Interpretive Statements ATRIAL FLUTTER/TACHYCARDIA WITH RAPID VENTRICULAR RESPONSE MODERATE ST DEPRESSION [0.05+ mV ST DEPRESSION] Compared to ECG 12/29/2020 00:34:10 ST (T wave) deviation now present Sinus tachycardia no longer present Incomplete right bundle-branch block no longer present Electronically Signed On 01-14-2021 16:32:01 CDT by Jasmyne Jimenez M.D. [id number]
[2021-01-12] MEDS: dexamethasone 10 mg/mL INJ 6 MG IVP (22:40)
[2021-01-13] VITALS (115 sets, daily range): BP systolic 64–201; BP diastolic 38–87; PULSE 59–148; RESP 14–202; TEMP 34.8–36.5; O2SAT 84–99
[2021-01-13] MEDS: dexmedetomidine 400 MCG in sodium chloride 0.9% (100 ml) 100 ML 24.18 MCG IV ×3 (01:06→11:34)
[2021-01-13] MEDS: ipratropium-albuterol 3 mL Neb INHALATION ×3 (02:17→20:26)
--- NOTE | 2021-01-13 04:48 | PC.NURSE ---
Shift Note Frequent safety and comfort rounds continue. Orders and/or nursing care completed as indicated. Patient monitored for response to intervention and treatment(s). Education provided includes medications, position changes, mental status, [facility]. Patient did not respond due to acute status. At shift change patient was sinus tach, heart rate 130's-145 bmp, tachypenic with paradoxial breathing pattern. Spoke with Dr. Gonzales, order received for metoprolol, patients did not respond to intervention. Rhythm changed to Aflutter HR 130's, Dr. Colon notified and orders received to increase precedex, and patient responded to increased sedation and converted to sinus rhythm, 60-80' bpm. Later in the shift patient became increasingly hypotensive but remained sinus rhythm with HR >60 bpm, propofol was placed on hold, with levophed restarted. Patient remained comfortable with stable V/S after interventions. During shift, neurologically patient did not respond to verbal or physical stimuli including painful stimuli. Will continue to monitor.
[2021-01-13 05:35] LABS: Glucose Point of Care 96 mg/dL (70-110)
[2021-01-13] MEDS: enoxaparin 100 mg/mL Syringe 90 MG SUBCUT ×2 (06:00→17:45)
[2021-01-13] MEDS: linezolid premix 600 MG/300 ML PREMIX 300 MG IV ×2 (06:00→17:45)
[2021-01-13 06:24] LABS: Glucose Point of Care 188 mg/dL (70-110)
[2021-01-13 06:24] LABS: Glucose Point of Care 92 mg/dL (70-110)
[2021-01-13] MEDS: clopidogrel 75 mg Tablet PO (08:31)
[2021-01-13] MEDS: pantoprazole 40 mg SDV IVP (08:31)
--- NOTE | 2021-01-13 09:43 | PM.PN ---
Subjective Subjective: Interval history: fentanyl 75, levo 2, precedex 1 FIO2 65% Redness seen on her sacrum, left hip blister - bilateral heal decubiti No fevers Labs and imaging reviewed Awaiting family to come on Friday to make decision regarding terminal extubation Medications: Reviewed: Yes Vitals/I&O/Wt Last Vital Signs Temp 97.4 F L 01/13/21 04:00 Pulse 60 01/13/21 08:26 Resp 21 H 01/13/21 08:22 BP 105/52 01/13/21 06:45 Pulse Ox 95 01/13/21 08:22 01/12/21 01/13/21 01/13/21 22:59 06:59 14:59 Intake Total 634.728 / 759.519 375.003 / 1134.522 300 / 300 Output Total 920 / 920 650 / 1570 Balance -285.272 / -160.481 -274.997 / -435.478 300 / 300 Weight last 48 hrs Weight 198 lb 6.4 oz Weight 201 lb 11.2 oz Physical Exam Narrative: EXAM NARRATIVE: General: lying in bed, sedated and intubated. 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0-36.0) 01/11/21 08:32 RDW 16.2 % (12.1-15.1) H 01/11/21 08:32 Plt Count 163 10^3/cmm (130-400) 01/11/21 08:32 MPV 12.9 fL (7.4-10.4) H 01/11/21 08:32 Neut % (Auto) 91.0 % 01/11/21 08:32 Lymph % (Auto) 1.8 % 01/11/21 08:32 Menard % (Auto) 3.9 % 01/11/21 08:32 Eos % (Auto) 0.4 % 01/11/21 08:32 Baso % (Auto) 0.2 % 01/11/21 08:32 Neut # (Auto) 16.92 10^3/uL (1.8-7.7) H 01/11/21 08:32 Lymph # (Auto) 0.3 10^3/uL (0.8-4.8) L 01/11/21 08:32 Menard # (Auto) 0.7 10^3/uL (0.2-0.9) 01/11/21 08:32 Eos # (Auto) 0.1 10^3/uL (0.0-0.8) 01/11/21 08:32 Baso # (Auto) 0.0 10^3/uL (0.0-0.1) 01/11/21 08:32 Nucleated RBC % (auto) 0 % 01/11/21 08:32 Total Counted 100 (0-100) 01/04/21 05:15 Atypical Lymphs % 1.0 % (0-5) 01/04/21 05:15 Absolute Neutrophils 28.9 10^3/cmm (1.4-6.5) H 01/04/21 05:15 Segmented Neutrophils 71 % 01/04/21 05:15 Abs Segm Neuts (Man) 22.6 10/cmm (1.6-7.1) H 01/04/21 05:15 Band Neutrophils 20.0 % 01/04/21 05:15 Abs Band Neuts (Man) 6.4 10^3/cmm (0.0-1.2) H 01/04/21 05:15 Absolute Lymphocytes 0.3 10^3/cmm (1.2-3.4) L 01/04/21 05:15 Lymphocytes (Manual) 0 % 01/04/21 05:15 Monocytes (Manual) 2.0 % 01/04/21 05:15 Absolute Monocytes 0.6 10^3/cmm (0.1-0.6) 01/04/21 05:15 Eosinophils (Manual) 0 % 01/04/21 05:15 Absolute Eosinophils 0.0 10^3/cmm (0.0-0.7) 01/04/21 05:15 Basophils (Manual) 0.0 % 01/04/21 05:15 Absolute Basophils 0.0 10^3/cmm (0.0-0.2) 01/04/21 05:15 Metamyelocytes 2.0 % 01/04/21 05:15 Myelocytes 4.0 % 01/04/21 05:15 Nucleated RBCs # 0.0 /100WBC 01/11/21 08:32 Platelet Estimate Normal (Normal) 01/04/21 05:15 Giant Platelets 1+ H 12/31/20 05:09 Poikilocytosis 1+ H 01/04/21 05:15 Anisocytosis 1+ H 12/31/20 05:09 APTT 50.7 SECONDS (23.9-36.7) H 01/03/21 05:35 D-Dimer >= 20.00 ug/mIFEU (0-0.59) H 12/29/20 01:12 Specimen Type Arterial 01/11/21 09:37 Sample Site Radial, right 01/11/21 09:37 ABG pH 7.27 (7.35-7.45) L 01/11/21 09:37 ABG pCO2 48.7 mmHg (35-45) H 01/11/21 09:37 ABG pO2 63.6 mmHg (80.0-100.0) L 01/11/21 09:37 ABG HCO3 22.4 mmol/L (22-26) 01/11/21 09:37 ABG O2 Saturation 89.2 01/11/21 09:37 ABG Base Excess -4.7 mmol/L (-2.0-2.0) L 01/11/21 09:37 Oswaldo Test Pos 01/11/21 09:37 A-a O2 Gradient 49.1 mmHg (5-10) H 01/11/21 09:37 Hematocrit 37.3 % (42-52) L 01/11/21 09:37 Hgb O2 Saturation 87.1 % (95-100) L 01/11/21 09:37 Carboxyhemoglobin 1.5 %THgb (0.4-20.1) 01/11/21 09:37 Methemoglobin 0.9 % (0.4-1.5) 01/11/21 09:37 Total Hemoglobin 12.2 g/dL (14-18) L 01/11/21 09:37 Sodium 140.0 mmol/L (131-143) 01/11/21 09:37 Potassium 4.9 mmol/L (3.5-5.0) 01/11/21 09:37 Glucose 109.0 mg/dL (70-115) 01/11/21 09:37 Ionized Calcium 1.1 mmol/L (1.1-1.4) 01/11/21 09:37 O2 Delivery Device Vent 01/11/21 09:37 FiO2 70.0 % 01/11/21 09:37 Tidal Volume 0.50 01/11/21 09:37 PEEP 10.0 cmH20 01/11/21 09:37 Supervisor [employer] [place] 01/11/21 09:37 Sodium 138 mmol/L (136-145) 01/11/21 08:32 Potassium 5.1 mmol/L (3.5-5.1) 01/11/21 08:32 Chloride 107 mmol/L (98-107) 01/11/21 08:32 Carbon Dioxide 21 mmol/L (22-29) L 01/11/21 08:32 Anion Gap 15.1 (5-19) 01/11/21 08:32 BUN 74 mg/dL (8-23) H 01/11/21 08:32 Creatinine 1.8 mg/dL (0.7-1.2) H 01/11/21 08:32 GFR Calculation Not Reportable 01/11/21 08:32 Glucose 100 mg/dL (65-115) 01/11/21 08:32 POC Glucose 164 mg/dL (70-110) H 01/14/21 11:56 Calculated Osmolality 308 mOsm/kg (285-295) H 01/11/21 08:32 Lactic Acid 15.1 mmol/L (0.5-2.2) H* 12/28/20 19:11 Lactate 3.8 mmol/L (0.5-2.2) H 12/29/20 15:30 Calcium 7.3 mg/dL (8.5-10.5) L 01/11/21 08:32 Phosphorus 4.3 mg/dL (2.5-4.5) 12/29/20 11:41 Magnesium 2.5 mg/dL (1.7-2.3) H 01/11/21 08:32 Ferritin > 2414 ng/mL (30-400) H 12/29/20 01:12 Ferritin Cancelled 12/29/20 01:12 Total Bilirubin 0.9 mg/dL (0.15-1.2) 01/11/21 08:32 AST 47 U/L (0-40) H 01/11/21 08:32 ALT 34 U/L (0-41) 01/11/21 08:32 Alkaline Phosphatase 78 IU/L (40-130) 01/11/21 08:32 Lactate Dehydrogenase > 1330 U/L (135-225) H 12/29/20 01:12 Lactate Dehydrogenase Cancelled 12/29/20 01:12 Creatine Kinase 49 U/L (39-308) 01/08/21 03:17 Troponin T Baseline 99 ng/L (0-15) H 12/28/20 19:11 Troponin T 120 Minute 238.1 ng/L (0-15) H 12/28/20 21:20 Delta Troponin T 139.1 ABS# (0-10) H* 12/28/20 21:20 Troponin T Hi Sens 6Hr 273.1 ng/L (0-15) H 12/29/20 01:23 Troponin T Hi Sens 6Hr Delta 174.1 ng/L (0-12) H* 12/29/20 01:23 C-Reactive Protein 243.4 mg/L (0.0-4.9) H 12/29/20 01:12 C-Reactive Protein Cancelled 12/29/20 01:12 NT-Pro-B Natriuret Pep 2188 pg/mL (0-450) H 12/28/20 19:11 Total Protein 5.2 g/dL (6.6-8.7) L 01/11/21 08:32 Albumin 2.2 g/dL (3.5-5.2) L 01/11/21 08:32 Globulin 3.0 g/dL (1.3-4.6) 01/11/21 08:32 Procalcitonin 0.43 ng/mL (0-0.5) 01/05/21 05:15 Urine Color Yellow (Yellow) 12/28/20 19:30 Urine Appearance Clear (CLEAR) 12/28/20 19:30 Urine pH 5 (5-7) 12/28/20 19:30 Ur Specific Etters 1.010 (1.005-1.030) 12/28/20 19:30 Urine Protein 1+ (Negative) H 12/28/20 19:30 Urine Glucose (UA) Norm (Normal) 12/28/20 19:30 Urine Ketones 1+ (Negative) H 12/28/20 19:30 Urine Blood 2+ (Negative) H 12/28/20 19:30 Urine Nitrate Negative (Negative) 12/28/20 19:30 Urine Bilirubin Neg (Negative) 12/28/20 19:30 Urine Urobilinogen Norm mg/dL (Negative) 12/28/20 19:30 Ur Leukocyte Esterase Negative (Negative) 12/28/20 19:30 Urine RBC 0-4 /hpf (0-2) H 12/28/20 19:30 Urine WBC 0-4 /hpf (0-5) H 12/28/20 19:30 Ur Squamous Epith Cells 0-4 /hpf (0-5) H 12/28/20 19:30 Ur Transition Epith Cell 0-4 /hpf 12/28/20 19:30 Amorphous Sediment 3+ /hpf 12/28/20 19:30 Urine Bacteria 1+ /hpf (NONE) H 12/28/20 19:30 Urine Mucus Trace /hpf 12/28/20 19:30 Vancomycin Trough 20.2 ug/mL (10-15) H 01/03/21 11:[address] 01/01/21 13:16 IMPRESSION: 1. Multiple cortical based low-attenuation lesions involving the bilateral parietal and occipital lobes and right greater than left cerebellum suspicious for multiple subacute infarcts. 2. One or 2 additional similar lesions in the right frontal lobe. 3. Mild posterior fossa mass effect with mild mass effect on the fourth ventricle and crowding at the foramen magnum. 4. Findings are suspicious for multiple subacute embolic versus watershed infarcts. PRESS is an additional consideration. Recommend correlation for hypertension Notified Dr. Novak at 01/01/2021 5:05 PM. Abdomen/Pelvis CT 01/07/21 09:03 IMPRESSION: 1. No acute abdominal/pelvic findings. 2. Consolidation at both lung bases suggestive of multifocal pneumonia. Radiation Dose CTDIVOL = (mGy): DLP = 1679.2 (mGy-cm) Chest X-Ray 01/10/21 05:03 IMPRESSION: Diffuse bilateral pulmonary infiltrates. No significant change since 01/08/2021. A&P Assessment and plan (1) Hyperkalemia: Status: Acute (2) CVA (cerebral vascular accident): Status: Acute Qualifiers: CVA mechanism: embolism Precerebral and cerebral artery: unspecified cerebral artery Qualified Code(s): I63.40 - Cerebral infarction due to embolism of unspecified cerebral artery (3) MRSA pneumonia: Status: Acute Qualifiers: Laterality: unspecified laterality Lung location: unspecified part of lung Qualified Code(s): J15.212 - Pneumonia due to Methicillin resistant Staphylococcus aureus (4) Acute right-sided heart failure: Status: Acute (5) DVT (deep venous thrombosis): Status: Acute Qualifiers: DVT location: lower extremity Affected thrombotic vein of extremity: unspecified vein of extremity Chronicity: unspecified Laterality: bilateral Qualified Code(s): I82.403 - Acute embolism and thrombosis of unspecified deep veins of lower extremity, bilateral (6) Acute respiratory distress syndrome (ARDS) due to 2019 novel coronavirus: Status: Acute (7) Acute kidney injury: Status: Acute (8) Sepsis with acute hypoxic respiratory failure: Status: Acute Qualifiers: Sepsis type: sepsis due to unspecified organism Severe sepsis shock status: with septic shock Qualified Code(s): A41.9 - Sepsis, unspecified organism; R65.21 - Severe sepsis with septic shock; J96.01 - Acute respiratory failure with hypoxia (9) NSTEMI (non-ST elevated myocardial infarction): Status: Acute (10) Cardiac arrest: Status: Acute (11) PAD (peripheral artery disease): Status: Acute (12) Counseling regarding advanced care planning and goals of care: Status: Acute # AMS due to Anoxic brain injury & multiple strokes including evidence of increased pressure in the posterior fossa on CT # Acute hypoxic respiratory failure secondary to ARDS due to COVID 19 PNA and PE ; MRSA Pneumonia # s/p Cardiac arrest & Acute right-sided heart failure likely due to hypoxia due to COVID ARDS Vs PE #Bilateral DVT with clots in transit on B/L LE Doppler # Resting TAMMY of 0.47 on the right side and 0.53 on the left side - Severe B/L PAD #Hyperkalemia - ? heparin induced hypoaldosteronism # Hypernatremia due to CDI due central causes #MRSA pneumonia-on linezolid -Patient has spontaneous breaths, has cough reflexes-but does not follow commands or purposeful movements -Currently on fentanyl, propofol, Precedex no meaningful activity on awakening trial -With multiple strokes as evidenced on CT brain s/p cardiac arrest-not sure how much meaningful neurological recovery he will have -EEG The lack of cerebral activity would not portend a good prognosis, but with the amount of spontaneous movement this is not electrocerebral silence. - S/P 5 days remdesivir & 10 days dexamethasone - CMV 400/60%/8 PEEP this morning - duoneb, dexamethasone - it is possible that the patient had embolization of the DVT causing PE and acute RV dysfunction & cardiac arrest - On Lovenox 90 mg q 12hr for b/l DVT -Bilateral lower extremity arterial Doppler suggestive of severe PAD in both legs -Improving leucocytosis: low procal, CT abd/pelvis: no acute abdominal/pelvic findings - Sputum cx - MRSA ; needs to be on contact isolation; - Currently on Linezolid started 01/04/2021 - moderately controlled sugars - on scale coverge - GI PPX - ppI -High residuals-held tube feeding - Ongoing goals of care discussion The family wants to transfer patient to [place] but due to his poor prognosis so far none of the facilities accepted. Also was trying to pursue stem cell transplant hoping will be a miracle and patient becomes completely functional, Dr Hernandez who performs these stem cell transplants-reported they are not FDA approved and told patient is not a eligible candidate after learning that patient had multiple strokes and had cardiac arrest. Patient has poor mentation despite turning off sedation possible due to multiple watershed infarcts. initially agreeable for trach and PEG and transfer to long-term facility that manages ventilated patients on trach. As per pillowcase sewer patient does not qualify for long-term acute care facility admission due to his Medicare. also does not want patient to be on trach. On 01/11/2021: Ethics committee notified; had a meeting with its ethics committee, care team and patient and son-agreement was made that will stay overnight at patient bedside and see how patient does and will make decision tomorrow morning 01/12/21: was at bedside and witnessed pt not having purposeful movements off sedation and asked further questions about future prognosis and clinical course after terminal extubation-explained her that difficult to say how many hours or days (as he still has brain stem reflexes) it will take for him to pass away -she would want her children to be at bedside when she opts for terminal extubation and would want to come back on Friday (01/15) with her family-until then requested to keep him comfortable. Refused for trach and PEG and LTACH . 01/14/21: Awaiting all the family to arrive on 01/15/2021-to make decision about terminal extubation and comfort care; family does not agree for comfort care Recommendations conveyed to Hospitalist, RN, RT covering the pt Attestations Medical Necessity Statement*: AMS due to multiple infarcts in covid 19 pt - ventilator dependent and on going goals of care discussion Time Spent in Patient Care: 16 - 35 minutes (>than 50% of time spent in counselling and/or direct pt care on unit). Critical Care Time: The high probability of a clinically significant, sudden or life threatening deterioration of the patient's [neurological, respiratory, cardiac, vascular, renal] system(s) required my full and direct attention, intervention and personal management. The critical care time is as shown. 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[employer] Diagnoses Hyperkalemia E87.5 CVA (cerebral vascular accident) I63.40 CVA mechanism: embolism Precerebral and cerebral artery: unspecified cerebral artery MRSA pneumonia J15.212 Laterality: unspecified laterality Lung location: unspecified part of lung Acute right-sided heart failure I50.811 DVT (deep venous thrombosis) I82.403 DVT location: lower extremity Affected thrombotic vein of extremity: unspecified vein of extremity Chronicity: unspecified Laterality: bilateral Acute respiratory distress syndrome (ARDS) due to 2019 novel coronavirus U07.1; J80 Acute kidney injury N17.9 Sepsis with acute hypoxic respiratory failure A41.9; R65.21; J96.01 Sepsis type: sepsis due to unspecified organism Severe sepsis shock status: with septic shock NSTEMI (non-ST elevated myocardial infarction) I21.4 Cardiac arrest I46.9 PAD (peripheral artery disease) I73.9 Counseling regarding advanced care planning and goals of care Z71.89
[2021-01-13] MEDS: hyDRALAzine 20 mg/mL INJ 1 mL 25 MG IVP (10:34)
[2021-01-13] MEDS: propofol 1,000 MG/100 ML INJ 11.98 MG IV (11:34)
--- NOTE | 2021-01-13 11:36 | PC.NURSE ---
Fentanyl gtt: Big increased due to elevated heart rate in 140's. Heart rate down to 110, now hypotension ensues, fentanyl gtt decreased to 30mcg/hr, BP improving. Datadanny aware of these changes
[2021-01-13 12:55] LABS: Glucose Point of Care 123 mg/dL (70-110)
--- NOTE | 2021-01-13 13:12 | PC.NURSE ---
Mottling noted on right foot. Pt's temp has decreased to 94.6 even though he feels warm and he is very diaphoretic. Heart rate jumping between 80's and 120's, regular rhythm noted. BP labile, Elevated LEvophed stopped, more elevated, Hdralazine admin. Then propofol restarted and fentanyl increased. then hypotension occurs. Fentanyl, propofol adjusted. Levophed restarted. See MAR for rate adjustments.
--- NOTE | 2021-01-13 13:23 | PC.NURSE ---
Nany, notified via telephone of pt doing poorly. Heart rate elvated then back down, Labile BP, temperature decreased but pt very diaphoretic, Feet are mottling and breathing has worsened. said to keep him alive until Friday then she referred to pt's brother, whom said they would get back to us.
--- NOTE | 2021-01-13 14:30 | PC.NURSE ---
here to visit. Heart rate elevated to grater than 140. Levophed stopped. Will continue to monitor.
--- NOTE | 2021-01-13 16:40 | P.PN_ITS ---
Subjective Subjective: Interval history: Clinically remains same. Currently on fentanyl 75, levo 2, Precedex 1. FiO2 65% found to have decubitus and bilateral heel ulcers. Afebrile. not at bedside today. Medications: Reviewed: Yes Vitals/I&O/Wt Last Vital Signs Temp 98.2 F 01/14/21 12:15 Pulse 103 H 01/14/21 12:15 Resp 30 H 01/14/21 12:49 BP 111/56 01/14/21 12:15 Pulse Ox 88 L 01/14/21 12:49 01/13/21 01/14/21 01/14/21 22:59 06:59 14:59 Intake Total 587.404 / 1194.659 100 / 1294.659 808.000 / 808.000 Output Total 450 / 450 50 / 500 Balance 137.404 / 744.659 50 / 794.659 808.000 / 808.000 Weight last 48 hrs Weight 92.986 kg Weight 89.993 kg Physical Exam Narrative: EXAM NARRATIVE: General: Patient is intubated and sedated, not able to follow any command Neck: No JVD Respiratory: Auscultation: Bilateral clear to auscultation both anterior and posteriorly, no crackles wheezing or rhonchi Cardiovascular: Regular rate and rhythm, S1-S2 present, no murmur, no peripheral edema. Abdomen: Soft, nontender, nondistended, positive bowel sound Neuro: Not following commands this morning Urinary Catheter Management^: Lange: Cath Placed During This Visit: no Reason for Continuing Indwelling Catheter: Accurate Measurement of Urinary Output in Critically Ill Patients Data : 01/11/21 08:32 01/11/21 08:32 A&P Assessment and plan (1) Encephalopathy: No improvement noted today. Not seem to be appropriately waking up off sedation. Patient has failed multiple sedation vacation trials. So far has not made significant progress with regards to improvement in mental status. Concern regarding significant anoxic/ ischemic brain injury during cardiac arrest. Intermittently gagging. EEG report appreciated. 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 Sounds like plans are for transfer to [facility] for additional assessment and continued care. We will possibly repeat a CT scan of the head without contrast to rule out any hemorrhagic conversion or new strokes. Will discuss with clinical laboratory aides teacher. Status: Acute (2) Acute respiratory distress syndrome (ARDS) due to 2019 novel coronavirus: Continues on mechanical ventilatory support. Wean down as tolerating. Continue waking trials. Unfortunately patient continues to fail waking trials. Patient has been intubated for over 11 days. As per goals of care discussion with the family they are possibly waiting for some kind of stem cell therapy which they have been made aware but has to be confirmed with administration before administering the patient. Patient's family is okay with him getting trach and PEG. They have been made aware that if patient gets tracheostomy and is ventilator dependent he might have to be moved to an outpatient facility for long-term care. Status: Acute (3) COVID-19: Completed Remdisivir, continue dexamethasone. Status: Acute (4) NSTEMI (non-ST elevated myocardial infarction): Troponins with significant delta on presentation related to cardiac arrest and cardioversion Status: Acute (5) Sepsis: Tachycardia had resolved. Remains afebrile. Persistent leukocytosis. Procalcitonin 0.4. Antibiotics have been deescalated with imipenem discontinued on 01/04. So far vital signs, metabolic parameters continue to improve. Monitor for any change in condition. Multiple CVA, 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 Blood cultures negative. Continues empirically on gram-positive coverage and for MRSA pneumonia. As a result of COVID-19 pneumonia Weaned off pressor support. Status: Acute Qualifiers: Sepsis type: sepsis due to unspecified organism Sepsis acute organ dysfunction status: with acute organ dysfunction Severe sepsis acute organ dysfunction type: acute respiratory failure Acute respiratory failure type: with hypoxia Severe sepsis shock status: with septic shock Qualified Code(s): A41.9 - Sepsis, unspecified organism; R65.21 - Severe sepsis with septic shock; J96.01 - Acute respiratory failure with hypoxia (6) Cardiac arrest: As above Status: Acute (7) Metabolic acidosis: As a result of cardiac arrest Status: Acute (8) Acute kidney injury: Improving. Again as a result of cardiac arrest, renal hypoperfusion most likely explanation Status: Acute (9) DVT (deep venous thrombosis): b/l le, loose, massive Possible PE R heart failure. Continue anticoagulation. Status: Acute Qualifiers: DVT location: lower extremity Affected thrombotic vein of extremity: unspecified vein of extremity Chronicity: unspecified Laterality: bilateral Qualified Code(s): I82.403 - Acute embolism and thrombosis of unspecified deep veins of lower extremity, bilateral (10) CVA (cerebral vascular accident): Multiple CVA noted on CT of the head. Etiology at this time is not clear. Would suspect hypoperfusion during cardiac arrest, and per discussion with radiology do appear in watershed areas. Embolic etiology not excluded. Septic embolic etiology less likely, pending additional blood culture. So far negative. Continues on gram-positive coverage for now. On anticoagulation. Status: Acute Qualifiers: CVA mechanism: embolism Precerebral and cerebral artery: unspecified cerebral artery Qualified Code(s): I63.40 - Cerebral infarction due to embolism of unspecified cerebral artery (11) Hypernatremia: Resolving. 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 Improvement in urine output. Status: Acute Additional A&P Information Patient's care discussed in detail with his over the phone. We did discuss that unfortunately patient has failed multiple waking trials and has remained on ventilator support for 11 days. We did discuss goals of care with 2 options at this time. One option would be comfort measures and terminal extubation versus trach and PEG for ventilator and nutrition support. We also discussed that if he is trached and pegged at that point patient will have to be moved to an outpatient facility for long-term care. Unfortunately there are no facilities in the 100 mile radius to take care of patients with trach and ventilator. Patient's for now would want to continue the current treatment. She is trying to see if patient can get off cancer therapy from her doctor at [place]. She is requesting if doctors can speak with her outpatient doctor regarding the same. She is requesting confirmation from administration of the treatment can be given to the patient. 01/09: Patient's care discussed with Dr. Mills at family's request regarding possible stem cell therapy. We discussed that at this point patient has multiple strokes and has evidence of anoxic brain injury with failure of multiple waking up trials along with ongoing elevated white count, acute kidney injury with creatinine of 1.3. As per Dr. Mills given all the above patient is not a good candidate for stem cell treatment and has a very poor prognosis, he would convey this to patient's as well. 01/12/21: Patient seen with at bedside. was at bedside and witnessed pt not having purposeful movements off sedation and asked further questions about future prognosis and clinical course after terminal extubation-explained her that difficult to say how many hours or days (as he still has brain stem reflexes) it will take for him to pass away - she would want her children to be at bedside when she opts for terminal extubation and would want to come back on Friday (01/15) with her family-until then requested to keep him comfortable. Refused for trach and PEG and LTAC Case discussed with clinical laboratory aides teacher. Appreciate clinical laboratory aides teacher care. If and when patient comes out of ICU will resume patient's care. Severely guarded prognosis. Family considering transfer to outside facility. Have been denied beds at outside [place] hospitals. Attestations Medical Necessity Statement*: Patient requires further hospitalization for management of ventilator dependent, ARDS secondary to COVID-19 pneumonia, anoxic brain injury. Further goals of care discussions were done. Time Spent in Patient Care: 16 - 35 minutes Coding Level of Care Code Acute Manager Ambulatory for [facility] Fwd Diagnoses Encephalopathy G93.40 Acute respiratory distress syndrome (ARDS) due to 2019 novel coronavirus U07.1; J80 COVID-19 U07.1 NSTEMI (non-ST elevated myocardial infarction) I21.4 Sepsis A41.9; R65.21; J96.01 Sepsis type: sepsis due to unspecified organism Sepsis acute organ dysfunction status: with acute organ dysfunction Severe sepsis acute organ dysfunction type: acute respiratory failure Acute respiratory failure type: with hypoxia Severe sepsis shock status: with septic shock Cardiac arrest I46.9 Metabolic acidosis E87.2 Acute kidney injury N17.9 DVT (deep venous thrombosis) I82.403 DVT location: lower extremity Affected thrombotic vein of extremity: unspecified vein of extremity Chronicity: unspecified Laterality: bilateral CVA (cerebral vascular accident) I63.40 CVA mechanism: embolism Precerebral and cerebral artery: unspecified cerebral artery Hypernatremia E87.0
[2021-01-13 18:07] LABS: Glucose Point of Care 114 mg/dL (70-110)
--- NOTE | 2021-01-13 19:09 | PC.NURSE ---
Shift summary: Pt remains intubated and on vent. No purposeful movement noted this shift , as previous shifts noted. Pt contiues to paradoxal, agonal breaths. Today his mouth gasps open during breaths. His BP was labile, frequent adjustments made to Fentanyl, Precedex, Propofol and Levophed gtts to maintain a MAP of 65 and an appropriate heart rate. Vent FIO2 increased as his sats hung around 86 earlier today. Pt's right toes became mottled this am, now at shift changed both greater toes are mottled. Pt has several areas of pressure breakdown., See assessments. was called to update on his fluctuation heart rate and BP. She came in to visit and is at bedside presently. Continued the brain injury, no purposeful movement, no reasonable expectation for recovery discussion with . She said her sameera requires her to continue to pray for a miracle and as long as Adin is breathing she will, When it is his time God will decide to stop his body. Shift Note Frequent safety and comfort rounds continue. Orders and/or nursing care completed as indicated. Patient monitored for response to intervention and treatment(s). Education provided includes roles of Dr and nurses, Levophed, Precedex, agonal breathing pattern. trach and PEG tube, comfort care . verbalized understanding but her expectations do not align with the verbalized understanding. . Will continue to monitor.
[2021-01-13] MEDS: atorvastatin 40 mg Tablet OG-TUBE (20:07)
[2021-01-13] MEDS: norepinephrine 8 MG in dextrose 5 % 500 ML 38.1 MG IV (21:41)
[2021-01-13] MEDS: dexmedetomidine 400 MCG in sodium chloride 0.9% (100 ml) 100 ML IV (21:51)
[2021-01-13] MEDS: dexamethasone 10 mg/mL INJ 6 MG IVP (23:32)
[2021-01-14] VITALS (106 sets, daily range): BP systolic 67–126; BP diastolic 37–69; PULSE 85–111; RESP 19–34; TEMP 35.9–36.8; O2SAT 87–98
[2021-01-14 00:26] LABS: Glucose Point of Care 156 mg/dL (70-110)
[2021-01-14] MEDS: ipratropium-albuterol 3 mL Neb INHALATION ×5 (03:17→21:11)
[2021-01-14 05:21] LABS: Glucose Point of Care 147 mg/dL (70-110)
[2021-01-14] MEDS: enoxaparin 100 mg/mL Syringe 90 MG SUBCUT ×2 (05:21→18:21)
[2021-01-14] MEDS: linezolid premix 600 MG/300 ML PREMIX 300 MG IV ×2 (05:21→18:21)
--- NOTE | 2021-01-14 05:38 | PC.NURSE ---
Shift Note Frequent safety and comfort rounds continue. Orders and/or nursing care completed as indicated. Patient monitored for response to intervention and treatment(s). Education provided includes optimal respiratory function and pain control. Patient and/or patient financial representative reinforcement needed. Will continue to monitor.
[2021-01-14] MEDS: pantoprazole 40 mg SDV IVP (09:11)
[2021-01-14] MEDS: clopidogrel 75 mg Tablet PO (09:11)
[2021-01-14 11:59] LABS: Glucose Point of Care 164 mg/dL (70-110)
[2021-01-14] MEDS: norepinephrine 8 MG in dextrose 5 % 500 ML 57.15 MG IV (12:05)
--- NOTE | 2021-01-14 12:42 | PC.SOCIAL ---
IMM not updated IMM not updated. Patient is still intubated and not expected to D/c in the next 24-48 hours.
--- NOTE | 2021-01-14 13:41 | PM.PN ---
Subjective Subjective: Interval history: No acute events overnight. Status Quo. Remains on ventilator. Still not responding meaningfully on decreased sedation. Occasional bradycardia, hypoxia and hypotension in between. Medications: Reviewed: Yes Vitals/I&O/Wt Last Vital Signs Temp 98.2 F 01/14/21 12:15 Pulse 103 H 01/14/21 12:15 Resp 30 H 01/14/21 12:49 BP 111/56 01/14/21 12:15 Pulse Ox 88 L 01/14/21 12:49 01/13/21 01/14/21 01/14/21 22:59 06:59 14:59 Intake Total 587.404 / 1194.659 100 / 1294.659 808.000 / 808.000 Output Total 450 / 450 50 / 500 Balance 137.404 / 744.659 50 / 794.659 808.000 / 808.000 Weight last 48 hrs Weight 92.986 kg Weight 89.993 kg Physical Exam Narrative: EXAM NARRATIVE: General: Patient is intubated and sedated, not able to follow any command Neck: No JVD Respiratory: Auscultation: Bilateral clear to auscultation both anterior and posteriorly, no crackles wheezing or rhonchi Cardiovascular: Regular rate and rhythm, S1-S2 present, no murmur, no peripheral edema. Abdomen: Soft, nontender, nondistended, positive bowel sound Neuro: Not following commands this morning Urinary Catheter Management^: Lange: Cath Placed During This Visit: no Reason for Continuing Indwelling Catheter: Accurate Measurement of Urinary Output in Critically Ill Patients Data : 01/11/21 08:32 01/11/21 08:32 A&P Assessment and plan (1) Encephalopathy: No improvement noted today. Not seem to be appropriately waking up off sedation. Patient has failed multiple sedation vacation trials. So far has not made significant progress with regards to improvement in mental status. Concern regarding significant anoxic/ ischemic brain injury during cardiac arrest. Intermittently gagging. EEG report appreciated. 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 Sounds like plans are for transfer to [facility] for additional assessment and continued care. We will possibly repeat a CT scan of the head without contrast to rule out any hemorrhagic conversion or new strokes. Will discuss with educational technology coordinator. Status: Acute (2) Acute respiratory distress syndrome (ARDS) due to 2019 novel coronavirus: Continues on mechanical ventilatory support. Wean down as tolerating. Continue waking trials. Unfortunately patient continues to fail waking trials. Patient has been intubated for over 11 days. As per goals of care discussion with the family they are possibly waiting for some kind of stem cell therapy which they have been made aware but has to be confirmed with administration before administering the patient. Patient's family is okay with him getting trach and PEG. They have been made aware that if patient gets tracheostomy and is ventilator dependent he might have to be moved to an outpatient facility for long-term care. Status: Acute (3) COVID-19: Completed Remdisivir, continue dexamethasone. Status: Acute (4) NSTEMI (non-ST elevated myocardial infarction): Troponins with significant delta on presentation related to cardiac arrest and cardioversion Status: Acute (5) Sepsis: Tachycardia had resolved. Remains afebrile. Persistent leukocytosis. Procalcitonin 0.4. Antibiotics have been deescalated with imipenem discontinued on 01/04. So far vital signs, metabolic parameters continue to improve. Monitor for any change in condition. Multiple CVA, 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 Blood cultures negative. Continues empirically on gram-positive coverage and for MRSA pneumonia. As a result of COVID-19 pneumonia Weaned off pressor support. Status: Acute Qualifiers: Acute respiratory failure type: with hypoxia Sepsis acute organ dysfunction status: with acute organ dysfunction Sepsis type: sepsis due to unspecified organism Severe sepsis acute organ dysfunction type: acute respiratory failure Severe sepsis shock status: with septic shock Qualified Code(s): A41.9 - Sepsis, unspecified organism; R65.21 - Severe sepsis with septic shock; J96.01 - Acute respiratory failure with hypoxia (6) Cardiac arrest: As above Status: Acute (7) Metabolic acidosis: As a result of cardiac arrest Status: Acute (8) Acute kidney injury: Improving. Again as a result of cardiac arrest, renal hypoperfusion most likely explanation Status: Acute (9) DVT (deep venous thrombosis): b/l le, loose, massive Possible PE R heart failure. Continue anticoagulation. Status: Acute Qualifiers: Affected thrombotic vein of extremity: unspecified vein of extremity Chronicity: unspecified DVT location: lower extremity Laterality: bilateral Qualified Code(s): I82.403 - Acute embolism and thrombosis of unspecified deep veins of lower extremity, bilateral (10) CVA (cerebral vascular accident): Multiple CVA noted on CT of the head. Etiology at this time is not clear. Would suspect hypoperfusion during cardiac arrest, and per discussion with radiology do appear in watershed areas. Embolic etiology not excluded. Septic embolic etiology less likely, pending additional blood culture. So far negative. Continues on gram-positive coverage for now. On anticoagulation. Status: Acute Qualifiers: CVA mechanism: embolism Precerebral and cerebral artery: unspecified cerebral artery Qualified Code(s): I63.40 - Cerebral infarction due to embolism of unspecified cerebral artery (11) Hypernatremia: Resolving. 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 Improvement in urine output. Status: Acute Additional A&P Information Patient's care discussed in detail with his over the phone. We did discuss that unfortunately patient has failed multiple waking trials and has remained on ventilator support for 11 days. We did discuss goals of care with 2 options at this time. One option would be comfort measures and terminal extubation versus trach and PEG for ventilator and nutrition support. We also discussed that if he is trached and pegged at that point patient will have to be moved to an outpatient facility for long-term care. Unfortunately there are no facilities in the 100 mile radius to take care of patients with trach and ventilator. Patient's for now would want to continue the current treatment. She is trying to see if patient can get off cancer therapy from her doctor at [place]. She is requesting if doctors can speak with her outpatient doctor regarding the same. She is requesting confirmation from administration of the treatment can be given to the patient. 01/09: Patient's care discussed with Dr. Mills at family's request regarding possible stem cell therapy. We discussed that at this point patient has multiple strokes and has evidence of anoxic brain injury with failure of multiple waking up trials along with ongoing elevated white count, acute kidney injury with creatinine of 1.3. As per Dr. Mills given all the above patient is not a good candidate for stem cell treatment and has a very poor prognosis, he would convey this to patient's as well. 01/12/21: Patient seen with at bedside. was at bedside and witnessed pt not having purposeful movements off sedation and asked further questions about future prognosis and clinical course after terminal extubation-explained her that difficult to say how many hours or days (as he still has brain stem reflexes) it will take for him to pass away -she would want her children to be at bedside when she opts for terminal extubation and would want to come back on Friday (01/15) with her family-until then requested to keep him comfortable. Refused for trach and PEG and LTAC Case discussed with educational technology coordinator. Appreciate educational technology coordinator care. If and when patient comes out of ICU will resume patient's care. Severely guarded prognosis. Family considering transfer to outside facility. Have been denied beds at outside [place] hospitals. Attestations Medical Necessity Statement*: Requires further hospitalization for ARDS, vent dependant, COVID19, anoxic brain injury, while further GOC discussions are done Time Spent in Patient Care: 16 - 35 minutes Coding Level of Care Code Acute Seat Covers Trimmer for [facility] Fwd Diagnoses Encephalopathy G93.40 Acute respiratory distress syndrome (ARDS) due to 2019 novel coronavirus U07.1; J80 COVID-19 U07.1 NSTEMI (non-ST elevated myocardial infarction) I21.4 Sepsis A41.9; R65.21; J96.01 Acute respiratory failure type: with hypoxia Sepsis acute organ dysfunction status: with acute organ dysfunction Sepsis type: sepsis due to unspecified organism Severe sepsis acute organ dysfunction type: acute respiratory failure Severe sepsis shock status: with septic shock Cardiac arrest I46.9 Metabolic acidosis E87.2 Acute kidney injury N17.9 DVT (deep venous thrombosis) I82.403 Affected thrombotic vein of extremity: unspecified vein of extremity Chronicity: unspecified DVT location: lower extremity Laterality: bilateral CVA (cerebral vascular accident) I63.40 CVA mechanism: embolism Precerebral and cerebral artery: unspecified cerebral artery Hypernatremia E87.0
--- NOTE | 2021-01-14 17:35 | P.PN_ITS ---
Subjective Subjective: Interval history: -Patient seen at bedside today morning -Intermittent episodes of hypertension, tachycardia and increased respiratory secretions -Currently sedated and next goals of care meeting tomorrow Medications: Reviewed: Yes Vitals/I&O/Wt Last Vital Signs Temp 96.7 F L 01/14/21 13:45 Pulse 100 01/14/21 16:15 Resp 31 H 01/14/21 16:15 BP 101/42 01/14/21 16:15 Pulse Ox 90 01/14/21 16:15 01/14/21 01/14/21 01/14/21 06:59 14:59 22:59 Intake Total 100 / 1294.659 808.000 / 808.000 241.935 / 1049.935 Output Total 50 / 500 Balance 50 / 794.659 808.000 / 808.000 241.935 / 1049.935 Weight last 48 hrs Weight 205 lb Weight 198 lb 6.4 oz Physical Exam Narrative: EXAM NARRATIVE: General: lying in bed, sedated and intubated. In respiratory distress HEENT:NCAT, PERRLA, EOMI, has cough reflex Neck: Supple Lungs: Reduced breath sounds bilaterally Heart: s1/s2, RRR Abd: soft, NT, ND, BS + Normoactive Extremities: No edema; Mottled appearing feet; feeble pulses on lower extremities R>L; cold feet R> L; Redness seen on her sacrum, left hip blister - bilateral heal decubiti PERSONNEL PLACEMENT SPECIALIST: sedated and limited PERSONNEL PLACEMENT SPECIALIST exam possible, no purposeful movements off sedation SKIN: no rash Urinary Catheter Management^: Lange: Cath Placed During This Visit: no Reason for Continuing Indwelling Catheter: Accurate Measurement of Urinary Output in Critically Ill Patients Data : 01/11/21 08:32 01/11/21 08:32 Other Labs: Laboratory Results WBC 18.6 10^3/uL (4.0-10.0) H 01/11/21 08:32 RBC 3.40 10^6/uL (4.1-5.3) L 01/11/21 08:32 Hgb 10.1 g/dL (11.7-16.6) L 01/11/21 08:32 Hct 32.4 % (42.0-52.0) L 01/11/21 08:32 MCV 95.3 fL (80-94) H 01/11/21 08:32 MCH 29.7 pg (28.0-34.0) 01/11/21 08:32 MCHC 31.2 g/dL (30.0-36.0) 01/11/21 08:32 RDW 16.2 % (12.1-15.1) H 01/11/21 08:32 Plt Count 163 10^3/cmm (130-400) 01/11/21 08:32 MPV 12.9 fL (7.4-10.4) H 01/11/21 08:32 Neut % (Auto) 91.0 % 01/11/21 08:32 Lymph % (Auto) 1.8 % 01/11/21 08:32 [place] % (Auto) 3.9 % 01/11/21 08:32 Eos % (Auto) 0.4 % 01/11/21 08:32 Baso % (Auto) 0.2 % 01/11/21 08:32 Neut # (Auto) 16.92 10^3/uL (1.8-7.7) H 01/11/21 08:32 Lymph # (Auto) 0.3 10^3/uL (0.8-4.8) L 01/11/21 08:32 [place] # (Auto) 0.7 10^3/uL (0.2-0.9) 01/11/21 08:32 Eos # (Auto) 0.1 10^3/uL (0.0-0.8) 01/11/21 08:32 Baso # (Auto) 0.0 10^3/uL (0.0-0.1) 01/11/21 08:32 Nucleated RBC % (auto) 0 % 01/11/21 08:32 Total Counted 100 (0-100) 01/04/21 05:15 Atypical Lymphs % 1.0 % (0-5) 01/04/21 05:15 Absolute Neutrophils 28.9 10^3/cmm (1.4-6.5) H 01/04/21 05:15 Segmented Neutrophils 71 % 01/04/21 05:15 Abs Segm Neuts (Man) 22.6 10/cmm (1.6-7.1) H 01/04/21 05:15 Band Neutrophils 20.0 % 01/04/21 05:15 Abs Band Neuts (Man) 6.4 10^3/cmm (0.0-1.2) H 01/04/21 05:15 Absolute Lymphocytes 0.3 10^3/cmm (1.2-3.4) L 01/04/21 05:15 Lymphocytes (Manual) 0 % 01/04/21 05:15 Monocytes (Manual) 2.0 % 01/04/21 05:15 Absolute Monocytes 0.6 10^3/cmm (0.1-0.6) 01/04/21 05:15 Eosinophils (Manual) 0 % 01/04/21 05:15 Absolute Eosinophils 0.0 10^3/cmm (0.0-0.7) 01/04/21 05:15 Basophils (Manual) 0.0 % 01/04/21 05:15 Absolute Basophils 0.0 10^3/cmm (0.0-0.2) 01/04/21 05:15 Metamyelocytes 2.0 % 01/04/21 05:15 Myelocytes 4.0 % 01/04/21 05:15 Nucleated RBCs # 0.0 /100WBC 01/11/21 08:32 Platelet Estimate Normal (Normal) 01/04/21 05:15 Giant Platelets 1+ H 12/31/20 05:09 Poikilocytosis 1+ H 01/04/21 05:15 Anisocytosis 1+ H 12/31/20 05:09 APTT 50.7 SECONDS (23.9-36.7) H 01/03/21 05:35 D-Dimer >= 20.00 ug/mIFEU (0-0.59) H 12/29/20 01:12 Specimen Type Arterial 01/11/21 09:37 Sample Site Radial, right 01/11/21 09:37 ABG pH 7.27 (7.35-7.45) L 01/11/21 09:37 ABG pCO2 48.7 mmHg (35-45) H 01/11/21 09:37 ABG pO2 63.6 mmHg (80.0-100.0) L 01/11/21 09:37 ABG HCO3 22.4 mmol/L (22-26) 01/11/21 09:37 ABG O2 Saturation 89.2 01/11/21 09:37 ABG Base Excess -4.7 mmol/L (-2.0-2.0) L 01/11/21 09:37 Oswaldo Test Pos 01/11/21 09:37 A-a O2 Gradient 49.1 mmHg (5-10) H 01/11/21 09:37 Hematocrit 37.3 % (42-52) L 01/11/21 09:37 Hgb O2 Saturation 87.1 % (95-100) L 01/11/21 09:37 Carboxyhemoglobin 1.5 %THgb (0.4-20.1) 01/11/21 09:37 Methemoglobin 0.9 % (0.4-1.5) 01/11/21 09:37 Total Hemoglobin 12.2 g/dL (14-18) L 01/11/21 09:37 Sodium 140.0 mmol/L (131-143) 01/11/21 09:37 Potassium 4.9 mmol/L (3.5-5.0) 01/11/21 09:37 Glucose 109.0 mg/dL (70-115) 01/11/21 09:37 Ionized Calcium 1.1 mmol/L (1.1-1.4) 01/11/21 09:37 O2 Delivery Device Vent 01/11/21 09:37 FiO2 70.0 % 01/11/21 09:37 Tidal Volume 0.50 01/11/21 09:37 PEEP 10.0 cmH20 01/11/21 09:37 Principal Trainer ID [place] 01/11/21 09:37 Sodium 138 mmol/L (136-145) 01/11/21 08:32 Potassium 5.1 mmol/L (3.5-5.1) 01/11/21 08:32 Chloride 107 mmol/L (98-107) 01/11/21 08:32 Carbon Dioxide 21 mmol/L (22-29) L 01/11/21 08:32 Anion Gap 15.1 (5-19) 01/11/21 08:32 BUN 74 mg/dL (8-23) H 01/11/21 08:32 Creatinine 1.8 mg/dL (0.7-1.2) H 01/11/21 08:32 GFR Calculation Not Reportable 01/11/21 08:32 Glucose 100 mg/dL (65-115) 01/11/21 08:32 POC Glucose 164 mg/dL (70-110) H 01/14/21 11:56 Calculated Osmolality 308 mOsm/kg (285-295) H 01/11/21 08:32 Lactic Acid 15.1 mmol/L (0.5-2.2) H* 12/28/20 19:11 Lactate 3.8 mmol/L (0.5-2.2) H 12/29/20 15:30 Calcium 7.3 mg/dL (8.5-10.5) L 01/11/21 08:32 Phosphorus 4.3 mg/dL (2.5-4.5) 12/29/20 11:41 Magnesium 2.5 mg/dL (1.7-2.3) H 01/11/21 08:32 Ferritin > 2414 ng/mL (30-400) H 12/29/20 01:12 Ferritin Cancelled 12/29/20 01:12 Total Bilirubin 0.9 mg/dL (0.15-1.2) 01/11/21 08:32 AST 47 U/L (0-40) H 01/11/21 08:32 ALT 34 U/L (0-41) 01/11/21 08:32 Alkaline Phosphatase 78 IU/L (40-130) 01/11/21 08:32 Lactate Dehydrogenase > 1330 U/L (135-225) H 12/29/20 01:12 Lactate Dehydrogenase Cancelled 12/29/20 01:12 Creatine Kinase 49 U/L (39-308) 01/08/21 03:17 Troponin T Baseline 99 ng/L (0-15) H 12/28/20 19:11 Troponin T 120 Minute 238.1 ng/L (0-15) H 12/28/20 21:20 Delta Troponin T 139.1 ABS# (0-10) H* 12/28/20 21:20 Troponin T Hi Sens 6Hr 273.1 ng/L (0-15) H 12/29/20 01:23 Troponin T Hi Sens 6Hr Delta 174.1 ng/L (0-12) H* 12/29/20 01:23 C-Reactive Protein 243.4 mg/L (0.0-4.9) H 12/29/20 01:12 C-Reactive Protein Cancelled 12/29/20 01:12 NT-Pro-B Natriuret Pep 2188 pg/mL (0-450) H 12/28/20 19:11 Total Protein 5.2 g/dL (6.6-8.7) L 01/11/21 08:32 Albumin 2.2 g/dL (3.5-5.2) L 01/11/21 08:32 Globulin 3.0 g/dL (1.3-4.6) 01/11/21 08:32 Procalcitonin 0.43 ng/mL (0-0.5) 01/05/21 05:15 Urine Color Yellow (Yellow) 12/28/20 19:30 Urine Appearance Clear (CLEAR) 12/28/20 19:30 Urine pH 5 (5-7) 12/28/20 19:30 Ur Specific [place] 1.010 (1.005-1.030) 12/28/20 19:30 Urine Protein 1+ (Negative) H 12/28/20 19:30 Urine Glucose (UA) Norm (Normal) 12/28/20 19:30 Urine Ketones 1+ (Negative) H 12/28/20 19:30 Urine Blood 2+ (Negative) H 12/28/20 19:30 Urine Nitrate Negative (Negative) 12/28/20 19:30 Urine Bilirubin Neg (Negative) 12/28/20 19:30 Urine Urobilinogen Norm mg/dL (Negative) 12/28/20 19:30 Ur Leukocyte Esterase Negative (Negative) 12/28/20 19:30 Urine RBC 0-4 /hpf (0-2) H 12/28/20 19:30 Urine WBC 0-4 /hpf (0-5) H 12/28/20 19:30 Ur Squamous Epith Cells 0-4 /hpf (0-5) H 12/28/20 19:30 Ur Transition Epith Cell 0-4 /hpf 12/28/20 19:30 Amorphous Sediment 3+ /hpf 12/28/20 19:30 Urine Bacteria 1+ /hpf (NONE) H 12/28/20 19:30 Urine Mucus Trace /hpf 12/28/20 19:30 Vancomycin Trough 20.2 ug/mL (10-15) H 01/03/21 11:[address] 01/01/21 13:16 IMPRESSION: 1. Multiple cortical based low-attenuation lesions involving the bilateral parietal and occipital lobes and right greater than left cerebellum suspicious for multiple subacute infarcts. 2. One or 2 additional similar lesions in the right frontal lobe. 3. Mild posterior fossa mass effect with mild mass effect on the fourth ventricle and crowding at the foramen magnum. 4. Findings are suspicious for multiple subacute embolic versus watershed infarcts. PRESS is an additional consideration. Recommend correlation for hypertension Notified Dr. Novak at 01/01/2021 5:05 PM. Abdomen/Pelvis CT 01/07/21 09:03 IMPRESSION: 1. No acute abdominal/pelvic findings. 2. Consolidation at both lung bases suggestive of multifocal pneumonia. Radiation Dose CTDIVOL = (mGy): DLP = 1679.2 (mGy-cm) Chest X-Ray 01/10/21 05:03 IMPRESSION: Diffuse bilateral pulmonary infiltrates. No significant change since 01/08/2021. A&P Assessment and plan (1) Hyperkalemia: Status: Acute (2) CVA (cerebral vascular accident): Status: Acute Qualifiers: CVA mechanism: embolism Precerebral and cerebral artery: unspecified cerebral artery Qualified Code(s): I63.40 - Cerebral infarction due to embolism of unspecified cerebral artery (3) MRSA pneumonia: Status: Acute Qualifiers: Laterality: unspecified laterality Lung location: unspecified part of lung Qualified Code(s): J15.212 - Pneumonia due to Methicillin resistant Staphylococcus aureus (4) Acute right-sided heart failure: Status: Acute (5) DVT (deep venous thrombosis): Status: Acute Qualifiers: DVT location: lower extremity Affected thrombotic vein of extremity: unspecified vein of extremity Chronicity: unspecified Laterality: bilateral Qualified Code(s): I82.403 - Acute embolism and thrombosis of unspecified deep veins of lower extremity, bilateral (6) Acute respiratory distress syndrome (ARDS) due to 2019 novel coronavirus: Status: Acute (7) Acute kidney injury: Status: Acute (8) Sepsis with acute hypoxic respiratory failure: Status: Acute Qualifiers: Sepsis type: sepsis due to unspecified organism Severe sepsis shock status: with septic shock Qualified Code(s): A41.9 - Sepsis, unspecified organism; R65.21 - Severe sepsis with septic shock; J96.01 - Acute respiratory failure with hypoxia (9) NSTEMI (non-ST elevated myocardial infarction): Status: Acute (10) Cardiac arrest: Status: Acute (11) PAD (peripheral artery disease): Status: Acute (12) Counseling regarding advanced care planning and goals of care: Status: Acute # AMS due to Anoxic brain injury & multiple strokes including evidence of increased pressure in the posterior fossa on CT # Acute hypoxic respiratory failure secondary to ARDS due to COVID 19 PNA and PE ; MRSA Pneumonia # s/p Cardiac arrest & Acute right-sided heart failure likely due to hypoxia due to COVID ARDS Vs PE #Bilateral DVT with clots in transit on B/L LE Doppler # Resting TAMMY of 0.47 on the right side and 0.53 on the left side - Severe B/L PAD #Hyperkalemia - ? heparin induced hypoaldosteronism # Hypernatremia due to CDI due central causes #MRSA pneumonia-on linezolid -Patient has spontaneous breaths, has cough reflexes-but does not follow commands or purposeful movements -Currently on fentanyl, propofol, Precedex no meaningful activity on awakening trial -With multiple strokes as evidenced on CT brain s/p cardiac arrest-not sure how much meaningful neurological recovery he will have -EEG The lack of cerebral activity would not portend a good prognosis, but with the amount of spontaneous movement this is not electrocerebral silence. - S/P 5 days remdesivir & 10 days dexamethasone - CMV 400/60%/8 PEEP this morning -Increased respiratory secretions-started on glycopyrrolate 0.1 IM every 4 hour -Morphine 2 mg IV every hour as needed for respiratory distress - duoneb, dexamethasone - it is possible that the patient had embolization of the DVT causing PE and acute RV dysfunction & cardiac arrest - On Lovenox 90 mg q 12hr for b/l DVT -Bilateral lower extremity arterial Doppler suggestive of severe PAD in both legs -Improving leucocytosis: low procal, CT abd/pelvis: no acute abdominal/pelvic findings - Sputum cx - MRSA ; needs to be on contact isolation; - Currently on Linezolid started 01/04/2021 - moderately controlled sugars - on scale coverge - GI PPX - ppI -High residuals-held tube feeding - Ongoing goals of care discussion The family wants to transfer patient to [place] but due to his poor prognosis so far none of the facilities accepted. Also was trying to pursue stem cell transplant hoping will be a miracle and patient becomes completely functional, Dr Hernandez who performs these stem cell transplants-reported they are not FDA approved and told patient is not a eligible candidate after learning that patient had multiple strokes and had cardiac arrest. Patient has poor mentation despite turning off sedation possible due to multiple watershed infarcts. initially agreeable for trach and PEG and transfer to long-term facility that manages ventilated patients on trach. As per transplant case manager patient does not qualify for long-term acute care facility admission due to his Medicare. also does not want patient to be on trach. On 01/11/2021: Ethics committee notified; had a meeting with its ethics committee, care team and patient and son-agreement was made that will stay overnight at patient bedside and see how patient does and will make decision tomorrow morning 01/12/21: was at bedside and witnessed pt not having purposeful movements off sedation and asked further questions about future prognosis and clinical course after terminal extubation-explained her that difficult to say how many hours or days (as he still has brain stem reflexes) it will take for him to pass away - she would want her children to be at bedside when she opts for terminal extubation and would want to come back on Friday (01/15) with her family-until then requested to keep him comfortable. Refused for trach and PEG and LTACH . 01/13/21: Awaiting all the family members to arrive on 01/15/2021-to make decision about terminal extubation and comfort care; 01/14/21: Awaiting all the family members to arrive on 01/15/2021-to make decision about terminal extubation and comfort care; Recommendations conveyed to Hospitalist, RN, RT covering the pt Attestations Medical Necessity Statement*: AMS due to multiple infarcts in covid 19 pt - ventilator dependent and on going goals of care discussion Time Spent in Patient Care: 16 - 35 minutes (>than 50% of time spent in counselling and/or direct pt care on unit) . Critical Care Time: The high probability of a clinically significant, sudden or life threatening deterioration of the patient's [neurological, respiratory, cardiac, vascular, renal] system(s) required my full and direct attention, intervention and personal management. The critical care time is as shown. This time is in addition to time spent performing any reported procedures but includes the following: [x] Data and vital sign review and interpretation [x] Patient assessment, examination and intervention [x] Documentation [x] Medication orders and management Critical Care Time (min): 25 Coding Level of Care Code Acute Disulfurizer Tender for Chg Fwd Diagnoses Hyperkalemia E87.5 CVA (cerebral vascular accident) I63.40 CVA mechanism: embolism Precerebral and cerebral artery: unspecified cerebral artery MRSA pneumonia J15.212 Laterality: unspecified laterality Lung location: unspecified part of lung Acute right-sided heart failure I50.811 DVT (deep venous thrombosis) I82.403 DVT location: lower extremity Affected thrombotic vein of extremity: unspecified vein of extremity Chronicity: unspecified Laterality: bilateral Acute respiratory distress syndrome (ARDS) due to 2019 novel coronavirus U07.1; J80 Acute kidney injury N17.9 Sepsis with acute hypoxic respiratory failure A41.9; R65.21; J96.01 Sepsis type: sepsis due to unspecified organism Severe sepsis shock status: with septic shock NSTEMI (non-ST elevated myocardial infarction) I21.4 Cardiac arrest I46.9 PAD (peripheral artery disease) I73.9 Counseling regarding advanced care planning and goals of care Z71.89
[2021-01-14 18:13] LABS: Glucose Point of Care 154 mg/dL (70-110)
--- NOTE | 2021-01-14 19:04 | PC.NURSE ---
Shift summary: Pt has progressively declined. Levophed up to 18mcg/min. ath this time. No change in Precedex or Fentanyl gtts: 30mcg/hr and 0.3 mcg/kg/hr respectively. His oxygen needs increased to 90%. He remains intubated, on vent with agonal respirations. He had foam pooling in his mouth, received an order for Ropinol. He is edematous. No purposeful movement continues. His gag reflex is still present but has lessened. Pupils are sluggish. Urine brown, only 25 ml output. in to visit for a few hours today. She was updated on his continued decline. She is waiting on her son to get back. She is suppose to call in the morning with a time that she and/or him can be here with their decision. Shift Note Frequent safety and comfort rounds continue. Orders and/or nursing care completed as indicated. Patient monitored for response to intervention and treatment(s). Education provided includes comfort care vs. trach, repositioning,. verbalized understanding. Will continue to monitor.
[2021-01-14] MEDS: norepinephrine 8 MG in dextrose 5 % 500 ML 76.2 MG IV (19:57)
[2021-01-14] MEDS: dexmedetomidine 400 MCG in sodium chloride 0.9% (100 ml) 100 ML IV (19:57)
[2021-01-14] MEDS: atorvastatin 40 mg Tablet OG-TUBE (20:27)
[2021-01-14] MEDS: dexamethasone 10 mg/mL INJ 6 MG IVP (22:41)
[2021-01-15] VITALS (21 sets, daily range): BP systolic 72–114; BP diastolic 40–65; PULSE 81–92; RESP 17–20; O2SAT 90–95
[2021-01-15 00:45] LABS: Glucose Point of Care 171 mg/dL (70-110)
[2021-01-15] MEDS: ipratropium-albuterol 3 mL Neb INHALATION (02:37)
[2021-01-15] MEDS: norepinephrine 8 MG in dextrose 5 % 500 ML 76.2 MG IV (03:23)
[2021-01-15 04:40] LABS: ABG PCO2 57.1 mmHg (35-45); Arterial Blood Gas Hematocrit 28.8 % (42-52); Base Excess ABG -15.6 mmol/L (-2.0-2.0); Blood Gas Allen Test Pos; Blood Gas Sample Type Arterial; HCO3 ABG 14.8 mmol/L (22-26); PO2 ABG 87.7 mmHg (80.0-100.0)
[2021-01-15 04:42] LABS: Blood Gas Sample Site Radial, right; Oxygen Device VENT
[2021-01-15 05:25] LABS: ABG PH Result 7.02 (7.35-7.45)
--- NOTE | 2021-01-15 05:31 | PC.NURSE ---
CODE EVENT: 0435 patient's heart rate bradyed down to 20's. Upon entering room patient was symptomatic. Called Dr. Colon and she gave verbal orders to administer Atropine. Dr. Colon arrived bedside at 0455. 0444 Atropine 1mg in, heart rate 40 BP 74/43, pulse up to 60 0448 pulse 38 BP 65/29 81% O2 wide complex 0451 pulse 41 BP 61/25 0453 Vtach 54/26 0455-pulse 36 150mg amiodorone ordered and compressions started 0456 amiodorone 0457 epi in 0458 pulse check, asystole 0459 f/s 189, blood in ambu bag and et tube 0500 epi in, pulse check, 0 pulse, asystole 0502 pulse check, ultrasound of heart, PEA [address] Colon and Dr. Triplett.
--- NOTE | 2021-01-15 05:38 | PM.EVENT ---
Event Note Event Note: Called at ~4:40 am that patient has started to develop bradycardia with HR in 30s-40s. BP 74/43. He was already on pressor support with 20 levophed. Atropine 1mg IVP given-->HR picked up to 60s. by 4:48am, developed bradycardia again at HR 38 BP 65/29 with pulse for which atropine was repeated. IVF bolus started. Rhythm changed to V tach briefly followed by ventricular rhythm at 36bpm, BP 54/26, 150mg amiodarone additionally given. At 4:55AM, patient had pulseless arrest. Chest compressions started, code blue called, epi administered. Patient noted to have hemoptysis with significant bright red blood in the ETT. Overall 3 rounds of chest compressions were performed, epi administered x2, no pulse noted on pulse checks x 3. At 5:03 am, Dr. Triplett from ER checked bedside echo, no cardiac contractility noted, aystole on monitor, pupils fixed and dilated, no corneal or gag relex noted. Patient declared at 5:03 AM on 01/15/21. Nany Chavez was called by me and updated on patient's clinical deterioration and imminent cardiac arrest when bradycardia started and then updated again after code to inform regarding patient's . She was tearful, stated that she was hoping for a miracle today.
--- NOTE | 2021-01-15 06:14 | PC.NURSE ---
Addendum entered by Shavon Ayala RN 01/15/21 06:15: witnessed waste Original Note: All narcotics hanging, wasted and witnessed by Rosa Ayala RN.
[2021-01-15 06:15] LABS: Glucose Point of Care 189 mg/dL (70-110)
--- NOTE | 2021-01-15 06:50 | PC.NURSE ---
[facility] declined due to recent Covid Dx per Shelly, coordinator. Pt placed in body bag and morgue time of 0600. Pt Nany stated that she was unsure of home placement, pt asked how long pt can stay in morgue for Im still waiting for a miracle! Pt asked if 4 days would be too long it took Hans 4 days to rise from the . Similar comments made to physician. Pt educated on limited morgue space and the necessity to picl a home, stated that she has to speak with her children before decision was made. Physician notified.
--- NOTE | 2021-01-16 16:19 | P.DES_ITS ---
Discharge Providers DDS Date of Admission: 12/28/20 21:06 Date Summary Completed: 01/27/21 Attending Provider at Admission: Jamaica Colon MD Time of : 05:03 Attending Provider at Discharge: Blas Esteves MD DS Diagnoses Hospital Diagnoses (1) Encephalopathy: (2) Acute respiratory distress syndrome (ARDS) due to 2019 novel coronavirus: (3) COVID-19: (4) NSTEMI (non-ST elevated myocardial infarction): (5) Sepsis: Qualifiers: Sepsis type: sepsis due to unspecified organism Sepsis acute organ dysfunction status: with acute organ dysfunction Severe sepsis acute organ dysfunction type: acute respiratory failure Acute respiratory failure type: with hypoxia Severe sepsis shock status: with septic shock Qualified Code(s): A41.9 - Sepsis, unspecified organism; R65.21 - Severe sepsis with septic shock; J96.01 - Acute respiratory failure with hypoxia (6) Cardiac arrest: (7) Metabolic acidosis: (8) Acute kidney injury: (9) DVT (deep venous thrombosis): Qualifiers: DVT location: lower extremity Affected thrombotic vein of extremity: unspecified vein of extremity Chronicity: unspecified Laterality: bilateral Qualified Code(s): I82.403 - Acute embolism and thrombosis of unspecified deep veins of lower extremity, bilateral (10) CVA (cerebral vascular accident): Qualifiers: CVA mechanism: embolism Precerebral and cerebral artery: unspecified cerebral artery Qualified Code(s): I63.40 - Cerebral infarction due to embolism of unspecified cerebral artery (11) Hypernatremia: Reason for Visit Reason for Visit: PT PASSED OUT/UNREPONSIVE Summary Date and Time of Date of : 01/15/21 Time of : 05:03 Summary Summary: Adin Chavez is a 80 year old male with past medical history of obstructive sleep apnea, not vaccinated for COVID-19 not currently consistent with CPAP use, diagnosed with COVID-19 on December 25 after about a week of fatigue and constitutional symptoms for a week, had a new oxygen requirement of 3 L/min. Also gave a history of recent travel. CTA ruled out PE but showed Patchy bilateral airspace disease consistent with COVID-19 pneumonia. he was placed on supplemental oxygen and discharged home with steroids and antibiotics. Today he was brought back to the ER on 12/28/2020 due to worsening shortness of breath and oxygen saturation at home dropped down to the 70s. By the time patient was brought into the emergency room he was unresponsive with O2 sat in the 50s. He was pulseless upon arrival, he was given epinephrine and had return of pulses but then subsequently developed V. tach after which she was cardioverted x2. Patient was admitted to the ICU, ventilated for management of post cardiac arrest likely due to severe ARDS from COVID-19 pneumonia. Patient has a prolonged hospitalization. As per the chart review patient's hospitalization was complicated by bilateral lower limb DVT, multiple CVA noted on CT head which was thought most likely secondary to hypoperfusion during cardiac arrest, him developing sepsis. Patient was started on treatment with broad-spectrum antibiotics, anticoagulation, IV hydration, 5-day protocol treatment for remdesivir, dexamethasone and inhalation treatment. Patient continues to require high oxygen supplementation and failed multiple waking up trials. Many goals of care discussion was done with the family regarding high chances of anoxic brain injury, nonpurposeful brain activity which was confirmed by EEG. Patient's family wanted him to be transferred to [facility] for further management. Multiple trials were done for patient to be transferred to [facility] as per family's request but he was declined given his clinical condition. Family also wanted patient to get stem cell therapy for which multiple conversations were done between the physicians and Dr. Hernandez who family had wanted to get stem cell therapy from. Dr. Hernandez stated given his history of anoxic brain injury and se verity of his illness he would probably not improve with the therapy and should not be getting the one. Because of all the above ethics committee was also involved in patient's care. Eventually on January 15 patient had a bradycardic event for which CPR was done. Patient did not survive the CODE BLUE event and was declared on January 15 at 5:03 AM. Additional Data Confirmation of as documented by pronouncing clinician: no pulse, no respirations and no heart sounds Family: contacted Additional persons at bedside: nursing staff Attending/PCP notified?: I am attending Was code activated?: Yes Autopsy requested?: No Advance directives?: No (none documented) Hospice patient?: No Discharge Plan Discharge Patient Disposition: Condition: Stable Probable Cause of Probable cause of : COVID-19 DS Attestations Time Spent in /Discharge Care*: greater than 30 min Quality - AMI: AMI present?: No Quality - Stroke: CVA present?: Yes Quality - VTE: VTE present?: Yes Deep Vein Thrombosis/Pulmonary Embolism Present on Admission: No Coding Level of Care Code Acute Linoleum Tile Floor Layer for [facility] Fwd Diagnoses Encephalopathy G93.40 Acute respiratory distress syndrome (ARDS) due to 2019 novel coronavirus U07.1; J80 COVID-19 U07.1 NSTEMI (non-ST elevated myocardial infarction) I21.4 Sepsis A41.9; R65.21; J96.01 Sepsis type: sepsis due to unspecified organism Sepsis acute organ dysfunction status: with acute organ dysfunction Severe sepsis acute organ dysfunction type: acute respiratory failure Acute respiratory failure type: with hypoxia Severe sepsis shock status: with septic shock Cardiac arrest I46.9 Metabolic acidosis E87.2 Acute kidney injury N17.9 DVT (deep venous thrombosis) I82.403 DVT location: lower extremity Affected thrombotic vein of extremity: unspecified vein of extremity Chronicity: unspecified Laterality: bilateral CVA (cerebral vascular accident) I63.40 CVA mechanism: embolism Precerebral and cerebral artery: unspecified cerebral artery Hypernatremia E87.0
== END 2021-01-15 05:03 | disposition expired | DRG 870 ==
LOC: ER 21:22 → ICU 21:34
PROVIDERS: Family Medicine; Internal Medicine; Internal Medicine Critical Care Medicine; Internal Medicine Pulmonary Disease; Admitting Provider Student in an Organized Health Care Education/Training Program; Emergency Provider Emergency Medicine; Visit Provider Student in an Organized Health Care Education/Training Program
DX: A41.89 Other specified sepsis (principal); U07.1 COVID-19; J12.82 Pneumonia due to coronavirus disease 2019; J15.212 Pneumonia due to Methicillin resistant Staphylococcus aureus; R65.21 Severe sepsis with septic shock; I21.4 Non-ST elevation (NSTEMI) myocardial infarction; I63.40 Cerebral infarction due to embolism of unspecified cerebral artery; J80 Acute respiratory distress syndrome; I47.2 Ventricular tachycardia; N17.9 Acute kidney failure, unspecified; E87.2 Acidosis; I82.413 Acute embolism and thrombosis of femoral vein, bilateral; I82.491 Acute embolism and thrombosis of other specified deep vein of right lower extremity; E87.0 Hyperosmolality and hypernatremia; G93.1 Anoxic brain damage, not elsewhere classified; G93.49 Other encephalopathy; I46.8 Cardiac arrest due to other underlying condition; I95.9 Hypotension, unspecified
CPT/HCPCS: 31500; 32551; 36415; 36416; 36556; 36592; 36600; 70450; 71045; 74176; 80048; 80051; 80053; 80202; 81001; 82330; 82550; 82728; 82803; 82805; 82962; 83605; 83615; 83735; 83880; 84100; 84145; 84484; 85007; 85025; 85049; 85378; 85730; 86140; 86403; 87040; 87070; 87077; 87186; 87449; 93005; 93306; 93925; 93970; 94002; 94003; 94640; 94664; 94799; 96365; 96366; 96367; 96368; 96372; 99291; 99292; C9113; J0171; J0282; J0360; J0461; J0692; J0743; J1100; J1644; J1650; J1815; J1940; J2001; J2020; J2543; J2704; J3010; J3370; J3475; J3480; J3490; J7030; J7060; J7626; P9047; Q9967